=== PATIENT | male | born 1950 | race Caucasian/White ===

== ENCOUNTER 2019-04-06 10:26 | Outpatient (CLI) | payer MEDICARE, OTHER, BC, SELFPAY ==
[2019-04-06 11:12] LABS: Alanine Aminotransferase 23 U/L (4-50); Alkaline Phosphatase 87 U/L (38-126); Aspartate Amino Transferase 28 U/L (17-59); Bilirubin,Total 0.6 mg/dL (0.2-1.3); Blood Urea Nitrogen 14 mg/dL (9-20); Calcium 8.9 mg/dL (8.4-10.2); Carbon Dioxide 28 mmol/L (22-30); Chloride 103 mmol/L (98-107); Cholesterol 117 mg/dL (0-200); Estimated Glomerular Filt Rate 60; Glucose 101 mg/dL (75-110); HDL Direct 42 mg/dL; Potassium 4.2 mmol/L (3.4-5.0); Sodium 139 mmol/L (137-145); Triglycerides 92 mg/dL (<150)
[2019-04-06 11:13] LABS: Hemoglobin A1C 5.7 % (<5.7)
[2019-04-06 11:23] LABS: LDL Cholesterol Direct 66 mg/dL
== END 2019-04-06 10:27 | disposition home or self-care (01) ==
PROVIDERS: PCP Internal Medicine; Visit Provider Nurse Practitioner
DX: E78.2 Mixed hyperlipidemia (principal); R73.03 Prediabetes
CPT/HCPCS: 36415; 80048; 80061; 80076; 83036

== ENCOUNTER 2019-04-08 15:48 | Outpatient (CLI) | payer MEDICARE, OTHER, SELFPAY ==
[2019-04-08 16:35] LABS: Alanine Aminotransferase 21 U/L (4-50); Albumin Level 3.9 g/dL (3.5-5.1); Alkaline Phosphatase 88 U/L (38-126); Aspartate Amino Transferase 24 U/L (17-59); Bilirubin,Total 0.5 mg/dL (0.2-1.3); Blood Urea Nitrogen 11 mg/dL (9-20); Calcium 8.8 mg/dL (8.4-10.2); Carbon Dioxide 23 mmol/L (22-30); Chloride 106 mmol/L (98-107); Estimated Glomerular Filt Rate > 60; Glucose 95 mg/dL (75-110); Potassium 3.9 mmol/L (3.4-5.0); Sodium 138 mmol/L (137-145)
== END 2019-04-08 15:49 | disposition home or self-care (01) ==
PROVIDERS: PCP Internal Medicine; Visit Provider Internal Medicine
DX: I10 Essential (primary) hypertension (principal); Z79.899 Other long term (current) drug therapy
CPT/HCPCS: 36415; 80053

== ENCOUNTER 2019-05-13 13:21 | Inpatient (IN) | payer MEDICARE, OTHER, SELFPAY ==
[2019-05-13] VITALS (11 sets, daily range): BP systolic 121–177; BP diastolic 72–81; PULSE 79–104; RESP 16–24; TEMP 37.2–37.3; O2SAT 95–99; BMI 50.5
--- NOTE | ~2019-05-13 | US_ITS ---
EXAMINATION: US right upper quadrant EXAM DATE: 05/13/2019 15:12 INDICATION: Epigastric pain. TECHNIQUE: Multiple grayscale and Doppler images of the abdomen right upper quadrant were obtained (b y a technologist who performed the scan) and subsequently reviewed. There is no prior study for gail morales. FINDINGS: Pancreas poorly visualized from overlying bowel gas. Liver also suboptimally visualized. The liver h as normal echogenicity and contour. There are no focal liver lesions identified. There is no evide nce of intrahepatic biliary duct dilation. Portal venous flow was seen in the hepatopedal, normal di rection and has normal Doppler waveform. There are 2 anechoic lesions consistent with cysts in the r ight kidney, larger measuring 4.4 cm. No right-sided hydronephrosis. Common bile duct measures 4 mm, which is normal. The gallbladder wall is normal in thickness, with ex pected amount of distention. No sonographic evidence of pericholecystic fluid. There is no cholelit hiases. Technologist performing exam reports patient did not demonstrate sonographic Rodriguez's sign. Please note that this sign is less reliable in patients who have received pain medication. IMPRESSION: 1. Some limitations, but sonographically normal gallbladder. Reviewed, dictated and finalized at location A. TED CIRCUIT BOARD PCB DESIGNER
--- NOTE | ~2019-05-13 | XR_ITS ---
EXAMINATION: XR chest 2V DATE: 05/13/2019 14:26 INDICATION: Midsternal chest pain. TECHNIQUE: PA and lateral views of the chest were obtained. COMPARISON: Chest radiograph dated 05/24/2017 FINDINGS: Eventration along the anterior right hemidiaphragm. No focal airspace opacities, pulmonary edema, ple ural effusion or pneumothorax. The cardiomediastinal silhouette is normal. Median sternotomy wires an d mediastinal surgical clips are seen, likely from prior coronary artery bypass grafting. There are b ridging osteophytes at multiple levels in the spine, consistent with diffuse idiopathic skeletal hype rostosis (DISH). IMPRESSION: 1. No acute cardiopulmonary disease. Reviewed, dictated and finalized at location A. ICIAN ASSISTANT
--- NOTE | 2019-05-13 13:32 | ECG_ITS ---
Measurements Intervals [place] Rate: 98 P: 63 OK: 173 QRS: -27 QRSD: 105 T: 66 QT: 338 QTc: 433 Interpretive Statements SINUS RHYTHM DELAYED PRECORDIAL R/S TRANSITION BORDERLINE ECG Electronically Signed On 05-13-2019 13:39:10 POULTRY FARM MANAGER by Clemente Cortes D.O.
--- NOTE | 2019-05-13 13:57 | ED.CHESTPAIN ---
HPI - Chest Pain General Chief Complaint: Chest Pain Stated Complaint: Chest pain Time Seen by Provider: 05/13/19 13:44 Source: patient Mode of arrival: ambulatory Limitations: no limitations History of Present Illness HPI narrative: A 69 y/o male presents to the ED with c/o diffuse CP. Pt states that today he started to have CP while he was sitting at a restaurant. He notes that the CP gradually came on and felt similar to previous episodes. Pt took nitroglycerine x2 with some relief and describes the CP as a tightness. He adds that he recently started a new medication yesterday and had a HERRING this morning. He called his PCP and they told him the HERRING is expected with the new medication but the CP is not, and the PCP advised him to be evaluated. Pt denies sweats, chills, fever, N/V/D, SOB, and ABD pain. MD complaint: chest pain (Diffuse) Timing of current episode: constant Prior episodes: Yes Onset: during rest Pain location: other (Diffuse) Severity: similar to previous episodes Quality: tightness Relieving factors: nitroglycerin Context: new medications Associated symptoms: other (HERRING) Treatment prior to arrival: nitroglycerin Related Data Home Medications Medication Instructions Recorded Confirmed alprazolam 0.25 mg tablet 0.25 mg PO DAILY 01/31/19 aspirin 81 mg tablet,delayed 81 mg PO DAILY 03/04/19 release calcium carbonate 600 mg calcium 600 mg PO DAILY 03/04/19 (1,500 mg) tablet cyclobenzaprine 10 mg tablet 10 mg PO TID 03/04/19 furosemide 20 mg tablet 20 mg PO QAM 03/04/19 hydrocodone 10 mg-acetaminophen 1 tablet PO Q8H PRN 03/04/19 325 mg tablet ipratropium 0.5 mg-albuterol 3 mg 3 ml INHALATION Q6H PRN 03/04/19 (2.5 mg base)/3 mL nebulization soln multivitamin 1 tablet PO DAILY 03/04/19 omega-3 fatty acids 1,000 mg 1,000 mg PO DAILY 03/04/19 capsule potassium chloride 10 mEq 10 meq PO DAILY 03/04/19 tablet,extended release pseudoephedrine HCl 30 mg tablet 30 mg PO Q4-6H PRN 03/04/19 Allergies Allergy/AdvReac Type Severity Reaction Status Date / Time chloramphenicol Allergy Severe EYE Verified 05/12/19 09:20 irritation nickel Allergy Unknown Unknown Verified 05/12/19 09:20 Review of Systems Review of Systems: All systems reviewed & are unremarkable except as noted in HPI and below Constitutional: Constitutional: Denies chills, Denies fever(s) and Denies other (Sweats) Cardiovascular: Cardiovascular: Reports chest pain (Diffuse) Respiratory: Respiratory: Denies dyspnea Gastrointestinal: Gastrointestinal: Denies abdominal pain, Denies diarrhea, Denies nausea and Denies vomiting Neurologic: Reports headache(s) [facility] Past Medical History Medical History (Updated 05/13/19 @ 18:57 by Hao Lawson MD) Acute recurrent maxillary sinusitis Allergic rhinitis Anxiety and depression Arthritis Chronic low back pain Coronary artery disease involving coronary bypass graft of [place] heart DDD (degenerative disc disease) Dependence on other enabling machines and devices Essential (primary) hypertension Former smoker Gastroesophageal reflux disease Grade II internal hemorrhoids Hearing loss Heart attack Hemorrhoid Hiatal hernia Hypersomnia Hypoxia Insomnia Left knee DJD Mixed hyperlipidemia Morbid obesity On keno terminal operator drug therapy PAULINO (obstructive sleep apnea) Painful total knee replacement, right Pre-diabetes Primary osteoarthritis of left knee ST elevation myocardial infarction (STEMI) Surgical History Surgical History (Updated 05/13/19 @ 14:01 by Elizabeth Mejia) History of bladder surgery History of cardiac catheterization History of spinal surgery History of total right knee replacement Family History Family History Father Family history of diabetes mellitus in first degree relative Family history of heart disease in male family member before age 55 Diabetes mellitus Family history of cardiovascular disease
[2019-05-13 14:06] LABS: Basophils Percent Auto 0.1 % (0.2-1.2); Hematocrit 40.3 % (42.0-52.0); Hemoglobin 13.3 g/dL (14.0-18.0); Immature Granulocyte Percent A 0.6 % (0-0.5); Lymphocytes Absolute Auto 1.06 K/mm3 (0.9-3.2); Mean Corpuscular Hemoglobin 30.6 pg (26-34); Mean Corpuscular Volume 92.9 fl (80-100); Mean Platelet Volume 10.8 fl (7.4-10.4); Monocytes Absolute Auto 0.7 K/mm3 (0.1-0.6); Monocytes Percent Auto 4.2 % (2.6-8.5); Neutrophils Absolute Auto 15.7 K/mm3 (1.3-6.7); Neutrophils Percent Auto 89.1 % (45.5-73.1); Platelet Count Result 261 k/mm3 (150-375); Red Blood Count 4.34 M/mm3 (4.6-6.20); Red Cell Distribution Width 13.5 % (11.5-14.5); White Blood Count 17.6 K/mm3 (4.5-10.0)
[2019-05-13] MEDS: ASPIRIN 81 MG CHEWABLE TABLET 324 MG PO (14:13)
[2019-05-13] MEDS: NITROGLYCERIN OINTMENT 1 INCH DOSE (14:13)
[2019-05-13] MEDS: NITROGLYCERIN SL 0.4 MG TABLET (14:13)
[2019-05-13 14:17] LABS: Blood Urea Nitrogen 14 mg/dL (9-20); Calcium 9.5 mg/dL (8.4-10.2); Carbon Dioxide 23 mmol/L (22-30); Chloride 104 mmol/L (98-107); Estimated CRCL calculation 80 ml/min; Estimated Glomerular Filt Rate > 60; Glucose 232 mg/dL (75-110); Potassium 3.6 mmol/L (3.4-5.0); Sodium 136 mmol/L (137-145)
[2019-05-13 14:20] LABS: Partial Thromboplastin Time 27.8 SECONDS (22.3-36.8); Prothrombin Time 13.2 Seconds (11.1-14.7)
[2019-05-13 14:29] LABS: Troponin I < 0.012 ng/mL (0.000-0.034)
--- NOTE | 2019-05-13 14:53 | PC.NURSE ---
Called lab to add on Hepatic panel to existing blood tubes.
[2019-05-13 15:05] LABS: Alanine Aminotransferase 25 U/L (4-50); Albumin Level 4.3 g/dL (3.5-5.1); Alkaline Phosphatase 103 U/L (38-126); Aspartate Amino Transferase 31 U/L (17-59); Bilirubin,Total 0.6 mg/dL (0.2-1.3)
[2019-05-13 17:20] LABS: Troponin I 0.018 ng/mL (0.000-0.034)
--- NOTE | 2019-05-13 20:19 | PC.NURSE ---
PT DISCHARGED FROM ER TO IMU AT 2014.
[2019-05-13 20:41] LABS: Troponin I 0.031 ng/mL (0.000-0.034)
--- NOTE | 2019-05-13 23:29 | PM.IMHP ---
H&P: HPI History of Present Illness Chief complaint: Chest pain Narrative: Date and time of patient contact: 05/13/2019 at 10:55 p.m. Steffen Martinez is a 69 year old male with a past medical history of coronary artery disease, CHF, and GERD who presented to the ER via private vehicle with chest pain. The patient reports that he was out with his going to add doctor's appointment. He started having some substernal chest pain that radiated up into his neck. The pain also extended up under his left ribs. Pain was similar to when he had had a prior [place] May of 2017. Shortly after the onset of the pain he and his but stopped that a restaurant to eat lunch. The pain became so persistent that the patient broke down and took 1 of his nitroglycerin tablets. After about 15 minutes the pain had improved. The pain was tightness and heaviness in the center of his chest and was moderate in intensity. He had a 2nd episode of chest pain that occurred shortly thereafter that was also relieved with the nitro. The patient had recently started on Cymbalta on at which time he had a frontal headache. The patient thought that maybe the onset of chest pain today was also associated with the Cymbalta since he had a developed a headache for 2 days in a row. He contacted his psychiatrist who informed and that the headache would not be unexpected with Cymbalta but chest pain certainly is not an expected side effect. He was directed to come to the ER for evaluation. He had his drive him to the ER from the restaurant. The patient just had a follow-up appointment with [facility] last week. He denies any recent changes in his cardiac medications. He denies any diaphoresis, sweats, fever or chills. He had not noticed any shortness of breath. He does have increased lower extremity swelling for which he has been taking his p.r.n. Lasix and potassium. Patient had nitropaste placed while in the ER and has not had a recurrence of his chest pain since admission. He had had recent upper respiratory tract infection about 3 weeks ago. He has been using Mucinex on occasion. He reports that his cough from has improved since onset of symptoms. He denies any symptoms of heartburn, reflux, belching, or dyspepsia. He has noticed a gradual decrease in the strength of his urinary stream. He does occasionally have a sensation of incomplete bladder emptying but is usually relieved if he stays in the bathroom and attempts to urinate a 2nd time. He usually wakes up twice a night to urinate. He does have obstructive sleep apnea and is compliant with his auto titrating CPAP. Just a few days ago he had a steroid injection in his left knee. He has gained approximately 10 lb since he retired in December of 2018. Review of Systems Review of Systems: Narrative: Except as documented in the HPI, all other systems were reviewed and are negative. [facility] Past Medical History Medical History (Updated 05/14/19 @ 03:42 by Malika Jade, ) Acute recurrent maxillary sinusitis Allergic rhinitis Anxiety and depression Arthritis Bilateral cataracts Maturing Chronic low back pain With history of L4-L5-L5-S1 surgery Coronary artery disease involving coronary bypass graft of [place] heart DDD (degenerative disc disease) Essential (primary) hypertension Former smoker Gastroesophageal reflux disease Grade II internal hemorrhoids Hearing loss Hemorrhoid Hiatal hernia Hypersomnia Hypoxia Insomnia Left knee DJD Medullary sponge kidney With history of kidney stones in 198906/25/1994 Mixed hyperlipidemia Morbid obesity Obstructive sleep apnea on CPAP Auto titrating CPAP Painful total knee replacement, right Pre-diabetes Primary osteoarthritis of left knee ST elevation myocardial infarction (STEMI) Systolic dysfunction With ejection fraction of 45-50% on cardiac catheterization May 2017 Surgical History Surgical History (Updated 05/14/19 @ 03:31 by Sh
[2019-05-14] VITALS (16 sets, daily range): BP systolic 113–155; BP diastolic 70–84; PULSE 60–100; RESP 16–20; TEMP 36.3–36.9; O2SAT 97–99
[2019-05-14] MEDS: NITROGLYCERIN OINTMENT 1 INCH DOSE TRANSDERM ×5 (00:17→23:37)
[2019-05-14] MEDS: ATORVASTATIN 40 MG TABLET PO ×2 (00:18→21:45)
[2019-05-14] MEDS: METOPROLOL SUCCINATE EXT REL 50 MG TABCR PO ×2 (00:19→11:19)
--- NOTE | 2019-05-14 01:45 | PC.NURSE ---
This patient, Steffen Martinez, was admitted to IMU Room 202-01. Patient/family oriented to hospital policies and general routines including ID bracelet, bed and alarms, visiting hours, pain management, procedures, bathroom and other care routines, personal items, smoking policy, room service/diet, and visiting hours. Valuables list has been completed. Patient/Family are encouraged to report perceived risks to care and to ask questions if they do not understand what they are told or what they should do.
[2019-05-14 04:48] LABS: Basophils Percent Auto 0.1 % (0.2-1.2); Hemoglobin 12.6 g/dL (14.0-18.0); Immature Granulocyte Absolute 0.09 K/mm3 (0.00-0.031); Immature Granulocyte Percent A 0.6 % (0-0.5); Lymphocytes Absolute Auto 1.24 K/mm3 (0.9-3.2); Lymphocytes Percent Auto 7.8 % (18.3-44.2); Mean Corpuscular HGB Conc 32.3 g/dl (32-36); Mean Corpuscular Hemoglobin 30.6 pg (26-34); Mean Corpuscular Volume 94.7 fl (80-100); Mean Platelet Volume 11.5 fl (7.4-10.4); Monocytes Absolute Auto 0.9 K/mm3 (0.1-0.6); Monocytes Percent Auto 5.8 % (2.6-8.5); Neutrophils Absolute Auto 13.6 K/mm3 (1.3-6.7); Neutrophils Percent Auto 85.7 % (45.5-73.1); Platelet Count Result 247 k/mm3 (150-375); Red Blood Count 4.12 M/mm3 (4.6-6.20); Red Cell Distribution Width 14.1 % (11.5-14.5); White Blood Count 15.9 K/mm3 (4.5-10.0)
[2019-05-14 05:10] LABS: Troponin I 0.071 ng/mL (0.000-0.034)
--- NOTE | 2019-05-14 10:08 | PM.CNCAR ---
Assessment and Plan Assessment and plan (1) NSTEMI (non-ST elevated myocardial infarction): Code(s): I21.4 - Non-ST elevation (NSTEMI) myocardial infarction Status: Acute Assessment and Plan: Currently asymptomatic. Elevated troponin with extensive cardiac history with [place] occlusion of the LAD, circumflex with previous stenting to RCA and vein graft to RCA. Aggressive medical therapy and telemetry observation for now. Aspirin, statin, beta-shahnaz, systemic anticoagulation with enoxaparin 150 mg subcutaneous q.12 hours times 48 hours. Discussed invasive versus noninvasive management strategy. Plan for coronary angiography Thursday with Dr. Bloom per patient preference sooner if symptoms refractory and/or patient clinical in stable. Discussed risks, benefits, and alternatives to coronary angiography and plan of care. Patient verbalized understanding and agreed. Further recommendation to follow based on patient's clinical status. Repeat troponin in a.m. with EKG. 2D echocardiogram to assess LV function, regional wall motion and valve pathology with contrast. (2) Coronary artery disease involving coronary bypass graft of [place] heart: Code(s): I25.810 - Atherosclerosis of coronary artery bypass graft(s) without angina pectoris Status: Acute Assessment and Plan: As above. (3) Mixed hyperlipidemia: Code(s): E78.2 - Mixed hyperlipidemia Status: Acute Assessment and Plan: Continue statin therapy, LDL at goal 04/06/2019 at 66. (4) Essential (primary) hypertension: Code(s): I10 - Essential (primary) hypertension Status: Acute Assessment and Plan: Marginal control. Continue current medical therapy. Further adjustment as warranted. (5) PAULINO (obstructive sleep apnea): Code(s): G47.33 - Obstructive sleep apnea (adult) (pediatric) Status: Acute Assessment and Plan: Compliance with CPAP. (6) Morbid obesity: Code(s): E66.01 - Morbid (severe) obesity due to excess calories Status: Acute Assessment and Plan: Left thumb modification, weight loss counseling. History of Present Illness History of Present Illness Consult date/time: Date of consult: 05/14/19 10:08 Requesting physician: Malika Jade, DO Consult reason: chest pain Reason For Visit: Chest pain Narrative: Pleasant 69-year-old male with a complex past medical history including CABG 1998 VALENZUELA to LAD, SVG to OM to 2nd diagonal and 1st diagonal, SVG to right PDA, stent implantation 2000 to RCA, known occlusion of the [place] LAD, circumflex and RCA as well as occlusion of the SVG to RCA graft, occluded graft to circumflex, patent VALENZUELA to LAD, status post 3.5 x 28 mm drug-eluting stent mid RCA 05/2017, June 2017 5.0 x 18 mm drug-eluting stent to the sequential vein graft to the 1st diagonal, 2nd diagonal and left posterolateral branch who states he was in his usual state of health when he developed chest pain radiating to his neck with associated shortness of breath causing him to present to the ER for further evaluation. Patient has a history of hypertension, morbid obesity, obstructive sleep apnea on CPAP, dyslipidemia, chronic pain, and is followed by Dr. Steffen Bloom as an outpatient. Patient reports stable presentation he was with his at her appointment when he noted substernal chest tightness and heaviness radiating to bilateral neck at rest in the waiting room. He has started Cymbalta is a new medication 1 day previously and was not noting an associated headache. Due to the headache and then developed the chest pain he called his psychiatrist office to inform him the headache was expected but chest pain was not and if persistent he should present to the ER for evaluation. Chest pain gradually worsened and while at lunch for which he decided to take a sublingual nitroglycerin. States his symptoms improved and nearly completely resolve for
--- NOTE | 2019-05-14 10:28 | ECHO_ITS ---
Patient Info Name: Steffen Martinez Age: 69 years : 1950 Gender: Male Ht: 67 in Wt: 331 lbs BSA: 2.75 m2 HR: 75 bpm BP: 133 / 84 mmHg Heart Rhythm: Sinus Rhythm Technical Quality: Poor Exam Date: 05/14/2019 10:47 AM Exam Location: [facility] Patient Status: Inpatient Admit Date: 05/13/2019 Staff Ordering Physician: Desmond Arora MD Long Goods Drier: Amparo Winkler RDCS Attending Provider: Harshal Babin MD Referring Physician: Maite TRACEY; Exam Type: CA echo doppler color flow Study Info Complete two-dimensional, color flow and Doppler transthoracic echocardiogram is performed with contrast to opacify the left ventricle and to improve the delineation of the left ventricular endomyocardial boarders. Contrast/Agitated Saline Amount: 2.00 ml Reason for Poor Study: patient body habitus Summary 1. Technically difficult study with limited views. 2. Left ventricular systolic function is normal, estimated at 65-70%. 3. There is mildly increased left ventricular wall thickness. 4. The left ventricular diastolic function is grade II diastolic dysfunction. 5. Left atrial chamber dimension is mildly enlarged. 6. Right atrial chamber dimension is mildly enlarged. 7. The aortic valve is not well visualized. 8. There is no aortic valve stenosis. 9. There is mild aortic valve calcification. 10. There is trace mitral valve regurgitation. 11. The mitral valve annulus is mildly calcified. 12. There is trace tricuspid valve regurgitation. 13. No pulmonary hypertension, estimated pulmonary arterial systolic pressure is 32 mmHg. Left Ventricle Left ventricular chamber dimension is normal. Left ventricular systolic function is normal, estimated at 65-70%. There is mildly increased left ventricular wall thickness. The left ventricular diastolic function is grade II diastolic dysfunction. Technically difficult study with limited views. Right Ventricle Right ventricular chamber dimension is normal. Right ventricular systolic function is normal. Left Atria Left atrial chamber dimension is mildly enlarged. Right Atria Right atrial chamber dimension is mildly enlarged. Aortic Valve The aortic valve is not well visualized. There is no aortic valve stenosis. There is no aortic valve regurgitation. There is mild aortic valve calcification. Pulmonic Valve The pulmonic valve is not well visualized. Mitral Valve The mitral valve has not well visualized. There is trace mitral valve regurgitation. The mitral valve annulus is mildly calcified. Tricuspid Valve The tricuspid valve leaflets are not well visualized. There is trace tricuspid valve regurgitation. No pulmonary hypertension, estimated pulmonary arterial systolic pressure is 32 mmHg. Pericardium/Pleural The pericardium appears not well visualized. There is no pericardial effusion. Inferior Vena Cava Normal inferior vena cava with >50% collapse upon inspiration consistent with normal right atrial pressure, 5 mmHg. Aorta The aortic root size at the sinus of Valsalva is normal. There is mild aortic atherosclerosis. Left Ventricular Outflow Tract Name Value Normal LVOT 2D LVOT D
[2019-05-14] MEDS: ENOXAPARIN 30 MG/0.3 ML SYRINGE SUB-Q ×2 (11:14→21:45)
[2019-05-14] MEDS: FUROSEMIDE 40 MG TABLET PO (11:16)
[2019-05-14] MEDS: lisinopriL 20 MG TABLET 40 MG PO (11:16)
[2019-05-14] MEDS: ASPIRIN 81 MG CHEWABLE TABLET PO (11:17)
[2019-05-14] MEDS: hydrALAZINE HCL 50 MG TABLET PO ×2 (11:17→18:10)
[2019-05-14] MEDS: MULTIVITAMINS THERAPEUTIC TAB (*BKC) 1 TABLET PO (11:17)
[2019-05-14] MEDS: ASPIRIN 81 MG ENTERIC TABLET PO (11:17)
[2019-05-14] MEDS: POTASSIUM CHLORIDE 10 MEQ TABLET.ER 20 MEQ PO (11:18)
[2019-05-14] MEDS: FLUTICASONE PROPIONATE 0.05% NA SPR 16 GM BTL (*BKC) 2 SPRAY NASAL (11:18)
[2019-05-14] MEDS: ENOXAPARIN 120 MG/0.8 ML SYRINGE SUB-Q ×2 (14:31→21:45)
[2019-05-14] MEDS: PANTOPRAZOLE 40 MG TABLET PO (14:32)
--- NOTE | 2019-05-14 16:54 | PM.IMPN ---
Progress Note: A&P Assessment and Plan (1) Chest pain: Qualifiers: Chest pain type: unspecified Qualified Code(s): R07.9 - Chest pain, unspecified Code(s): R07.9 - Chest pain, unspecified Status: Acute Assessment and Plan: Seems somewhat anginal in nature. Pain was relieved with nitroglycerin. The patient's troponins are negative but have slowly climbs while within the normal range. Will repeat troponin level 6 hours from the last level. Will consult Cardiology given the patient's symptoms and cardiac history. [facility]. 05/14/19 16:54 Patient is 69-year-old male morbidly obese with BMI of 51.9 history of coronary artery disease a stent hypertension patient of the chest pain which was waxing and waning patient took 2 nitroglycerin which did help with his pain however it was still persisting patient presented emergency department is found to have non STEMI patient is seen by marketing community liaison recommended the patient will benefit from cardiac catheterization to further evaluate his coronary artery disease. Patient has agreed with plan and is scheduled for cardiac catheterization on Thursday, the patient denies any chest pain shortness of breath palpitation fever or chills, patient is anticoagulated with Lovenox (2) Leukocytosis: Qualifiers: Leukocytosis type: unspecified Qualified Code(s): D72.829 - Elevated white blood cell count, unspecified Code(s): D72.829 - Elevated white blood cell count, unspecified Status: Acute Assessment and Plan: I suspect this is likely secondary to his recent steroid injection in the left knee. Will repeat CBC in a.m.. (3) Essential (primary) hypertension: Code(s): I10 - Essential (primary) hypertension Status: Acute Assessment and Plan: Will continue home regimen and monitor (4) NSTEMI (non-ST elevated myocardial infarction): Code(s): I21.4 - Non-ST elevation (NSTEMI) myocardial infarction Status: Acute Assessment and Plan: Plan is above (5) Morbid obesity: Code(s): E66.01 - Morbid (severe) obesity due to excess calories Status: Acute Assessment and Plan: Patient will benefit from dietary consult Subjective Date/time seen: 05/14/19 16:54 Patient is 69-year-old male morbidly obese with BMI of 51.9 history of coronary artery disease a stent hypertension patient of the chest pain which was waxing and waning patient took 2 nitroglycerin which did help with his pain however it was still persisting patient presented emergency department is found to have non STEMI patient is seen by marketing community liaison recommended the patient will benefit from cardiac catheterization to further evaluate his coronary artery disease. Patient has agreed with plan and is scheduled for cardiac catheterization on Thursday, the patient denies any chest pain shortness of breath palpitation fever or chills, Review of Systems Review of Systems: All systems reviewed & are unremarkable except as noted in HPI and below Exam Narrative: Exam Narrative: Morbidly obese with BMI 51.9 Const: General: comfortable and no acute distress HENMT: General nose exam: Normal nares present Mouth: Yes moist mucous membranes Eyes: General: appearance normal, both eyes and all related structures Sclera: sclerae normal Neck: Neck: supple Resp: Effort & Inspection: normal respiratory effort Auscultation: clear to auscultation bilaterally Cardio: Rate: regular rate Rhythm: regular rhythm GI: Auscultation: normal bowel sounds Other: Morbidly obese Skin: General skin exam: normal color and no rashes or lesions noted Neuro: Speech: normal speech Sensory Exam: normal sensation Extrem: General: normal to inspection Psych: Affect: Anxious affect present Objective Data Vital Signs Vital Signs: Vital Signs - 24 hr 05/13/19 18:13 05/13/19 19:16 05/13/19 19:59 Temperature Pulse
[2019-05-14] MEDS: PERFLUTREN LIPID MICROSPHERES 1.5 ML VIAL DILUTED TO 10 ML TOTAL VOLUME (18:11)
[2019-05-14] MEDS: CYCLOBENZAPRINE HCL 10 MG TABLET PO (21:45)
[2019-05-15] VITALS (17 sets, daily range): BP systolic 101–159; BP diastolic 62–88; PULSE 62–99; RESP 16–22; TEMP 36.3–37.1; O2SAT 94–100
[2019-05-15] MEDS: ALPRAZOLAM 0.25 MG TABLET PO (01:55)
[2019-05-15] MEDS: CYCLOBENZAPRINE HCL 10 MG TABLET PO (01:55)
--- NOTE | 2019-05-15 03:10 | PC.NURSE ---
Daylight Savings Time For Daylight Savings Time Ending in the Fall - Clocks are moved back. For Daylight Savings Time Beginning in the Spring - Clocks are moved ahead. For [facility], the time of change occurs at 0200 hrs. Time is taken from the regulator operator. This entry on the patient's chart recognizes the change in time reflected during documentation. Example: 2 entries for vital signs may be charted for 0200 hrs.
[2019-05-15 05:03] LABS: Hemoglobin 13.3 g/dL (14.0-18.0); Mean Corpuscular HGB Conc 32.4 g/dl (32-36); Mean Corpuscular Hemoglobin 30.7 pg (26-34); Mean Corpuscular Volume 94.7 fl (80-100); Mean Platelet Volume 11.8 fl (7.4-10.4); Platelet Count Result 259 k/mm3 (150-375); Red Blood Count 4.33 M/mm3 (4.6-6.20); Red Cell Distribution Width 14.2 % (11.5-14.5); White Blood Count 12.7 K/mm3 (4.5-10.0)
[2019-05-15 05:20] LABS: Blood Urea Nitrogen 22 mg/dL (9-20); Calcium 9.2 mg/dL (8.4-10.2); Carbon Dioxide 26 mmol/L (22-30); Chloride 102 mmol/L (98-107); Estimated CRCL calculation 75 ml/min; Estimated Glomerular Filt Rate 60; Glucose 164 mg/dL (75-110); Potassium 3.6 mmol/L (3.4-5.0); Sodium 135 mmol/L (137-145)
[2019-05-15 05:37] LABS: Troponin I 0.042 ng/mL (0.000-0.034)
[2019-05-15] MEDS: NITROGLYCERIN OINTMENT 1 INCH DOSE TRANSDERM ×4 (06:21→23:27)
--- NOTE | 2019-05-15 07:00 | ECG_ITS ---
Measurements Intervals [place] Rate: 60 P: 64 [place]: 148 QRS: -24 QRSD: 105 T: 20 QT: 428 QTc: 429 Interpretive Statements SINUS RHYTHM ATRIAL PREMATURE COMPLEX INFERIOR INFARCT, AGE INDETERMINATE ABNORMAL ECG Electronically Signed On 05-15-2019 15:34:54 CDT by Clemente Cortes D.O.
[2019-05-15] MEDS: FLUTICASONE PROPIONATE 0.05% NA SPR 16 GM BTL (*BKC) 2 SPRAY NASAL (10:31)
[2019-05-15] MEDS: ENOXAPARIN 30 MG/0.3 ML SYRINGE SUB-Q (10:32)
[2019-05-15] MEDS: FUROSEMIDE 40 MG TABLET PO (10:32)
[2019-05-15] MEDS: ENOXAPARIN 120 MG/0.8 ML SYRINGE SUB-Q (10:32)
[2019-05-15] MEDS: PANTOPRAZOLE 40 MG TABLET PO (10:32)
[2019-05-15] MEDS: METOPROLOL SUCCINATE EXT REL 50 MG TABCR PO (10:33)
[2019-05-15] MEDS: lisinopriL 20 MG TABLET 40 MG PO (10:33)
[2019-05-15] MEDS: POTASSIUM CHLORIDE 10 MEQ TABLET.ER 20 MEQ PO (10:34)
[2019-05-15] MEDS: MULTIVITAMINS THERAPEUTIC TAB (*BKC) 1 TABLET PO (10:34)
[2019-05-15] MEDS: ASPIRIN 81 MG ENTERIC TABLET PO (10:34)
[2019-05-15] MEDS: hydrALAZINE HCL 50 MG TABLET PO ×2 (10:34→18:16)
--- NOTE | 2019-05-15 12:32 | PM.PNCARD ---
Progress Note: A&P Assessment and Plan (1) NSTEMI (non-ST elevated myocardial infarction): Code(s): I21.4 - Non-ST elevation (NSTEMI) myocardial infarction Status: Acute Assessment and Plan: No recurrent angina. Elevated troponin with downward trend this morning. Extensive cardiac history with [place] occlusion of the LAD, circumflex with previous stenting to RCA and vein graft to RCA. Patient in favor of invasive angiography for clarification of his coronary anatomy. Risks, benefits, and alternatives to coronary angiography discussed in detail. Will plan for coronary angiography in a.m. with Dr. Bloom. Keep NPO after midnight. Patient verbalized understanding and agreed with plan of care. Aspirin, statin, beta-shahnaz, systemic anticoagulation with enoxaparin 150 mg subcutaneous q.12 hours times 48 hours. 2D echo personally reviewed EF 65-70% no clear wall motion abnormality although technically difficult study with limited views. Mild aortic valve calcification without stenosis no other significant valvular pathology (2) Coronary artery disease involving coronary bypass graft of [place] heart: Code(s): I25.810 - Atherosclerosis of coronary artery bypass graft(s) without angina pectoris Status: Acute Assessment and Plan: As above. (3) Mixed hyperlipidemia: Code(s): E78.2 - Mixed hyperlipidemia Status: Acute Assessment and Plan: Continue statin therapy, LDL at goal 04/06/2019 at 66. (4) Essential (primary) hypertension: Code(s): I10 - Essential (primary) hypertension Status: Acute Assessment and Plan: Marginal control. Continue current medical therapy. Further adjustment as warranted. (5) PAULINO (obstructive sleep apnea): Code(s): G47.33 - Obstructive sleep apnea (adult) (pediatric) Status: Acute Assessment and Plan: Compliance with CPAP. Respiratory therapy to assess CPAP function and humidification. (6) Morbid obesity: Code(s): E66.01 - Morbid (severe) obesity due to excess calories Status: Acute Assessment and Plan: Lifestyle modification, weight loss counseling. Subjective Date/time seen: Date of service: 05/15/19 12:32 Follow-up for chest pain, CAD, elevated Trop I Interval history: Complains of sore throat this morning as his CPAP ran out of water and as such was not humidified. Denies recurrent chest pain or significant shortness of breath. Did not sleep well last night due to knee pain. No bleeding. No palpitations. No new issues overnight. Review of Systems Review of Systems: All systems reviewed & are unremarkable except as noted in HPI and below Constitutional: Constitutional: Reports as per HPI, Reports no additional constitutional complaints, Denies excessive sweating, Reports headache(s) and Denies weakness Eyes: Eyes: Reports as per HPI and Reports no additional eye complaints ENT: Reports system reviewed and no additional complaints, except as documented, Reports as per HPI, Reports headache(s) and Reports neck pain Cardiovascular: Cardiovascular: Reports as per HPI, Reports no additional cardiovascular complaints, Denies chest pain, Denies leg edema, Denies lightheadedness, Denies palpitations and Reports dyspnea Respiratory: Respiratory: Reports as per HPI, Reports no additional respiratory complaints, Denies hemoptysis, Denies dyspnea and Denies wheezing Gastrointestinal: Gastrointestinal: Reports as per HPI, Reports no additional gastrointestinal complaints, Denies abdominal pain, Denies melena, Denies hematochezia, Denies diarrhea, Reports nausea, Denies vomiting and Denies hematemesis Genitourinary: Genitourinary: Reports no additional male genitourinary complaints, Reports as per HPI and Denies hematuria Musculoskeletal: Musculoskeletal: Reports no additional musculoskeletal complaints, Reports as per HPI, Denies back pain, Denies arthralgias, Reports joint swelling and Denies n
--- NOTE | 2019-05-15 15:00 | PM.IMPN ---
Progress Note: A&P Assessment and Plan (1) Chest pain: Qualifiers: Chest pain type: unspecified Qualified Code(s): R07.9 - Chest pain, unspecified Code(s): R07.9 - Chest pain, unspecified Status: Acute Assessment and Plan: Seems somewhat anginal in nature. Pain was relieved with nitroglycerin. The patient's troponins are negative but have slowly climbs while within the normal range. Will repeat troponin level 6 hours from the last level. Will consult Cardiology given the patient's symptoms and cardiac history. [facility]. 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 Patient has agreed with plan and is scheduled for cardiac catheterization on Thursday, today again the patient denies any chest pain shortness of breath palpitation fever or chills, he does have a chronic knee pain he is not a candidate for surgical repair will continue pain management, patient is anticoagulated with Lovenox (2) Leukocytosis: Qualifiers: Leukocytosis type: unspecified Qualified Code(s): D72.829 - Elevated white blood cell count, unspecified Code(s): D72.829 - Elevated white blood cell count, unspecified Status: Acute Assessment and Plan: I suspect this is likely secondary to his recent steroid injection in the left knee. Trending down will repeat CBC in a.m.. (3) Essential (primary) hypertension: Code(s): I10 - Essential (primary) hypertension Status: Acute Assessment and Plan: Will continue home regimen and monitor (4) NSTEMI (non-ST elevated myocardial infarction): Code(s): I21.4 - Non-ST elevation (NSTEMI) myocardial infarction Status: Acute Assessment and Plan: Plan is above (5) Morbid obesity: Code(s): E66.01 - Morbid (severe) obesity due to excess calories Status: Acute Assessment and Plan: Patient will benefit from dietary consult Subjective Date/time seen: 05/15/19 15:00 Patient is 69-year-old male morbidly obese with BMI of 51.9 history of coronary artery disease a stent hypertension patient of the chest pain which was waxing and waning patient took 2 nitroglycerin which did help with his pain however it was still persisting patient presented emergency department is found to have non STEMI 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 Patient has agreed with plan and is scheduled for cardiac catheterization on Thursday, today again the patient denies any chest pain shortness of breath palpitation fever or chills, he does have a chronic knee pain he is not a candidate for surgical repair will continue pain management, patient is anticoagulated with Lovenox Review of Systems Review of Systems: All systems reviewed & are unremarkable except as noted in HPI and below Exam Narrative: Exam Narrative: Morbidly obese with BMI 51.9 Const: General: comfortable and no acute distress HENMT: General nose exam: Normal nares present Mouth: Yes moist mucous membranes Eyes: General: appearance normal, both eyes and all related structures Sclera: sclerae normal Neck: Neck: supple Resp: Effort & Inspection: normal respiratory effort Auscultation: clear to auscultation bilaterally Cardio: Rate: regular rate Rhythm: regular rhythm GI: Auscultation: normal bowel sounds Other: Morbidly obese Skin: General skin exam: normal color and no rashes or lesio
[2019-05-15] MEDS: ATORVASTATIN 40 MG TABLET PO (21:31)
[2019-05-16] VITALS (17 sets, daily range): BP systolic 108–130; BP diastolic 61–81; PULSE 68–86; RESP 15–23; TEMP 36.3–36.7; O2SAT 94–100
[2019-05-16 05:06] LABS: Hematocrit 39.1 % (42.0-52.0); Hemoglobin 12.9 g/dL (14.0-18.0); Mean Corpuscular Hemoglobin 30.8 pg (26-34); Mean Corpuscular Volume 93.3 fl (80-100); Mean Platelet Volume 11.6 fl (7.4-10.4); Platelet Count Result 233 k/mm3 (150-375); Red Blood Count 4.19 M/mm3 (4.6-6.20); White Blood Count 9.6 K/mm3 (4.5-10.0)
[2019-05-16 05:17] LABS: Blood Urea Nitrogen 21 mg/dL (9-20); Calcium 9.1 mg/dL (8.4-10.2); Carbon Dioxide 25 mmol/L (22-30); Chloride 102 mmol/L (98-107); Estimated CRCL calculation 74 ml/min; Estimated Glomerular Filt Rate 60; Glucose 111 mg/dL (75-110); Potassium 3.8 mmol/L (3.4-5.0); Sodium 134 mmol/L (137-145)
[2019-05-16] MEDS: NITROGLYCERIN OINTMENT 1 INCH DOSE TRANSDERM (05:37)
--- NOTE | 2019-05-16 09:08 | WPDMODSED ---
Moderate Sedation Note-Pt Data Patient Data Diagnosis: Coronary artery disease with previous CABG and PCI. Chest pain, modest troponin rise Present Complaint: No complaints this morning Procedure to be performed/Plan: Follow-up coronary angiography, vein graft angiography and attempt at CASSIDY angiography Allergies Allergy/AdvReac Type Severity Reaction Status Date / Time chloramphenicol Allergy Severe EYE Verified 05/12/19 09:20 irritation nickel Allergy Unknown Unknown Verified 05/12/19 09:20 Home Medications Medication Instructions Recorded Confirmed Type omeprazole 40 mg capsule,delayed 40 mg PO DAILY #90 cap 01/20/19 05/13/19 Rx release alprazolam 0.25 mg tablet 0.25 mg PO HS PRN 01/31/19 05/13/19 History aspirin 81 mg tablet,delayed 81 mg PO DAILY 03/04/19 05/13/19 History release cyclobenzaprine 10 mg tablet 10 mg PO TID PRN 03/04/19 05/13/19 History furosemide 20 mg tablet 40 mg PO QAM PRN 03/04/19 05/13/19 History ipratropium 0.5 mg-albuterol 3 mg 3 ml INHALATION Q6H PRN 03/04/19 05/13/19 History (2.5 mg base)/3 mL nebulization soln multivitamin 1 tablet PO DAILY 03/04/19 05/13/19 History potassium chloride 10 mEq 20 meq PO DAILY 03/04/19 05/13/19 History tablet,extended release fluticasone propionate 50 2 spray NASAL DAILY #54.6 ml 04/08/19 05/13/19 Rx mcg/actuation nasal spray,suspension hydralazine 50 mg tablet 50 mg PO BID #180 tablet 04/08/19 05/13/19 Rx benazepril 40 mg tablet 40 mg PO DAILY #90 tablet 05/06/19 05/13/19 Rx atorvastatin [Lipitor] 40 mg PO HS 05/13/19 05/13/19 History azelastine 137 mcg NASAL Q12H PRN 05/13/19 05/13/19 History hydrocodone-acetaminophen [Lorcet 1 tablet PO TID PRN 05/13/19 05/13/19 History HD] metoprolol succinate [Toprol XL] 50 mg PO DAILY 05/13/19 05/13/19 History nitroglycerin [Nitrostat] 0.4 mg SUBLINGUAL DIRECTED PRN 05/13/19 05/13/19 History Current Medications: Active Medications Acetaminophen (Tylenol Tablet) 650 mg PO Q4H PRN PRN Reason: Mild Pain (1-3) or Fever Hydrocodone Bitart/Acetaminophen ([place] 10-325 Mg) 1 tab PO TID PRN PRN Reason: Pain (Scale Score 7-10) Last Admin: 05/15/19 23:29 Dose: 1 tab Documented by: Albuterol (Albuterol Sulf Neb 2.5mg/0.5ml) 2.5 mg INHALATION Q6HRT PRN PRN Reason: Shortness Of Breath Alprazolam (Xanax) 0.25 mg PO HS PRN PRN Reason: Anxiety Last Admin: 05/15/19 01:55 Dose: 0.25 mg Documented by: Aspirin (Aspirin Ec) 81 mg PO DAILY [facility] Last Admin: 05/15/19 10:34 Dose: 81 mg Documented by: Atorvastatin Calcium (Lipitor) 40 mg PO HS [facility] Last Admin: 05/15/19 21:31 Dose: 40 mg Documented by: Azelastine HCl (Astelin) 1 spray NASAL Q12H PRN PRN Reason: Congestion Cyclobenzaprine HCl (Flexeril) 10 mg PO TID PRN PRN Reason: Muscle Spasm Last Admin: 05/15/19 01:55 Dose: 10 mg Documented by: Enoxaparin Sodium (Lovenox) 40 mg SUB-Q DAILY [facility] Fluticasone Propionate (Flonase 0.05% Nasal [place]) 2 spray NASAL DAILY [facility] Last Admin: 05/15/19 10:31 Dose: 2 spray Documented by: Furosemide (Lasix Tablet) 40 mg PO DAILY [facility] Last Admin: 05/15/19 10:32 Dose: 40 mg Documented by: Hydralazine HCl (Apresoline Tablet) 50 mg PO BIDWM [facility] Last Admin: 05/15/19 18:16 Dose: 50 mg Documented by: Ipratropium [place] (Atrovent Neb) 0.5 mg INHALATION Q6HRT PRN PRN Reason: Shortness Of Breath Lisinopril (Prinivil) 40 mg PO DAILY [facility] Stop: 06/13/19 09:01 Last Admin: 05/15/19 10:33 Dose: 40 mg Documented by: Metoprolol Succinate (Toprol Xl) 50 mg PO DAILY [facility] Last Admin: 05/15/19 10:33 Dose: 50 mg Documented by: Multivitamins Therapeutic (Multivitamins Therapeutic(*Bkc) 1 tablet PO DAILY [facility] Last Admin: 05/15/19 10:34 Dose: 1 tablet Documented by: Nitroglycerin (Nitrostat Subl 0.4 Mg (1/150)) 0.4 mg SUBLINGUAL Q5MIN PRN PRN Reason: Chest Pain Nitroglycerin (Nitroglycerin Oint 1 Inch) 1 inch TRANSDERM Q6HR [facility] Last Admin: 05/16/19 05:37 Dose: 1 inch Documented by:
[2019-05-16] MEDS: lisinopriL 20 MG TABLET 40 MG PO (09:19)
[2019-05-16] MEDS: METOPROLOL SUCCINATE EXT REL 50 MG TABCR PO (09:20)
[2019-05-16] MEDS: PANTOPRAZOLE 40 MG TABLET PO (09:20)
[2019-05-16] MEDS: MULTIVITAMINS THERAPEUTIC TAB (*BKC) 1 TABLET PO (09:20)
[2019-05-16] MEDS: hydrALAZINE HCL 50 MG TABLET PO (09:20)
[2019-05-16] MEDS: ASPIRIN 81 MG ENTERIC TABLET PO (09:20)
[2019-05-16] MEDS: FLUTICASONE PROPIONATE 0.05% NA SPR 16 GM BTL (*BKC) 2 SPRAY NASAL (09:21)
--- NOTE | 2019-05-16 09:40 | PM.PNCARD ---
Progress Note: A&P Additional Plan 69-year-old white male with: Extensive three-vessel coronary disease CABG in 1997 and emergent PCI of the right coronary artery in 2018 followed by staged PCI of a low very large caliber vein graft to the circumflex vessels about 1 month after that. Known occlusion of the RCA vein graft Presumed patency of the VALENZUELA graft to the LAD although extreme tortuosity of his subclavian vessel resulted in inability to inject to this artery for angiography during the Emergency in 2018. Long discussion with the patient and his family about the decision to bring him back to the medical laboratory technicians today. There is nothing wrong with that decision of course but this gentleman clearly has extensive three-vessel coronary disease along with the interventions described above his distal right coronary is small, diffusely diseased as are the OM branches that are subtended by the large remaining vein graft. In this setting it needs to be understood that he could always have anginal-type chest pain and episodes like this to not always have to trigger a follow-up angiogram. Since there has been a modest troponin rise however I will bring him back to the medical laboratory technicians today to re-evaluate his CAD and graft disease. Time Spent With Patient Time with patient: 15 - 25 minutes Subjective Date/time seen: Date of service: 05/16/19 09:40 Interval history: Follow-up visit for 69-year-old man with coronary disease, chest pain and modest troponin rise Patient asymptomatic this morning Dr. Arora's note from the weekend was reviewed in its entirety Exam Const: General: comfortable and no acute distress Other: Morbidly obese gentleman in no distress HENMT: Mouth: Yes moist mucous membranes Eyes: Sclera: sclerae normal Pupils: Equal, round and reactive pupils present Neck: Neck: supple and no JVD Other: Normal carotid upstrokes no bruits Resp: Effort & Inspection: normal respiratory effort Auscultation: clear to auscultation bilaterally Other: Breath sounds are clear but distant Cardio: Rate: regular rate Rhythm: regular rhythm Other: PMI not palpable because of obesity GI: Auscultation: normal bowel sounds Neuro: Cognition (Neuro): normal cognition Extrem: Other: Morbidly obese otherwise negative Objective Data Vital Signs Vital Signs: Vital Signs - 24 hr 05/15/19 10:00 05/15/19 12:00 05/15/19 14:00 Temperature 36.5 C Pulse Rate 68 68 83 Respiratory Rate 16 Blood Pressure 123/65 Pulse Oximetry 98 05/15/19 16:00 05/15/19 18:00 05/15/19 20:00 Temperature 36.4 C Pulse Rate 68 76 83 Respiratory Rate 20 Blood Pressure 117/71 Pulse Oximetry 100 05/15/19 20:35 05/15/19 20:58 05/15/19 21:55 Temperature 37.1 C Pulse Rate 90 74 99 Respiratory Rate 20 Blood Pressure 118/71 Pulse Oximetry 98 95 05/15/19 23:40 05/16/19 00:00 05/16/19 01:35 Temperature 36.9 C Pulse Rate 75 86 82 Respiratory Rate 22 H Blood Pressure 159/88 H Pulse Oximetry 99 98 05/16/19 01:47 05/16/19 03:58 05/16/19 04:06 Temperature 36.7 C Pulse Rate 80 77 72 Respiratory Rate 20 Blood Pressure 116/65 Pulse Oximetry 98 05/16/19 06:00 05/16/19 07:49 05/16/19 09:20 Temperature 36.6 C Pulse Rate 70 70 75 Respiratory Rate 23 H Blood Pressure 110/61 Pulse Oximetry 96 Intake/Output Intake/Output: Intake & Output 05/13/19 05/14/19 05/15/19 05/16/19 22:59 22:59 23:59 23:59 Intake Total Output Total 250 Balance -250 Meds/Results Medications: Active Medications Generic Name Dose Route Start Last Admin Trade Name Freq PRN Reason Stop Dose Admin Acetaminophen 650 mg 05/13/19 18:58 Tylenol Tablet PO Q4H PRN Mild Pain (1-3) or Fever Hydrocodone Bitart/Acetaminophen 1 tab 05/13/19 22:50 05/15/19 23:29 [place] 10-325 Mg PO 1 tab TID PRN Administration Pain (Scale Score 7-10) Albuterol 2.5 mg 05/13/19 23:03 Albuterol Sulf Ne
--- NOTE | 2019-05-16 11:33 | WPDCARDPROC ---
Cardiac Cath Procedure Note Date of procedure:: 05/16/19 Performing physician:: Steffen Bloom MD Indication:: Chest pain, modest troponin elevation /ACS Brief clinical history:: this is a 69-year-old man with a longstanding history of coronary disease. He underwent surgical revascularization in 1997. He is known to have a [place] graft to an occluded LAD, a sequential saphenous vein graft to 2 marginal branches of circumflex as well as an occluded vein graft to the RCA. In 2018 he underwent emergent PCI of a total occlusion of the RCA in the setting of [place]elevation [place]. In a staged fashion he underwent PCI of the 0 very large caliber vein graft to the circumflex following he now enters the hospital with an episode of chest pain yesterday and of very modest rise in troponin. ECG shows no changes of acute ischemia / injury. Procedure Procedure performed:: Coronary angiography, vein graft angiography, CASSIDY angiography. Angio-Seal to right femoral artery Sedation/Medication given:: Fentanyl 50 mg, Versed 2 mg. Case start time 11:00 a.m. case in time 1125 a.m. sedation provided by Didi Ochoa RN, trained observer Access site:: right femoral artery Estimated blood loss:: 20-30 cc Procedure note:: patient brought to the cardiac catheterization lab in the postabsorptive state the right femoral triangle was prepped and draped in the usual fashion. Due to the patient's morbid obesity puncture femoral artery was a bit challenging. Following puncturing the vessel a 6 [place] vascular sheath was placed. Left heart catheterization was then carried out I utilized a 5 [place] FL4 catheter to engage inject the left coronary artery. Following this a 5 [place] JR4 catheter was used to engage and inject the right coronary artery as well as the vein graft to the circumflex. After this I used the JR4 catheter to engage the left subclavian artery and then a long [place] wire was used to traverse the very tortuous subclavian artery and advanced the wire into the left arm. I then exchanged over this wire for a 6 [place] CASSIDY catheter and used this to inject the [place]EN[place]UELA graft to the LAD. After this the case was terminated . Angio-Seal device was deployed at the arterial puncture site after a femoral angiogram was done through the sheath. Patient left the cath lab tech in stable condition there were no signs of any complications and there was no evidence of a groin hematoma. Findings:: Central aortic pressure was 128/78. The left ventricle was not entered during this case the left main coronary is widely patent the LAD is a medium caliber vessel which gives rise to a small proximal septal perforating complex as well as a small proximal diagonal branch. After this the LAD is chronically occluded and unchanged in appearance compared to 2018. The circumflex is a medium caliber vessel which is occluded proximally prior to the origin of any marginal branches. Angiographically this is unchanged compared to 2018 right coronary is medium in caliber dominant to the posterior circulation. The stent material in the proximal and midportion of the RCA is visualize in this area the vessel remains widely patent. the RPL branches are patent and relatively small in caliber. The are PDA appears to be occluded angiographically this is unchanged in comparison to go 18. Saphenous vein graft to the RCA is known to be totally closed and was not injected during this case saphenous vein graft to the circumflex was engaged and injected using the JR4 catheter. It is a large patulous segment of vein graft to proximal and distal OM branches. A high-grade proximal lesion which was seen in 2018 is now obliterated with visible stent material in this segment of the graft from to move 18. There was no loss of lumen in this segment. There is modest stenosis of the proximal anastomosis but no more than 20-30% angiographically. Again this is unchanged compared to 2018. [place]
--- NOTE | 2019-05-16 17:36 | PM.DS ---
DS: Diagnosis Admitting Diagnosis Admitting Diagnosis: Chest pain, unspecified Discharge Diagnosis (1) Chest pain: Qualifiers: Chest pain type: unspecified Qualified Code(s): R07.9 - Chest pain, unspecified Code(s): R07.9 - Chest pain, unspecified Status: Acute Assessment and Plan: Seems somewhat anginal in nature. Pain was relieved with nitroglycerin. The patient's troponins are negative but have slowly climbs while within the normal range. Will repeat troponin level 6 hours from the last level. Will consult Cardiology given the patient's symptoms and cardiac history. [facility]. 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 Patient has agreed with plan and is scheduled for cardiac catheterization on Thursday, today again the patient denies any chest pain shortness of breath palpitation fever or chills, he does have a chronic knee pain he is not a candidate for surgical repair will continue pain management, patient is anticoagulated with Lovenox (2) Leukocytosis: Qualifiers: Leukocytosis type: unspecified Qualified Code(s): D72.829 - Elevated white blood cell count, unspecified Code(s): D72.829 - Elevated white blood cell count, unspecified Status: Acute Assessment and Plan: I suspect this is likely secondary to his recent steroid injection in the left knee. Trending down will repeat CBC in a.m.. (3) Essential (primary) hypertension: Code(s): I10 - Essential (primary) hypertension Status: Acute Assessment and Plan: Will continue home regimen and monitor (4) NSTEMI (non-ST elevated myocardial infarction): Code(s): I21.4 - Non-ST elevation (NSTEMI) myocardial infarction Status: Acute Assessment and Plan: Plan is above (5) Morbid obesity: Code(s): E66.01 - Morbid (severe) obesity due to excess calories Status: Acute Assessment and Plan: Patient will benefit from dietary consult DS: Summary Hospital Course Reason for hospitalization: Steffen Martinez is a 69 year old male with a past medical history of coronary artery disease, CHF, and GERD who presented to the ER via private vehicle with chest pain. The patient reports that he was out with his going to add doctor's appointment. He started having some substernal chest pain that radiated up into his neck. The pain also extended up under his left ribs. Pain was similar to when he had had a prior CO May of 2017. Shortly after the onset of the pain he and his but stopped that a restaurant to eat lunch. The pain became so persistent that the patient broke down and took 1 of his nitroglycerin tablets. After about 15 minutes the pain had improved. The pain was tightness and heaviness in the center of his chest and was moderate in intensity. He had a 2nd episode of chest pain that occurred shortly thereafter that was also relieved with the nitro. The patient had recently started on Cymbalta on at which time he had a frontal headache. The patient thought that maybe the onset of chest pain today was also associated with the Cymbalta since he had a developed a headache for 2 days in a row. He contacted his psychiatrist who informed and that the headache would not be unexpected with Cymbalta but chest pain certainly is not an expected side effect. He was directed to come to the ER for evaluation. He had his drive him to the ER from the restaurant. The patient just had a fol
== END 2019-05-16 17:00 | disposition home or self-care (01) | DRG 281 ==
LOC: ANHED 19:03 → ANHIMU 19:50
PROVIDERS: Emergency Medicine; Internal Medicine; Specialist; Admitting Provider Family Medicine; Emergency Provider Emergency Medicine; PCP Internal Medicine; Visit Provider Family Medicine
PROC: 4A023N7 Measurement of Cardiac Sampling and Pressure, Left Heart, Percutaneous Approach (ICD-10-PCS; principal; 2019-05-16 11:00)
PROC: 4A023N7 Measurement of Cardiac Sampling and Pressure, Left Heart, Percutaneous Approach (ICD-10-PCS; 2019-05-16 11:00)
DX: I21.4 Non-ST elevation (NSTEMI) myocardial infarction (principal); I25.810 Atherosclerosis of coronary artery bypass graft(s) without angina pectoris; Z68.43 Body mass index [BMI] 50.0-59.9, adult; I25.82 Chronic total occlusion of coronary artery; D72.829 Elevated white blood cell count, unspecified; Z96.651 Presence of right artificial knee joint; G47.33 Obstructive sleep apnea (adult) (pediatric); M17.12 Unilateral primary osteoarthritis, left knee; E66.01 Morbid (severe) obesity due to excess calories; K21.9 Gastro-esophageal reflux disease without esophagitis; F41.8 Other specified anxiety disorders; K46.9 Unspecified abdominal hernia without obstruction or gangrene; E78.2 Mixed hyperlipidemia; I25.2 Old myocardial infarction; Z87.891 Personal history of nicotine dependence; Z95.5 Presence of coronary angioplasty implant and graft
CPT/HCPCS: 36415; 71046; 76705; 80048; 80076; 83735; 84484; 85025; 85027; 85610; 85730; 93005; 93306; 93455; 96372; 99285; A9270; C1760; C1769; C1887; C1894; G0269; G0378; J1644; J1650; J2250; J3010; J7040; Q9957

== ENCOUNTER 2019-06-27 20:22 | Emergency (ER) | payer MEDICARE, OTHER, SELFPAY ==
--- NOTE | ~2019-06-27 | XR_ITS ---
EXAMINATION: XR abdomen/kub 1V INDICATION: Left ureteral stone TECHNIQUE: Supine views of the abdomen were obtained on 2 radiographs. COMPARISON: CT from today FINDINGS: There is a 6 mm stone in the left proximal ureter projecting at the level of the L4 vertebr al body. A 1.3 cm stone is present in the left kidney lower pole. The bowel gas pattern is normal. Th ere are changes of anterior and posterior fusion procedure from L4 through S1. IMPRESSION: 1. 6 mm stone in the left proximal ureter. 2. Left nephrolithiasis. Reviewed, dictated and finalized at location A.
--- NOTE | ~2019-06-27 | CT_ITS ---
EXAMINATION: CT abdomen pelvis wo con DATE: 06/27/2019 20:52 INDICATION: Left flank pain TECHNIQUE: Computed tomography (CT) of the abdomen and pelvis was performed without intravenous contr ast. The dose-length product (DLP) was 1326.74 mGy-cm. Automated exposure control and iterative recon struction technique were employed. COMPARISON: None FINDINGS: The lung bases are clear. The heart size is normal. There is a small sliding hiatal hernia. The liver, spleen, pancreas, gallbladder, and adrenal glands are normal. There is severe atrophy of the right kidney which contains multiple cysts. There is an 8 mm stone of the left proximal ureter wh ich causes moderate left hydronephrosis. Nonobstructing stones of the left kidney measure up to 12 mm . There is mild retroperitoneal and left perinephric lymphadenopathy. There is no free intraperitonea l gas or evidence of bowel obstruction. There are changes of anterior and posterior fusion from L4 th rough S1. IMPRESSION: 1. 8 mm stone of the left proximal ureter causing moderate left hydronephrosis. 2. Nonobstructing left nephrolithiasis. 3. Mild retroperitoneal and left perinephric lymphadenopathy, likely reactive. Reviewed, dictated and finalized at location A.
[2019-06-27 20:24] VITALS: BP 218/98; PULSE 79; RESP 18; TEMP 36.6; O2SAT 99
--- NOTE | 2019-06-27 20:31 | ED.MALEGU ---
HPI - Male Genitourinary General Chief complaint: Urogenital-Male Stated complaint: flank pain Time Seen by Provider: 06/27/19 20:23 History of Present Illness HPI Narrative: Left flank pain Since earlier today. Radiates to LLQ. Associated with nausea. No exacerbating or alleviating factors. No Fever. Tried Galt, which he is on for chronic pain without relief. Feels the same as previous kidney stones. Related Data Home Medications Medication Instructions Recorded Confirmed alprazolam 0.25 mg tablet 0.25 mg PO HS PRN 01/31/19 05/13/19 aspirin 81 mg tablet,delayed 81 mg PO DAILY 03/04/19 05/13/19 release cyclobenzaprine 10 mg tablet 10 mg PO TID PRN 03/04/19 05/13/19 furosemide 20 mg tablet 40 mg PO QAM PRN 03/04/19 05/13/19 ipratropium 0.5 mg-albuterol 3 mg 3 ml INHALATION Q6H PRN 03/04/19 05/13/19 (2.5 mg base)/3 mL nebulization soln multivitamin 1 tablet PO DAILY 03/04/19 05/13/19 potassium chloride 10 mEq 20 meq PO DAILY 03/04/19 05/13/19 tablet,extended release atorvastatin [Lipitor] 40 mg PO HS 05/13/19 05/13/19 azelastine 137 mcg NASAL Q12H PRN 05/13/19 05/13/19 hydrocodone-acetaminophen [Lorcet 1 tablet PO TID PRN 05/13/19 05/13/19 HD] metoprolol succinate [Toprol XL] 50 mg PO DAILY 05/13/19 05/13/19 nitroglycerin [Nitrostat] 0.4 mg SUBLINGUAL DIRECTED PRN 05/13/19 05/13/19 Allergies Allergy/AdvReac Type Severity Reaction Status Date / Time chloramphenicol Allergy Severe EYE Verified 05/12/19 09:20 irritation nickel Allergy Unknown Unknown Verified 05/12/19 09:20 Review of Systems Review of Systems: All systems reviewed & are unremarkable except as noted in HPI and below Constitutional: Constitutional: Denies fever(s) ENT: Denies dizziness Cardiovascular: Cardiovascular: Denies chest pain Respiratory: Respiratory: Denies dyspnea Gastrointestinal: Gastrointestinal: Reports abdominal pain, Denies constipation, Denies diarrhea, Reports nausea and Denies vomiting Genitourinary: Genitourinary: Denies hematuria and Denies dysuria Musculoskeletal: Musculoskeletal: Reports back pain Neurologic: Denies dizziness and Denies weakness Endocrine: Endocrine: Denies polyuria [facility] Past Medical History Medical History Acute recurrent maxillary sinusitis Allergic rhinitis Anxiety and depression Arthritis Bilateral cataracts Maturing Chronic low back pain With history of L4-L5-L5-S1 surgery Coronary artery disease involving coronary bypass graft of [place] heart DDD (degenerative disc disease) Essential (primary) hypertension Former smoker Gastroesophageal reflux disease Grade II internal hemorrhoids Hearing loss Hemorrhoid Hiatal hernia Hypersomnia Hypoxia Insomnia Left knee DJD Medullary sponge kidney With history of kidney stones in 198906/25/1994 Mixed hyperlipidemia Morbid obesity Obstructive sleep apnea on CPAP Auto titrating CPAP Painful total knee replacement, right Pre-diabetes Primary osteoarthritis of left knee ST elevation myocardial infarction (STEMI) Systolic dysfunction With ejection fraction of 45-50% on cardiac catheterization May 2017 Surgical History Surgical History History of cardiac catheterization Cardiac catheterization with stent placement 2000, may 2017 with stent to the RCA due to complete occlusion stented at [facility], high-grade stenosis 80% occlusion to saphenous vein graft to the circ that was stented June 2017 at [facility] History of cystoscopy With stone retrieval in 1994 History of spinal surgery L4-L5 and L5-S1 PLIF 2013 History of total right knee replacement 2010 Hx of CABG History of 5 vessel CABG in 1997 Family History Family History Father Diabetes mellitus Multiple myeloma Hypertension Heart valve replaced Heart disease Mother
[2019-06-27 20:44] LABS: Basophils Percent Auto 0.3 % (0.2-1.2); Eosinophils Percent Auto 0.3 % (0-4.4); Hematocrit 37.1 % (42.0-52.0); Hemoglobin 12.2 g/dL (14.0-18.0); Immature Granulocyte Absolute 0.04 K/mm3 (0.00-0.031); Immature Granulocyte Percent A 0.4 % (0-0.5); Lymphocytes Absolute Auto 0.81 K/mm3 (0.9-3.2); Lymphocytes Percent Auto 7.6 % (18.3-44.2); Mean Corpuscular HGB Conc 32.9 g/dl (32-36); Mean Corpuscular Hemoglobin 31.1 pg (26-34); Mean Corpuscular Volume 94.6 fl (80-100); Mean Platelet Volume 10.8 fl (7.4-10.4); Monocytes Absolute Auto 0.7 K/mm3 (0.1-0.6); Monocytes Percent Auto 6.9 % (2.6-8.5); Neutrophils Percent Auto 84.5 % (45.5-73.1); Platelet Count Result 237 k/mm3 (150-375); Red Blood Count 3.92 M/mm3 (4.6-6.20); Red Cell Distribution Width 13.3 % (11.5-14.5); White Blood Count 10.6 K/mm3 (4.5-10.0)
[2019-06-27 20:56] LABS: Alanine Aminotransferase 20 U/L (4-50); Albumin Level 4.1 g/dL (3.5-5.1); Alkaline Phosphatase 98 U/L (38-126); Aspartate Amino Transferase 32 U/L (17-59); Bilirubin,Total 0.8 mg/dL (0.2-1.3); Blood Urea Nitrogen 12 mg/dL (9-20); Calcium 8.9 mg/dL (8.4-10.2); Carbon Dioxide 25 mmol/L (22-30); Chloride 102 mmol/L (98-107); Estimated CRCL calculation 46 ml/min; Estimated Glomerular Filt Rate 33; Glucose 124 mg/dL (75-110); Lipase 58 U/L (23-300); Potassium 3.7 mmol/L (3.4-5.0); Sodium 136 mmol/L (137-145)
[2019-06-27] MEDS: ONDANSETRON INJ 4 MG/2 ML VIAL IV PUSH (20:59)
[2019-06-27] MEDS: SODIUM CHLORIDE 0.9% IV 1,000 ML 999 ML IV CONT (20:59)
[2019-06-27 21:02] VITALS: BP 178/95; PULSE 78; RESP 20
[2019-06-27 22:10] LABS: Add Urine Microscopic? YES; Appearance Urine Clear (Clear); Bilirubin Urine Negative (Negative); Blood Urine 2+ (Negative); Color Urine Yellow (Yellow); Glucose Urine UA Negative (Negative); Ketones Urine Negative (Negative); Leukocyte Esterase Ur Negative LEU/UL (Negative); Mucus Urine Rare /lpf; Nitrate Urine Negative (Negative); Protein Urine 1+ mg/dL (Negative); RBC Urine 21-50 /hpf (0-2); Specific Grav Ur 1.012 (1.001-1.035); Urobilinogen Urine Negative mg/dL (<2.0); WBC Urine 0-3 /hpf
[2019-06-27] MEDS: MORPHINE SULFATE 4 MG/ML INJ (22:15)
--- NOTE | 2019-06-27 23:27 | PC.NURSE ---
report taken from brianne salinas at this time.
[2019-06-27 23:32] VITALS: BP 125/61; PULSE 74; RESP 18; O2SAT 98
[2019-06-28 00:27] VITALS: BP 138/87; PULSE 76; RESP 18; TEMP 36.8; O2SAT 100
== END 2019-06-28 00:28 | disposition home or self-care (01) ==
PROVIDERS: Emergency Provider Emergency Medicine; PCP Internal Medicine
DX: N13.2 Hydronephrosis with renal and ureteral calculous obstruction (principal); F41.9 Anxiety disorder, unspecified; F32.9 Major depressive disorder, single episode, unspecified; M19.90 Unspecified osteoarthritis, unspecified site; I25.10 Atherosclerotic heart disease of native coronary artery without angina pectoris; Z95.1 Presence of aortocoronary bypass graft; I10 Essential (primary) hypertension; Z87.891 Personal history of nicotine dependence; K21.9 Gastro-esophageal reflux disease without esophagitis; Q61.5 Medullary cystic kidney; E78.2 Mixed hyperlipidemia; Z87.442 Personal history of urinary calculi; G47.33 Obstructive sleep apnea (adult) (pediatric); Z96.651 Presence of right artificial knee joint; R73.03 Prediabetes; I25.2 Old myocardial infarction; Z95.5 Presence of coronary angioplasty implant and graft
CPT/HCPCS: 36415; 74018; 74176; 80053; 81001; 83690; 85025; 96361; 96374; 96375; 99284; J2270; J2405; J3010; J7030

== ENCOUNTER 2019-07-01 00:59 | Day surgery (SDC) | payer MEDICARE, OTHER, SELFPAY ==
[2019-06-29 17:42] VITALS: BMI 50.2
[2019-07-01] VITALS (7 sets, daily range): BP systolic 131–155; BP diastolic 57–91; PULSE 68–89; RESP 13–20; TEMP 36.8–37; O2SAT 96–100
--- NOTE | ~2019-07-01 | XR_ITS ---
EXAMINATION: XR abdomen/kub 1V DATE: 07/01/2019 07:05 INDICATION: Left-sided lithotripsy TECHNIQUE: A supine view of the abdomen on 2 radiographs was obtained. COMPARISON: KUB and CT dated 06/27/2019 FINDINGS: No interval change in the 8 mm stone in the proximal left ureter. Also unchanged are 3 additional sto collin in the lower pole of the left kidney, the largest measuring 12 mm and the 2 smaller measuring iain roximately 2-3 mm. No right-sided urolithiasis. Normal bowel gas pattern. L4-S1 combined instrumented anterior and posterior spinal fusion. IMPRESSION: 1. Unchanged left urolithiasis including 8 mm stone in the proximal left ureter. Reviewed, dictated and finalized at location A. IMPRESSION: 1. Unchanged left urolithiasis including 8 mm stone in the proximal left ureter .
--- NOTE | 2019-07-01 07:20 | WPDANESEPPF ---
Anes - Initial Pre Proc Eval Procedure: Operation Date: 07/01/19 08:15 Proposed Procedures p Left Ureteral Extracorporeal Shock Wave Lithotripsy, Possible Left Ureteroscopy, Possible Left Retrograde Pyelogram, Possible Left Stent Placement - Elliot Ybarra MD s Possible Holmium Laser Procedure - Elliot Ybarra MD Date/Time: 07/01/19 07:20 Surgeon: Elliot Ybarra MD Pre Op Diagnosis: Left Ureteral Stone Patient Data Age: 69 Gender: M Height: 5 ft 7 in Weight: 149 kg Last Vital Signs Temp 98.6 F 07/01/19 07:07 Pulse 70 07/01/19 07:07 Resp 20 07/01/19 07:07 BP 136/57 L 07/01/19 07:07 Pulse Ox 100 07/01/19 07:07 Allergies Allergy/AdvReac Type Severity Reaction Status Date / Time chloramphenicol Allergy Severe EYE Verified 06/29/19 17:14 irritation nickel Allergy Unknown Unknown Verified 06/29/19 17:14 Home Medications Medication Instructions Recorded Confirmed Type alprazolam 0.25 mg tablet 0.25 mg PO HS PRN 01/31/19 06/29/19 History aspirin 81 mg tablet,delayed 81 mg PO DAILY 03/04/19 06/29/19 History release cyclobenzaprine 10 mg tablet 10 mg PO PRN PRN 03/04/19 06/29/19 History furosemide 20 mg tablet 40 mg PO QAM PRN 03/04/19 06/29/19 History ipratropium 0.5 mg-albuterol 3 mg 3 ml INHALATION Q6H PRN 03/04/19 06/29/19 History (2.5 mg base)/3 mL nebulization soln multivitamin 1 tablet PO DAILY 03/04/19 06/29/19 History potassium chloride 10 mEq 20 meq PO DAILY 03/04/19 06/29/19 History tablet,extended release fluticasone propionate 50 2 spray NASAL DAILY #54.6 ml 04/08/19 06/29/19 Rx mcg/actuation nasal spray,suspension benazepril 40 mg tablet 40 mg PO DAILY #90 tablet 05/06/19 06/29/19 Rx atorvastatin [Lipitor] 40 mg PO HS 05/13/19 06/29/19 History azelastine 137 mcg NASAL Q12H PRN 05/13/19 06/29/19 History hydrocodone-acetaminophen [Lorcet 1 tablet PO TID PRN 05/13/19 06/29/19 History HD] metoprolol succinate [Toprol XL] 50 mg PO DAILY 05/13/19 06/29/19 History nitroglycerin [Nitrostat] 0.4 mg SUBLINGUAL DIRECTED PRN 05/13/19 06/29/19 History hydralazine 50 mg PO DAILY 06/29/19 06/29/19 History omeprazole 40 mg PO DAILY 06/29/19 06/29/19 History Patient hx anesthesia problems: none Family hx anesthesia problems: none PMFSH Social History Social History Social History: Patient is a former smoker. He smoke trans time his 21 until he was 47. He smoked between 1-2 packs cigarettes per day prior to quitting. He has at least a 26 pack per year smoking history. Primary care physician: Dr. Rikki Garibay Code status: Full code Smoking packs per day: 1.5 Smoking cigarettes per day: 30.0 Years smoked: 10 Smoking pack-years: 15.00 Smoking status: Former smoker Tobacco type: cigarettes Second hand tobacco smoke exposure: No Smoking end date: 08/26/97 Additional smoking assessment comments: He quit smoking when he had his CABG. Alcohol intake: current Drinks per week: 0 Substance use: never Additional living arrangements comments: He lives at home with his of 37 years. 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 Gender identity (if verbalized by the patient): Male Spiritual care concerns: No Anes - Eval Final PreProcedure Day of Procedure 07/01/19 07:20 Patient weight: super morbidly obese Heart: regular rate and rhythm and murmur Lungs: clear to auscultation Airway: Mallampati scale class III Neurological: alert and oriented Last oral intake: >/= 8 hours ASA classification: IV Emergent: no Anesthetic plan: proceed Anesthesia type and monitoring: general LMA and standard monitoring Informed Consent: The patient's anesthetic plan and its attendant risks and benefits were discussed with the patient/family/POA. Questions were solicited and answers pr
--- NOTE | 2019-07-01 07:20 | WPDHPUPDATE1 ---
History and Physical Update Update Date/Time: 07/01/19 07:20 History and Physical has been reviewed, including an updated exam of the patient. There are NO changes in the patient's condition. Risks, benefits, and alternatives have been discussed and questions answered. Patient agrees to proceed with procedure.
[2019-07-01] MEDS: LACTATED RINGERS 1,000 ML 30 ML IV CONT (07:45)
[2019-07-01 07:55] LABS: INR 0.8; Prothrombin Time 11.2 Seconds (11.1-14.7)
[2019-07-01 07:56] LABS: Partial Thromboplastin Time 28.1 SECONDS (22.3-36.8)
[2019-07-01] MEDS: ceFAZolin 2 GM/D5W 50 ML 2 GM/50 ML BAG IVPB (08:23)
--- NOTE | 2019-07-01 09:13 | PM.PROC ---
Procedure Note - Detailed Date of procedure: 07/01/19 Pre-op diagnosis: Left Ureteral Stone Post-op diagnosis: same Procedure performed: ESWL of left ureteral calculus 8 mm Description of procedure: Patient is taken the operative suite and correctly identified. Stone was localized in both planes. Three thousand shocks were given to the stone. Patient tolerated procedure well without any complications. He is taken recovery room stable condition. This given the standard post lithotripsy instruction. Develops any problems he will call so we can deal with appropriately. He will follow up in the office in about 7-10 days with a KUB. Anesthesia: GLMA Surgeon: Elliot Ybarra MD Drains: No Packing: No Pathology: none sent Complications: No immediate complications Condition: stable Disposition: PACU
== END 2019-07-01 10:58 | disposition home or self-care (01) ==
PROVIDERS: PCP Internal Medicine; Visit Provider Urology
PROC: (CPT 50590; principal; 2019-07-01 08:15)
DX: N20.1 Calculus of ureter (principal); Z87.891 Personal history of nicotine dependence; Z79.82 Long term (current) use of aspirin; E66.01 Morbid (severe) obesity due to excess calories; Z68.43 Body mass index [BMI] 50.0-59.9, adult
CPT/HCPCS: 50590; 36415; 74018; 85610; 85730; A9270; J0690; J2704; J3010; J7030; J7120

== ENCOUNTER 2019-09-03 15:23 | Emergency (ER) | payer MEDICARE, OTHER, SELFPAY ==
--- NOTE | ~2019-09-03 | XR_ITS ---
EXAMINATION: XR wrist RT min 3V INDICATION: Right wrist pain TECHNIQUE: Four views of the right wrist are obtained. COMPARISON: None available FINDINGS: There is no fracture, dislocation, or subluxation. Moderate osteoarthritis is present at th e triscaphe and first carpometacarpal joints. Bone alignment is normal. There is mild wrist soft tiss ue swelling. IMPRESSION: 1. No acute osseous abnormality. Reviewed, dictated and finalized at location A.
--- NOTE | ~2019-09-03 | XR_ITS ---
EXAMINATION: XR ribs RT 2V INDICATION: Right-sided rib pain TECHNIQUE: 3 views of the right ribs were obtained. COMPARISON: 05/13/2019 FINDINGS: There is mild irregularity at the anterior aspect of the right 10th rib which could reflect nondisplaced fracture. The visualized portions of the right hemithorax are unremarkable. There is no pleural effusion or pneumothorax. Median sternotomy wires and mediastinal surgical clips are seen, l ikely from prior coronary artery bypass grafting. Partially imaged fusion hardware is noted in the tanya mbar spine. IMPRESSION: 1. Possible nondisplaced fracture at the anterior aspect of the right 10th rib. Reviewed, dictated and finalized at location A.
--- NOTE | 2019-09-03 15:37 | ED.GENADULT ---
HPI - General Adult General Chief complaint: Extremity Injury, Upper Stated complaint: fracture right rib,wrist pain Time Seen by Provider: 09/03/19 16:06 Source: patient and RN notes reviewed Mode of arrival: ambulatory Limitations: no limitations History of Present Illness HPI narrative: 69-year-old male presents with concern for right rib pain, shoulder pain, wrist pain after fall several days ago. Reports his grandson fell on him causing him to fall. He reports he has been using ibuprofen with some relief. Denies any difficulty breathing. Denies any decreased strength in the shoulder or wrist. MD complaint: Rib pain, wrist pain, shoulder pain Related Data Home Medications Medication Instructions Recorded Confirmed alprazolam 0.25 mg tablet 0.25 mg PO HS PRN 01/31/19 09/03/19 aspirin 81 mg tablet,delayed 81 mg PO DAILY 03/04/19 09/03/19 release cyclobenzaprine 10 mg tablet 10 mg PO PRN PRN 03/04/19 06/29/19 furosemide 20 mg tablet 40 mg PO QAM PRN 03/04/19 09/03/19 ipratropium 0.5 mg-albuterol 3 mg 3 ml INHALATION Q6H PRN 03/04/19 06/29/19 (2.5 mg base)/3 mL nebulization soln multivitamin 1 tablet PO DAILY 03/04/19 06/29/19 potassium chloride 10 mEq 20 meq PO DAILY 03/04/19 06/29/19 tablet,extended release azelastine 137 mcg NASAL Q12H PRN 05/13/19 06/29/19 hydrocodone-acetaminophen [Lorcet 1 tablet PO TID PRN 05/13/19 06/29/19 HD] nitroglycerin [Nitrostat] 0.4 mg SUBLINGUAL DIRECTED PRN 05/13/19 06/29/19 hydralazine 50 mg PO DAILY 06/29/19 06/29/19 Allergies Allergy/AdvReac Type Severity Reaction Status Date / Time chloramphenicol Allergy Severe EYE Verified 09/03/19 15:29 irritation nickel Allergy Unknown Unknown Verified 09/03/19 15:29 Review of Systems Review of Systems: Narrative: CONSTITUTIONAL: Denies malaise, chills, sweats, or fever. CARDIOVASCULAR: Denies chest pain, palpitations, or edema. RESPIRATORY: Denies cough or dyspnea. GASTROINTESTINAL: Denies abdominal pain SKIN: Denies bruising MUSCULOSKELETAL: Reports right rib pain, wrist pain, shoulder pain NEUROLOGIC: Denies numbness, weakness. All systems reviewed & are unremarkable except as noted in HPI and below PMFSH Social History Social History Social History: Patient is a former smoker. He smoke trans time his 21 until he was 47. He smoked between 1-2 packs cigarettes per day prior to quitting. He has at least a 26 pack per year smoking history. Primary care physician: Dr. Rikki Garibay Code status: Full code Smoking packs per day: 1.5 Smoking cigarettes per day: 30.0 Years smoked: 10 Smoking pack-years: 15.00 Smoking status: Former smoker Tobacco type: cigarettes Second hand tobacco smoke exposure: No Smoking end date: 08/26/97 Additional smoking assessment comments: He quit smoking when he had his CABG. Alcohol intake: current Drinks per week: 0 Substance use: never Additional living arrangements comments: He lives at home with his of 37 years. 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 Gender identity (if verbalized by the patient): Male Spiritual care concerns: No Comments At time of signature, agree with nursing past medical, surgical, social and family history. There is no relevant family history pertinent to the presenting complaint Exam Narrative: Exam Narrative: GENERAL: Well-appearing, well-nourished, and in no acute distress. HEAD: Normocephalic, atraumatic. EYES: PERRLA, conjunctivae clear NECK: Supple. CHEST: Lung sounds equal, clear to auscultation, no bony deformities. Speaks in full sentences. No respiratory distress. HEART: Regular rate and rhythm. Normal and equal peripheral pulses. EXTREMITIES: Right wrist, digits have normal strength and sensation, normal range of motion. Mild edema to the palmar aspect of the
[2019-09-03 15:38] VITALS: BP 131/76; PULSE 75; RESP 20; O2SAT 99
== END 2019-09-03 16:48 | disposition home or self-care (01) ==
PROVIDERS: Emergency Provider Nurse Practitioner; PCP Internal Medicine
DX: S22.31XA Fracture of one rib, right side, initial encounter for closed fracture (principal); S69.91XA Unspecified injury of right wrist, hand and finger(s), initial encounter; S49.91XA Unspecified injury of right shoulder and upper arm, initial encounter; Z87.891 Personal history of nicotine dependence; I25.10 Atherosclerotic heart disease of native coronary artery without angina pectoris; Z95.1 Presence of aortocoronary bypass graft; Z79.82 Long term (current) use of aspirin; Z95.5 Presence of coronary angioplasty implant and graft; E78.00 Pure hypercholesterolemia, unspecified; I10 Essential (primary) hypertension; I25.2 Old myocardial infarction; G47.30 Sleep apnea, unspecified; K21.9 Gastro-esophageal reflux disease without esophagitis; Z87.442 Personal history of urinary calculi; M19.90 Unspecified osteoarthritis, unspecified site; Z96.651 Presence of right artificial knee joint; F32.9 Major depressive disorder, single episode, unspecified; W03.XXXA Other fall on same level due to collision with another person, initial encounter
CPT/HCPCS: 71100; 73110; 99214; G0463

== ENCOUNTER 2020-04-07 10:11 | Outpatient (CLI) | payer MEDICARE, OTHER, SELFPAY ==
[2020-04-07 10:54] LABS: Alanine Aminotransferase 21 U/L (4-50); Albumin Level 3.9 g/dL (3.5-5.1); Alkaline Phosphatase 97 U/L (38-126); Anion Gap 4 mmol/L (8-16); Aspartate Amino Transferase 29 U/L (17-59); Bilirubin,Total 0.7 mg/dL (0.2-1.3); Blood Urea Nitrogen 11 mg/dL (9-20); Calcium 9.1 mg/dL (8.4-10.2); Carbon Dioxide 27 mmol/L (22-30); Chloride 106 mmol/L (98-107); Cholesterol 134 mg/dL (0-200); Estimated Glomerular Filt Rate 55; Glucose 97 mg/dL (75-110); HDL Direct 43 mg/dL; Hemoglobin A1C 5.6 % (<5.7); Potassium 3.4 mmol/L (3.4-5.0); Sodium 137 mmol/L (137-145); Triglycerides 87 mg/dL (<150)
[2020-04-07 11:05] LABS: LDL Cholesterol Direct 71 mg/dL
[2020-04-07 11:24] LABS: Thyroid Stimulating Hormone 0.813 uIU/mL (0.465-4.680)
== END 2020-04-07 10:12 | disposition home or self-care (01) ==
PROVIDERS: PCP Internal Medicine; Visit Provider Nurse Practitioner
DX: R73.03 Prediabetes (principal); E78.2 Mixed hyperlipidemia; F41.8 Other specified anxiety disorders
CPT/HCPCS: 36415; 80053; 80061; 83036; 84443

== ENCOUNTER 2020-11-03 11:23 | Outpatient (CLI) | payer MEDICARE, OTHER, SELFPAY ==
[2020-11-03 13:12] LABS: LDL Cholesterol Direct 63 mg/dL
[2020-11-03 13:42] LABS: Alanine Aminotransferase 21 U/L (4-50); Alkaline Phosphatase 102 U/L (38-126); Anion Gap 6 mmol/L (8-16); Aspartate Amino Transferase 30 U/L (17-59); Bilirubin,Total 0.6 mg/dL (0.2-1.3); Blood Urea Nitrogen 10 mg/dL (9-20); Calcium 9.2 mg/dL (8.4-10.2); Carbon Dioxide 23 mmol/L (22-30); Chloride 109 mmol/L (98-107); Cholesterol 132 mg/dL (0-200); Estimated Glomerular Filt Rate 60; Glucose 90 mg/dL (65-110); HDL Direct 36 mg/dL; Potassium 3.8 mmol/L (3.4-5.0); Prostate Specific Antigen 0.5 ng/mL (< OR = 4.0); Sodium 138 mmol/L (137-145); Triglycerides 93 mg/dL (<150)
[2020-11-03 14:10] LABS: Hemoglobin A1C 5.8 % (<5.7)
== END 2020-11-03 11:24 | disposition home or self-care (01) ==
PROVIDERS: PCP Internal Medicine; Visit Provider Internal Medicine
DX: Z79.899 Other long term (current) drug therapy (principal); I10 Essential (primary) hypertension; E78.5 Hyperlipidemia, unspecified; R73.03 Prediabetes; Z12.5 Encounter for screening for malignant neoplasm of prostate
CPT/HCPCS: 36415; 80053; 80061; 83036; 84153; G0103

== ENCOUNTER → 2020-11-17 02:48 | Outpatient (CLI) | payer MEDICARE, OTHER, SELFPAY ==
[2020-11-17 19:28] LABS: SARS-CoV-2 RNA PCR Negative
== END ==
PROVIDERS: PCP Internal Medicine; Visit Provider Nurse Practitioner
DX: R68.89 Other general symptoms and signs (principal); Z20.822 Contact with and (suspected) exposure to COVID-19
CPT/HCPCS: C9803; U0003; U0005

== ENCOUNTER 2021-02-26 07:14 | Outpatient (CLI) | payer MEDICARE, OTHER, SELFPAY ==
--- NOTE | ~2021-02-26 | CT_ITS ---
EXAMINATION: CT lumbar spine wo con DATE: 02/26/2021 07:57 INDICATION: Low back pain. TECHNIQUE: Computed tomography (CT) of the lumbar spine was performed without intravenous contrast. A utomated exposure control and iterative reconstruction technique were employed. The dose-length produ ct was 1168.90 mGy-cm. COMPARISON: CT lumbar spine 11/01/2016 FINDINGS: There is 5 degrees levocurvature of lumbar spine. Vertebral body heights are normal. There are changes of anterior and posterior fusion procedures from L4 to S1 with interbody devices and pedi olaf screws. Intervertebral disc heights are normal. The following disc levels are specifically discus sed: L1-L2: The disc does not extend beyond the endplate margin. There is mild right and moderate left fac et joint osteoarthritis. There is no neural foraminal stenosis. There is no central canal stenosis. L2-L3: The disc is bulging. There is mild right and severe left facet joint osteoarthritis. There is mild left neural foraminal stenosis. There is no central canal stenosis. L3-L4: The disc is bulging. There is severe bilateral facet joint osteoarthritis. There is mild right and moderate left neural foraminal stenosis. There is mild central canal stenosis. L4-L5: There is moderate bilateral facet joint hypertrophy. There is moderate bilateral neural forami nal stenosis. There is no central canal stenosis. L5-S1: There is severe left facet joint hypertrophy. There is moderate right and severe left neural f oraminal stenosis. There is no central canal stenosis. IMPRESSION: 1. Moderate lumbar spondylosis, stable from 11/01/2016. 2. Anterior and posterior fusion procedures from L4 to S1. Reviewed, dictated and finalized at location A. [employer]
--- NOTE | ~2021-02-26 | XR_ITS ---
EXAMINATION: XR UGIAC w barium swallow DATE: 02/26/2021 08:23 INDICATION: Chest pain, unspecified. Dysphagia. TECHNIQUE: The patient drank thick barium, gas-producing crystals, and thin barium. Fluoroscopy of th e esophagus, stomach, and proximal small bowel was performed. Fluoroscopy exposure time was 0.9 minut es. The total number of images was 480. Total dose-area product was 3.732 Gy-cm^2. COMPARISON: CT abdomen and pelvis 06/27/2019 FINDINGS: The patient's morbid obesity limited his mobility for the exam. There is no mass or strictu re of the esophagus. Esophageal motility is normal. There is no hiatal hernia. The stomach and proxim al small bowel show normal folding patterns. IMPRESSION: 1. Normal upper gastrointestinal series. Reviewed, dictated and finalized at location A. [employer]PARTMENT
--- NOTE | ~2021-02-26 | XR_ITS ---
XR lumbar spine 2-3V DATE: 02/26/2021 07:48 INDICATION: Low back pain. No known injury. TECHNIQUE: AP, lateral and coned lateral lumbosacral views COMPARISON: None FINDINGS: Status post posterior and interbody spinal fusion at L4-S1. The hardware appears intact wit hout fracture or displacement. Normal alignment of the lumbar spine. No fracture or bone destruction is evident. Included lower thor acic and lumbar pedicles are intact. There is degenerative spurring at the lower thoracic spine and to a lesser extent lumbar spine. L1-2 through L3-4 interspaces appear well preserved. The sacroiliac joints are intact. IMPRESSION: Status post posterior and interbody spinal fusion at L4-S1 Prominent degenerative spurring of the lower thoracic and to a lesser extent lumbar spine Reviewed, dictated and finalized at location B. [employer]ESS[employer]KER IMPRESSION: Status post posterior and interbody spinal fusion at L4-S1 Prominent degenerative spurring of the lower thoracic and to a lesser extent tanya mbar spine
== END 2021-02-26 07:15 | disposition home or self-care (01) ==
PROVIDERS: PCP Internal Medicine
DX: R07.89 Other chest pain (principal); M47.817 Spondylosis without myelopathy or radiculopathy, lumbosacral region; M48.07 Spinal stenosis, lumbosacral region; Z98.1 Arthrodesis status
CPT/HCPCS: 72100; 72131; 74246

== ENCOUNTER → 2021-03-29 03:57 | Outpatient (CLI) | payer MEDICARE, OTHER, SELFPAY ==
[2021-03-29 21:56] LABS: SARS-CoV-2 RNA PCR Positive
== END ==
PROVIDERS: PCP Internal Medicine; Visit Provider Internal Medicine
DX: U07.1 COVID-19 (principal)
CPT/HCPCS: C9803; U0003; U0005

== ENCOUNTER 2021-05-03 13:20 | Observation (INO) | payer MEDICARE, OTHER, SELFPAY ==
[2021-05-03] VITALS (9 sets, daily range): BP systolic 156–187; BP diastolic 85–94; PULSE 64–81; RESP 14–24; TEMP 36.4–36.8; O2SAT 93–100; BMI 53.6
--- NOTE | ~2021-05-03 | XR_ITS ---
EXAMINATION: XR chest 2V DATE: 05/03/2021 14:04 INDICATION: Shortness of breath. TECHNIQUE: Frontal and lateral views of the chest were obtained. COMPARISON: Chest 2 views 05/13/2019, CT abdomen and pelvis 06/27/2019 FINDINGS: The chest demonstrates clear lungs without pneumonia, pleural effusion, or pneumothorax. Th e heart size is normal. Median sternotomy wires are noted. IMPRESSION: 1. No acute cardiopulmonary disease. Reviewed, dictated and finalized at location A. CAL ANTHROPOLOGY DIRECTOR
--- NOTE | 2021-05-03 13:27 | ECG_ITS ---
Measurements Intervals Elizabeth Rate: 78 P: 53 WI: 154 QRS: -23 QRSD: 105 T: 50 QT: 381 QTc: 437 Interpretive Statements SINUS RHYTHM DELAYED PRECORDIAL R/S TRANSITION INFERIOR INFARCT, AGE INDETERMINATE BASELINE ARTIFACT- II, AVR, AVF, V2-V6 ABNORMAL ECG Electronically Signed On 05-03-2021 14:52:34 [employer]MENTARY [employer] TE[employer] by Clemente Cortes D.O.
--- NOTE | 2021-05-03 13:39 | ED.CHESTPAIN ---
HPI - Chest Pain General Chief Complaint: Chest Pain Stated Complaint: chest pain, sob Time Seen by Provider: 05/03/21 13:25 Source: patient, family and RN notes reviewed History of Present Illness HPI narrative: 71-year-old male with significant history of coronary artery disease presents to the emergency department for evaluation of worsening exertional shortness of breath and chest pain. Patient reports he did have a CABG back in and has had multiple stents since, most recent stents were approximately [address] Bloom. Patient states over the last few weeks he has had worsening exertional shortness of breath and chest pain. Patient states walking and exertion he would normally be able to tolerate he has been unable to tolerate for the last few weeks. Patient reports he was walking in his home today when he did have onset of chest pain. Patient has been taking nitro for the pain and this helps. Patient also states that the pain resolves with rest. At rest in the emergency department patient denies any current chest pain. Patient denies any associated shortness of breath. Related Data Home Medications Medication Instructions Recorded Confirmed aspirin 81 mg tablet,delayed 81 mg PO DAILY 03/04/19 05/03/21 release multivitamin 1 tablet PO DAILY 03/04/19 05/03/21 furosemide 20 mg tablet 20 mg PO .prn PRN tablet 01/11/21 05/03/21 hydrocodone 10 mg-acetaminophen 1 tablet PO Q8H PRN 01/11/21 05/03/21 300 mg tablet potassium chloride 10 mEq 10 meq PO .PRN PRN cap 01/11/21 05/03/21 capsule,extended release omeprazole 40 mg PO Q12H 05/03/21 05/03/21 trazodone See Rx Instructions .ROUTE 05/03/21 05/03/21 .COMPLEX PRN Allergies Allergy/AdvReac Type Severity Reaction Status Date / Time chloramphenicol Allergy Severe EYE Verified 05/03/21 17:20 irritation nickel Allergy Mild Rash Verified 05/03/21 17:20 Review of Systems Review of Systems: CONSTITUTIONAL: Denies fever, chills, or sweats. EYES: Denies visual changes, redness, or discharge. ENT: Denies rhinorrhea, congestion, sore throat, or otalgia. CARDIOVASCULAR: Intermittent chest pain with exertion RESPIRATORY: Denies cough or dyspnea. GASTROINTESTINAL: Denies abdominal pain, nausea, vomiting, or diarrhea. GENITOURINARY: Denies dysuria or hematuria. SKIN: Denies rash or itching. MUSCULOSKELETAL: Denies back pain, joint pain, or myalgia. NEUROLOGIC: Denies headache, numbness, or weakness. [facility] Past Medical History Medical History Acute recurrent maxillary sinusitis Allergic rhinitis Anxiety and depression Arthritis Bilateral cataracts Maturing Chronic low back pain With history of L4-L5-L5-S1 surgery Coronary artery disease involving coronary bypass graft of [place] heart COVID-19 DDD (degenerative disc disease) Essential (primary) hypertension Former smoker Gastroesophageal reflux disease Grade II internal hemorrhoids Hearing loss Hemorrhoid Hiatal hernia Hypersomnia Hypoxia Insomnia Left knee DJD Medullary sponge kidney With history of kidney stones in 198906/25/1994 Mixed hyperlipidemia Morbid obesity Obstructive sleep apnea on CPAP Auto titrating CPAP Painful total knee replacement, right Pre-diabetes Primary osteoarthritis of left knee Restless leg ST elevation myocardial infarction (STEMI) Systolic dysfunction With ejection fraction of 45-50% on cardiac catheterization May 2017 Surgical History Surgical History History of cardiac catheterization Cardiac catheterization with stent placement may 2017 with stent to the RCA due to complete occlusion stented at [facility], high-grade stenosis 80% occlusion to saphenous vein graft to the circ that was stented June 2017 at [facility] History of cystoscopy With stone retrieval in 1994 History of spinal surgery L4-L5 and L5-S1 PLIF 20
[2021-05-03 13:57] LABS: Basophils Absolute Auto 0.1 K/mm3 (0.0-0.1); Eosinophils Absolute Auto 0.2 K/mm3 (0-0.3); Eosinophils Percent Auto 3.5 % (0-4.4); Hematocrit 35.6 % (42.0-52.0); Hemoglobin 11.1 g/dL (14.0-18.0); Immature Granulocyte Absolute 0.01 K/mm3 (0.00-0.031); Immature Granulocyte Percent A 0.1 % (0-0.5); Lymphocytes Absolute Auto 1.67 K/mm3 (0.9-3.2); Lymphocytes Percent Auto 24.4 % (18.3-44.2); Mean Corpuscular HGB Conc 31.2 g/dl (32-36); Mean Corpuscular Hemoglobin 28.8 pg (26-34); Mean Corpuscular Volume 92.2 fl (80-100); Mean Platelet Volume 11.4 fl (7.4-10.4); Monocytes Absolute Auto 0.8 K/mm3 (0.1-0.6); Platelet Count Result 211 k/mm3 (150-375); Red Blood Count 3.86 M/mm3 (4.6-6.20); Red Cell Distribution Width 14.9 % (11.5-14.5); White Blood Count 6.8 K/mm3 (4.5-10.0)
[2021-05-03] MEDS: ASPIRIN 81 MG CHEWABLE TABLET 324 MG PO (14:06)
[2021-05-03 14:10] LABS: Alanine Aminotransferase 25 U/L (4-50); Alkaline Phosphatase 86 U/L (38-126); Anion Gap 7 mmol/L (8-16); Aspartate Amino Transferase 35 U/L (17-59); Bilirubin,Total 0.4 mg/dL (0.2-1.3); Blood Urea Nitrogen 12 mg/dL (9-20); Carbon Dioxide 24 mmol/L (22-30); Chloride 109 mmol/L (98-107); Estimated CRCL calculation 76 ml/min; Estimated Glomerular Filt Rate 60; Glucose 122 mg/dL (65-110); INR 0.9; Lipase 107 U/L (23-300); Potassium 3.9 mmol/L (3.4-5.0); Prothrombin Time 12.2 Seconds (11.1-14.7); Sodium 140 mmol/L (137-145)
[2021-05-03 14:11] LABS: Partial Thromboplastin Time 31.1 SECONDS (22.3-36.8)
[2021-05-03 14:18] LABS: NT Pro B Type Natriuretic Pept 303 pg/mL (5-100)
[2021-05-03 14:30] LABS: Troponin I 0.046 ng/mL (0.000-0.034)
--- NOTE | 2021-05-03 15:40 | PM.IMHP ---
H&P: HPI History of Present Illness Date/Time: 05/03/21 15:40 This pt. was examined at the ER bedside for admission assessment. He is a pleasant, 71Y/O male with significant PMH of CAD status post CABG (5 vessel) in 1997, and multiple more recent stents with the most recent being by Dr. Bloom three years ago. In addition he has history of being morbidly obese, HTN, HLD, COVID-19 (03/2021), Former Smoker, PAULINO, pre-diabetes, RLS, and Systolic HFrEF of 45-50% from May 2017. He endorses that he has had increased dyspnea over the past few weeks with even minimal exertion walking from one room in his house to another and a continued heaviness in his chest when doing so. It acutely worsened today. He has continued edema of the BLE, but he states it is not worse than it usually is. He has no N/V/Diaphoresis. He has had some diarrhea however that has been present for the past two days. Pt. was asked if he takes all of his medications as ordered and he stated for the most part. When asked to elaborate, the pt. states he occasionally misses a day here and there because when he runs out of what is in his pill box, it is a hassle to go in and get them from the bottles. In the ER, workup was performed and labs were significant for a troponin of 0.046, and BNP of 303. EKG showed NSR 78 bpm, and no STEMI. CXR shows no acute cardiopulmonary disease. ER physician, Dr. Cage states he spoke with Julia Sanderson, the Cardiology SPECIAL EVENT ASSISTANT and they are fine with admission at this time and not starting the Heparin drip. Pt. is being admitted for Cardiac rule out at this time and will add on a C-diff as pt. has endorsed two days of diarrhea. Currently lying in the bed pt is not dyspneic and appears comfortable. He does endorse a mild mid-sternal pressure in his chest though, this time at rest. He is not nauseated and he is not diaphoretic. Chief Complaint: Chest pain and Dyspnea Review of Systems Review of Systems: All pertinent complaints, symptoms and concerns are noted in HPI. All systems reviewed & are unremarkable except as noted in HPI and below PMFSH Past Medical History Medical History Acute recurrent maxillary sinusitis Allergic rhinitis Anxiety and depression Arthritis Bilateral cataracts Maturing Chronic low back pain With history of L4-L5-L5-S1 surgery Coronary artery disease involving coronary bypass graft of [place] heart COVID-19 DDD (degenerative disc disease) Essential (primary) hypertension Former smoker Gastroesophageal reflux disease Grade II internal hemorrhoids Hearing loss Hemorrhoid Hiatal hernia Hypersomnia Hypoxia Insomnia Left knee DJD Medullary sponge kidney With history of kidney stones in 198906/25/1994 Mixed hyperlipidemia Morbid obesity Obstructive sleep apnea on CPAP Auto titrating CPAP Painful total knee replacement, right Pre-diabetes Primary osteoarthritis of left knee Restless leg ST elevation myocardial infarction (STEMI) Systolic dysfunction With ejection fraction of 45-50% on cardiac catheterization May 2017 Surgical History Surgical History History of cardiac catheterization Cardiac catheterization with stent placement 2000, may 2017 with stent to the RCA due to complete occlusion stented at [facility], high-grade stenosis 80% occlusion to saphenous vein graft to the circ that was stented June 2017 at [facility] History of cystoscopy With stone retrieval in 1994 History of spinal surgery L4-L5 and L5-S1 PLIF 2013 History of total right knee replacement 2010 Hx of CABG History of 5 vessel CABG in 1997 Family History Family History Father Diabetes mellitus Multiple myeloma Hypertension Heart valve replaced Heart disease Mother Hypertension Heart disease Social History Social History (Reviewed 05/03
[2021-05-03 16:35] LABS: Troponin I 0.064 ng/mL (0.000-0.034)
--- NOTE | 2021-05-03 17:05 | PC.NURSE ---
This patient, Steffen Martinez, was admitted to [facility] Patient/family oriented to hospital policies and general routines including ID bracelet, bed and alarms, visiting hours, pain management, procedures, bathroom and other care routines, personal items, smoking policy, room service/diet, and visiting hours. Information on how to activate the Rapid Response Team has been discussed. Patient/Family are encouraged to report perceived risks to care and to ask questions if they do not understand what they are told or what they should do.
[2021-05-03] MEDS: NITROGLYCERIN OINTMENT 1 INCH DOSE TRANSDERM ×2 (17:25→23:28)
[2021-05-03] MEDS: ENOXAPARIN 40 MG/0.4 ML SYRINGE SUB-Q (17:25)
[2021-05-03 17:41] LABS: Glucose Point of Care 93 mg/dl (65-105)
[2021-05-03 20:36] LABS: Hemoglobin A1C 5.7 % (<5.7)
[2021-05-03 20:47] LABS: Troponin I 0.052 ng/mL (0.000-0.034)
[2021-05-03] MEDS: HYDROcodone/acetaminophen (*CRX) 10-325 MG TABLET 1 TAB PO (20:52)
[2021-05-03] MEDS: ATORVASTATIN 40 MG TABLET PO (21:12)
[2021-05-03] MEDS: hydrALAZINE HCL 50 MG TABLET PO (21:12)
[2021-05-03] MEDS: PANTOPRAZOLE 40 MG TABLET PO (21:12)
[2021-05-03] MEDS: DICLOFENAC SOD 75 MG TABLET.EC PO (21:12)
[2021-05-03 21:18] LABS: Glucose Point of Care 99 mg/dl (65-105)
[2021-05-03 22:05] LABS: Toxigenic C. Diff NEGATIVE (NEGATIVE)
[2021-05-04] VITALS (15 sets, daily range): BP systolic 107–177; BP diastolic 69–89; PULSE 66–88; RESP 15–22; TEMP 36.3–36.7; O2SAT 93–99
[2021-05-04] MEDS: NITROGLYCERIN OINTMENT 1 INCH DOSE TRANSDERM (05:43)
--- NOTE | 2021-05-04 07:21 | ECG_ITS ---
Measurements Intervals [place] Rate: 74 P: 71 [place]: 167 QRS: -15 QRSD: 106 T: 36 QT: 391 QTc: 435 Interpretive Statements SINUS RHYTHM DELAYED PRECORDIAL R/S TRANSITION BASELINE ARTIFACT- II, III, V3 BORDERLINE ECG Electronically Signed On 05-04-2021 14:07:07 EXCHANGE OPERATOR by Clemente Cortes D.O.
[2021-05-04] MEDS: diphenhydrAMINE HCl INJ 50 MG/ML VIAL IV PUSH ×3 (07:29→20:17)
[2021-05-04 08:07] LABS: Glucose Point of Care 98 mg/dl (65-105)
[2021-05-04] MEDS: METOPROLOL SUCCINATE EXT REL 50 MG TABCR PO (08:29)
[2021-05-04] MEDS: MULTIVITAMINS THERAPEUTIC TAB (*BKC) 1 TABLET PO (08:29)
[2021-05-04] MEDS: hydrALAZINE HCL 50 MG TABLET PO ×2 (08:29→20:18)
[2021-05-04] MEDS: ASPIRIN 81 MG CHEWABLE TABLET PO (08:29)
[2021-05-04] MEDS: PANTOPRAZOLE 40 MG TABLET PO ×2 (08:30→20:20)
[2021-05-04] MEDS: DICLOFENAC SOD 75 MG TABLET.EC PO ×2 (08:30→20:19)
[2021-05-04] MEDS: lisinopriL 20 MG TABLET 40 MG PO (08:30)
[2021-05-04 08:42] LABS: Hematocrit 36.3 % (42.0-52.0); Hemoglobin 11.4 g/dL (14.0-18.0); Mean Corpuscular HGB Conc 31.4 g/dl (32-36); Mean Corpuscular Hemoglobin 29.1 pg (26-34); Mean Corpuscular Volume 92.6 fl (80-100); Mean Platelet Volume 11.2 fl (7.4-10.4); Platelet Count Result 200 k/mm3 (150-375); Red Blood Count 3.92 M/mm3 (4.6-6.20); Red Cell Distribution Width 14.9 % (11.5-14.5); White Blood Count 7.3 K/mm3 (4.5-10.0)
[2021-05-04 08:52] LABS: Alanine Aminotransferase 25 U/L (4-50); Albumin Level 3.9 g/dL (3.5-5.1); Alkaline Phosphatase 92 U/L (38-126); Anion Gap 6 mmol/L (8-16); Aspartate Amino Transferase 29 U/L (17-59); Bilirubin,Total 0.9 mg/dL (0.2-1.3); Blood Urea Nitrogen 13 mg/dL (9-20); Calcium 8.7 mg/dL (8.4-10.2); Carbon Dioxide 24 mmol/L (22-30); Chloride 109 mmol/L (98-107); Estimated CRCL calculation 69 ml/min; Estimated Glomerular Filt Rate 55; Glucose 92 mg/dL (65-110); Potassium 3.8 mmol/L (3.4-5.0); Sodium 139 mmol/L (137-145)
--- NOTE | 2021-05-04 08:57 | PM.CNCAR ---
Assessment and Plan Additional Plan This is a massively obese 71-year-old man who also has multivessel coronary disease with remote history of bypass grafting as well as stenting of his [place] right coronary artery due to occlusion of the RCA graft. He did have a inferior wall infarction at that time. He now enters the hospital last evening with a chest pain syndrome for the last 2 or 3 weeks that sounds very concerning for exertional angina. Ideally I would recommend pursuing a follow-up angiogram at this time. Mr. Candelario went into a long explanation about how the last couple of times when he had angiography performed he found it extremely unpleasant with severe pain at the femoral artery puncture site. Sounds like 1 of these episodes was severe pain with an Angio-Seal device was being deployed. Whatever the reason he would like to avoid another angiogram if possible and so the plan for the moment is going to be to advance his medical therapy. He is already taking aspirin, metoprolol and atorvastatin. I am going to add clopidogrel and isosorbide to the regimen and see how he does. We will keep him in the hospital at least overnight to see how he is doing clinically and if he is asymptomatic consider discharge tomorrow with short interval follow-up. Steffen Bloom MD [facility] History of Present Illness History of Present Illness Consult date/time: 05/04/21 08:57 Consult reason: chest pain Reason For Visit: Chest pain, elevated trop Narrative: This is a 71-year-old man who is well known to me with multivessel coronary artery disease who came into the hospital to the emergency room yesterday evening because of symptoms of chest pain that had been going on for about 2 or 3 weeks. He states that he does have some mild chronic exertional shortness of breath with chest discomfort on occasion but several weeks ago he noticed this better to become more problematic. With mod moderate walking distances he is noticing some pain in the center of the chest that does not radiate to any other location is not associated with any nausea vomiting or diaphoresis it is noticed be associated with shortness of breath. The patient states the symptoms generally resolve within less than 2 minutes of rest. There have been a couple of episodes that occurred at rest but most of this has occurred with physical activity. On a couple of occasions he is also taken some nitroglycerin sublingually which has also provided relief. In this setting he finally decided to come in the emergency room yesterday on Thursday evening and he was admitted to the hospital. His ECG does not show any acute ischemic or injury pattern. Her troponin levels are slightly elevated out of normal range but are flat not rising and falling. He was placed in the chest pain center and being seen in this setting in consultation. Patient is known to have coronary disease with a bypass operation of performed way back in the . I believe he has a VALENZUELA graft to his LAD he had a saphenous vein graft placed to the right coronary artery and he has a sequential vein graft to 2 marginal branches of the circumflex. The vein graft to his right coronary artery is known to be closed. He had a most recent angiogram in May of 2019 just about 2 years ago now to investigate some chest pain and he was found to be optimally revascularized. His left coronary artery is closed. He has a patent stent in the large dominant RCA. His VALENZUELA graft to the LAD was intact and his large vein graft to the marginal branches was also patent nicely. He did see his PCP and reported some of the symptoms recently in the office. And up an upper GI was requested as this was thought to be possibly due to esophageal reflux. The symptoms also got a lot worse recently after a ibuprofen tablet was lodged in his esophagus for a while. He is not experiencing any orthopnea PND or edema no palpitations or syncope. His principal other comorbidities morbid obe
[2021-05-04] MEDS: CLOPIDOGREL BISULFATE 75 MG TABLET PO (09:37)
[2021-05-04] MEDS: ISOSORBIDE MONONITRATE 60 MG TAB.ER.24H PO (09:37)
[2021-05-04] MEDS: TRIAMCINOLONE ACET 0.5% OINT 15 GM TUBE 1 APPLIC TOPICAL (10:51)
--- NOTE | 2021-05-04 13:27 | PM.IMPN ---
Progress Note: A&P Additional Plan Assessment and plan (1) Chest pain: Onset Date: Unknown Qualifiers: Chest pain type: unspecified Qualified Code(s): R07.9 - Chest pain, unspecified Code(s): R07.9 - Chest pain, unspecified Status: Acute Assessment and Plan: - Pt. endorses for past couple of weeks. - Midsternal pressure - Significant history of CAD with CABG and stenting. - Trend troponins - Consult cardiology, done by ED physician (OK to not start Heparin drip) - Telemetry - Cardiac diet - Cardiology has evaluated and recommendations of starting Plavix and Isosorbide were made and started. (2) Elevated troponin: Onset Date: ~05/03/21 Code(s): R77.8 - Other specified abnormalities of plasma proteins Status: Acute Assessment and Plan: - Trend troponins - Consult cardiology, done by ED physician (OK to not start Heparin drip) - Telemetry (3) CAD (coronary artery disease): Onset Date: 1997 Qualifiers: Coronary Disease-Associated Artery/Lesion type: bypass graft, autologous vein Associated angina: with unspecified form of angina Qualified Code(s): I25.719 - Atherosclerosis of autologous vein coronary artery bypass graft(s) with unspecified angina pectoris Code(s): I25.10 - Atherosclerotic heart disease of [place] coronary artery without angina pectoris Status: Chronic Assessment and Plan: - 5 vessel CABG in 1997 and multiple stents since then. - Suspicion that pt is not compliant with therapies. - Most recent ECHO May 2017 = Systolic HFrEF of 45-50%. - Pt. forgoes the option for further angiography when discussed with Dr. Bloom due to the amount of pain he had last time. (4) Morbid obesity: Onset Date: Unknown Code(s): E66.01 - Morbid (severe) obesity due to excess calories Status: Chronic Assessment and Plan: - BMI of 55. - Encourage lifestyle changes. (5) Pre-diabetes: Onset Date: Unknown Code(s): R73.03 - Prediabetes Status: Chronic Assessment and Plan: - A1C is 5.7 - Glucose checks AC and HS. (6) Diarrhea: Onset Date: ~05/01/21 Qualifiers: Diarrhea type: unspecified type Qualified Code(s): R19.7 - Diarrhea, unspecified Code(s): R19.7 - Diarrhea, unspecified Status: Acute Assessment and Plan: - Stool for C-diff negative. - Monitor labs and vitals. K+ Stable. (7) Dyspnea on exertion: Onset Date: Unknown Code(s): R06.00 - Dyspnea, unspecified Status: Chronic Assessment and Plan: - Likely secondary to his Systolic HFrEF. - Contributing factors include Morbid obesity, non-compliance with cardiac therapies, and lifestyle. Time Spent With Patient Time with patient: 15 - 25 minutes Subjective Date/time seen: 05/04/21 0820 This pt. was examined at the bedside in interval assessment today and has continued complaints of CP without dyspnea. He has no N/V/D/diaphoresis either. He has been seen by Cardiology as he has a significant cardiac risk and the pt. has chosen not to have any further angiography because it was uncomfortable for his previously. Instead, he chooses to maximize his current therapy. Per Dr. Bloom, Plavix 75 mg and Isosorbide 60 mg is started. There are no new complaints beyond what the pt. has already complained of. Review of Systems Review of Systems: All systems reviewed & are unremarkable except as noted in HPI and below Exam Narrative: Exam Const: General: no acute distress; No in distress Other: Morbidly obese male patient lying supine on stretcher at this time in no acute distress. HENMT: Mouth: Yes moist mucous membranes Eyes: Sclera: sclerae normal Pupils: Equal, round and reactive pupils present EOM: EOMs intact bilaterally Neck: Neck: supple and no JVD Lymphatic: lymphadenopathy not noted Other: Pt. has large neck girth with hanging skin making it difficu
--- NOTE | 2021-05-04 14:20 | PCRCNOTE ---
PT has home unit, maintenance checked, and paper signed. Pt is cleared to use their home unit.
[2021-05-04] MEDS: ENOXAPARIN 40 MG/0.4 ML SYRINGE SUB-Q (16:34)
--- NOTE | 2021-05-04 16:45 | PC.NURSE ---
This patient, Steffen Martinez, was transferred to [facility] on 05/04/21 at 1645. Personal belongings sent with patient. Report given to BALDEMAR Bobby. Appropriate documentation sent with patient.
[2021-05-04] MEDS: HYDROcodone/acetaminophen (*CRX) 10-325 MG TABLET 1 TAB PO (20:18)
[2021-05-04] MEDS: ATORVASTATIN 40 MG TABLET PO (20:19)
[2021-05-05] VITALS (8 sets, daily range): BP systolic 132–157; BP diastolic 42–83; PULSE 61–82; RESP 18–20; TEMP 36.6–37.4; O2SAT 93–99
[2021-05-05 06:39] LABS: Hematocrit 33.9 % (42.0-52.0); Hemoglobin 10.4 g/dL (14.0-18.0); Mean Corpuscular HGB Conc 30.7 g/dl (32-36); Mean Corpuscular Hemoglobin 29.1 pg (26-34); Mean Corpuscular Volume 94.7 fl (80-100); Mean Platelet Volume 11.3 fl (7.4-10.4); Platelet Count Result 186 k/mm3 (150-375); Red Blood Count 3.58 M/mm3 (4.6-6.20); Red Cell Distribution Width 14.8 % (11.5-14.5); White Blood Count 5.9 K/mm3 (4.5-10.0)
[2021-05-05 06:49] LABS: Alanine Aminotransferase 20 U/L (4-50); Albumin Level 3.4 g/dL (3.5-5.1); Alkaline Phosphatase 72 U/L (38-126); Anion Gap 6 mmol/L (8-16); Aspartate Amino Transferase 25 U/L (17-59); Bilirubin,Total 0.7 mg/dL (0.2-1.3); Blood Urea Nitrogen 14 mg/dL (9-20); Calcium 8.3 mg/dL (8.4-10.2); Carbon Dioxide 24 mmol/L (22-30); Chloride 108 mmol/L (98-107); Estimated CRCL calculation 64 ml/min; Estimated Glomerular Filt Rate 50; Glucose 89 mg/dL (65-110); Potassium 3.6 mmol/L (3.4-5.0); Sodium 138 mmol/L (137-145)
[2021-05-05] MEDS: PANTOPRAZOLE 40 MG TABLET PO (09:22)
[2021-05-05] MEDS: DICLOFENAC SOD 75 MG TABLET.EC PO (09:22)
[2021-05-05] MEDS: MULTIVITAMINS THERAPEUTIC TAB (*BKC) 1 TABLET PO (09:22)
[2021-05-05] MEDS: hydrALAZINE HCL 50 MG TABLET PO (09:22)
[2021-05-05] MEDS: CLOPIDOGREL BISULFATE 75 MG TABLET PO (09:22)
[2021-05-05] MEDS: lisinopriL 20 MG TABLET 40 MG PO (09:22)
[2021-05-05] MEDS: ISOSORBIDE MONONITRATE 60 MG TAB.ER.24H PO (09:22)
[2021-05-05] MEDS: METOPROLOL SUCCINATE EXT REL 50 MG TABCR PO (09:22)
[2021-05-05] MEDS: ASPIRIN 81 MG CHEWABLE TABLET PO (09:24)
--- NOTE | 2021-05-05 10:21 | PM.PNCARD ---
Progress Note: A&P Additional Plan 71-year-old man with: Above detailed history of coronary artery disease with previous surgical and percutaneous revascularization. The patient's anginal syndrome is being treated medically because of his desire to avoid in follow-up angiogram at this time. I am going to recommend increasing his metoprolol dosage today since his a is not bradycardic or hypotensive. He is otherwise stable for discharge at this time for my opinion. I will arrange for short interval follow-up in the office to keep track of him symptomaticaly and determine if he wishes to reconsider his decision to pursue an angiogram. Steffen Bloom MD [facility] Subjective Date/time seen: Date of service: 05/05/21 10:21 Interval history: Follow-up visit in this 71-year-old man with: Multivessel coronary artery disease with previous surgical and percutaneous revascularization as detailed in my note. He entered the hospital with increase in exertional chest discomfort typical of angina. As I mentioned in my consult note yesterday he does not wish to pursue follow-up angiogram because he finds them very unpleasant. As such we are advancing his medical therapy. Clopidogrel and isosorbide were added to his regimen yesterday. Vital signs indicate ability to advance beta-shahnaz I am going to recommend advancing his metoprolol from 50-100 mg today. Patient has been feeling well since being in the hospital and would like to go home today if possible. Exam Const: General: comfortable and no acute distress Other: Pleasant massively obese gentleman sitting in site bedside chair no distress HENMT: Mouth: Yes moist mucous membranes Eyes: Sclera: sclerae normal Pupils: Equal, round and reactive pupils present Neck: Neck: supple and no JVD Resp: Effort & Inspection: normal respiratory effort Auscultation: clear to auscultation bilaterally Other: Breath sounds are distant but clear Cardio: Rate: regular rate Rhythm: regular rhythm Other: PMI is not palpable. Some very soft systolic murmur that does not radiate from the left sternal border no diastolic murmur no gallop GI: Auscultation: normal bowel sounds Skin: General skin exam: normal color Neuro: Cranial nerves: Yes Equal, round and reactive pupils present Cognition (Neuro): normal cognition Extrem: Other: Obese but no pitting edema adequate distal perfusion Objective Data Vital Signs Vital Signs: Vital Signs - 24 hr 05/04/21 12:00 05/04/21 14:00 05/04/21 14:19 Temperature 36.4 C L Pulse Rate 84 66 Respiratory Rate 15 Blood Pressure 128/74 Pulse Oximetry 96 95 05/04/21 16:00 05/04/21 17:43 05/04/21 19:48 Temperature 36.3 C L 36.6 C Pulse Rate 71 67 67 Respiratory Rate 22 H 22 H 20 Blood Pressure 114/69 127/75 Pulse Oximetry 95 95 99 05/04/21 20:00 05/04/21 22:25 05/05/21 00:00 Temperature 36.6 C Pulse Rate 67 72 67 Respiratory Rate 20 20 Blood Pressure 132/69 Pulse Oximetry 99 95 99 05/05/21 02:05 05/05/21 04:00 05/05/21 07:57 Temperature 37.1 C Pulse Rate 77 67 Respiratory Rate 20 Blood Pressure 157/42 H Pulse Oximetry 93 99 96 05/05/21 08:00 05/05/21 09:22 05/05/21 10:00 Temperature 37.4 C Pulse Rate 72 75 82 Respiratory Rate 18 Blood Pressure 148/83 H Pulse Oximetry 97 Intake/Output Intake/Output: Intake & Output 05/02/21 05/03/21 05/04/21 05/05/21 23:59 23:59 23:59 23:59 Intake Total 2160 400 Output Total 2000 900 Balance 160 -500 Meds/Results Medications: Active Medications Generic Name Dose Route Start Last Admin Trade Name Freq PRN Reason Stop Dose Admin Hydrocodone Bitart/Acetaminophen 1 tab 05/03/21 20:13 05/04/21 20:18 Hydrocodone/Acetaminophen (*Crx) 10-325 Mg Tablet PO 1 tab Q8H PRN Administration Pain Aspirin 81 mg 05/04/21 08:00 05/05/21 09:24 Aspirin 81 Mg Chewable Tablet PO 81 mg DAILY@0800 SHIRAZ Administration Atorvastatin Calcium
--- NOTE | 2021-05-05 12:31 | PM.DS ---
DS: Admitting Diagnosis Discharge Date 05/05/21 Admitting Diagnosis Chest pain, Elevated troponin, CAD, Morbid obesity, Pre-diabetes, Diarrhea, dyspnea DS: Discharge Diagnosis Discharge Diagnosis (1) Chest pain: Onset Date: Unknown Qualifiers: Chest pain type: unspecified Qualified Code(s): R07.9 - Chest pain, unspecified Code(s): R07.9 - Chest pain, unspecified Status: Acute Assessment and Plan: - Pt. endorses for past couple of weeks. - Midsternal pressure - Significant history of CAD with CABG and stenting. - Troponins remained flat and not up-trending. - Cardiology consulted and recommendations were made for possible Angiography that pt. did not want performed due to discomfort last time, so optimizing pharmacological treatment as much as possible was chosen. He was started on Isosorbide, Plavix, and his dose of Metoprolol was increased from 50 mg po daily to 100 mg po daily. These medications will be started at home. (2) Elevated troponin: Onset Date: ~05/03/21 Code(s): R77.8 - Other specified abnormalities of plasma proteins Status: Acute Assessment and Plan: - Trend troponins - Consult cardiology, done by ED physician (OK to not start Heparin drip) - Telemetry - Troponins remained flat and not up-trending. - Cardiology consulted and recommendations were made for possible Angiography that pt. did not want performed due to discomfort last time, so optimizing pharmacological treatment as much as possible was chosen. He was started on Isosorbide, Plavix, and his dose of Metoprolol was increased from 50 mg po daily to 100 mg po daily. These medications will be started at home. (3) CAD (coronary artery disease): Onset Date: 1997 Qualifiers: Associated angina: with unspecified form of angina Coronary Disease-Associated Artery/Lesion type: bypass graft, autologous vein Qualified Code(s): I25.719 - Atherosclerosis of autologous vein coronary artery bypass graft(s) with unspecified angina pectoris Code(s): I25.10 - Atherosclerotic heart disease of [place] coronary artery without angina pectoris Status: Chronic Assessment and Plan: - 5 vessel CABG in 1997 and multiple stents since then. - Suspicion that pt is not compliant with therapies. - Most recent ECHO May 2017 = Systolic HFrEF of 45-50%. - Troponins remained flat and not up-trending. - Cardiology consulted and recommendations were made for possible Angiography that pt. did not want performed due to discomfort last time, so optimizing pharmacological treatment as much as possible was chosen. He was started on Isosorbide, Plavix, and his dose of Metoprolol was increased from 50 mg po daily to 100 mg po daily. These medications will be started at home. (4) Morbid obesity: Onset Date: Unknown Code(s): E66.01 - Morbid (severe) obesity due to excess calories Status: Chronic Assessment and Plan: - BMI of 55. - Encourage lifestyle changes. (5) Pre-diabetes: Onset Date: Unknown Code(s): R73.03 - Prediabetes Status: Chronic Assessment and Plan: - Hgb A1C = 5.7 - Glucose checks AC and HS. (6) Diarrhea: Onset Date: ~05/01/21 Qualifiers: Diarrhea type: unspecified type Qualified Code(s): R19.7 - Diarrhea, unspecified Code(s): R19.7 - Diarrhea, unspecified Status: Acute Assessment and Plan: - Check stool for C-diff - Monitor labs and vitals. (7) Dyspnea on exertion: Onset Date: Unknown Code(s): R06.00 - Dyspnea, unspecified Status: Chronic Assessment and Plan: - Likely secondary to his Systolic HFrEF. - Contributing factors include Morbid obesity, non-compliance with cardiac therapies, and lifestyle. DS: Summary Hospital Course Hospital Course: This 71 year old morbidly obese male patient with significant PMH of CAD status post CABG (5 vessel) in 1997, and m
[2021-05-05] MEDS: HYDROcodone/acetaminophen (*CRX) 10-325 MG TABLET 1 TAB PO (13:07)
--- NOTE | 2021-05-05 13:36 | PC.NURSE ---
Patient alert/oriented, GONZALEZ, walks w/cane, no pain, no distress noted of any kind. Left arm 20g IV removed, no bleeding/no hematoma, gauze dressing applied for site protection; discharge instructions explained. Prescriptions transmittd to perferred pharmacy. Patient wheelchaired down to front door lobby to private waiting vehicle.
== END 2021-05-05 14:26 | disposition home or self-care (01) ==
LOC: ANHED 15:52 → ANHCPC 16:10 → ANHIMU 05-04 17:00
PROVIDERS: General Practice; Internal Medicine; Admitting Provider Internal Medicine; Emergency Provider Emergency Medicine; PCP Internal Medicine; Visit Provider Nurse Practitioner Adult Health
DX: R07.9 Chest pain, unspecified (principal); R77.8 Other specified abnormalities of plasma proteins; I25.10 Atherosclerotic heart disease of native coronary artery without angina pectoris; I50.20 Unspecified systolic (congestive) heart failure; R06.02 Shortness of breath; E66.01 Morbid (severe) obesity due to excess calories; R73.03 Prediabetes; R19.7 Diarrhea, unspecified; F41.9 Anxiety disorder, unspecified; F32.A Depression, unspecified; G89.29 Other chronic pain; M54.9 Dorsalgia, unspecified; G47.33 Obstructive sleep apnea (adult) (pediatric); I25.2 Old myocardial infarction; E78.5 Hyperlipidemia, unspecified; G25.81 Restless legs syndrome; Z86.16 Personal history of COVID-19; Z95.1 Presence of aortocoronary bypass graft; Z95.5 Presence of coronary angioplasty implant and graft; Z96.651 Presence of right artificial knee joint; Z98.41 Cataract extraction status, right eye; Z98.42 Cataract extraction status, left eye; Z87.891 Personal history of nicotine dependence; Z68.43 Body mass index [BMI] 50.0-59.9, adult; Z79.82 Long term (current) use of aspirin
CPT/HCPCS: 36415; 71046; 80053; 82948; 83036; 83690; 83880; 84484; 85025; 85027; 85610; 85730; 87045; 87427; 87493; 89055; 93005; 96372; 96374; 96376; 99285; A9270; G0378; J1200; J1650

== ENCOUNTER 2021-05-07 08:02 | Outpatient (CLI) | payer MEDICARE, OTHER, SELFPAY ==
--- NOTE | 2021-05-07 14:02 | WPDPFTINT ---
PFT Procedure Performed PFT Procedure Performed Spirometry with Pre/Post Bronchodilator Plethysmography (Lung Vol) Diffusing Cap (DLCO) Flow Vol Loop PFT Interpretation Lung volumes were measured with the body plethysmography method. The diminished expiratory reserve volume is due to obesity. The remaining lung volumes are unremarkable. Spirometry showed diminished expiratory flow rates and a normal FEV1 to FVC ratio 76%. This restrictive pattern on spirometry in the face of normal total lung capacity is indicative of nonspecific pattern. Following administration of a bronchodilator, there was no significant increase in expiratory flow rates. Lung diffusion capacity is mildly reduced at 69% predicted. Flow volume loop is unremarkable. In comparison to a previous study in 2017, the post-bronchodilator FVC, FEV1 and TLC are lower by approximately one liter each. DLCO is essentially unchanged. Impression: Nonspecific pattern. Mild reduction in lung diffusion capacity.
== END 2021-05-07 08:03 | disposition home or self-care (01) ==
PROVIDERS: PCP Internal Medicine; Visit Provider Internal Medicine
DX: R06.02 Shortness of breath (principal); R94.2 Abnormal results of pulmonary function studies
CPT/HCPCS: 94060; 94726; 94729

== ENCOUNTER 2021-05-23 07:52 | Outpatient (CLI) | payer MEDICARE, OTHER, SELFPAY ==
[2021-05-23 08:30] LABS: Basophils Absolute Auto 0.1 K/mm3 (0.0-0.1); Basophils Percent Auto 0.9 % (0.2-1.2); Eosinophils Absolute Auto 0.3 K/mm3 (0-0.3); Hematocrit 33.7 % (42.0-52.0); Hemoglobin 10.6 g/dL (14.0-18.0); Immature Granulocyte Absolute 0.02 K/mm3 (0.00-0.031); Immature Granulocyte Percent A 0.3 % (0-0.5); Lymphocytes Absolute Auto 2.24 K/mm3 (0.9-3.2); Lymphocytes Percent Auto 28.2 % (18.3-44.2); Mean Corpuscular HGB Conc 31.5 g/dl (32-36); Mean Corpuscular Hemoglobin 28.5 pg (26-34); Mean Corpuscular Volume 90.6 fl (80-100); Mean Platelet Volume 11.7 fl (7.4-10.4); Monocytes Absolute Auto 0.9 K/mm3 (0.1-0.6); Monocytes Percent Auto 10.7 % (2.6-8.5); Neutrophils Absolute Auto 4.4 K/mm3 (1.3-6.7); Neutrophils Percent Auto 55.9 % (45.5-73.1); Platelet Count Result 211 k/mm3 (150-375); Red Blood Count 3.72 M/mm3 (4.6-6.20); Red Cell Distribution Width 14.6 % (11.5-14.5); White Blood Count 7.9 K/mm3 (4.5-10.0)
[2021-05-23 08:31] LABS: Anion Gap 8 mmol/L (8-16); Blood Urea Nitrogen 12 mg/dL (9-20); Calcium 8.6 mg/dL (8.4-10.2); Carbon Dioxide 27 mmol/L (22-30); Chloride 106 mmol/L (98-107); Estimated Glomerular Filt Rate 46; Glucose 96 mg/dL (65-110); Potassium 3.7 mmol/L (3.4-5.0); Sodium 141 mmol/L (137-145)
[2021-05-23 08:41] LABS: Hemoglobin A1C 5.5 % (<5.7)
--- NOTE | 2021-05-23 08:56 | ECHO_ITS ---
Patient Info Name: Steffen Martinez Age: 71 years : 1950 Gender: Male Ht: 67 in Wt: 345 lbs BSA: 2.82 m2 HR: 78 bpm BP: 129 / 79 mmHg Technical Quality: Poor Exam Date: 05/23/2021 8:26 AM Exam Location: [facility] Patient Status: Outpatient Admit Date: 05/23/2021 Staff Ordering Physician: Rikki Garibay DO Emergency Department Physician: Lilliana Robles RDCS Attending Provider: Rikki Garibay DO Referring Physician: Lani HERRERA; Exam Type: CA echo dop color flow w con Study Info Indications - cad cabg dyspnea Complete two-dimensional, color flow and Doppler transthoracic echocardiogram is performed with contrast to opacify the left ventricle and to improve the deliniation of the left ventricle endocardial borders. Contrast/Agitated Saline Contrast/Ag. Saline: Definity Amount: 2.00 ml Administered By: Lilliana Robles [facility] Existing IV Access: No New IV Access: Right Site Condition: IV removed Reason for Poor Study: patient body habitus Summary 1. Technically suboptimal study due to poor sonographic images. 2. Definity contrast administered improved wall motion interpretation. 3. Left ventricular chamber dimension is normal. 4. Left ventricular systolic function is normal, estimated at 60-65%. 5. There is mildly increased left ventricular wall thickness. 6. The left ventricular diastolic function is normal. 7. Left atrial chamber dimension is moderately enlarged. 8. Mild pulmonary hypertension, estimated pulmonary arterial systolic pressure is 41 mmHg. Left Ventricle Technically suboptimal study due to poor sonographic images. Definity contrast administered improved wall motion interpretation. Left ventricular chamber dimension is normal. Left ventricular systolic function is normal, estimated at 60-65%. There is mildly increased left ventricular wall thickness. The left ventricular diastolic function is normal. Right Ventricle Right ventricular chamber dimension is not well visualized. Left Atria Left atrial chamber dimension is moderately enlarged. Right Atria Right atrial chamber dimension is normal. Aortic Valve The aortic valve is not well visualized. Cannot determine number of aortic valve leaflets as parasternal short axis through aortiv valve is not acquired. There is no aortic valve stenosis based on valve area and gradients. There is no aortic valve regurgitation. Pulmonic Valve There is no pulmonic regurgitation. Mitral Valve There is no mitral valve stenosis. There is no mitral valve regurgitation. Tricuspid Valve There is no tricuspid valve regurgitation. Mild pulmonary hypertension, estimated pulmonary arterial systolic pressure is 41 mmHg. Pericardium/Pleural There is no pericardial effusion. Inferior Vena Cava Normal inferior vena cava with >50% collapse upon inspiration consistent with normal right atrial pressure, 5 mmHg. Aorta The aortic root size at the sinus of Valsalva is not well visualized. Left Ventricular Outflow Tract Name Value Normal LVOT 2D LVOT Diameter 1.96 cm LVOT Doppler LVOT Pe
[2021-05-23] MEDS: PERFLUTREN LIPID MICROSPHERES 1.5 ML VIAL DILUTED TO 10 ML TOTAL VOLUME IV PUSH (10:00)
--- NOTE | 2021-05-24 11:24 | WPDSIXMINUTE ---
Six Minute Walk Procedure Procedure Performed Pulmonary Stress Test (6 min walk) Six Minute Walk This 6 minute walk test was carried out with the patient breathing ambient air. The pre walk oxyhemoglobin saturation was 96%. The patient walked 137 m with one stop lasting 15 seconds due to shortness of breath. During the walk, the oxyhemoglobin saturation remained over 92%. The perceived dyspnea at baseline was 2 on the Camila scale and increased to 6 at the end of the walk. Impression: No evidence of oxyhemoglobin desaturation on this testing.
== END 2021-05-23 07:53 | disposition home or self-care (01) ==
PROVIDERS: PCP Internal Medicine; Visit Provider Internal Medicine
DX: R06.00 Dyspnea, unspecified (principal); D64.9 Anemia, unspecified; R73.03 Prediabetes; I10 Essential (primary) hypertension
CPT/HCPCS: 36415; 80048; 83036; 85025; 94618; C8929

== ENCOUNTER 2021-08-12 01:18 | Day surgery (SDC) | payer MEDICARE, OTHER, SELFPAY ==
[2021-08-01 17:03] VITALS: BMI 53.8
--- NOTE | 2021-08-12 08:54 | WPDANESEPPF ---
Anes - Initial Pre Proc Eval Procedure: Operation Date: 08/12/21 10:00 Proposed Procedures p Esophagogastroduodenoscopy - Jin Paiz MD Date/Time: 08/12/21 08:54 Surgeon: Jin Paiz MD Pre Op Diagnosis: GERD Patient Data Age: 71 Gender: M Height: 1.7 m Weight: 156 kg Allergies Allergy/AdvReac Type Severity Reaction Status Date / Time chloramphenicol Allergy Severe EYE Verified 08/12/21 09:05 irritation nickel Allergy Mild Rash Verified 08/12/21 09:05 Home Medications Medication Instructions Recorded Confirmed Type aspirin 81 mg tablet,delayed 81 mg PO DAILY 03/04/19 08/01/21 History release multivitamin (Multiple Vitamins 1 tablet PO DAILY 03/04/19 08/01/21 History tablet) furosemide 20 mg tablet 20 mg PO .prn PRN Edema 01/11/21 08/01/21 History hydrocodone 10 mg-acetaminophen 1 tablet PO Q8H 01/11/21 08/01/21 History 300 mg tablet potassium chloride 10 mEq 10 meq PO .PRN PRN swelling 01/11/21 08/01/21 History capsule,extended release benazepril 40 mg tablet See Rx Instructions .Route 04/25/21 08/01/21 Rx .COMPLEX #90 tabs trazodone 50 mg tablet See Rx Instructions .Route 05/03/21 08/01/21 History .COMPLEX PRN Sleep nitroglycerin 0.4 mg sublingual 0.4 mg sublingual DIRECTED PRN 05/10/21 08/01/21 Rx tablet (Nitrostat) Chest Pain #30 tabs benzonatate 200 mg capsule 200 mg PO BID PRN Cough 06/10/21 08/01/21 History clopidogrel 75 mg tablet 75 mg PO QAM #90 tabs 06/10/21 08/01/21 Rx cyclobenzaprine 10 mg tablet 10 mg PO TID PRN muscle spasm #30 06/10/21 08/01/21 Rx tabs hydralazine 50 mg tablet See Rx Instructions .Route 06/10/21 08/01/21 Rx .COMPLEX #180 tabs atorvastatin 40 mg tablet (Lipitor) 40 mg PO HS #90 tabs 07/03/21 08/01/21 Rx isosorbide mononitrate 60 mg 90 mg PO QAM #90 tabs 08/08/21 08/12/21 Rx tablet,extended release 24 hr metoprolol succinate 100 mg 100 mg PO QAM #90 tabs 08/08/21 08/12/21 Rx tablet,extended release 24 hr (Toprol XL) pantoprazole 40 mg tablet,delayed 40 mg PO BID #180 tabs 08/08/21 08/12/21 Rx release Patient hx anesthesia problems: none Family hx anesthesia problems: none Results Review: All pre-operative results and documents have been reviewed as part of the pre-operative evaluation. [facility] Past Medical History Medical History Acute recurrent maxillary sinusitis Allergic rhinitis Anxiety and depression Arthritis Bilateral cataracts Maturing Chronic low back pain With history of L4-L5-L5-S1 surgery Coronary artery disease involving coronary bypass graft of [place] heart COVID-19 DDD (degenerative disc disease) Essential (primary) hypertension Former smoker Gastroesophageal reflux disease Grade II internal hemorrhoids Hearing loss Hemorrhoid Hiatal hernia Hypersomnia Hypoxia Insomnia Left knee DJD Medullary sponge kidney With history of kidney stones in 198906/25/1994 Mixed hyperlipidemia Morbid obesity Obstructive sleep apnea on CPAP Auto titrating CPAP Painful total knee replacement, right Pre-diabetes (Unknown) Primary osteoarthritis of left knee Restless leg ST elevation myocardial infarction (STEMI) Systolic dysfunction With ejection fraction of 45-50% on cardiac catheterization May 2017 Surgical History Surgical History History of cardiac catheterization Cardiac catheterization with stent placement may 2017 with stent to the RCA due to complete occlusion stented at [facility], high-grade stenosis 80% occlusion to saphenous vein graft to the circ that was stented June 2017 at [facility] History of cystoscopy With stone retrieval in 1994 History of spinal surgery L4-L5 and L5-S1 PLIF 2013 History of total right knee replacement 2010 Hx of CABG History of 5 vessel CABG in 1997 Family History Family History (Reviewed 07/19/21 @ 13:2
[2021-08-12 09:07] VITALS: BP 143/69; PULSE 89; RESP 20; TEMP 36.6; O2SAT 97; BMI 53.7
[2021-08-12] MEDS: LACTATED RINGERS 1,000 ML 150 ML IV CONT (09:22)
--- NOTE | 2021-08-12 09:28 | PM.HPGS ---
History of Present Illness History of Present Illness Consent: Risks, benefits, and alternatives have been discussed and questions answered. Patient agrees to proceed with procedure. Chief complaint: GERD Narrative: Steffen Martinez is a 71 year old male Who has suffered from acid reflux for several years. Recently he began having more difficulty. He was having pains in his chest. Because he has a history of heart disease he was concerned it might be cardiac. There is no particular pattern to this. He has taken Tums, quite a few and at times they will give some relief. He also was told to double up on his PPI. Lately also he is having some difficulty swallowing. At times it feels like food does not make it down and he will need to cough to bring it back up. This recently happened with the pill as well. He denies abdominal pain. He has had no significant weight loss but he has been trying to lose weight and has managed to get about 10 lb off with diet. Review of Systems Review of Systems: All systems reviewed & are unremarkable except as noted in HPI and below Constitutional: Comments: Obese [facility] Past Medical History Medical History Acute recurrent maxillary sinusitis Allergic rhinitis Anxiety and depression Arthritis Bilateral cataracts Maturing Chronic low back pain With history of L4-L5-L5-S1 surgery Coronary artery disease involving coronary bypass graft of [place] heart COVID-19 DDD (degenerative disc disease) Essential (primary) hypertension Former smoker Gastroesophageal reflux disease Grade II internal hemorrhoids Hearing loss Hemorrhoid Hiatal hernia Hypersomnia Hypoxia Insomnia Left knee DJD Medullary sponge kidney With history of kidney stones in 198906/25/1994 Mixed hyperlipidemia Morbid obesity Obstructive sleep apnea on CPAP Auto titrating CPAP Painful total knee replacement, right Pre-diabetes (Unknown) Primary osteoarthritis of left knee Restless leg ST elevation myocardial infarction (STEMI) Systolic dysfunction With ejection fraction of 45-50% on cardiac catheterization May 2017 Surgical History Surgical History History of cardiac catheterization Cardiac catheterization with stent placement 2000, may 2017 with stent to the RCA due to complete occlusion stented at [facility], high-grade stenosis 80% occlusion to saphenous vein graft to the circ that was stented June 2017 at [facility] History of cystoscopy With stone retrieval in 1994 History of spinal surgery L4-L5 and L5-S1 PLIF 2013 History of total right knee replacement 2010 Hx of CABG History of 5 vessel CABG in 1997 Family History Family History Father Diabetes mellitus Multiple myeloma Hypertension Heart valve replaced Heart disease Mother Hypertension Heart disease Social History Social History Social History: Patient is a former smoker. He smoke trans time his 21 until he was 47. He smoked between 1-2 packs cigarettes per day prior to quitting. He has at least a 26 pack per year smoking history. Primary care physician: Dr. Rikki Garibay Code status: Full code Smoking packs per day: 1 Smoking cigarettes per day: 20.0 Years smoked: 10 Smoking pack-years: 10.00 Smoking status: Former smoker Tobacco type: cigarettes Second hand tobacco smoke exposure: No Smoking end date: 08/26/97 Additional smoking assessment comments: He quit smoking when he had his CABG. Alcohol intake: current Drinks per week: 0 Alcohol use details: The patient drinks couple of alcoholic beverages a year. Substance use: never Substance use type: does not use Living arrangements: with family Additional living arrangements comments: He lives at home with his
[2021-08-12 09:52] VITALS: BP 114/68; PULSE 67; RESP 20; O2SAT 100
[2021-08-12 10:02] VITALS: BP 109/61; PULSE 70; RESP 20; O2SAT 100
[2021-08-12 10:12] VITALS: BP 126/72; PULSE 69; RESP 15; O2SAT 100
== END 2021-08-12 10:25 | disposition home or self-care (01) ==
PROVIDERS: PCP Internal Medicine; Visit Provider Internal Medicine Gastroenterology
PROC: 0DJ08ZZ Inspection of Upper Intestinal Tract, Via Natural or Artificial Opening Endoscopic (ICD-10-PCS; CPT 43235; principal; 2021-08-12 10:00)
DX: K22.70 Barrett's esophagus without dysplasia (principal); R13.10 Dysphagia, unspecified; F41.8 Other specified anxiety disorders; Z95.1 Presence of aortocoronary bypass graft; I25.810 Atherosclerosis of coronary artery bypass graft(s) without angina pectoris; Q61.5 Medullary cystic kidney; E78.2 Mixed hyperlipidemia; G47.33 Obstructive sleep apnea (adult) (pediatric); G25.81 Restless legs syndrome; I25.2 Old myocardial infarction; I11.9 Hypertensive heart disease without heart failure; E66.01 Morbid (severe) obesity due to excess calories; Z68.43 Body mass index [BMI] 50.0-59.9, adult; Z87.891 Personal history of nicotine dependence; Z79.82 Long term (current) use of aspirin
CPT/HCPCS: 43239; 43450; 88305; J2704; J7120

== ENCOUNTER 2021-10-07 01:18 | Day surgery (SDC) | payer MEDICARE, OTHER, SELFPAY ==
[2021-10-04 13:02] VITALS: BMI 54.2
[2021-10-07] VITALS (10 sets, daily range): BP systolic 121–152; BP diastolic 63–79; PULSE 63–71; RESP 13–22; TEMP 36.4; O2SAT 95–99; BMI 53.5
[2021-10-07 08:11] LABS: Hematocrit 31.6 % (42.0-52.0); Hemoglobin 9.7 g/dL (14.0-18.0); Mean Corpuscular HGB Conc 30.7 g/dl (32-36); Mean Corpuscular Hemoglobin 25.5 pg (26-34); Mean Corpuscular Volume 82.9 fl (80-100); Mean Platelet Volume 10.9 fl (7.4-10.4); Platelet Count Result 224 k/mm3 (150-375); Red Blood Count 3.81 M/mm3 (4.6-6.20); White Blood Count 6.2 K/mm3 (4.5-10.0)
[2021-10-07 08:21] LABS: Anion Gap 9 mmol/L (8-16); Blood Urea Nitrogen 13 mg/dL (9-20); Calcium 8.6 mg/dL (8.4-10.2); Carbon Dioxide 25 mmol/L (22-30); Chloride 105 mmol/L (98-107); Estimated CRCL calculation 61 ml/min; Estimated Glomerular Filt Rate 46; Glucose 105 mg/dL (65-110); Potassium 3.8 mmol/L (3.4-5.0); Sodium 139 mmol/L (137-145)
--- NOTE | 2021-10-07 09:02 | WPDMODSED ---
Moderate Sedation Note-Pt Data Patient Data Diagnosis: coronary artery disease with previous surgical and percutaneous revascularization Present Complaint: exertional chest pain Procedure to be performed/Plan: left heart catheterization possible PCI Allergies Allergy/AdvReac Type Severity Reaction Status Date / Time chloramphenicol Allergy Severe EYE Verified 10/07/21 08:12 irritation nickel Allergy Mild Rash Verified 10/07/21 08:12 detergents Allergy Hives Uncoded 10/07/21 08:12 Home Medications Medication Instructions Recorded Confirmed Type aspirin 81 mg tablet,delayed 81 mg PO DAILY 03/04/19 10/04/21 History release multivitamin (Multiple Vitamins 1 tablet PO DAILY 03/04/19 10/04/21 History tablet) furosemide 20 mg tablet 20 mg PO .prn PRN Edema 01/11/21 10/04/21 History hydrocodone 10 mg-acetaminophen 1 tablet PO Q8H 01/11/21 10/04/21 History 300 mg tablet potassium chloride 10 mEq 10 meq PO .PRN PRN swelling 01/11/21 10/04/21 History capsule,extended release trazodone 50 mg tablet 50 mg PO HS PRN Sleep 05/03/21 10/04/21 History nitroglycerin 0.4 mg sublingual 0.4 mg sublingual DIRECTED PRN 05/10/21 10/04/21 Rx tablet (Nitrostat) Chest Pain #30 tabs benzonatate 200 mg capsule 200 mg PO BID PRN Cough 06/10/21 10/04/21 History clopidogrel 75 mg tablet 75 mg PO QAM #90 tabs 06/10/21 10/04/21 Rx cyclobenzaprine 10 mg tablet 10 mg PO TID PRN muscle spasm #30 06/10/21 10/04/21 Rx tabs atorvastatin 40 mg tablet (Lipitor) 40 mg PO HS #90 tabs 07/03/21 10/04/21 Rx metoprolol succinate 100 mg 100 mg PO QAM #90 tabs 08/08/21 10/04/21 Rx tablet,extended release 24 hr (Toprol XL) pantoprazole 40 mg tablet,delayed 40 mg PO BID #180 tabs 08/08/21 10/04/21 Rx release benazepril 40 mg tablet 40 mg PO DAILY 10/04/21 10/04/21 History hydralazine 50 mg tablet 50 mg PO BID 10/04/21 10/04/21 History isosorbide mononitrate 60 mg 120 mg PO QAM 10/04/21 10/04/21 History tablet,extended release 24 hr ranolazine 500 mg tablet,extended 500 mg PO BID 10/04/21 10/04/21 History release,12 hr (Ranexa) Sedation/Anesthesia: No previous sedation/anesthesia problems (including family history). [facility] Past Medical History Medical History Acute recurrent maxillary sinusitis Allergic rhinitis Anxiety and depression Arthritis Bilateral cataracts Maturing Chronic low back pain With history of L4-L5-L5-S1 surgery Coronary artery disease involving coronary bypass graft of [place] heart COVID-19 DDD (degenerative disc disease) Essential (primary) hypertension Former smoker Gastroesophageal reflux disease Grade II internal hemorrhoids Hearing loss Hemorrhoid Hiatal hernia Hypersomnia Hypoxia Insomnia Left knee DJD Medullary sponge kidney With history of kidney stones in 198906/25/1994 Mixed hyperlipidemia Morbid obesity Obstructive sleep apnea on CPAP Auto titrating CPAP Painful total knee replacement, right Pre-diabetes (Unknown) Primary osteoarthritis of left knee Restless leg ST elevation myocardial infarction (STEMI) Systolic dysfunction With ejection fraction of 45-50% on cardiac catheterization May 2017 Surgical History Surgical History History of cardiac catheterization Cardiac catheterization with stent placement may 2017 with stent to the RCA due to complete occlusion stented at [facility], high-grade stenosis 80% occlusion to saphenous vein graft to the circ that was stented June 2017 at [facility] History of cystoscopy With stone retrieval in 1994 History of spinal surgery L4-L5 and L5-S1 PLIF 2013 History of total right knee replacement 2010 Hx of CABG History of 5 vessel CABG in 1997 Family History Family History Father Diabetes mellitus Multiple myeloma Hypertension Hear
--- NOTE | 2021-10-07 10:08 | WPDCARDPROC ---
Cardiac Cath Procedure Note Date of procedure:: 10/07/21 Performing physician:: Steffen Bloom MD Indication:: exertional angina Brief clinical history:: this is a 71-year-old man with coronary disease with previous surgical as well as previous percutaneous revascularization. Despite medical therapy he continued to be symptomatic with exertional angina and in this setting follow-up angiography has been recommended. Patient's principal comorbidity is morbid obesity with a BMI of 53 Procedure Procedure performed:: coronary angiography vein graft angiography internal mammary graft angiography Sedation/Medication given:: no sedation given case start time 9:09 a.m. case end time 10:01 a.m. Access site:: right femoral artery Estimated blood loss:: 25 cc Procedure note:: patient was brought to the cardiac catheterization lab and the right femoral triangle were prepped and draped in the usual fashion. He had pannus retention straps placed. 1% lidocaine was infiltrated in the inguinal crease and using the modified technique the right common femoral artery was punctured and a long 5 Palestinian sheath was placed. A long needle was needed to puncture the vessel because of obesity for this reason a long sheath was selected to ensure that vascular access was not lost during catheter exchanges. I advanced a 5 Palestinian FL4 catheter to the aortic root injected the left coronary artery using this catheter. I then advanced a 5 [place] JR4 catheter injecting the [place] right coronary artery as well as the circumflex vein graft. Patient has an old right coronary vein graft known to be previously occluded in prior exams and was not injected again today. Lastly I engaged the left subclavian artery with the IM catheter and used a long [place] wire to advance the access out into the left arm. The IM catheter was then advanced over the wire and withdrawn to the location of the internal mammary artery. The catheter was then used to perform angiography of the internal mammary. Following this the angiograms were reviewed and the case was terminated. I performed an angiogram of the femoral artery through the sheath and then used a 6 [place] Angio-Seal device to secure hemostasis. Procedure was well tolerated and uncomplicated. Findings:: Hemodynamics : Central aortic pressure was 138/84. The left ventricle was not entered during this procedure left main coronary artery is nicely patent the left anterior descending is a medium caliber artery giving rise to a septal perforating branch after the 1st septal and a very small diagonal the LAD is 100% occluded. This is a chronic total occlusion unchanged from previous exam circumflex is a small vessel which is occluded proximally. This is a chronic total occlusion unchanged from previous exam the right coronary artery is a large caliber vessel dominant to the posterior circulation. There is visible stent material in the proximal to mid RCA. This is nicely patent with no significant loss of lumen. There is about a 50% stenosis in the posterolateral branch of the RCA. Angiographically this is unchanged from previous exam. Saphenous vein graft to the circumflex is a large caliber segment of saphenous vein it as a proximal stent previously deployed. The vein graft is mildly diseased with about 20-30% loss of lumen in this proximal stented segment. Distally there is approximately 50-60% stenosis in this vein graft at the anastomosis of the 1st OM. The graft sequentially feels 2 marginal branches. These lesions were angiographically unchanged from the previous exam in 2019. Angiographically the flow in this graft appears to be more sluggish than it did in the past however there are no new stenotic lesions noted. The left internal mammary is a medium caliber CASSIDY it is anastomosed to the mid LAD it fills the LAD nicely down to the apex and back to the point of total occlusion. Angiographicall
--- NOTE | 2021-10-07 10:26 | SUR.PHASEII ---
patient returned to pre/post area. [facility] w/o difficulty. patient placed on monitor, vss, r. groin soft, nontender. no hematoma noted over angioseal site. patient educated on bedrest time. he requested to be placed on his home cpap machine while laying flat. family at bedside. waiting to hear results from dr mendoza
--- NOTE | 2021-10-07 10:30 | SUR.PHASEII ---
dr mendoza at bedside discussing results with patient and family
[2021-10-07] MEDS: HYDROcodone/acetaminophen (*CRX) 10-325 MG TABLET 1 TAB PO (14:03)
--- NOTE | 2021-10-07 14:13 | SUR.PHASEII ---
Home dose of Pain med given for lower back pain.
--- NOTE | 2021-10-07 15:41 | SUR.PHASEII ---
1400-discharge instruction reviewed with pt and family. Verbalized understanding. Pt escorted off floor via w/c.
== END 2021-10-07 15:42 | disposition home or self-care (01) ==
PROVIDERS: PCP Internal Medicine; Visit Provider Specialist
DX: I25.118 Atherosclerotic heart disease of native coronary artery with other forms of angina pectoris (principal); R07.89 Other chest pain; Z79.82 Long term (current) use of aspirin; F41.9 Anxiety disorder, unspecified; F32.A Depression, unspecified; I11.9 Hypertensive heart disease without heart failure; I25.9 Chronic ischemic heart disease, unspecified; I25.2 Old myocardial infarction; M19.90 Unspecified osteoarthritis, unspecified site; Z95.1 Presence of aortocoronary bypass graft; Z86.16 Personal history of COVID-19; K44.9 Diaphragmatic hernia without obstruction or gangrene; K21.9 Gastro-esophageal reflux disease without esophagitis; H91.90 Unspecified hearing loss, unspecified ear; G47.10 Hypersomnia, unspecified; R09.02 Hypoxemia; E78.2 Mixed hyperlipidemia; G47.33 Obstructive sleep apnea (adult) (pediatric); Z87.891 Personal history of nicotine dependence
CPT/HCPCS: 36415; 80048; 85027; 93455; A9270; C1760; C1769; C1887; C1894; G0269; J1644; J2250; J3010; J7040

== ENCOUNTER 2021-11-13 11:04 | Outpatient (CLI) | payer MEDICARE, OTHER, SELFPAY ==
--- NOTE | ~2021-11-13 | XR_ITS ---
EXAMINATION: XR chest 2V DATE: 11/13/2021 11:29 INDICATION: Cough. Lower left chest pain. TECHNIQUE: PA and lateral views of the chest were obtained. COMPARISON: Chest radiograph dated 05/03/2021 FINDINGS: The lungs remain clear with no focal airspace opacities, pulmonary edema, pleural effusion or pneumot horax. The cardiomediastinal silhouette is normal. Median sternotomy wires and mediastinal surgical c lips are seen, likely from prior coronary artery bypass grafting. There are bridging osteophytes at m ultiple levels in the spine, consistent with diffuse idiopathic skeletal hyperostosis (DISH). IMPRESSION: 1. No acute cardiopulmonary disease. Reviewed, dictated and finalized at location A.
== END 2021-11-13 11:05 | disposition home or self-care (01) ==
LOC: ANHIMG 11:08
PROVIDERS: PCP Internal Medicine; Visit Provider Internal Medicine
DX: R05.9 Cough, unspecified (principal)
CPT/HCPCS: 71046

== ENCOUNTER 2021-11-20 13:58 | Outpatient (CLI) | payer MEDICARE, OTHER, SELFPAY ==
[2021-11-20 14:28] LABS: Basophils Percent Auto 0.7 % (0.2-1.2); Eosinophils Absolute Auto 0.2 K/mm3 (0-0.3); Eosinophils Percent Auto 4.5 % (0-4.4); Hematocrit 34.3 % (42.0-52.0); Hemoglobin 9.9 g/dL (14.0-18.0); Immature Granulocyte Absolute 0.01 K/mm3 (0.00-0.031); Immature Granulocyte Percent A 0.2 % (0-0.5); Lymphocytes Absolute Auto 1.38 K/mm3 (0.9-3.2); Lymphocytes Percent Auto 25.6 % (18.3-44.2); Mean Corpuscular HGB Conc 28.9 g/dl (32-36); Mean Corpuscular Hemoglobin 25.4 pg (26-34); Mean Corpuscular Volume 87.9 fl (80-100); Monocytes Absolute Auto 0.5 K/mm3 (0.1-0.6); Monocytes Percent Auto 9.8 % (2.6-8.5); Neutrophils Absolute Auto 3.2 K/mm3 (1.3-6.7); Neutrophils Percent Auto 59.2 % (45.5-73.1); Platelet Count Result 243 k/mm3 (150-375); Red Cell Distribution Width 18.4 % (11.5-14.5); White Blood Count 5.4 K/mm3 (4.5-10.0)
[2021-11-20 14:31] LABS: Hemoglobin A1C 5.6 % (<5.7)
[2021-11-20 14:38] LABS: Alanine Aminotransferase 20 U/L (6-50); Albumin Level 3.8 g/dL (3.5-5.1); Alkaline Phosphatase 74 U/L (38-126); Anion Gap 10 mmol/L (8-16); Aspartate Amino Transferase 27 U/L (17-59); Bilirubin,Total 0.7 mg/dL (0.2-1.3); Blood Urea Nitrogen 12 mg/dL (9-20); Calcium 9.1 mg/dL (8.4-10.2); Carbon Dioxide 22 mmol/L (22-30); Chloride 107 mmol/L (98-107); Cholesterol 112 mg/dL (0-200); Estimated Glomerular Filt Rate 55; Glucose 100 mg/dL (65-110); HDL Direct 33 mg/dL; Potassium 3.6 mmol/L (3.4-5.0); Sodium 139 mmol/L (137-145); Triglycerides 107 mg/dL (<150)
[2021-11-20 14:48] LABS: LDL Cholesterol Direct 58 mg/dL
[2021-11-20 15:35] LABS: Hypochromasia 1+ (NORMAL); Platelet Estimate Adequate (Adequate)
[2021-11-20 15:36] LABS: Anisocytosis 3+ (NORMAL)
== END 2021-11-20 13:59 | disposition home or self-care (01) ==
LOC: ANHLAB 13:59
PROVIDERS: PCP Internal Medicine; Visit Provider Internal Medicine
DX: E78.5 Hyperlipidemia, unspecified (principal); R73.03 Prediabetes; I10 Essential (primary) hypertension; Z79.899 Other long term (current) drug therapy
CPT/HCPCS: 36415; 80053; 80061; 83036; 85025

== ENCOUNTER 2021-11-29 16:54 | Outpatient (CLI) | payer MEDICARE, OTHER, SELFPAY ==
[2021-11-29 18:52] LABS: Iron 22 ug/dL (49-181)
[2021-11-29 19:07] LABS: Percent Iron Saturation 5 % (20-50)
[2021-11-29 19:28] LABS: Ferritin 7.47 ng/mL (11.1-264)
[2021-12-02 14:39] LABS: Red Blood Cell Folate 855 ng/mL RBC (>280)
== END 2021-11-29 16:55 | disposition home or self-care (01) ==
PROVIDERS: PCP Internal Medicine; Visit Provider Internal Medicine
DX: D64.9 Anemia, unspecified (principal)
CPT/HCPCS: 36415; 82607; 82728; 82747; 83540; 83550

== ENCOUNTER 2022-04-15 16:57 | Outpatient (CLI) | payer MEDICARE, OTHER, SELFPAY ==
[2022-04-15 17:54] LABS: Basophils Absolute Auto 0.1 K/mm3 (0.0-0.1); Basophils Percent Auto 0.8 % (0.2-1.2); Eosinophils Absolute Auto 0.3 K/mm3 (0-0.3); Eosinophils Percent Auto 3.8 % (0-4.4); Hematocrit 33.5 % (42.0-52.0); Hemoglobin 10.3 g/dL (14.0-18.0); Immature Granulocyte Absolute 0.02 K/mm3 (0.00-0.031); Immature Granulocyte Percent A 0.3 % (0-0.5); Lymphocytes Absolute Auto 1.48 K/mm3 (0.9-3.2); Lymphocytes Percent Auto 18.6 % (18.3-44.2); Mean Corpuscular HGB Conc 30.7 g/dl (32-36); Mean Corpuscular Hemoglobin 26.9 pg (26-34); Mean Corpuscular Volume 87.5 fl (80-100); Monocytes Percent Auto 12.9 % (2.6-8.5); Neutrophils Absolute Auto 5.1 K/mm3 (1.3-6.7); Neutrophils Percent Auto 63.6 % (45.5-73.1); Platelet Count Result 248 k/mm3 (150-375); Red Blood Count 3.83 M/mm3 (4.6-6.20); Red Cell Distribution Width 16.4 % (11.5-14.5)
[2022-04-15 18:16] LABS: Alanine Aminotransferase 19 U/L (6-50); Albumin Level 3.8 g/dL (3.5-5.1); Alkaline Phosphatase 82 U/L (38-126); Anion Gap 8 mmol/L (8-16); Aspartate Amino Transferase 24 U/L (17-59); Bilirubin,Total 0.5 mg/dL (0.2-1.3); Blood Urea Nitrogen 12 mg/dL (9-20); Calcium 9.1 mg/dL (8.4-10.2); Carbon Dioxide 23 mmol/L (22-30); Chloride 106 mmol/L (98-107); Estimated Glomerular Filt Rate 43; Glucose 119 mg/dL (65-110); Potassium 3.7 mmol/L (3.4-5.0); Sodium 137 mmol/L (137-145)
[2022-04-15 18:31] LABS: Iron 35 ug/dL (49-181)
[2022-04-15 18:45] LABS: Percent Iron Saturation 7 % (20-50)
[2022-04-15 19:08] LABS: Ferritin 6.62 ng/mL (11.1-264)
[2022-04-15 19:22] LABS: Folic Acid 14.2 ng/mL (2.76->20)
== END 2022-04-15 16:58 | disposition home or self-care (01) ==
LOC: ANHLAB 17:00
PROVIDERS: PCP Internal Medicine; Visit Provider Internal Medicine Hematology & Oncology
DX: D64.9 Anemia, unspecified (principal)
CPT/HCPCS: 36415; 80053; 82607; 82728; 82746; 83540; 83550; 85025

== ENCOUNTER 2022-04-25 14:47 | Outpatient (CLI) | payer MEDICARE, OTHER, SELFPAY ==
[2022-04-25 15:31] LABS: Basophils Absolute Auto 0.1 K/mm3 (0.0-0.1); Basophils Percent Auto 0.8 % (0.2-1.2); Eosinophils Absolute Auto 0.3 K/mm3 (0-0.3); Eosinophils Percent Auto 4.8 % (0-4.4); Hemoglobin 9.6 g/dL (14.0-18.0); Mean Corpuscular Hemoglobin 25.9 pg (26-34); Mean Corpuscular Volume 83.8 fl (80-100); Mean Platelet Volume 11.2 fl (7.4-10.4); Monocytes Absolute Auto 0.7 K/mm3 (0.1-0.6); Monocytes Percent Auto 9.5 % (2.6-8.5); Neutrophils Absolute Auto 4.6 K/mm3 (1.3-6.7); Neutrophils Percent Auto 63.9 % (45.5-73.1); Platelet Count Result 219 k/mm3 (150-375); Red Cell Distribution Width 16.3 % (11.5-14.5); White Blood Count 7.1 K/mm3 (4.5-10.0)
[2022-04-25 15:54] LABS: Alanine Aminotransferase 17 U/L (6-50); Alkaline Phosphatase 77 U/L (38-126); Anion Gap 8 mmol/L (8-16); Aspartate Amino Transferase 25 U/L (17-59); Bilirubin,Total 0.6 mg/dL (0.2-1.3); Blood Urea Nitrogen 9 mg/dL (9-20); Calcium 8.6 mg/dL (8.4-10.2); Carbon Dioxide 24 mmol/L (22-30); Chloride 108 mmol/L (98-107); Estimated Glomerular Filt Rate 50; Glucose 115 mg/dL (65-110); Potassium 3.3 mmol/L (3.4-5.0); Sodium 140 mmol/L (137-145)
== END 2022-04-25 14:48 | disposition home or self-care (01) ==
LOC: ANHLAB 14:53
PROVIDERS: PCP Internal Medicine; Visit Provider Internal Medicine Hematology & Oncology
DX: D64.9 Anemia, unspecified (principal)
CPT/HCPCS: 36415; 80053; 85025

== ENCOUNTER 2022-12-03 10:47 | Outpatient (CLI) | payer MEDICARE, OTHER, SELFPAY ==
[2022-12-03 11:55] LABS: Hemoglobin A1C 5.3 % (<5.7)
[2022-12-03 12:03] LABS: LDL Cholesterol Direct 80 mg/dL
[2022-12-03 12:10] LABS: Alanine Aminotransferase 20 U/L (6-50); Albumin Level 4.4 g/dL (3.5-5.1); Alkaline Phosphatase 101 U/L (38-126); Anion Gap 12 mmol/L (8-16); Aspartate Amino Transferase 46 U/L (17-59); Bilirubin,Total 0.9 mg/dL (0.2-1.3); Blood Urea Nitrogen 25 mg/dL (9-20); Carbon Dioxide 27 mmol/L (22-30); Chloride 98 mmol/L (98-107); Cholesterol 143 mg/dL (0-200); Estimated Glomerular Filt Rate 23; Glucose 106 mg/dL (65-110); HDL Direct 30 mg/dL; Potassium 3.6 mmol/L (3.4-5.0); Sodium 137 mmol/L (137-145); Triglycerides 127 mg/dL (<150)
[2022-12-03 12:38] LABS: Calcium 14.4 mg/dL (8.4-10.2)
== END 2022-12-03 10:48 | disposition home or self-care (01) ==
LOC: ANHLAB 10:49
PROVIDERS: PCP Nurse Practitioner; Visit Provider Nurse Practitioner
DX: E78.5 Hyperlipidemia, unspecified (principal); R73.03 Prediabetes
CPT/HCPCS: 36415; 80053; 80061; 83036

== ENCOUNTER 2022-12-06 15:53 | Inpatient (IN) | payer MEDICARE, OTHER, SELFPAY ==
[2022-12-06] VITALS (23 sets, daily range): BP systolic 114–188; BP diastolic 75–141; PULSE 91–122; RESP 12–23; TEMP 36.2–36.9; O2SAT 88–100; BMI 59.2
--- NOTE | ~2022-12-06 | XR_ITS ---
EXAM: XR pelvis 1-2V DATE: 12/06/2022 16:50 HISTORY: fall . COMPARISON: X-ray right hip 11/25/2018. FINDINGS: Decreased mineralization. No fracture or dislocation. No lytic or blastic lesion. Posterio r lumbar fusion hardware. Mild degenerative change in the bilateral hips. No erosion or periosteal ch dea. Soft tissues within normal limits. IMPRESSION: No acute osseous finding in the pelvis. Reviewed, dictated and finalized at location K.
--- NOTE | ~2022-12-06 | US_ITS ---
EXAMINATION: US biopsy lymph node DATE: 12/10/2022 11:16 INDICATION: Abdominal, pelvic and inguinal lymphadenopathy TECHNIQUE: The procedure including the risks and benefits was discussed with the patient. Risks discu ssed included bleeding and infection. The patient understood the risks and agreed to proceed. The sk in overlying the right groin was prepped and draped in usual sterile fashion. Anesthetic was adminis tered with 1% lidocaine subcutaneously. An 14 gauge core biopsy needle was advanced under continuous ultrasound observation to the lesion of interest. 6 core biopsy specimens were obtained, 4 placed i n RPMI media and 2 in formalin. The needle was removed and the entry site was cleaned and dressed. Post procedure ultrasound demonstrated no hemorrhage. FINDINGS: Ultrasound images demonstrate a 2.1 x 1.6 x 1.4 cm right inguinal lymph node. Subsequent im ages demonstrate biopsy needle advanced through the lymph node.. IMPRESSION: 1. Successful Ultrasound-guided biopsy of a 2.1 x 1.6 x 1.4 cm right inguinal lymph node. Reviewed, dictated and finalized at location A. IMPRESSION: 1. Successful Ultrasound-guided biopsy of a 2.1 x 1.6 x 1.4 cm right inguinal l ymph node.
--- NOTE | ~2022-12-06 | MR_ITS ---
EXAMINATION: MR brain/brain stem wo/w con DATE: 12/13/2022 14:04 INDICATION: ams TECHNIQUE: Magnetic resonance imaging (MRI) of the brain and brainstem was performed with and without 20 mL MultiHance intravenous contrast. Sequences included sagittal and axial T1-weighted SE, axial d iffusion-weighted FS EPI ASSET, axial T2*-weighted GRE, axial T2-weighted FLAIR Propeller, and axial T2-weighted Propeller. Postcontrast axial and coronal T1-weighted SE was obtained. Apparent diffusion coefficient (ADC) maps were created. COMPARISON: 07/03/2010; CT brain 12/11/2022. FINDINGS: No abnormal restricted diffusion to suggest acute ischemic infarct. No MRI evidence of hemorrhage or extra-axial collection. No suspicious foci of susceptibility to suggest prior intraparenchymal hemorr alfreda. Scattered foci of white matter hyperintensity, likely representing mild small vessel ischemic d isease. No evidence of advanced or lobar predominant parenchymal volume loss. The basilar cisterns ar e patent. Flow voids are preserved. Paranasal sinuses are within normal limits. Globes and orbital co ntents are within normal limits. No abnormal enhancement. IMPRESSION: No acute intracranial process detected. Reviewed, dictated and finalized at location K.
--- NOTE | ~2022-12-06 | XR_ITS ---
EXAMINATION: XR chest 1V portable Exam Date/Time: 12/06/2022 16:20 CDT HISTORY: cp Comparison: 11/13/2021. RESULT: Lines, tubes, and devices: Intact sternotomy wires. Mediastinal surgical clips. Lungs and pleura: Low volumes with crowding. Cardiomediastinal silhouette: Stable. Right hemidiaphragm eventration. Other: No acute osseous or upper abdominal finding. IMPRESSION: No acute cardiopulmonary process. Reviewed, dictated and finalized at location K.
--- NOTE | ~2022-12-06 | XR_ITS ---
EXAMINATION: XR abdomen/kub 1V INDICATION: Abdominal pain TECHNIQUE: Supine views of the abdomen were obtained on three radiographs. COMPARISON: 07/01/2019 FINDINGS: There is a 1.3 cm stone of the left kidney lower pole. Smaller left kidney lower pole stone s measure 4 mm and 2 mm. No definite stones are identified along the expected courses of ureters or i n the urinary bladder. A moderate volume of colonic stool is present. The bowel gas pattern is normal . There are surgical changes of the lumbosacral spine. IMPRESSION: 1. Left nephrolithiasis. Reviewed, dictated and finalized at location F. IMPRESSION: 1. Left nephrolithiasis.
--- NOTE | ~2022-12-06 | XR_ITS ---
EXAMINATION: XR chest 1V INDICATION: Shortness of breath TECHNIQUE: AP view of the chest is obtained. COMPARISON: 12/06/2022 FINDINGS: The lungs are free of acute opacities. No pleural effusion or pneumothorax. The heart size is normal. Median sternotomy wires and mediastinal surgical clips are seen, likely from prior coronar y artery bypass grafting. The visualized bones and soft tissues are unremarkable. IMPRESSION: 1. No acute cardiopulmonary abnormality. Reviewed, dictated and finalized at location A.
--- NOTE | ~2022-12-06 | CT_ITS ---
EXAMINATION: CT brain wo con DATE: 12/11/2022 18:45 INDICATION: Altered mental status. TECHNIQUE: Computed tomography (CT) of the head was performed without intravenous contrast. The mA wa s adjusted according to patient size. Iterative reconstruction technique was employed. The dose-lengt h product was 681.00 mGy-cm. COMPARISON: Head CT 12/06/2022 FINDINGS: There are scattered areas of low attenuation in the cerebral white matter. There is no intr acranial hemorrhage, acute infarction, or abnormal intracranial mass lesion. The ventricles are sarwat l in size. There is mild mucosal thickening in the paranasal sinuses. The orbits are normal. The mast oid air cells are normal. IMPRESSION: 1. Stable mild nonspecific cerebral white matter disease, which likely represents chronic small vesse l ischemic disease. Reviewed, dictated and finalized at location E. IMPRESSION: 1. Stable mild nonspecific cerebral white matter disease, which likely represen ts chronic small vessel ischemic disease.
--- NOTE | ~2022-12-06 | XR_ITS ---
EXAM: XR knee RT 3V, XR knee LT 3V DATE: 12/06/2022 16:50 HISTORY: fall . COMPARISON: None available. FINDINGS: Decreased mineralization. No fracture or dislocation. No lytic or blastic lesion. Right to patrice knee arthroplasty, no hardware fracture or pericardial hardware lucency. Moderate left knee osteo arthritis. No erosion or periosteal change. Scattered vascular calcifications. Surgical clips in the medial left leg. IMPRESSION: No acute osseous finding in the right or left knees. No radiographic evidence of hardware related complication in the right knee arthroplasty. Reviewed, dictated and finalized at location K. IMPRESSION: No acute osseous finding in the right or left knees. No radiographi c evidence of hardware related complication in the right knee arthroplasty.
--- NOTE | ~2022-12-06 | US_ITS ---
EXAMINATION: US scrotum doppler DATE: 12/10/2022 20:28 INDICATION: edema/errythema, NO NEED FOR ASPIRIATION . TECHNIQUE: Grayscale and Doppler ultrasound images of the testes were obtained. COMPARISON: 11/29/2015 CT CAP 12/08/2022. FINDINGS: The right testis measures 3.2 x 2.2 x 2.8 cm. The left testis measures 3.6 x 2.5 x 2.4 cm. No testicular mass. Slightly heterogeneous left testicular parenchyma no discrete mass or hypervascul arity. 7 mm right scrotal calcification. There is normal vascular flow to both testes. The right epid idymis is normal with normal vascular flow. The left epididymis is slightly enlarged and contains a 1 .5 cm cyst. Small bilateral hydroceles. No varicocele. IMPRESSION: 1.5 cm left epididymal cyst. Small bilateral hydroceles. Reviewed, dictated and finalized at location K.
--- NOTE | ~2022-12-06 | CT_ITS ---
EXAMINATION: CT chest abdomen pelvis wo con DATE: 12/08/2022 09:49 INDICATION: Hypercalcemia. TECHNIQUE: Computed tomography (CT) of the chest, abdomen, and pelvis was performed without intraveno us contrast. Automated exposure control and iterative reconstruction technique were employed. The dos e-length product was 1778.35 mGy-cm. COMPARISON: CT abdomen and pelvis 06/27/2019 FINDINGS: CHEST CT: The lungs demonstrate mild atelectasis. Motion artifact is noted. There is mild scarring in paraspina l right lower lobe. No pleural effusion. The heart size is normal. There are coronary artery calcific ations. There are changes of coronary artery bypass grafting. No pericardial effusion. There is a sma ll sliding hiatal hernia. There are bridging endplate osteophytes at multiple levels in the spine, co nsistent with diffuse idiopathic skeletal hyperostosis (DISH). There is mild chronic anterior wedging of multiple vertebral bodies. ABDOMEN/PELVIS CT: The liver, gallbladder, spleen, pancreas, and adrenal glands are normal. There are cysts in the kidne ys measuring up to 3.5 cm on the right. There is cortical thinning of right kidney. There are 4 stone s in left kidney measuring up to 14 mm. The prostate is mildly enlarged. There are no dilated loops o f bowel. The appendix is not visualized. There is bulky aortocaval and left paracolic lymphadenopathy . For example, a left para-aortic jaime mass measures 7.0 x 5.9 cm. There is calcified atherosclerosi s of the aorta and many of the other arteries. There is left bilateral common iliac and external jose guadalupe c lymphadenopathy. A right inguinal node measures 2.0 x 1.6 cm. There is no free intraperitoneal flui d. There are changes of anterior and posterior fusion procedures in lumbar spine. IMPRESSION: 1. Abdominal and pelvic lymphadenopathy, consistent with lymphoma. Ultrasound-guided core needle biop sy of a right inguinal lymph node is recommended. Reviewed, dictated and finalized at location E. IMPRESSION: 1. Abdominal and pelvic lymphadenopathy, consistent with lymphoma. Ultrasound-g uided core needle biopsy of a right inguinal lymph node is recommended.
--- NOTE | ~2022-12-06 | US_ITS ---
EXAMINATION: US renal BI DATE: 12/07/2022 15:24 INDICATION: BLAS TECHNIQUE: Multiple grayscale and Doppler ultrasound images of the kidneys were obtained. COMPARISON: X-ray abdomen 12/07/2022; CT abdomen pelvis 06/27/2019. FINDINGS: Exam limited by body habitus and restraints. The right kidney is very poorly visualized. Multiple rig ht renal cysts, incompletely visualized. The left kidney measures 13.7 x 4.6 x 5.4 cm. The left kidne y demonstrates normal parenchymal echogenicity. Left inferior pole calcifications. There is no hydron ephrosis. The bladder is decompressed by [place] catheter. IMPRESSION: Right kidney very poorly visualized. Multiple incompletely evaluated cystic right renal lesions. Left nephrolithiasis. Reviewed, dictated and finalized at location K. IMPRESSION: Right kidney very poorly visualized. Multiple incompletely evaluated cystic rig ht renal lesions. Left nephrolithiasis.
--- NOTE | ~2022-12-06 | CT_ITS ---
EXAMINATION: CT brain wo con INDICATION: Headache COMPARISON: 06/29/2010 TECHNIQUE: Standard unenhanced head CT. The dose-length product (DLP) was 1362.00 mGy-cm. The mA was adjusted according to patient size. Iterative reconstruction technique was employed. FINDINGS: No acute intraparenchymal hemorrhage. No evidence of mass lesion. No evidence of acute infa rction. There is mild periventricular and subcortical hypodensity probably related to small vessel is chemic disease. There is mild prominence of the sulci and ventricles related to cerebral atrophy. Int racranial calcified cerebral atherosclerosis is noted. No extra-axial collections. No mass effect or midline shift. The orbits and soft tissues are unremarkable. The visualized sinuses and mastoid air c ells are well aerated. IMPRESSION: 1. No acute intracranial abnormality. 2. Age related findings. Reviewed, dictated and finalized at location F.
--- NOTE | 2022-12-06 16:20 | ECG_ITS ---
Measurements Intervals [place] Rate: 115 P: 73 CO: 154 QRS: -47 QRSD: 113 T: 53 QT: 333 QTc: 461 Interpretive Statements SINUS OR ECTOPIC ATRIAL TACHYCARDIA INTRAVENTRICULAR CONDUCTION DELAY CONSIDER ANTERIOR INFARCT, AGE INDETERMINATE INFERIOR INFARCT, AGE INDETERMINATE BORDERLINE ST-T WAVE ABNORMALITY- HIGH LATERAL LEADS BASELINE WANDER- V1 ABNORMAL ECG COMPARED TO ECG 05/04/2021 07:28:57 SINUS TACHYCARDIA NOW PRESENT MYOCARDIAL INFARCT FINDING NOW PRESENT Electronically Signed On 12-06-2022 20:42:51 CDT by Clemente Cortes D.O.
--- NOTE | 2022-12-06 16:36 | ED.FALL ---
HPI - Fall General Chief Complaint: Fall Stated Complaint: fall with weakness Time Seen by Provider: 12/06/22 16:11 Source: patient and EMS Mode of arrival: EMS Limitations: no limitations History of Present Illness HPI Narrative: 72 years old white male came to the emergency room by ambulance because of a fall. Patient was taking a shower, try to move from one side to another site lost his balance and fell landed on both knees, denies other injuries. Patient reports that he is knees gave out. He denies any head injury. The is telling me that patient been having intermittent chest pain for at least 2 weeks, been taking nitroglycerin sublingual like candies. Last chest pain was this morning. Currently patient denying any chest pain. Related Data Home Medications Medication Instructions Recorded Confirmed aspirin 81 mg tablet,delayed 81 mg PO DAILY 03/04/19 08/14/22 release multivitamin (Multiple Vitamins 1 tablet PO DAILY 03/04/19 08/14/22 tablet) furosemide 20 mg tablet 20 mg PO DAILY 01/11/21 08/14/22 hydrocodone 10 mg-acetaminophen 1 tablet PO Q8H 01/11/21 08/14/22 300 mg tablet isosorbide mononitrate 60 mg 120 mg PO QAM 10/04/21 08/14/22 tablet,extended release 24 hr ranolazine 500 mg tablet,extended 500 mg PO BID 10/04/21 08/14/22 release,12 hr (Ranexa) metoprolol succinate 100 mg 200 mg PO QAM 06/10/22 08/14/22 tablet,extended release 24 hr (Toprol XL) Allergies Allergy/AdvReac Type Severity Reaction Status Date / Time chloramphenicol Allergy Severe EYE Verified 12/04/22 13:39 irritation nickel Allergy Mild Rash Verified 12/04/22 13:39 detergents Allergy Hives Uncoded 12/04/22 13:39 Review of Systems Review of Systems: All systems reviewed & are unremarkable except as noted in HPI and below PMFSH Past Medical History Medical History Acute recurrent maxillary sinusitis Allergic rhinitis Anxiety and depression Arthritis Bilateral cataracts Maturing Chronic low back pain With history of L4-L5-L5-S1 surgery Coronary artery disease involving coronary bypass graft of [place] heart COVID-19 DDD (degenerative disc disease) Essential (primary) hypertension Former smoker Gastroesophageal reflux disease Grade II internal hemorrhoids Hearing loss Hemorrhoid Hiatal hernia Hypersomnia Hypoxia Insomnia Left knee DJD Medullary sponge kidney With history of kidney stones in 198906/25/1994 Mixed hyperlipidemia Morbid obesity Obstructive sleep apnea on CPAP Auto titrating CPAP Painful total knee replacement, right Pre-diabetes (Unknown) Primary osteoarthritis of left knee Restless leg ST elevation myocardial infarction (STEMI) Systolic dysfunction With ejection fraction of 45-50% on cardiac catheterization May 2017 Surgical History Surgical History History of cardiac catheterization Cardiac catheterization with stent placement 2000, may 2017 with stent to the RCA due to complete occlusion stented at [facility], high-grade stenosis 80% occlusion to saphenous vein graft to the circ that was stented June 2017 at [facility] History of cystoscopy With stone retrieval in 1994 History of spinal surgery L4-L5 and L5-S1 PLIF 2012 History of total right knee replacement 2010 Hx of CABG History of 5 vessel CABG in 1997 Family History Family History Father Diabetes mellitus Multiple myeloma Hypertension Heart valve replaced Heart disease Mother Hypertension Heart disease Social History Social History Social History: Patient is a former smoker. He smoke trans time his 21 until he was 47. He smoked between 1-2 packs cigarettes per day prior to quitting. He has at least a 26 pack per year smoking history. Primary care physician: Dr. Arroyo
--- NOTE | 2022-12-06 16:43 | PCRCNOTE ---
ARRIVED TO DRAW ABG; PT. WAS NOT AVAILABLE.
[2022-12-06 17:05] LABS: Alveolar/Arterial O2 Gradient 42.5 mmHg; Fractional Inspired Oxygen 21 %; HCO3 ABG 27.5 mEq/l (22.0-26.0); Modified Allen's Test Pass; Oxygen Content ABG 18.2 %vol (16.0-22.0); Oxygen Saturation ABG 93.4 % (95.0-100.0); PCO2 ABG 37.6 mmHg (35.0-45.0); PO2 ABG 62.2 mmHg (80.0-100.0); PO2 FiO2 Ratio Arterial Blood 2.96 %; Site Drawn LEFT RADIAL; Total Hemoglobin 14.1 g/dL (12.0-18.0); pH ABG 7.482 (7.350-7.450)
[2022-12-06 17:06] LABS: Device ROOM AIR
[2022-12-06 17:25] LABS: Basophils Absolute Auto 0.1 K/mm3 (0.0-0.1); Basophils Percent Auto 0.5 % (0.2-1.2); Eosinophils Absolute Auto 0.2 K/mm3 (0-0.3); Eosinophils Percent Auto 1.6 % (0-4.4); Hematocrit 40.8 % (42.0-52.0); Hemoglobin 13.5 g/dL (14.0-18.0); Immature Granulocyte Absolute 0.04 K/mm3 (0.00-0.031); Immature Granulocyte Percent A 0.4 % (0-0.5); Lymphocytes Absolute Auto 0.82 K/mm3 (0.9-3.2); Lymphocytes Percent Auto 7.2 % (18.3-44.2); Mean Corpuscular HGB Conc 33.1 g/dl (32-36); Mean Corpuscular Hemoglobin 30.8 pg (26-34); Mean Corpuscular Volume 92.9 fl (80-100); Monocytes Absolute Auto 1.3 K/mm3 (0.1-0.6); Monocytes Percent Auto 11.8 % (2.6-8.5); Neutrophils Absolute Auto 8.9 K/mm3 (1.3-6.7); Neutrophils Percent Auto 78.5 % (45.5-73.1); Platelet Count Result 227 k/mm3 (150-375); Red Blood Count 4.39 M/mm3 (4.6-6.20); Red Cell Distribution Width 14.4 % (11.5-14.5); White Blood Count 11.4 K/mm3 (4.5-10.0)
[2022-12-06 17:37] LABS: Prothrombin Time 13.5 Seconds (11.1-14.7)
[2022-12-06 17:38] LABS: Partial Thromboplastin Time 20.9 SECONDS (22.3-36.8)
[2022-12-06 17:53] LABS: NT Pro B Type Natriuretic Pept 13200 pg/mL (19.9-100)
[2022-12-06 17:54] LABS: Alanine Aminotransferase 24 U/L (6-50); Albumin Level 3.9 g/dL (3.5-5.1); Alkaline Phosphatase 91 U/L (38-126); Anion Gap 6 mmol/L (8-16); Aspartate Amino Transferase 60 U/L (17-59); Blood Urea Nitrogen 30 mg/dL (9-20); Carbon Dioxide 30 mmol/L (22-30); Chloride 100 mmol/L (98-107); Estimated CRCL calculation 25 ml/min; Estimated Glomerular Filt Rate 18; Glucose 105 mg/dL (65-110); Lipase 148 U/L (23-300); Potassium 3.3 mmol/L (3.4-5.0); Sodium 136 mmol/L (137-145)
[2022-12-06] MEDS: SODIUM CHLORIDE 0.9% IV 1,000 ML 999 ML IV CONT (18:21)
[2022-12-06 18:24] LABS: Calcium 16.5 mg/dL (8.4-10.2)
[2022-12-06] MEDS: ASPIRIN 325 MG TABLET PO (18:32)
[2022-12-06] MEDS: POTASSIUM CHLORIDE 20 MEQ ER TABLET 40 MEQ PO (18:32)
[2022-12-06] MEDS: SODIUM CHLORIDE 0.9% IV 1,000 ML 125 ML IV CONT (21:11)
--- NOTE | 2022-12-06 21:13 | ECG_ITS ---
Measurements Intervals [place] Rate: 109 P: 68 NV: 158 QRS: -42 QRSD: 117 T: 50 QT: 282 QTc: 381 Interpretive Statements SINUS TACHYCARDIA MARKED LEFT AXIS DEVIATION [QRS AXIS < -30] MODERATE INTRAVENTRICULAR CONDUCTION DELAY [110+ ms QRS DURATION] NONSPECIFIC ST & T-WAVE ABNORMALITY OLD INFERIOR INFARCT COMPARED TO ECG 12/06/2022 20:08:34 SINUS TACHYCARDIA NOW PRESENT Electronically Signed On 12-09-2022 12:05:08 CDT by Radha Belcher M.D.
--- NOTE | 2022-12-06 21:27 | ECG_ITS ---
Measurements Intervals [place] Rate: 114 P: 28 KS: 157 QRS: -50 QRSD: 104 T: 60 QT: 315 QTc: 435 Interpretive Statements SINUS TACHYCARDIA SUSPECT PREVIOUS ANTERIOR AND INFERIOR INFARCTION IVCD ABNORMAL ECG COMPARED TO ECG 05/04/2021 07:28:57 LOSS OF PRECORDIAL R-WAVE, SUGGEST INTERVAL INFARCTION HAS OCCURRED Electronically Signed On 12-07-2022 9:23:40 CDT by Steffen Bloom M.D.
--- NOTE | 2022-12-06 21:41 | PC.NURSE ---
MD at bedside to evaluate patient. Requests that cardiology be called about this patient and updated with troponins, ekg changes, active chest pain, and whether or not a heparin gtt is recommended at this time. Also, MD gave order for nitro paste and morphine.
[2022-12-06] MEDS: MORPHINE SULFATE (*CRX) 2 MG/ML INJ IV PUSH (21:47)
[2022-12-06] MEDS: NITROGLYCERIN OINTMENT 1 INCH DOSE 2 INCH TRANSDERM (21:53)
--- NOTE | 2022-12-06 22:23 | PC.NURSE ---
This patient, Steffen Martinez, was admitted to IMU Room 204-01. Patient/family oriented to hospital policies and general routines including ID bracelet, bed and alarms, visiting hours, pain management, procedures, bathroom and other care routines, personal items, smoking policy, room service/diet, and visiting hours. Information on how to activate the Rapid Response Team has been discussed. Patient/Family are encouraged to report perceived risks to care and to ask questions if they do not understand what they are told or what they should do.
[2022-12-06] MEDS: ATORVASTATIN 40 MG TABLET PO (23:12)
[2022-12-06] MEDS: METOPROLOL TARTRATE 50 MG TAB PO (23:13)
--- NOTE | 2022-12-06 23:36 | PM.IMHP ---
H&P: HPI History of Present Illness Date/Time: 12/06/22 23:36 Chief Complaint: Patient was brought to the ER for evaluation because of persistent chest pain for 2 weeks Narrative: He is a very unfortunate 72 years old super morbidly obese white male with CAD and chronic multiple medical issues and a long history of noncompliance with meds and medical recommendations. He is complaining of chest pain off and on, intermittently for the last 2 weeks and according to the , he has been taking nitroglycerin tablets sublingually like candies. He describes his pain as 4 to 5/10 in intensity, located in the anterior chest without any radiation, no associated sweating or palpitations. Patient was taking a shower this morning and tried to move from 1 side to the other when he lost his balance, fell down and landed on both his knees. No injuries to the head or extremities reported. The patient's got concerned and forced him to come to the ER for evaluation. Workup was done which showed elevated Troponin-I. Patient chest pain had improved a bit. ER physician spoke with the medical billing manager who wanted the patient to be admitted for tele monitoring and further workup. Review of Systems Review of Systems: he denies any fever rigor chills, nausea vomiting, dizziness, loss of consciousness or blurred vision All systems reviewed & are unremarkable except as noted in HPI and below PMFSH Past Medical History Medical History (Updated 12/07/22 @ 00:41 by Primitivo Noe MD) Acute recurrent maxillary sinusitis Allergic rhinitis Anxiety and depression Arthritis Bilateral cataracts Maturing Chronic low back pain With history of L4-L5-L5-S1 surgery Coronary artery disease involving coronary bypass graft of [place] heart COVID-19 DDD (degenerative disc disease) Essential (primary) hypertension Former smoker Gastroesophageal reflux disease Grade II internal hemorrhoids Hearing loss Hemorrhoid Hiatal hernia Hypersomnia Hypoxia Insomnia Left knee DJD Medullary sponge kidney With history of kidney stones in 198906/25/1994 Mixed hyperlipidemia Morbid obesity Obstructive sleep apnea on CPAP Auto titrating CPAP Painful total knee replacement, right Personal history of noncompliance with medical treatment and regimen Pre-diabetes (Unknown) Primary osteoarthritis of left knee Restless leg ST elevation myocardial infarction (STEMI) Systolic dysfunction With ejection fraction of 45-50% on cardiac catheterization May 2017 Surgical History Surgical History History of cardiac catheterization Cardiac catheterization with stent placement 2000, may 2017 with stent to the RCA due to complete occlusion stented at [facility], high-grade stenosis 80% occlusion to saphenous vein graft to the circ that was stented June 2017 at [facility] History of cystoscopy With stone retrieval in 1994 History of spinal surgery L4-L5 and L5-S1 PLIF 2012 History of total right knee replacement 2010 Hx of CABG History of 5 vessel CABG in 1997 Family History Family History Father Diabetes mellitus Multiple myeloma Hypertension Heart valve replaced Heart disease Mother Hypertension Heart disease Social History Social History Social History: Patient is a former smoker. He smoke trans time his 21 until he was 47. He smoked between 1-2 packs cigarettes per day prior to quitting. He has at least a 26 pack per year smoking history. Primary care physician: Dr. Rikki Garibay Code status: Full code Smoking packs per day: 3 Smoking cigarettes per day: 60.0 Years smoked: 15 Smoking pack-years: 45.00 Smoking status: Former smoker Tobacco type: cigarettes Second hand tobacco smoke exposure: No Smoking end date: 08/26/97 Additional smoking assessment comments: quit
[2022-12-06 23:44] LABS: Basophils Absolute Auto 0.1 K/mm3 (0.0-0.1); Basophils Percent Auto 0.7 % (0.2-1.2); Eosinophils Absolute Auto 0.2 K/mm3 (0-0.3); Eosinophils Percent Auto 1.7 % (0-4.4); Hemoglobin 12.8 g/dL (14.0-18.0); Immature Granulocyte Absolute 0.03 K/mm3 (0.00-0.031); Immature Granulocyte Percent A 0.3 % (0-0.5); Lymphocytes Absolute Auto 0.88 K/mm3 (0.9-3.2); Lymphocytes Percent Auto 9.1 % (18.3-44.2); Mean Corpuscular HGB Conc 32.8 g/dl (32-36); Mean Corpuscular Hemoglobin 30.8 pg (26-34); Mean Corpuscular Volume 93.8 fl (80-100); Monocytes Absolute Auto 1.1 K/mm3 (0.1-0.6); Monocytes Percent Auto 11.6 % (2.6-8.5); Neutrophils Absolute Auto 7.4 K/mm3 (1.3-6.7); Neutrophils Percent Auto 76.6 % (45.5-73.1); Platelet Count Result 211 k/mm3 (150-375); Red Blood Count 4.16 M/mm3 (4.6-6.20); Red Cell Distribution Width 14.6 % (11.5-14.5); White Blood Count 9.6 K/mm3 (4.5-10.0)
[2022-12-06 23:55] LABS: Prothrombin Time 13.5 Seconds (11.1-14.7)
[2022-12-06 23:56] LABS: Partial Thromboplastin Time 29.3 SECONDS (22.3-36.8)
[2022-12-07] VITALS (24 sets, daily range): BP systolic 117–160; BP diastolic 82–97; PULSE 62–103; RESP 17–29; TEMP 36.3–36.8; O2SAT 94–100
--- NOTE | 2022-12-07 | PC.NURSE ---
Head CT results received. Dr. Noe notified of results and is ok to start heparin and give plavix dose.
[2022-12-07] MEDS: CLOPIDOGREL BISULFATE 300 MG TABLET 600 MG PO (00:21)
[2022-12-07] MEDS: HEPARIN SOD/D5W 100 UNITS/ML 25,000 UNITS/250 ML BAG 10 UNITS IV CONT (00:22)
[2022-12-07] MEDS: HEPARIN SODIUM 5,000 UNITS/ML VIAL 4000 UNITS IV PUSH ×2 (00:31→07:49)
[2022-12-07] MEDS: WATER FOR IRRIGATION, STERILE 1,000 ML BOTTLE 1000 ML (00:59)
[2022-12-07] MEDS: METOPROLOL SUCCINATE EXT REL 100 MG TABCR PO (01:23)
[2022-12-07] MEDS: FUROSEMIDE INJ 40 MG/4 ML VIAL IV PUSH (01:23)
[2022-12-07] MEDS: RANOLAZINE 500 MG TAB.ER.12H PO (01:23)
[2022-12-07] MEDS: KCL 20 MEQ/SW 100 ML 100 ML 50 MEQ IVPB (01:24)
--- NOTE | 2022-12-07 04:56 | PC.NURSE ---
Full dose of IV K not given related to patient pulling out multiple IV accesses. aware. Order recieved for PO K.
[2022-12-07] MEDS: POTASSIUM CHLORIDE 20 MEQ ER TABLET PO (05:18)
[2022-12-07] MEDS: NITROGLYCERIN OINTMENT 1 INCH DOSE TRANSDERM ×4 (05:19→23:57)
--- NOTE | 2022-12-07 06:00 | ECG_ITS ---
Measurements Intervals [place] Rate: 101 P: 56 AR: 199 QRS: -48 QRSD: 107 T: 64 QT: 362 QTc: 469 Interpretive Statements NO DATA ON LEAD V5 SINUS TACHYCARDIA WITH OCCASIONAL VENTRICULAR PREMATURE COMPLEXES LEFT AXIS DEVIATION INTRAVENTRICULAR CONDUCTION DELAY PREVIOUS INFERIOR INFARCTION COMPARED TO ECG 12/06/2022 20:08:34 NO SIGNIFICANT DIFFERENCE OTHER THAN NO SIGNAL ON LEAD V5 Electronically Signed On 12-07-2022 9:32:19 CDT by Steffen Bloom M.D.
[2022-12-07] MEDS: ALPRAZolam (*CRX) 0.5 MG TABLET PO (06:36)
[2022-12-07 06:56] LABS: Basophils Absolute Auto 0.1 K/mm3 (0.0-0.1); Basophils Percent Auto 0.6 % (0.2-1.2); Eosinophils Absolute Auto 0.4 K/mm3 (0-0.3); Eosinophils Percent Auto 2.9 % (0-4.4); Hematocrit 39.9 % (42.0-52.0); Hemoglobin 13.4 g/dL (14.0-18.0); Immature Granulocyte Absolute 0.04 K/mm3 (0.00-0.031); Immature Granulocyte Percent A 0.3 % (0-0.5); Lymphocytes Absolute Auto 1.49 K/mm3 (0.9-3.2); Lymphocytes Percent Auto 12.5 % (18.3-44.2); Mean Corpuscular HGB Conc 33.6 g/dl (32-36); Mean Corpuscular Hemoglobin 31.2 pg (26-34); Mean Corpuscular Volume 92.8 fl (80-100); Mean Platelet Volume 11.2 fl (7.4-10.4); Monocytes Absolute Auto 1.4 K/mm3 (0.1-0.6); Monocytes Percent Auto 11.6 % (2.6-8.5); Neutrophils Absolute Auto 8.6 K/mm3 (1.3-6.7); Neutrophils Percent Auto 72.1 % (45.5-73.1); Platelet Count Result 241 k/mm3 (150-375); Red Cell Distribution Width 14.6 % (11.5-14.5); White Blood Count 11.9 K/mm3 (4.5-10.0)
--- NOTE | 2022-12-07 07:06 | PC.NURSE ---
Attempted to reach family due to patient increased confusion so that someone could come stay with him overnight if possible. Multiple calls and messages left with patient's contacts. No answer and no call back as of this time.
[2022-12-07 07:10] LABS: Partial Thromboplastin Time 46.7 SECONDS (22.3-36.8)
[2022-12-07 07:53] LABS: Cholesterol 137 mg/dL (0-200); HDL Direct 37 mg/dL; Triglycerides 154 mg/dL (<150)
[2022-12-07] MEDS: MORPHINE SULFATE (*CRX) 2 MG/ML INJ IV PUSH (07:55)
[2022-12-07 08:03] LABS: LDL Cholesterol Direct 72 mg/dL
[2022-12-07] MEDS: OLANZapine 5 MG TABLET PO (08:08)
[2022-12-07 08:17] LABS: Thyroid Stimulating Hormone Reflex 0.735 uIU/mL (0.465-4.68)
--- NOTE | 2022-12-07 08:29 | PM.IMPN ---
Progress Note: A&P Assessment and Plan (1) Elevated troponin: Code(s): R77.8 - Other specified abnormalities of plasma proteins Status: Acute (2) ERAN (acute kidney injury): Code(s): N17.9 - Acute kidney failure, unspecified Status: Acute (3) Chest pain: Code(s): R07.9 - Chest pain, unspecified Status: Acute (4) NSTEMI (non-ST elevated myocardial infarction): Code(s): I21.4 - Non-ST elevation (NSTEMI) myocardial infarction Status: Acute (5) CAD (coronary artery disease): Onset Date: 1997 Qualifiers: Associated angina: with unspecified form of angina Coronary Disease-Associated Artery/Lesion type: bypass graft, autologous vein Qualified Code(s): I25.719 - Atherosclerosis of autologous vein coronary artery bypass graft(s) with unspecified angina pectoris Code(s): I25.10 - Atherosclerotic heart disease of [place] coronary artery without angina pectoris Status: Chronic (6) Hypercalcemia: Code(s): E83.52 - Hypercalcemia Status: Acute Assessment and Plan: Patient with altered mental status with a calcium of 16.5 IV NS at 200 ml/hr continuous. Will plan on giving zoledronic acid (Zometa) once kidney function improves. Plan Admit patient to medical unit under inpatient status Continuous cardiac tele-monitoring Patient given Aspirin in the ER Initial EKG was at baseline with the chronic ischemic nonspecific STT wave change 1st set of cardiac enzymes was positive with troponin I at 1.150 ER physician reach out to the business practices supervisor on-call who wanted to monitor patient closely Monitor cardiac enzymes ?3 2D echo reviewed from 05/23/2021 which showed preserved left ventricular function with EF 60-65% Keep patient NPO after midnight Cardiology consultation in am for evaluation, further treatment recommendations and work up DC planning once chest pain is resolved, patient is clinically stable and cleared by Cardiology CRITICAL CARE MANAGEMENT: I was called for the floor nurse to come and evaluate the patient as he was having active chest pain. I went to evaluate the patient. He was complaining of midsternal chest pain 5-6 in intensity radiating across the chest. I ordered 2 in nitro paste add and 2 mg IV morphine x1 dose. I spoke with the business practices supervisor in detail who he believes patient is not a good candidate for cardiac intervention because of Eran with creatinine of 3.4 and a GFR of 25. Second set of cardiac enzymes was obtained which was elevated at 1.19. Sandwich Counter Attendant recommended maximizing of medical therapy as under: IV heparin drip as per ACS protocol As patient her 5 mg p.o. daily Plavix loading 600 mg x 1 dose followed by 45 mg p.o. daily Lipitor 40 mg p.o. q.h.s. Metoprolol succinate 100 mg p.o. b.i.d. Nitro paste 1in q.6 hours Ranexa 500 mg p.o. b.i.d. Morphine 2 mg IV q.4 hours p.r.n. for chest Patient responded well to the intervention as above and his chest pain improved. 3rd set of cardiac enzyme was followed which which showed downward trending at 1.040. Repeat [place] [address] and potassium level is borderline at 3.2. Patient received Potassium supplementation in the ER. I ordered Lasix 40 mg IV x1 dose and 20 mg IV KCl x1 dose. Strict I's and O's to be monitored. Patient is currently chest pain-free and back to his baseline. He will be monitored very closely on the floor. Further management as per business practices supervisor in am. Personal history of noncompliance with medical treatment and regimen: STRICTLY advised patient to be compliant with meds and medical recommendations. Advised patient to get established with a PCP upon discharge, take care of meds, diet and bring patient's life back on track. ? Patient seen and examined at bedside ? Collaborated with patient's nurse at the bedside in detail and addressed all concerns ? Labs, electrolytes, radiology, investigations and test results revi
--- NOTE | 2022-12-07 08:46 | PM.IMPN ---
Progress Note: A&P Assessment and Plan (1) Hypercalcemia: Code(s): E83.52 - Hypercalcemia Status: Acute Assessment and Plan: Patient with altered mental status and a calcium of 16.5. Patient with normal baseline calcium level until 12/03 when elevated to 14.4 by blood work at PCP office. Weight loss concerning for neoplastic etiology of the hypercalcemia. Although hypercalcemia itself can cause anorexia. Not on VitD or calcium supplements. Explains the agitation, confusion and kidney stones. IV NS at 200 ml/hr continuous. check routine labs including: Vit D, PTH, PTHrp, NAREN, SPEP, etc. Will plan on giving zoledronic acid (Zometa) once kidney function improves. Will need skeletal survey. Check CT without contrast ch/a/p Consider HD given the neurologic changes and CAD Calcitonin ordered x 1 and consider denosumab Discussed with nephrology (2) NSTEMI (non-ST elevated myocardial infarction): Code(s): I21.4 - Non-ST elevation (NSTEMI) myocardial infarction Status: Acute Assessment and Plan: Patient has been having chest pain at rest for 2 weeks. Troponin elevated on admission and continues to rise (2.6 currently). EKG on admission showing sinus tach (115), IVCD and possibly old AIM and IMI. Borderline ST-T wave changed high lateral leads. WOLF spoke with the engineering drafter in detail who believes patient is not a good candidate for cardiac intervention because of BLAS. Repeat EKG showing loss of R wave across the precordium consistent with new infarct. 3rd EKG shows improved but blunted R wave progression. Plan to maximize medical therapy: IV heparin drip as per ACS protocol ASA 325 mg p.o. daily Plavix loading 600 mg x 1 dose followed by 75 mg p.o. daily Lipitor 40 mg p.o. q.h.s. Metoprolol succinate 100 mg p.o. b.i.d. Nitro paste 1in q.6 hours Ranexa 500 mg p.o. b.i.d. Morphine 2 mg IV q.4 hours p.r.n. for chest Patient is currently confused. He will be monitored very closely on tele in IMU. Check Echo. Further management as per engineering drafter in am. (3) Rttxa-zc-gzwjccm kidney injury: Code(s): N17.9 - Acute kidney failure, unspecified; N18.9 - Chronic kidney disease, unspecified Status: Acute Assessment and Plan: Baseline Cr 1.3-1.6 range. Cr 2.7 on 12/03/22 at the PCP office. Cr worse again here at 3.4. Suspect related to hypercalcemia. Renal US ordered. Nephrology consulted. KUB does show left nephrolithiasis so will need to exclude obstructing process. UCx ordered. Add BCx. Check CT abdomen. Check urine studies. [place] secured - monitor UOP (4) Encephalopathy: Code(s): G93.40 - Encephalopathy, unspecified Status: Acute Assessment and Plan: Patient fell in the bathroom. His head CT showing no acute process. [place] mental status changed related to hypercalcemia. Monitor closely to see if this improves with hypercalcemia treatment as expected. (5) Nephrolithiasis: Code(s): N20.0 - Calculus of kidney Status: Acute Assessment and Plan: Noted by KUB. Check CT to exclude obstructive process. (6) CAD (coronary artery disease): Onset Date: 1997 Qualifiers: Associated angina: with unspecified form of angina Coronary Disease-Associated Artery/Lesion type: bypass graft, autologous vein Qualified Code(s): I25.719 - Atherosclerosis of autologous vein coronary artery bypass graft(s) with unspecified angina pectoris Code(s): I25.10 - Atherosclerotic heart disease of [place] coronary artery without angina pectoris Status: Chronic Assessment and Plan: Patient has a hx of CAD with STEMI and CABG x 5v in 1997. VALENZUELA-LAD, sequential VIF-VO3-N3-D1 and SVG-RCA (occluded). Underwent PCI to RCA in 2017 adn PCI to [id number] in June 2017. Also has ischemic cardiomyopathy (45-50%). 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
[2022-12-07 09:01] LABS: Folic Acid 17.4 ng/mL (2.76->20); Vitamin B12 > 1000.0 pg/mL (239-931)
[2022-12-07 09:15] LABS: Ammonia < 9 umol/L (9-30)
[2022-12-07] MEDS: SODIUM CHLORIDE 0.9% IV 1,000 ML 200 ML IV CONT ×3 (09:16→19:16)
[2022-12-07 09:24] LABS: Alanine Aminotransferase 25 U/L (6-50); Albumin Level 3.8 g/dL (3.5-5.1); Alkaline Phosphatase 90 U/L (38-126); Anion Gap 7 mmol/L (8-16); Aspartate Amino Transferase 76 U/L (17-59); Blood Urea Nitrogen 31 mg/dL (9-20); Carbon Dioxide 30 mmol/L (22-30); Chloride 103 mmol/L (98-107); Estimated CRCL calculation 21 ml/min; Estimated Glomerular Filt Rate 16; Glucose 99 mg/dL (65-110); Potassium 4.5 mmol/L (3.4-5.0); Sodium 140 mmol/L (137-145)
[2022-12-07 09:27] LABS: Parathyroid Intact 38.9 pg/mL (7.5-53.5)
[2022-12-07 09:41] LABS: Calcium 15.5 mg/dL (8.4-10.2); Vitamin D 25 Hydroxy 23.1 ng/mL
[2022-12-07] MEDS: CALCITONIN SALMON INJ 400 UNITS/2 ML VIAL 500 UNITS SUB-Q (10:10)
--- NOTE | 2022-12-07 12:15 | P.CONNP_ITS ---
Assessment and Plan Assessment and plan (1) BLAS (acute kidney injury): Code(s): N17.9 - Acute kidney failure, unspecified Status: Acute Assessment and Plan: * progression of renal dysfunction noted: * creatinine of 1.78 on 06/27/22 * creatinine of 2.7mg/dl on 12/03/22 * creatinine up to 3.4mg/dl on admission * 3.7mg/dl now * suspect related to hypercalcemia +/- cardiac event; cannot discount obstruction given finding of nephrolithiasis on KUB * follow-up on urine studies and renal ultrasound * IVF hydration * cultures ordered (blood and urine) * thornton catheter in place * follow trend of repeat labs and urine output (2) Chronic kidney disease, stage 3: Code(s): N18.30 - Chronic kidney disease, stage 3 unspecified Status: Chronic Assessment and Plan: * baseline creatinine runs around 1.3 - 1.6mg/dl in the last year * presumably due to hypertension, PAULINO, and vascular disease * reported history of medullary sponge kidney noted...follow-up on pending imaging (3) Hypercalcemia: Code(s): E83.52 - Hypercalcemia Status: Acute Assessment and Plan: * quite significant on admission at 16.5 * however, noted on outpatient labs on 12/03/22 at 14.4 * now assoicated with BLAS and encephalopathy along with nephrolithiasis * agree with aggressive IVF hydration as tolerated * hypercalcemia work-up/evaluation initiated * bone scan/skeletal survey when more cooperative * agree with calcitonin -- consider repeat dosing depending on trend of calcium * dialysis is a consideration if all conservative therapy fails.... (4) NSTEMI (non-ST elevated myocardial infarction): Code(s): I21.4 - Non-ST elevation (NSTEMI) myocardial infarction Status: Acute Assessment and Plan: * as noted by elevated troponins in the context of chest pain * EKG results noted * maximize medical therapy * Cardiology consultation (but not likely a candidate for intervention give acute medical issues including BLAS) * initiated on IV heparin, ASA, and plavix along with beta shahnaz therapy * known history of CAD + CABG x 5 (1997) with noted ischemic cardiomyopathy (EF 45 - 50%) -- repeat Echo ordered (5) Altered mental status: Code(s): R41.82 - Altered mental status, unspecified Status: Acute Assessment and Plan: * Head CT negative * s/p fall prior to admission * however, maybe more related to hypercalcemia * follow mentation as calcium improves (6) PAULINO (obstructive sleep apnea): Code(s): G47.33 - Obstructive sleep apnea (adult) (pediatric) Status: Acute Assessment and Plan: * BiPAP ordered Discussed case with Dr. Colon earlier today. Long extensive discussion (> 20 minutes )with the patient's regarding the above issues and concerns including his acute kidney injury, hypercalcemia, and encephalopathy, as well as his cardiac event and I voiced my concerns that there is a possibility that he may require renal replacement therapy/dialysis. I did reiterate that my hope that if dialysis is needed, it would be a temporary solution but it is difficult to know for sure if that would be the case. She appeared to voice understanding and appreciated my discussion with her. I will continue follow the patient with you while he remains hospitalized and make further recommendations as needed. Thank you for allowing me to participate in the care of this patient. History of Present Illness Reason for Consult Consult date: 12/07/22 Reason for consult: acute renal failure (on chronic kidney disease) and Oth
--- NOTE | 2022-12-07 12:15 | PM.CNNEP ---
Assessment and Plan Assessment and plan (1) BLAS (acute kidney injury): Code(s): N17.9 - Acute kidney failure, unspecified Status: Acute Assessment and Plan: progression of renal dysfunction noted: creatinine of 1.78 on 06/27/22 creatinine of 2.7mg/dl on 12/03/22 creatinine up to 3.4mg/dl on admission 3.7mg/dl now suspect related to hypercalcemia +/- cardiac event; cannot discount obstruction given finding of nephrolithiasis on KUB follow-up on urine studies and renal ultrasound IVF hydration cultures ordered (blood and urine) thornton catheter in place follow trend of repeat labs and urine output (2) Chronic kidney disease, stage 3: Code(s): N18.30 - Chronic kidney disease, stage 3 unspecified Status: Chronic Assessment and Plan: baseline creatinine runs around 1.3 - 1.6mg/dl in the last year presumably due to hypertension, PAULINO, and vascular disease reported history of medullary sponge kidney noted...follow-up on pending imaging (3) Hypercalcemia: Code(s): E83.52 - Hypercalcemia Status: Acute Assessment and Plan: quite significant on admission at 16.5 however, noted on outpatient labs on 12/03/22 at 14.4 now assoicated with BLAS and encephalopathy along with nephrolithiasis agree with aggressive IVF hydration as tolerated hypercalcemia work-up/evaluation initiated bone scan/skeletal survey when more cooperative agree with calcitonin -- consider repeat dosing depending on trend of calcium dialysis is a consideration if all conservative therapy fails.... (4) NSTEMI (non-ST elevated myocardial infarction): Code(s): I21.4 - Non-ST elevation (NSTEMI) myocardial infarction Status: Acute Assessment and Plan: as noted by elevated troponins in the context of chest pain EKG results noted maximize medical therapy Cardiology consultation (but not likely a candidate for intervention give acute medical issues including BLAS) initiated on IV heparin, ASA, and plavix along with beta shahnaz therapy known history of CAD + CABG x 5 (1997) with noted ischemic cardiomyopathy (EF 45 - 50%) -- repeat Echo ordered (5) Altered mental status: Code(s): R41.82 - Altered mental status, unspecified Status: Acute Assessment and Plan: Head CT negative s/p fall prior to admission however, maybe more related to hypercalcemia follow mentation as calcium improves (6) PAULINO (obstructive sleep apnea): Code(s): G47.33 - Obstructive sleep apnea (adult) (pediatric) Status: Acute Assessment and Plan: BiPAP ordered Discussed case with Dr. Colon earlier today. Long extensive discussion (> 20 minutes )with the patient's regarding the above issues and concerns including his acute kidney injury, hypercalcemia, and encephalopathy, as well as his cardiac event and I voiced my concerns that there is a possibility that he may require renal replacement therapy/dialysis. I did reiterate that my hope that if dialysis is needed, it would be a temporary solution but it is difficult to know for sure if that would be the case. She appeared to voice understanding and appreciated my discussion with her. I will continue follow the patient with you while he remains hospitalized and make further recommendations as needed. Thank you for allowing me to participate in the care of this patient. History of Present Illness Reason for Consult Consult date: 12/07/22 Reason for consult: acute renal failure (on chronic kidney disease) and Other (hypercalcemia) Chief Complaint Chief complaint: BLAS, Elevated Troponin, Weakness, Fall, Hypokalemi History of Present Illness Narrative: Most of the information I have obtained is from review of the electronic medical record as well as discussion with the physician/nurses involved in the patient's care as the patient is acutely confused and unable to provide any meaningful history. The patient i
[2022-12-07 12:48] LABS: Complement C3 123 mg/dL (88-165)
[2022-12-07 13:02] LABS: Magnesium 2.1 mg/dL (1.6-2.3); Phosphorus 3.4 mg/dL (2.5-4.5)
[2022-12-07 13:23] LABS: Creatine Kinase 577 U/L (55-170)
[2022-12-07 14:13] LABS: Partial Thromboplastin Time 92.1 SECONDS (22.3-36.8)
[2022-12-07 18:20] LABS: Albumin Level 3.8 g/dL (3.5-5.1); Anion Gap 8 mmol/L (8-16); Blood Urea Nitrogen 31 mg/dL (9-20); Calcium 13.8 mg/dL (8.4-10.2); Carbon Dioxide 29 mmol/L (22-30); Chloride 104 mmol/L (98-107); Estimated CRCL calculation 23 ml/min; Estimated Glomerular Filt Rate 19; Glucose 103 mg/dL (65-110); Sodium 141 mmol/L (137-145)
[2022-12-07] MEDS: HEPARIN SOD/D5W 100 UNITS/ML 25,000 UNITS/250 ML BAG 13 UNITS IV CONT (20:58)
[2022-12-07 21:25] LABS: Partial Thromboplastin Time 90.5 SECONDS (22.3-36.8)
[2022-12-07] MEDS: PANTOPRAZOLE SODIUM IV 40 MG VIAL IV PUSH (22:12)
[2022-12-07] MEDS: METOPROLOL TARTRATE INJ 5 MG/5 ML VIAL IV PUSH (23:54)
[2022-12-08] VITALS (22 sets, daily range): BP systolic 97–137; BP diastolic 57–92; PULSE 70–104; RESP 20–97; TEMP 36–36.5; O2SAT 22–100
--- NOTE | 2022-12-08 | ECHO_ITS ---
Patient Info Name: Steffen Martinez Age: 72 years : 1950 Gender: Male Ht: 60 in Wt: 303 lbs BSA: 2.51 m2 HR: 82 bpm BP: 132 / 76 mmHg Heart Rhythm: Sinus Rhythm Technical Quality: Fair Exam Date: 12/08/2022 10:59 AM Exam Location: [facility] Pul[facility] Patient Status: Inpatient Admit Date: 12/06/2022 Staff Ordering Physician: Letha Medeiros PA-C Blender / Cook: Brandi Lora RDCS Attending Provider: Fredy Jarrell MD Referring Physician: Waldemar CRISTOBAL; Exam Type: CA echo dop color flow w con Study Info Indications - elevated BNP and trop R07.89 - Other chest pain Complete two-dimensional, color flow and Doppler transthoracic echocardiogram is performed with contrast to opacify the left ventricle and to improve the deliniation of the left ventricle endocardial borders. Contrast/Agitated Saline Contrast/Ag. Saline: Definity Amount: 2.00 ml Administered By: Brandi Lora RDCS Existing IV Access: Yes IV Access Condition: patent with no signs of infiltration Summary 1. Technically challenging echocardiogram because of obesity/definity contrast utilized. 2. Overall vigorous left ventricular systolic function with concentric hypertrophy. 3. Hypokinesis of the anteroseptal segment. 4. Sclerotic but not stenotic aortic valve. 5. Compared with examination May of 2021 no obvious change. Left Ventricle Left ventricular chamber dimension is normal. Left ventricular systolic function is hyperdynamic, estimated at >70%. There is mild concentric increased left ventricular wall thickness. The left ventricular diastolic function is grade I diastolic dysfunction. Right Ventricle Right ventricular chamber dimension is normal. Left Atria Left atrial chamber dimension is mildly enlarged. Right Atria Right atrial chamber dimension is normal. Aortic Valve The aortic valve is trileaflet. There is mild aortic valve sclerosis. There is no aortic valve stenosis. Pulmonic Valve The pulmonic valve is not well visualized. Mitral Valve The mitral valve has normal leaflets. Tricuspid Valve The tricuspid valve leaflets are normal. Pericardium/Pleural The pericardium appears normal. Aorta The aortic root size at the sinus of Valsalva is normal. Left Ventricular Outflow Tract Name Value Normal LVOT 2D LVOT Diameter 1.97 cm Aortic Valve Name Value Normal AV Regurgitation 2D LVOT Area 3.06 cm2 Ventricles Name Value Normal LV Dimensions 2D/MM IVS Diastolic Thickness (2D) 1.11 cm 0.60-1.00 LVID Diastole (2D) 5.31 cm 4.20-5.80 LVIW Diastolic Thickness (2D) 1.09 cm 0.60-1.00 LVID Systole (2D) 2.87 cm 2.50-4.00 LVOT Diameter
[2022-12-08 00:10] LABS: Glucose Point of Care 82 mg/dl (65-105)
[2022-12-08] MEDS: SODIUM CHLORIDE 0.9% IV 1,000 ML 200 ML IV CONT ×4 (01:59→19:09)
[2022-12-08 04:12] LABS: Basophils Absolute Auto 0.1 K/mm3 (0.0-0.1); Basophils Percent Auto 0.5 % (0.2-1.2); Eosinophils Absolute Auto 0.4 K/mm3 (0-0.3); Eosinophils Percent Auto 3.2 % (0-4.4); Hemoglobin 13.1 g/dL (14.0-18.0); Immature Granulocyte Absolute 0.02 K/mm3 (0.00-0.031); Immature Granulocyte Percent A 0.2 % (0-0.5); Lymphocytes Percent Auto 9.4 % (18.3-44.2); Mean Corpuscular HGB Conc 32.8 g/dl (32-36); Mean Corpuscular Hemoglobin 31.6 pg (26-34); Mean Corpuscular Volume 96.6 fl (80-100); Mean Platelet Volume 10.9 fl (7.4-10.4); Monocytes Absolute Auto 1.3 K/mm3 (0.1-0.6); Monocytes Percent Auto 10.6 % (2.6-8.5); Neutrophils Percent Auto 76.1 % (45.5-73.1); Platelet Count Result 201 k/mm3 (150-375); Red Blood Count 4.14 M/mm3 (4.6-6.20); Red Cell Distribution Width 14.3 % (11.5-14.5); White Blood Count 11.8 K/mm3 (4.5-10.0)
[2022-12-08 04:27] LABS: Partial Thromboplastin Time 84.4 SECONDS (22.3-36.8)
[2022-12-08 04:43] LABS: Albumin Level 3.7 g/dL (3.5-5.1); Anion Gap 7 mmol/L (8-16); Blood Urea Nitrogen 32 mg/dL (9-20); Calcium 12.9 mg/dL (8.4-10.2); Carbon Dioxide 27 mmol/L (22-30); Chloride 106 mmol/L (98-107); Estimated CRCL calculation 22 ml/min; Estimated Glomerular Filt Rate 17; Glucose 87 mg/dL (65-110); Magnesium 2.2 mg/dL (1.6-2.3); Phosphorus 2.9 mg/dL (2.5-4.5); Potassium 4.1 mmol/L (3.4-5.0); Sodium 140 mmol/L (137-145)
[2022-12-08 05:08] LABS: Hepatitis B Surface Antigen Negative (Negative)
[2022-12-08 05:15] LABS: Bacteria Urine None Seen /hpf; Non Pathogenic Casts 0-2; RBC Urine >100 /hpf (0-2); Squamous Epithelial Cell Urine None seen /hpf (Few)
[2022-12-08 05:23] LABS: Appearance Urine Cloudy (Clear); Bilirubin Urine Negative (Negative); Blood Urine 3+ (Negative); Color Urine Orange (Yellow); Glucose Urine UA Negative (Negative); Ketones Urine Negative (Negative); Leukocyte Esterase Ur 2+ LEU/UL (NEGATIVE); Nitrate Urine Negative (Negative); Protein Urine Trace mg/dL (Negative); Specific Grav Ur 1.008 (1.001-1.035); Urobilinogen Urine 0.2 mg/dL (<2.0); pH Urine 7.5 (5.0-9.0)
[2022-12-08 05:24] LABS: Add Urine Microscopic? YES
[2022-12-08 05:25] LABS: Hepatitis B Surface Anti Res Negative
[2022-12-08 05:26] LABS: Urea Random Urine 172 MG/DL
[2022-12-08 05:28] LABS: Potassium Urine Random 17.7 meq/L; Sodium Urine Random 122 meq/L
[2022-12-08] MEDS: METOPROLOL TARTRATE INJ 5 MG/5 ML VIAL IV PUSH ×4 (05:40→23:31)
[2022-12-08] MEDS: NITROGLYCERIN OINTMENT 1 INCH DOSE TRANSDERM ×4 (05:40→23:32)
[2022-12-08 05:59] LABS: Eosinophil Urine None Seen % (None Seen); Urine Eos QC Y
[2022-12-08] MEDS: CALCITONIN SALMON INJ 400 UNITS/2 ML VIAL 250 UNITS SUB-Q ×2 (09:10→09:16)
[2022-12-08] MEDS: CYANOCOBALAMIN 1,000 MCG TABLET 1000 MCG PO (09:11)
[2022-12-08] MEDS: ISOSORBIDE MONONITRATE 60 MG TAB.ER.24H 120 MG PO (09:11)
[2022-12-08] MEDS: ASPIRIN 325 MG TABLET PO (09:11)
[2022-12-08] MEDS: RANOLAZINE 500 MG TAB.ER.12H PO ×2 (09:11→21:30)
[2022-12-08] MEDS: PANTOPRAZOLE SODIUM IV 40 MG VIAL IV PUSH ×2 (09:12→21:48)
[2022-12-08] MEDS: CLOPIDOGREL BISULFATE 75 MG TABLET PO (09:12)
[2022-12-08] MEDS: DULoxetine HCL 60 MG CAPSULE.DR PO (09:12)
--- NOTE | 2022-12-08 09:20 | PM.IMPN ---
Progress Note: A&P Assessment and Plan (1) Hypercalcemia: Code(s): E83.52 - Hypercalcemia Status: Acute Assessment and Plan: Patient with altered mental status and a calcium of 16.5. Patient with normal baseline calcium level until 12/03 when elevated to 14.4 by blood work at PCP office. Weight loss concerning for neoplastic etiology of the hypercalcemia. Although hypercalcemia itself can cause anorexia. Not on VitD or calcium supplements. Explains the agitation, psychiatric overtones, diffuse pain, confusion and kidney stones. IV NS at 200 ml/hr continuous. Received Calcitonin yesterday and will again this morning. Calcium better at 12.9. Clinically better HepB Ag and Ab negative. C3/4 normal. UA >100 RBC with 2+ LE and 11-20 WBC. Monalisa 122. FEUrea 45% and FENa 7%. Will plan on giving zoledronic acid (Zometa) once kidney function improves. Will need skeletal survey. CT without contrast ch/a/p pending Consider HD given the neurologic changes and CAD Consider denosumab Nephrology following and appreciate their input (2) NSTEMI (non-ST elevated myocardial infarction): Code(s): I21.4 - Non-ST elevation (NSTEMI) myocardial infarction Status: Acute Assessment and Plan: Patient has been having chest pain at rest for 2 weeks. Troponin elevated on admission and continues to rise (2.6 currently). EKG on admission showing sinus tach (115), IVCD and possibly old AIM and IMI. Borderline ST-T wave changed high lateral leads. Project Analyst felt patient is not a good candidate for cardiac intervention because of BLAS. Repeat EKG showing loss of R wave across the precordium consistent with new infarct. 3rd EKG shows improved but blunted R wave progression. Plan to maximize medical therapy: IV heparin drip as per ACS protocol ASA, Lipitor, metoprolol and NTP. Plavix loading 600 mg x 1 dose followed by 75 mg p.o. daily Patient is currently confused. He will be monitored very closely on tele in IMU. Echo pending. Cardiolgoy following and appreciate their input. (3) Tqysi-cp-ybsugpg kidney injury: Code(s): N17.9 - Acute kidney failure, unspecified; N18.9 - Chronic kidney disease, unspecified Status: Acute Assessment and Plan: Baseline Cr 1.3-1.6 range. Cr 2.7 on 12/03/22 at the PCP office. Cr worse again here at 3.4. Suspect related to hypercalcemia. Renal US multiple incompletely evaluated cystic right renal lesions; left nephrolithiasis. Nephrology consulted. KUB does show left nephrolithiasis so will need to exclude obstructing process. UOP 5200mL yesterday (related to calcium) Cr 3.5 today UA as above. UCx ordered. BCx pending. CT abdomen/pelvis ordered. [place] secured - monitor UOP. (4) Encephalopathy: Code(s): G93.40 - Encephalopathy, unspecified Status: Acute Assessment and Plan: Head CT showing no acute process. [place] mental status changed related to hypercalcemia. Improving with hypercalcemia treatment as expected. Follow for continued improvement. Speech to evaluate Speech felt patient could eat and recommended soft and bite sized, regular liquids (5) Fall: Code(s): W19.XXXA - Unspecified fall, initial encounter Status: Acute Assessment and Plan: Patient fell in the bathroom. CXR clear. Knee xrays showing in acute bony abnormalities. Pelvic xray showing no acute process. His head CT showing no acute process. Will need PT/OT was able. (6) Nephrolithiasis: Code(s): N20.0 - Calculus of kidney Status: Acute Assessment and Plan: Noted by KUB. Check CT to exclude obstructive process. As above (7) CAD (coronary artery disease): Onset Date: 1997 Qualifiers: Associated angina: with unspecified form of angina Coronary Disease-Associated Artery/Lesion type: bypass graft, autologous vein Qualified Code(s): I25.719 - Atherosclerosis of autologous vein coronary artery bypass graft(s) with
--- NOTE | 2022-12-08 10:06 | P.PNNP_ITS ---
Progress Note: A&P Assessment and Plan (1) BALS (acute kidney injury): Code(s): N17.9 - Acute kidney failure, unspecified Status: Acute Assessment and Plan: * progression of renal dysfunction noted: * creatinine of 1.78 on 06/27/22 * creatinine of 2.7mg/dl on 12/03/22 * creatinine up to 3.4mg/dl on admission * 3.7mg/dl now * suspect related to hypercalcemia +/- cardiac event; cannot discount obstruction given finding of nephrolithiasis on KUB * evaluation to date: * urine electrolytes non-prerenal (by FeNA and FeUrea) * urine eosinophils negative * CPK mildly elevated - not really high enough to affect renal function * renal ultrasound with multiple incompletely evaluated cystic right renal lesions and left nephrolithiasis * UA suggestive on infection * on IVF hydration * urine culture pending * thornton catheter in place * follow trend of repeat labs and urine output (2) Chronic kidney disease, stage 3: Code(s): N18.30 - Chronic kidney disease, stage 3 unspecified Status: Chronic Assessment and Plan: * baseline creatinine runs around 1.3 - 1.6mg/dl in the last year * presumably due to hypertension, PAULINO, and vascular disease * reported history of medullary sponge kidney -- not clear on specifics...follow-up on pending imaging (3) Hypercalcemia: Code(s): E83.52 - Hypercalcemia Status: Acute Assessment and Plan: * better at this time * quite significant on admission at 16.5 * however, noted on outpatient labs on 12/03/22 at 14.4 * now assoicated with BLAS and encephalopathy along with nephrolithiasis * agree with aggressive IVF hydration as tolerated * hypercalcemia work-up/evaluation initiated * bone scan/skeletal survey eventually * agree with calcitonin -- repeat dosing today * dialysis is a consideration if all conservative therapy fails.... (4) NSTEMI (non-ST elevated myocardial infarction): Code(s): I21.4 - Non-ST elevation (NSTEMI) myocardial infarction Status: Acute Assessment and Plan: * as noted by elevated troponins in the context of chest pain * EKG results noted * maximize medical therapy * Cardiology consultation (but not likely a candidate for intervention given acute medical issues including BLAS) * initiated on IV heparin, ASA, and plavix along with beta shahnaz therapy * known history of CAD + CABG x 5 (1997) with noted ischemic cardiomyopathy (EF 45 - 50%) -- repeat Echo ordered (5) Altered mental status: Code(s): R41.82 - Altered mental status, unspecified Status: Acute Assessment and Plan: * mild improvement noted * Head CT negative * s/p fall prior to admission * however, maybe more related to hypercalcemia * follow mentation as calcium improves (6) PAULINO (obstructive sleep apnea): Code(s): G47.33 - Obstructive sleep apnea (adult) (pediatric) Status: Acute Assessment and Plan: * BiPAP ordered Will continue to follow. Subjective Date/time seen: 12/08/22 10:06 Interval history: Follow-up for acute kidney injury on chronic kidney disease in association with hypercalcemia. Mentation a bit better as he was able converse with me for a few minutes (he told he feels cold before falling back asleep); calcium level doing better with interventions/therapy to date although renal function remains about the same; no apparent distress noted at the time of my visit. Exam Narrative: General: elderly male in NAD Heart: normal S1 and S
--- NOTE | 2022-12-08 10:06 | PM.PNNEP ---
Progress Note: A&P Assessment and Plan (1) BLAS (acute kidney injury): Code(s): N17.9 - Acute kidney failure, unspecified Status: Acute Assessment and Plan: progression of renal dysfunction noted: creatinine of 1.78 on 06/27/22 creatinine of 2.7mg/dl on 12/03/22 creatinine up to 3.4mg/dl on admission 3.7mg/dl now suspect related to hypercalcemia +/- cardiac event; cannot discount obstruction given finding of nephrolithiasis on KUB evaluation to date: urine electrolytes non-prerenal (by FeNA and FeUrea) urine eosinophils negative CPK mildly elevated - not really high enough to affect renal function renal ultrasound with multiple incompletely evaluated cystic right renal lesions and left nephrolithiasis UA suggestive on infection on IVF hydration urine culture pending thornton catheter in place follow trend of repeat labs and urine output (2) Chronic kidney disease, stage 3: Code(s): N18.30 - Chronic kidney disease, stage 3 unspecified Status: Chronic Assessment and Plan: baseline creatinine runs around 1.3 - 1.6mg/dl in the last year presumably due to hypertension, PAULINO, and vascular disease reported history of medullary sponge kidney -- not clear on specifics...follow-up on pending imaging (3) Hypercalcemia: Code(s): E83.52 - Hypercalcemia Status: Acute Assessment and Plan: better at this time quite significant on admission at 16.5 however, noted on outpatient labs on 12/03/22 at 14.4 now assoicated with BLAS and encephalopathy along with nephrolithiasis agree with aggressive IVF hydration as tolerated hypercalcemia work-up/evaluation initiated bone scan/skeletal survey eventually agree with calcitonin -- repeat dosing today dialysis is a consideration if all conservative therapy fails.... (4) NSTEMI (non-ST elevated myocardial infarction): Code(s): I21.4 - Non-ST elevation (NSTEMI) myocardial infarction Status: Acute Assessment and Plan: as noted by elevated troponins in the context of chest pain EKG results noted maximize medical therapy Cardiology consultation (but not likely a candidate for intervention given acute medical issues including BLAS) initiated on IV heparin, ASA, and plavix along with beta shahnaz therapy known history of CAD + CABG x 5 (1997) with noted ischemic cardiomyopathy (EF 45 - 50%) -- repeat Echo ordered (5) Altered mental status: Code(s): R41.82 - Altered mental status, unspecified Status: Acute Assessment and Plan: mild improvement noted Head CT negative s/p fall prior to admission however, maybe more related to hypercalcemia follow mentation as calcium improves (6) PAULINO (obstructive sleep apnea): Code(s): G47.33 - Obstructive sleep apnea (adult) (pediatric) Status: Acute Assessment and Plan: BiPAP ordered Will continue to follow. Subjective Date/time seen: 12/08/22 10:06 Interval history: Follow-up for acute kidney injury on chronic kidney disease in association with hypercalcemia. Mentation a bit better as he was able converse with me for a few minutes (he told he feels cold before falling back asleep); calcium level doing better with interventions/therapy to date although renal function remains about the same; no apparent distress noted at the time of my visit. Exam Narrative: General: elderly male in NAD Heart: normal S1 and S2; no rub Lungs: clear to auscultation Abdomen: soft, nontender, nondistended, positive bowel sounds Extremities: no cyanosis or clubbing; no edema Skin: warm and dry Objective Data Vital Signs Vital Signs: Vital Signs Temp Pulse Resp BP Pulse Ox O2 Del Method O2 Flow Rate 12/08/22 07:55 97.7 F 80 22 H 137/92 H 100 12/08/22 06:00 82 12/08/22 04:00 99 Nasal Cannula 2 12/08/22 05:40 82 12/08/22 04:00 74 12/08/22 04:05 97.
[2022-12-08] MEDS: PERFLUTREN LIPID MICROSPHERES 1.5 ML VIAL DILUTED TO 10 ML TOTAL VOLUME IV PUSH (11:15)
--- NOTE | 2022-12-08 12:35 | PCSTNOTE ---
Please refer to the Bedside Swallow Evaluation in the EMR. Please note, silent aspiration cannot be ruled out at bedside.
--- NOTE | 2022-12-08 13:28 | IVDEFINITY ---
Prior to administration of IV Definity the patient was educated on the risks and benefits of the imaging enhancing agent including potential adverse side effects. The patient verbalized understanding. Allergies were verified. No exclusion criteria were identified and at least one of the following inclusion criteria were met: 1) physician request, 2) patient technically difficult to image (per the [place] [employer] guidelines of two or more segments not discernable within the apical view), or 3) questionable left ventricular function. ?
[2022-12-08] MEDS: ACETAMINOPHEN 325 MG TABLET 650 MG PO ×2 (15:01→21:29)
[2022-12-08 16:26] LABS: Prostate Specific Antigen 1.3 ng/mL (< OR = 4.0)
[2022-12-08] MEDS: HEPARIN SOD/D5W 100 UNITS/ML 25,000 UNITS/250 ML BAG 13 UNITS IV CONT (17:25)
[2022-12-08] MEDS: ATORVASTATIN 40 MG TABLET PO (21:29)
[2022-12-09] VITALS (21 sets, daily range): BP systolic 114–142; BP diastolic 61–89; PULSE 63–88; RESP 18–26; TEMP 36.1–36.4; O2SAT 95–100
[2022-12-09] MEDS: SODIUM CHLORIDE 0.9% IV 1,000 ML 200 ML IV CONT (00:32)
[2022-12-09 05:02] LABS: Basophils Absolute Auto 0.1 K/mm3 (0.0-0.1); Basophils Percent Auto 0.6 % (0.2-1.2); Eosinophils Absolute Auto 0.4 K/mm3 (0-0.3); Eosinophils Percent Auto 3.9 % (0-4.4); Hematocrit 33.6 % (42.0-52.0); Immature Granulocyte Absolute 0.04 K/mm3 (0.00-0.031); Immature Granulocyte Percent A 0.4 % (0-0.5); Lymphocytes Absolute Auto 0.89 K/mm3 (0.9-3.2); Lymphocytes Percent Auto 8.6 % (18.3-44.2); Mean Corpuscular HGB Conc 32.7 g/dl (32-36); Mean Corpuscular Hemoglobin 31.2 pg (26-34); Mean Corpuscular Volume 95.2 fl (80-100); Mean Platelet Volume 11.2 fl (7.4-10.4); Monocytes Percent Auto 9.4 % (2.6-8.5); Neutrophils Percent Auto 77.1 % (45.5-73.1); Platelet Count Result 185 k/mm3 (150-375); Red Blood Count 3.53 M/mm3 (4.6-6.20); White Blood Count 10.4 K/mm3 (4.5-10.0)
[2022-12-09 05:13] LABS: Albumin Level 3.1 g/dL (3.5-5.1); Anion Gap 8 mmol/L (8-16); Blood Urea Nitrogen 36 mg/dL (9-20); Calcium 11.1 mg/dL (8.4-10.2); Carbon Dioxide 22 mmol/L (22-30); Chloride 107 mmol/L (98-107); Estimated CRCL calculation 20 ml/min; Estimated Glomerular Filt Rate 16; Glucose 74 mg/dL (65-110); Magnesium 1.8 mg/dL (1.6-2.3); Phosphorus 2.7 mg/dL (2.5-4.5); Potassium 3.7 mmol/L (3.4-5.0); Sodium 137 mmol/L (137-145)
[2022-12-09 05:14] LABS: Partial Thromboplastin Time 114.4 SECONDS (22.3-36.8)
[2022-12-09] MEDS: METOPROLOL TARTRATE INJ 5 MG/5 ML VIAL IV PUSH (05:51)
[2022-12-09] MEDS: NITROGLYCERIN OINTMENT 1 INCH DOSE TRANSDERM ×4 (05:51→23:47)
--- NOTE | 2022-12-09 08:54 | PCPTNOTE ---
Attempted to see patient for PT, however per RN asked if PT can wait to see patient due to patient sleeping now and wanted to let patient sleep. Patient not seen for PT this morning.
[2022-12-09 08:57] LABS: Glucose Point of Care 78 mg/dl (65-105)
--- NOTE | 2022-12-09 09:40 | PM.PNNEP ---
Progress Note: A&P Assessment and Plan (1) BLAS (acute kidney injury): Code(s): N17.9 - Acute kidney failure, unspecified Status: Acute Assessment and Plan: progression of renal dysfunction noted: creatinine of 1.78 on 06/27/22 creatinine of 2.7mg/dl on 12/03/22 creatinine up to 3.4mg/dl on admission suspect related to hypercalcemia +/- cardiac event evaluation to date: urine electrolytes non-prerenal (by FeNA and FeUrea) urine eosinophils negative CPK mildly elevated - not really high enough to affect renal function renal ultrasound with multiple incompletely evaluated cystic right renal lesions and left nephrolithiasis UA suggestive on infection on IVF hydration urine culture pending thornton catheter in place follow trend of repeat labs and urine output (2) Chronic kidney disease, stage 3: Code(s): N18.30 - Chronic kidney disease, stage 3 unspecified Status: Chronic Assessment and Plan: baseline creatinine runs around 1.3 - 1.6mg/dl in the last year presumably due to hypertension, PAULINO, and vascular disease reported history of medullary sponge kidney -- not clear on specifics... (3) Hypercalcemia: Code(s): E83.52 - Hypercalcemia Status: Acute Assessment and Plan: slowly improving quite significant on admission at 16.5 however, noted on outpatient labs on 12/03/22 at 14.4 now associated with BLAS and encephalopathy along with nephrolithiasis continue IVF hydration as tolerated -- force diuresis if needed hypercalcemia work-up/evaluation in progress CT scan results noted -- abdominal and pelvic lymphadenopathy, consistent with lymphoma will likely neeed tissue diagnosis to confirm calcitonin x 2 since admission dialysis is still a consideration but less likely since conservative therapy appears to be working (4) NSTEMI (non-ST elevated myocardial infarction): Code(s): I21.4 - Non-ST elevation (NSTEMI) myocardial infarction Status: Acute Assessment and Plan: as noted by elevated troponins in the context of chest pain EKG results noted maximize medical therapy Cardiology consultation (but not likely a candidate for intervention given acute medical issues including BLAS) initiated on IV heparin, ASA, and plavix along with beta shahnaz therapy known history of CAD + CABG x 5 (1997) with noted ischemic cardiomyopathy (EF 45 - 50%) -- follow-up on repeat Echo (5) Altered mental status: Code(s): R41.82 - Altered mental status, unspecified Status: Acute Assessment and Plan: mild improvement noted Head CT negative s/p fall prior to admission however, maybe more related to hypercalcemia follow mentation as calcium improves (6) PAULINO (obstructive sleep apnea): Code(s): G47.33 - Obstructive sleep apnea (adult) (pediatric) Status: Acute Assessment and Plan: BiPAP being used with sleep/rest Will continue to follow. Subjective Date/time seen: 12/09/22 09:40 Interval history: Follow-up for acute kidney injury on chronic kidney disease in association with hypercalcemia. Wearing nasal BiPAP at the time of my visit; seems a bit more responsive to questions than yesterday although seems to fall asleep without stimulation; continues to have good urine output but renal function is essentially unchanged; calcium level has trended down with current interventions/therapy; no apparent distress noted. Exam Narrative: General: elderly male in NAD Heart: normal S1 and S2; no rub Lungs: clear to auscultation Abdomen: soft, nontender, nondistended, positive bowel sounds Extremities: no cyanosis or clubbing; no edema Skin: warm and intact Objective Data Vital Signs Vital Signs: Vital Signs Temp Pulse Resp BP Pulse Ox O2 Del Method FiO2 12/09/22 08:00 97.5 F L 84 18 142/88 H 100 12/09/22 09:03 22 H BiPAP 12/09/22 09:02 96 CPA
--- NOTE | 2022-12-09 09:40 | P.PNNP_ITS ---
Progress Note: A&P Assessment and Plan (1) BLAS (acute kidney injury): Code(s): N17.9 - Acute kidney failure, unspecified Status: Acute Assessment and Plan: * progression of renal dysfunction noted: * creatinine of 1.78 on 06/27/22 * creatinine of 2.7mg/dl on 12/03/22 * creatinine up to 3.4mg/dl on admission * suspect related to hypercalcemia +/- cardiac event * evaluation to date: * urine electrolytes non-prerenal (by FeNA and FeUrea) * urine eosinophils negative * CPK mildly elevated - not really high enough to affect renal function * renal ultrasound with multiple incompletely evaluated cystic right renal lesions and left nephrolithiasis * UA suggestive on infection * on IVF hydration * urine culture pending * thornton catheter in place * follow trend of repeat labs and urine output (2) Chronic kidney disease, stage 3: Code(s): N18.30 - Chronic kidney disease, stage 3 unspecified Status: Chronic Assessment and Plan: * baseline creatinine runs around 1.3 - 1.6mg/dl in the last year * presumably due to hypertension, PAULINO, and vascular disease * reported history of medullary sponge kidney -- not clear on specifics... (3) Hypercalcemia: Code(s): E83.52 - Hypercalcemia Status: Acute Assessment and Plan: * slowly improving * quite significant on admission at 16.5 * however, noted on outpatient labs on 12/03/22 at 14.4 * now associated with BLAS and encephalopathy along with nephrolithiasis * continue IVF hydration as tolerated -- force diuresis if needed * hypercalcemia work-up/evaluation in progress * CT scan results noted -- abdominal and pelvic lymphadenopathy, consistent with lymphoma * will likely neeed tissue diagnosis to confirm * calcitonin x 2 since admission * dialysis is still a consideration but less likely since conservative therapy appears to be working (4) NSTEMI (non-ST elevated myocardial infarction): Code(s): I21.4 - Non-ST elevation (NSTEMI) myocardial infarction Status: Acute Assessment and Plan: * as noted by elevated troponins in the context of chest pain * EKG results noted * maximize medical therapy * Cardiology consultation (but not likely a candidate for intervention given acute medical issues including BLAS) * initiated on IV heparin, ASA, and plavix along with beta shahnaz therapy * known history of CAD + CABG x 5 (1997) with noted ischemic cardiomyopathy (EF 45 - 50%) -- follow-up on repeat Echo (5) Altered mental status: Code(s): R41.82 - Altered mental status, unspecified Status: Acute Assessment and Plan: * mild improvement noted * Head CT negative * s/p fall prior to admission * however, maybe more related to hypercalcemia * follow mentation as calcium improves (6) PAULINO (obstructive sleep apnea): Code(s): G47.33 - Obstructive sleep apnea (adult) (pediatric) Status: Acute Assessment and Plan: * BiPAP being used with sleep/rest Will continue to follow. Subjective Date/time seen: 12/09/22 09:40 Interval history: Follow-up for acute kidney injury on chronic kidney disease in association with hypercalcemia. Wearing nasal BiPAP at the time of my visit; seems a bit more responsive to questions than yesterday although seems to fall asleep without stimulation; continues to have good urine output but renal function is essentially unchanged; calcium level has trended down with current interventions/therapy; no apparent distress noted. Exam
[2022-12-09] MEDS: SODIUM CHLORIDE 0.9% IV 1,000 ML 100 ML IV CONT ×3 (09:59→17:50)
[2022-12-09] MEDS: DULoxetine HCL 60 MG CAPSULE.DR PO (10:15)
[2022-12-09] MEDS: ASPIRIN 325 MG TABLET PO (10:15)
[2022-12-09] MEDS: CYANOCOBALAMIN 1,000 MCG TABLET 1000 MCG PO (10:15)
[2022-12-09] MEDS: ISOSORBIDE MONONITRATE 60 MG TAB.ER.24H 120 MG PO (10:16)
[2022-12-09] MEDS: PANTOPRAZOLE SODIUM IV 40 MG VIAL IV PUSH ×2 (10:20→20:19)
[2022-12-09] MEDS: RANOLAZINE 500 MG TAB.ER.12H PO ×2 (10:22→20:19)
--- NOTE | 2022-12-09 11:41 | PCOTNOTE ---
Attempted to see Patient for A.M. treatment session. Patient unavailable at this time. Patient is having a blood draw and his lunch has arrived. Will check back this afternoon.
--- NOTE | 2022-12-09 11:52 | PM.IMPN ---
Progress Note: A&P Assessment and Plan (1) Hypercalcemia: Code(s): E83.52 - Hypercalcemia Status: Acute Assessment and Plan: Patient with altered mental status and a calcium of 16.5. Patient with normal baseline calcium level until 12/03 when elevated to 14.4 by blood work at PCP office. Weight loss concerning for neoplastic etiology of the hypercalcemia. Although hypercalcemia itself can cause anorexia. Not on VitD or calcium supplements but has been eating Tums 'like candy' for a long time. Hypercalcemia explains the agitation, psychiatric overtones, diffuse pain, confusion and kidney stones. started on IV NS at 200 ml/hr Received Calcitonin x2 HepB Ag and Ab negative. C3/4 normal. UA >100 RBC with 2+ LE and 11-20 WBC. Monalisa 122. FEUrea 45% and FENa 7%. Will plan on giving zoledronic acid (Zometa) once kidney function improves. Will need skeletal survey. 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 H/O consult. Calcium better at 11.9. Clinically better Plan for LN biopsy tomorrow. Nephrology following and appreciate their input. Decrease IV fluid rate Discussed with by phone (2) NSTEMI (non-ST elevated myocardial infarction): Code(s): I21.4 - Non-ST elevation (NSTEMI) myocardial infarction Status: Acute Assessment and Plan: Patient has been having chest pain at rest for 2 weeks. Troponin elevated on admission and continues to rise (2.6 currently). EKG on admission showing sinus tach (115), IVCD and possibly old AIM and IMI. Borderline ST-T wave changed high lateral leads. Senior Commissions Analyst felt patient is not a good candidate for cardiac intervention because of BLAS. Repeat EKG showing loss of R wave across the precordium consistent with new infarct. 3rd EKG shows improved but blunted R wave progression. Plan to maximize medical therapy: IV heparin drip as per ACS protocol ASA, Lipitor, metoprolol and NTP. Plavix loading 600 mg x 1 dose followed by 75 mg p.o. daily Echo showing EF 70% with anteroseptal HK and grade I diastolic dysfunction. Patient is currently confused but better. He will be monitored very closely on tele in IMU. Cardiology following and appreciate their input. (3) Vlcnj-gc-kylrxfd kidney injury: Code(s): N17.9 - Acute kidney failure, unspecified; N18.9 - Chronic kidney disease, unspecified Status: Acute Assessment and Plan: Baseline Cr 1.3-1.6 range. Cr 2.7 on 12/03/22 at the PCP office. Cr worse again here at 3.4. Suspect related to hypercalcemia. Renal US multiple incompletely evaluated cystic right renal lesions; left nephrolithiasis. Nephrology consulted. KUB does show left nephrolithiasis so will need to exclude obstructing process. UOP 3550mL yesterday (related to calcium) but decreased UOP noted now Cr 3.8 today UA as above. UCx negative. BCx NGTD. [place] secured - monitor UOP. Nephrology following. (4) Encephalopathy: Code(s): G93.40 - Encephalopathy, unspecified Status: Acute Assessment and Plan: Head CT showing no acute process. [place] mental status changed related to hypercalcemia. Improving with hypercalcemia treatment as expected. Follow for continued improvement. Speech felt patient could eat and recommended soft and bite sized, regular liquids. Continue PT/OT (5) Fall: Code(s): W19.XXXA - Unspecified fall, initial encounter Status: Acute Assessment and Plan: Patient fell in the bathroom. CXR clear. Knee xrays showing in acute bony abnormalities. Pelvic xray showing no acute process. His head CT showing no acute process. PT/OT (6) Nephrolithiasis: Code(s): N20.0 - Calculus of kidney Status: Acute Assessment and Plan: Left kidney stones noted by KUB. CT showing nonobstructive stones. As above (7) CAD (coronary artery disease): Onset Date: 1997 Qualifiers:
[2022-12-09 12:41] LABS: Partial Thromboplastin Time 83.1 SECONDS (22.3-36.8)
[2022-12-09 13:26] LABS: Glucose Point of Care 85 mg/dl (65-105)
[2022-12-09] MEDS: METOPROLOL TARTRATE 50 MG TAB PO ×2 (14:42→21:32)
[2022-12-09] MEDS: HEPARIN SOD/D5W 100 UNITS/ML 25,000 UNITS/250 ML BAG 11 UNITS IV CONT (14:44)
--- NOTE | 2022-12-09 16:15 | PM.CNCAR ---
Assessment and Plan Assessment and plan (1) Elevated troponin: Code(s): R77.8 - Other specified abnormalities of plasma proteins Status: Acute Assessment and Plan: Peaked at 2.59. EKG shows no significant ST changes. Could be related to UTI and significant renal failure or ACS. However, would not recommend [facility] in setting of chest pain free, stable hemodynamically, and BLAS. 12/08/22 Echo: EF >70%, mild LVH, anterior wall hypokinetic, grade I diastolic dysfunction. On heparin drip for several days and troponin peaked on 12/07/22. Will stop heparin tomorrow morning. (2) Chest pain: Code(s): R07.9 - Chest pain, unspecified Status: Acute Assessment and Plan: On Ranexa and Imdur which suggests he has chronic intermittent chest pains. (3) Coronary artery disease involving coronary bypass graft of [place] heart: Code(s): I25.810 - Atherosclerosis of coronary artery bypass graft(s) without angina pectoris Status: Acute Assessment and Plan: Stable. Last cath was 10/07/[address] Bloom: Patent VALENZUELA to LAD, patent SVG sequential to OM2/D1/D2, patent RCA stent with 50% stenosis of PL; occluded SVG to RCA. On aspirin and Clopidogrel. His regular director of home care hospice is Dr. Murphy with [facility] [place]. (4) Essential (primary) hypertension: Code(s): I10 - Essential (primary) hypertension Status: Acute Assessment and Plan: Stable. (5) Mixed hyperlipidemia: Code(s): E78.2 - Mixed hyperlipidemia Status: Acute Assessment and Plan: On Atorvastatin. (6) BLAS (acute kidney injury): Code(s): N17.9 - Acute kidney failure, unspecified Status: Acute History of Present Illness History of Present Illness Consult date/time: 12/09/22 16:15 Reason For Visit: BLAS, Elevated Troponin, Weakness, Fall, Hypokalemi Narrative: 72 yr old man admitted for a fall. He has a history of CAD, CABG and subsequent PCI, dyslipidemia, hypertension. His regular director of home care hospice is Dr. Murphy with [facility] in [place]. Information and history of obtained from chart and patient's who is at bedside. He was admitted 4 days and reported he had intermittent chest pains. Troponin were elevated up to 2.59 then trended down. He was found to have hypercalcemia and lymphadenopathy. He has been confused here and does not know where he is at. Currently denies chest pain or sob. Normally he can walk 20 feet prior to CORDOBA/fatigue. Review of Systems Review of Systems: All systems reviewed & are unremarkable except as noted in HPI and below Constitutional: Constitutional: Reports as per HPI, Denies chills and Denies fever(s) Cardiovascular: Cardiovascular: Reports as per HPI, Denies chest pain, Denies irregular heart rhythm, Denies leg edema and Denies lightheadedness Respiratory: Respiratory: Reports as per HPI and Denies dyspnea Gastrointestinal: Gastrointestinal: Reports as per HPI and Denies abdominal pain Genitourinary: Genitourinary: Reports as per HPI and Denies dysuria Musculoskeletal: Musculoskeletal: Reports as per HPI Neurologic: Reports as per HPI, Denies dizziness and Denies syncope [facility] Past Medical History Medical History (Updated 12/08/22 @ 09:46 by Yahir Colon MD) Acute recurrent maxillary sinusitis Allergic rhinitis Anxiety and depression Arthritis Bilateral cataracts Maturing Chronic low back pain With history of L4-L5-L5-S1 surgery Coronary artery disease involving coronary bypass graft of [place] heart COVID-19 DDD (degenerative disc disease) Essential (primary) hypertension Former smoker Gastroesophageal reflux disease Grade II internal hemorrhoids Hearing loss Hemorrhoid Hiatal hernia Hypersomnia Hypoxia Insomnia Left knee DJD Medullary sponge kidney With history of kidney stones in 198906/25/1994 Mixed hyperlipidemia Morbid obesity Obstructive sleep apnea on CPAP Auto titrating CPAP Painful total knee replacement,
[2022-12-09 16:33] LABS: Ionized Calcium 7.5 mg/dL (4.7-5.5)
[2022-12-09 16:51] LABS: Glucose Point of Care 83 mg/dl (65-105)
[2022-12-09 18:56] LABS: Partial Thromboplastin Time 83.4 SECONDS (22.3-36.8)
--- NOTE | 2022-12-09 19:19 | PDONCCN ---
HPI - Date of Consult Date/Time: 12/09/22 19:19 Requesting Physician: Fredy Jarrell MD Primary Care Provider: Tez Purvis APRN - Consult Narrative Reason for consult: Lymphadenopathy. Narrative: Steffen Martinez is a 72 year old male morbidly obese male with history of coronary artery disease brought into the hospital due to chest discomfort off and on for last couple of weeks duration. He also recently lost his balance and fell down on his knees. He denies any previous history of malignancy. Patient has lost 62 lb weight due to poor appetite. informed me that he was also trying to lose weight. Denies any new long bones are lymphadenopathy. Denies any hot flashes and night sweats. In the ER troponin was found to be elevated. Other labs showed slightly elevated WBC count and normocytic anemia. Creatinine was 3.4. 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 There was back left periaortic jaime mass measuring 7 x 5[address] showed no intracranial abnormality. Review of Systems - Review of Systems All systems reviewed & are unremarkable except as noted in HPI and bel - Neurologic Denies syncope FOR[facility]LY [facility] Medical History: Medical History (Last Updated 12/07/22 @ 00:41 by Primitivo Noe MD) Acute recurrent maxillary sinusitis Allergic rhinitis Anxiety and depression Arthritis Bilateral cataracts Maturing Chronic low back pain With history of L4-L5-L5-S1 surgery Coronary artery disease involving coronary bypass graft of [place] heart COVID-19 DDD (degenerative disc disease) Essential (primary) hypertension Former smoker Gastroesophageal reflux disease Grade II internal hemorrhoids Hearing loss Hemorrhoid Hiatal hernia Hypersomnia Hypoxia Insomnia Left knee DJD Medullary sponge kidney With history of kidney stones in 198906/25/1994 Mixed hyperlipidemia Morbid obesity Obstructive sleep apnea on CPAP Auto titrating CPAP Painful total knee replacement, right Personal history of noncompliance with medical treatment and regimen Pre-diabetes Onset Date: Unknown Primary osteoarthritis of left knee Restless leg ST elevation myocardial infarction (STEMI) Systolic dysfunction With ejection fraction of 45-50% on cardiac catheterization May 2017 Surgical History: Surgical History (Last Reviewed 12/07/22 @ 00:10 by Primitivo Noe MD) History of cardiac catheterization Cardiac catheterization with stent placement 2000, may 2017 with stent to the RCA due to complete occlusion stented at [facility], high-grade stenosis 80% occlusion to saphenous vein graft to the circ that was stented June 2017 at [facility] History of cystoscopy With stone retrieval in 1994 History of spinal surgery L4-L5 and L5-S1 PLIF 2012 History of total right knee replacement 2010 Hx of CABG History of 5 vessel CABG in 1997 Family History: Family History (Last Reviewed 12/07/22 @ 02:02 by Sylvia Savage RN) Father Diabetes mellitus Multiple myeloma Hypertension Heart valve replaced Heart disease Mother Hypertension Heart disease - Social History Social History: Social History (Last Reviewed 12/07/22 @ 00:10 by Primitivo Noe MD) Gender Identity: Gender identity (if verbalized by the patient): Male Alcohol Use: Alcohol intake: never Drinks per week: 0 Alcohol use details: drinks once every 6 months Substance Use: Substance use: never Substance use type: does not use Others: Spiritual care concerns: No Living Arrangements: Living arrangements: with family Oppucation/Education: Occupation/Education: retired Smoking Status: Smoking status: Former smoker Tobacco type: cigarettes Second hand tobacco smoke exposure: No Smoking end date: 08/26/97 Approximate Smoking End Date: 1983
[2022-12-09] MEDS: ATORVASTATIN 40 MG TABLET PO (20:19)
[2022-12-09 23:54] LABS: Glucose Point of Care 84 mg/dl (65-105)
[2022-12-10] VITALS (23 sets, daily range): BP systolic 133–156; BP diastolic 74–91; PULSE 60–80; RESP 18–24; TEMP 36.1–36.7; O2SAT 94–100
[2022-12-10] MEDS: SODIUM CHLORIDE 0.9% IV 1,000 ML 100 ML IV CONT (04:00)
[2022-12-10 05:12] LABS: Basophils Absolute Auto 0.1 K/mm3 (0.0-0.1); Basophils Percent Auto 0.6 % (0.2-1.2); Eosinophils Absolute Auto 0.4 K/mm3 (0-0.3); Eosinophils Percent Auto 5.6 % (0-4.4); Hematocrit 30.9 % (42.0-52.0); Hemoglobin 10.2 g/dL (14.0-18.0); Immature Granulocyte Absolute 0.02 K/mm3 (0.00-0.031); Immature Granulocyte Percent A 0.3 % (0-0.5); Lymphocytes Absolute Auto 0.87 K/mm3 (0.9-3.2); Lymphocytes Percent Auto 11.1 % (18.3-44.2); Mean Corpuscular Hemoglobin 30.9 pg (26-34); Mean Corpuscular Volume 93.6 fl (80-100); Mean Platelet Volume 11.7 fl (7.4-10.4); Monocytes Absolute Auto 0.8 K/mm3 (0.1-0.6); Monocytes Percent Auto 9.7 % (2.6-8.5); Neutrophils Absolute Auto 5.7 K/mm3 (1.3-6.7); Neutrophils Percent Auto 72.7 % (45.5-73.1); Platelet Count Result 186 k/mm3 (150-375); Red Cell Distribution Width 14.4 % (11.5-14.5); White Blood Count 7.8 K/mm3 (4.5-10.0)
[2022-12-10 05:24] LABS: Albumin Level 2.9 g/dL (3.5-5.1); Anion Gap 8 mmol/L (8-16); Blood Urea Nitrogen 36 mg/dL (9-20); Calcium 10.7 mg/dL (8.4-10.2); Carbon Dioxide 20 mmol/L (22-30); Chloride 108 mmol/L (98-107); Estimated CRCL calculation 19 ml/min; Estimated Glomerular Filt Rate 15; Glucose 79 mg/dL (65-110); Magnesium 1.8 mg/dL (1.6-2.3); Phosphorus 3.4 mg/dL (2.5-4.5); Potassium 3.8 mmol/L (3.4-5.0); Sodium 136 mmol/L (137-145)
[2022-12-10] MEDS: METOPROLOL TARTRATE 50 MG TAB PO ×3 (05:38→21:29)
[2022-12-10] MEDS: NITROGLYCERIN OINTMENT 1 INCH DOSE TRANSDERM (05:38)
--- NOTE | 2022-12-10 07:39 | PM.PNCARD ---
Progress Note: A&P Assessment and Plan (1) Elevated troponin: Code(s): R77.8 - Other specified abnormalities of plasma proteins Status: Acute Assessment and Plan: Peaked at 2.59. EKG shows no significant ST changes. Could be related to UTI and significant renal failure or ACS. However, would not recommend LHC in setting of chest pain free, stable hemodynamically, and BLAS. 12/08/22 Echo: EF >70%, mild LVH, anterior wall hypokinetic, grade I diastolic dysfunction. On heparin drip for several days and troponin peaked on 12/07/22. Stop heparin drip. (2) Chest pain: Code(s): R07.9 - Chest pain, unspecified Status: Acute Assessment and Plan: On Ranexa and Imdur which suggests he has chronic intermittent chest pains. Stop NTP. (3) Coronary artery disease involving coronary bypass graft of [place] heart: Code(s): I25.810 - Atherosclerosis of coronary artery bypass graft(s) without angina pectoris Status: Acute Assessment and Plan: Stable. Last cath was 10/07/[address] Bloom: Patent VALENZUELA to LAD, patent SVG sequential to OM2/D1/D2, patent RCA stent with 50% stenosis of PL; occluded SVG to RCA. On aspirin and Clopidogrel. His regular gravity prospecting observer is Dr. Murphy with [facility] [place]. (4) Essential (primary) hypertension: Code(s): I10 - Essential (primary) hypertension Status: Acute Assessment and Plan: Stable. Change Metoprolol 50 mg BID. (5) Mixed hyperlipidemia: Code(s): E78.2 - Mixed hyperlipidemia Status: Acute Assessment and Plan: On Atorvastatin. (6) BLAS (acute kidney injury): Code(s): N17.9 - Acute kidney failure, unspecified Status: Acute Subjective Date/time seen: 12/10/22 07:39 Interval history: He is confused. Denies chest pain or sob. Exam Const: General: cooperative, alert and other (somnolent) Orientation/consciousness: oriented to person, No oriented to place and No oriented to time Resp: Auscultation: clear to auscultation bilaterally, no crackles, no rales, no rhonchi and no wheezes Cardio: Rate: regular rate Rhythm: regular rhythm Heart sounds: no murmurs Peripheral pulses: dorsalis pedis present Neuro: General: oriented to person, No oriented to place and No oriented to time Extrem: Right lower extremity: no edema Left lower extremity: no edema Objective Data Vital Signs Vital Signs: Vital Signs - 24 hr 12/09/22 09:02 12/09/22 09:03 12/09/22 08:00 Temperature 97.5 F L Pulse Rate 84 Respiratory Rate 22 H 18 Blood Pressure 142/88 H Pulse Oximetry 96 100 Oxygen Delivery CPAP BiPAP Fraction of Inspired Oxygen 21 12/09/22 12:00 12/09/22 14:42 12/09/22 08:00 Temperature 97.4 F L Pulse Rate 83 83 Respiratory Rate 22 H Blood Pressure 141/89 H Pulse Oximetry 98 98 Oxygen Delivery Room Air Fraction of Inspired Oxygen 12/09/22 08:00 12/09/22 10:00 12/09/22 12:00 Temperature Pulse Rate 79 74 80 Respiratory Rate Blood Pressure Pulse Oximetry Oxygen Delivery Fraction of Inspired Oxygen 12/09/22 14:00 12/09/22 12:00 12/09/22 16:00 Temperature Pulse Rate 78 Respiratory Rate Blood Pressure Pulse Oximetry 99 98 Oxygen Delivery Room Air Room Air Fraction of Inspired Oxygen 12/09/22 16:00 12/09/22 16:00 12/09/22 18:00 Temperature 97.3 F L Pulse Rate 80 75 75 Respiratory Rate 18 Blood Pressure 118/80 Pulse Oximetry 99 Oxygen Delivery Fraction of Inspired Oxygen 12/09/22 19:56 12/09/22 20:00 12/09/22 21:32 Temperature 97.2 F L Pulse Rate 71 73 Respiratory Rate 22 H Blood Pressure 134/80 Pulse Oximetry 98 98 Oxygen Delivery Room Air Fraction of Inspired Oxygen 12/09/22 20:00 12/09/22 22:00 12/09/22 23:57 Temperature 96.9 F L Pulse Rate 71 70 63 Respiratory Rate 22 H Blood Pressure 118/61 Pulse Oximetry 98 Oxygen Delivery Fraction of Inspired
[2022-12-10 09:08] LABS: Mean Platelet Volume 11.4 fl (7.4-10.4); Platelet Count Result 186 k/mm3 (150-375)
[2022-12-10 09:18] LABS: Prothrombin Time 13.5 Seconds (11.1-14.7)
--- NOTE | 2022-12-10 10:55 | PCOTNOTE ---
Patient out of the room at this time. Patient is down having a biopsy. Will check back this afternoon.
[2022-12-10] MEDS: ISOSORBIDE MONONITRATE 60 MG TAB.ER.24H 120 MG PO (12:12)
[2022-12-10] MEDS: DULoxetine HCL 60 MG CAPSULE.DR PO (12:13)
[2022-12-10] MEDS: ASPIRIN 325 MG TABLET PO (12:13)
[2022-12-10] MEDS: CYANOCOBALAMIN 1,000 MCG TABLET 1000 MCG PO (12:13)
[2022-12-10] MEDS: RANOLAZINE 500 MG TAB.ER.12H PO ×2 (12:13→21:28)
[2022-12-10] MEDS: PANTOPRAZOLE SODIUM IV 40 MG VIAL IV PUSH ×2 (12:14→21:28)
--- NOTE | 2022-12-10 12:30 | PM.PNNEP ---
Progress Note: A&P Assessment and Plan (1) BLAS (acute kidney injury): Code(s): N17.9 - Acute kidney failure, unspecified Status: Acute Assessment and Plan: worsening since admission progression of renal dysfunction noted: creatinine of 1.78 on 06/27/22 creatinine of 2.7mg/dl on 12/03/22 creatinine up to 3.4mg/dl on admission suspect related to hypercalcemia +/- cardiac event cannot discontinue lymphoma infiltration into kidneys... evaluation to date: urine electrolytes non-prerenal (by FeNA and FeUrea) urine eosinophils negative CPK mildly elevated - not really high enough to affect renal function renal ultrasound with multiple incompletely evaluated cystic right renal lesions and left nephrolithiasis UA suggestive on infection on IVF hydration urine culture pending thornton catheter in place follow trend of repeat labs and urine output (2) Chronic kidney disease, stage 3: Code(s): N18.30 - Chronic kidney disease, stage 3 unspecified Status: Chronic Assessment and Plan: baseline creatinine runs around 1.3 - 1.6mg/dl in the last year presumably due to hypertension, PAULINO, and vascular disease reported history of medullary sponge kidney -- not clear on specifics... (3) Hypercalcemia: Code(s): E83.52 - Hypercalcemia Status: Acute Assessment and Plan: improving quite significant on admission at 16.5 however, noted on outpatient labs on 12/03/22 at 14.4 now associated with BLAS and encephalopathy along with nephrolithiasis continue IVF hydration as tolerated -- force diuresis if needed hypercalcemia work-up/evaluation in progress CT scan results noted -- abdominal and pelvic lymphadenopathy, consistent with lymphoma will likely neeed tissue diagnosis to confirm calcitonin x 2 since admission dialysis is still a consideration but less likely since conservative therapy appears to be working (4) NSTEMI (non-ST elevated myocardial infarction): Code(s): I21.4 - Non-ST elevation (NSTEMI) myocardial infarction Status: Acute Assessment and Plan: as noted by elevated troponins in the context of chest pain EKG results noted maximize medical therapy Cardiology recommendations noted (but not likely a candidate for intervention given acute medical issues including BLAS) on ASA, and plavix along with beta shahnaz therapy known history of CAD + CABG x 5 (1997) with noted ischemic cardiomyopathy (EF 45 - 50%) repeat Echo results noted (5) Altered mental status: Code(s): R41.82 - Altered mental status, unspecified Status: Acute Assessment and Plan: slow improvement noted Head CT negative s/p fall prior to admission however, maybe more related to hypercalcemia follow mentation as calcium improves (6) PAULINO (obstructive sleep apnea): Code(s): G47.33 - Obstructive sleep apnea (adult) (pediatric) Status: Acute Assessment and Plan: BiPAP being used with sleep/rest Will continue to follow. Subjective Date/time seen: 12/10/22 12:30 Interval history: Follow-up for acute kidney injury on chronic kidney disease in association with hypercalcemia. Calcium level continues to downtrend with current therapy/interventions but renal function is worse; however, he is still reasonable urine output; mentation seems to be doing better as well; s/p ultrasound guided lymph node biopsy earlier today (and tolerated this intervention reasonably well). Exam Narrative: General: elderly male in NAD Heart: normal S1 and S2; no rub Lungs: clear to auscultation Abdomen: soft, nontender, nondistended, positive bowel sounds Extremities: no cyanosis or clubbing; no edema Skin: no rash Objective Data Vital Signs Vital Signs: Vital Signs Temp Pulse Resp BP Pulse Ox O2 Del Method FiO2 12/10/22 12:00 Room Air 12/10/22 12:00 98.0 F 74 21 H 156/80 H 100 1
--- NOTE | 2022-12-10 12:30 | P.PNNP_ITS ---
Progress Note: A&P Assessment and Plan (1) BLAS (acute kidney injury): Code(s): N17.9 - Acute kidney failure, unspecified Status: Acute Assessment and Plan: * worsening since admission * progression of renal dysfunction noted: * creatinine of 1.78 on 06/27/22 * creatinine of 2.7mg/dl on 12/03/22 * creatinine up to 3.4mg/dl on admission * suspect related to hypercalcemia +/- cardiac event * cannot discontinue lymphoma infiltration into kidneys... * evaluation to date: * urine electrolytes non-prerenal (by FeNA and FeUrea) * urine eosinophils negative * CPK mildly elevated - not really high enough to affect renal function * renal ultrasound with multiple incompletely evaluated cystic right renal lesions and left nephrolithiasis * UA suggestive on infection * on IVF hydration * urine culture pending * thornton catheter in place * follow trend of repeat labs and urine output (2) Chronic kidney disease, stage 3: Code(s): N18.30 - Chronic kidney disease, stage 3 unspecified Status: Chronic Assessment and Plan: * baseline creatinine runs around 1.3 - 1.6mg/dl in the last year * presumably due to hypertension, PAULINO, and vascular disease * reported history of medullary sponge kidney -- not clear on specifics... (3) Hypercalcemia: Code(s): E83.52 - Hypercalcemia Status: Acute Assessment and Plan: * improving * quite significant on admission at 16.5 * however, noted on outpatient labs on 12/03/22 at 14.4 * now associated with BLAS and encephalopathy along with nephrolithiasis * continue IVF hydration as tolerated -- force diuresis if needed * hypercalcemia work-up/evaluation in progress * CT scan results noted -- abdominal and pelvic lymphadenopathy, consistent with lymphoma * will likely neeed tissue diagnosis to confirm * calcitonin x 2 since admission * dialysis is still a consideration but less likely since conservative therapy appears to be working (4) NSTEMI (non-ST elevated myocardial infarction): Code(s): I21.4 - Non-ST elevation (NSTEMI) myocardial infarction Status: Acute Assessment and Plan: * as noted by elevated troponins in the context of chest pain * EKG results noted * maximize medical therapy * Cardiology recommendations noted (but not likely a candidate for intervention given acute medical issues including BLAS) * on ASA, and plavix along with beta shahnaz therapy * known history of CAD + CABG x 5 (1997) with noted ischemic cardiomyopathy (EF 45 - 50%) * repeat Echo results noted (5) Altered mental status: Code(s): R41.82 - Altered mental status, unspecified Status: Acute Assessment and Plan: * slow improvement noted * Head CT negative * s/p fall prior to admission * however, maybe more related to hypercalcemia * follow mentation as calcium improves (6) PAULINO (obstructive sleep apnea): Code(s): G47.33 - Obstructive sleep apnea (adult) (pediatric) Status: Acute Assessment and Plan: * BiPAP being used with sleep/rest Will continue to follow. Subjective Date/time seen: 12/10/22 12:30 Interval history: Follow-up for acute kidney injury on chronic kidney disease in association with hypercalcemia. Calcium level continues to downtrend with current therapy/interventions but renal function is worse; however, he is still reasonable urine output; mentation seems to be doing better as well; s/p ultrasound guided lymph node biopsy earlier today (and tolerated this intervention
--- NOTE | 2022-12-10 13:53 | PM.IMPN ---
Progress Note: A&P Assessment and Plan (1) Hypercalcemia: Code(s): E83.52 - Hypercalcemia Status: Acute Assessment and Plan: Patient with altered mental status and a calcium of 16.5. Patient with normal baseline calcium level until 12/03 when elevated to 14.4 by blood work at PCP office. Weight loss concerning for neoplastic etiology of the hypercalcemia. Although hypercalcemia itself can cause anorexia. Not on VitD or calcium supplements but has been eating Tums 'like candy' for a long time. Hypercalcemia explains the agitation, psychiatric overtones, diffuse pain, confusion and kidney stones. started on IV NS at 200 ml/hr Received Calcitonin x2 HepB Ag and Ab negative. C3/4 normal. UA >100 RBC with 2+ LE and 11-20 WBC. Monalisa 122. FEUrea 45% and FENa 7%. Will plan on giving zoledronic acid (Zometa) once kidney function improves. Will need skeletal survey. 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 H/O consult. Calcium better at 11.9. Clinically better LN biopsy 12/10. Nephrology following and appreciate their input. (2) NSTEMI (non-ST elevated myocardial infarction): Code(s): I21.4 - Non-ST elevation (NSTEMI) myocardial infarction Status: Acute Assessment and Plan: Patient has been having chest pain at rest for 2 weeks. Troponin elevated on admission and continues to rise (2.6 currently). EKG on admission showing sinus tach (115), IVCD and possibly old AIM and IMI. Borderline ST-T wave changed high lateral leads. Cleat Maker felt patient is not a good candidate for cardiac intervention because of BLAS. Repeat EKG showing loss of R wave across the precordium consistent with new infarct. 3rd EKG shows improved but blunted R wave progression. Plan to maximize medical therapy: IV heparin drip as per ACS protocol ASA, Lipitor, metoprolol and NTP. Plavix loading 600 mg x 1 dose followed by 75 mg p.o. daily Echo showing EF 70% with anteroseptal HK and grade I diastolic dysfunction. Patient is currently confused but better. He will be monitored very closely on tele in IMU. Cardiology following and appreciate their input. (3) Mmdip-mk-nqlybfm kidney injury: Code(s): N17.9 - Acute kidney failure, unspecified; N18.9 - Chronic kidney disease, unspecified Status: Acute Assessment and Plan: Baseline Cr 1.3-1.6 range. Cr 2.7 on 12/03/22 at the PCP office. Cr worse again here at 3.4. Suspect related to hypercalcemia. Renal US multiple incompletely evaluated cystic right renal lesions; left nephrolithiasis. Nephrology consulted. KUB does show left nephrolithiasis so will need to exclude obstructing process. UOP 3550mL yesterday (related to calcium) but decreased UOP noted now Cr 3.8 today UA as above. UCx negative. BCx NGTD. [place] secured - monitor UOP. Nephrology following. (4) Encephalopathy: Code(s): G93.40 - Encephalopathy, unspecified Status: Acute Assessment and Plan: Head CT showing no acute process. [place] mental status changed related to hypercalcemia. Improving with hypercalcemia treatment as expected. Follow for continued improvement. Speech felt patient could eat and recommended soft and bite sized, regular liquids. Continue PT/OT (5) Fall: Code(s): W19.XXXA - Unspecified fall, initial encounter Status: Acute Assessment and Plan: Patient fell in the bathroom. CXR clear. Knee xrays showing in acute bony abnormalities. Pelvic xray showing no acute process. His head CT showing no acute process. PT/OT (6) Nephrolithiasis: Code(s): N20.0 - Calculus of kidney Status: Acute Assessment and Plan: Left kidney stones noted by KUB. CT showing nonobstructive stones. As above (7) CAD (coronary artery disease): Onset Date: 1997 Qualifiers: Associated angina: with unspecified form of angina Coronary D
--- NOTE | 2022-12-10 14:41 | PCOTNOTE ---
Patient having increased confusion this P.M. Patient is agitated due to not being able to complete tasks, he can not follow directions at this time
[2022-12-10 15:38] LABS: Albumin 3.2 g/dL (3.8-4.8); Alpha 1 Globulin 0.4 g/dL (0.2-0.3); Beta 1 Globulin 0.4 g/dL (0.4-0.6); Gamma Globulin 1.1 g/dL (0.8-1.7); Protein, Total 6.4 g/dL (6.1-8.1)
--- NOTE | 2022-12-10 16:23 | WPDURCON ---
Assessment and Plan Assessment and plan (1) Snoei-zf-rxmoimm kidney injury: Code(s): N17.9 - Acute kidney failure, unspecified; N18.9 - Chronic kidney disease, unspecified Status: Acute Assessment and Plan: NO obstruction noted on CT. No surgical intervention needed at this time. Nephrology following. (2) Nephrolithiasis: Code(s): N20.0 - Calculus of kidney Status: Acute Assessment and Plan: Non obstructive, when patient is stable, we could discuss termite exterminator helper stone management of a KUB annually to monitor stones. No intervention needed at this time. (3) Scrotal edema: Code(s): N50.89 - Other specified disorders of the male genital organs Status: Acute Assessment and Plan: Get scrotal US to further evaluate. Exam normal, I suspect this is benign d/t cardiac and circulatory issues as well as anasarca. I suggest using Miconazole cream BID as well to the scrotum and penis, as it appears he has a candidal infection to both areas. (4) Penile edema: Code(s): N48.89 - Other specified disorders of penis Status: Acute Assessment and Plan: Apply miconazole BID. Apply scrotal support, or roll a towel and keep penis pointed upright to encourage decreased edema. Patient will likely continue to have edema as long as anasarca is present. Thornton catheter may be removed for voiding trial when no longer needed for I&O therapy. Urology Consult Note HPI Date Seen: 12/10/22 Time Seen: 16:25 Requesting Physician: Fredy Jarrell MD Primary Care Provider: Tez Purvis APRN Consult Narrative Reason for consult: Scrotal/Penile Edema Narrative: Steffen Martinez is a 72 year old male who presented to the ER initially for a fall on 12/06/22 who was found to have had a NSTEMI. He is confused and a poor historian. His is at the bedside with him and providing most of his medical history. He has thornton placed, but his states that he urinates on his own at home. He has no frequency, nocturia is minimal, he does report incontinence and some urgency, but no UTI's or hematuria. He also declines hesitancy or straining to urinate. It is unclear what his PVR was upon catheter insertion. His urine culture was negative from 12/07/22, urine is clear and draining to gravity. He has an edematous scrotum and penis that is red and colin which is also tender. We were asked to see him regarding this. He also has BLAS with a creatinine of 4 today, at baseline in 05/01 his creatinine was 1.60. His WBC is 7.8 and he is afebrile. CT scan shows Abdominal and pelvic lymphadenopathy, consistent with lymphoma as well as left renal stones, 4 total measuring up to 14mm that are non obstructive and no hydronephrosis is present that would contribute to his BLAS. Review of Systems Review of Systems: ROS unobtainable: Yes unobtainable due to mental status PMFSH Past Medical History Medical History Acute recurrent maxillary sinusitis Allergic rhinitis Anxiety and depression Arthritis Bilateral cataracts Maturing Chronic low back pain With history of L4-L5-L5-S1 surgery Coronary artery disease involving coronary bypass graft of [place] heart COVID-19 DDD (degenerative disc disease) Essential (primary) hypertension Former smoker Gastroesophageal reflux disease Grade II internal hemorrhoids Hearing loss Hemorrhoid Hiatal hernia Hypersomnia Hypoxia Insomnia Left knee DJD Medullary sponge kidney With history of kidney stones in 198906/25/1994 Mixed hyperlipidemia Morbid obesity Obstructive sleep apnea on CPAP Auto titrating CPAP Painful total knee replacement, right Personal history of noncompliance with medical treatment and regimen Pre-diabetes (Unknown) Primary osteoarthritis of left knee Restless leg ST elevation myocardial infarction (STEMI) Systolic dysfunction With ejection fraction of 45-50% on cardiac catheterization May
[2022-12-10] MEDS: ACETAMINOPHEN 325 MG TABLET 650 MG PO (16:34)
[2022-12-10] MEDS: ATORVASTATIN 40 MG TABLET PO (21:28)
[2022-12-11] VITALS (25 sets, daily range): BP systolic 112–165; BP diastolic 59–95; PULSE 66–104; RESP 18–22; TEMP 35.6–36.6; O2SAT 96–99
--- NOTE | 2022-12-11 01:53 | PCRCNOTE ---
Placed Pt on CPAP at 22:30, Pt took off within 15 Mins.
[2022-12-11 05:08] LABS: Basophils Absolute Auto 0.1 K/mm3 (0.0-0.1); Basophils Percent Auto 0.8 % (0.2-1.2); Eosinophils Absolute Auto 0.3 K/mm3 (0-0.3); Eosinophils Percent Auto 4.9 % (0-4.4); Hematocrit 31.5 % (42.0-52.0); Hemoglobin 10.3 g/dL (14.0-18.0); Immature Granulocyte Absolute 0.02 K/mm3 (0.00-0.031); Immature Granulocyte Percent A 0.3 % (0-0.5); Lymphocytes Absolute Auto 0.82 K/mm3 (0.9-3.2); Lymphocytes Percent Auto 12.5 % (18.3-44.2); Mean Corpuscular HGB Conc 32.7 g/dl (32-36); Mean Corpuscular Hemoglobin 30.9 pg (26-34); Mean Corpuscular Volume 94.6 fl (80-100); Mean Platelet Volume 11.2 fl (7.4-10.4); Monocytes Absolute Auto 0.7 K/mm3 (0.1-0.6); Monocytes Percent Auto 10.5 % (2.6-8.5); Neutrophils Absolute Auto 4.7 K/mm3 (1.3-6.7); Platelet Count Result 176 k/mm3 (150-375); Red Blood Count 3.33 M/mm3 (4.6-6.20); Red Cell Distribution Width 14.4 % (11.5-14.5); White Blood Count 6.6 K/mm3 (4.5-10.0)
[2022-12-11 05:16] LABS: Albumin Level 3.1 g/dL (3.5-5.1); Anion Gap 8 mmol/L (8-16); Blood Urea Nitrogen 33 mg/dL (9-20); Calcium 10.4 mg/dL (8.4-10.2); Carbon Dioxide 21 mmol/L (22-30); Chloride 109 mmol/L (98-107); Estimated CRCL calculation 20 ml/min; Estimated Glomerular Filt Rate 15; Glucose 79 mg/dL (65-110); Magnesium 1.5 mg/dL (1.6-2.3); Phosphorus 3.6 mg/dL (2.5-4.5); Potassium 3.9 mmol/L (3.4-5.0); Sodium 138 mmol/L (137-145)
[2022-12-11] MEDS: SODIUM CHLORIDE 0.9% IV 1,000 ML 75 ML IV CONT (06:20)
[2022-12-11] MEDS: METOPROLOL TARTRATE 50 MG TAB PO ×3 (06:21→22:20)
--- NOTE | 2022-12-11 08:02 | PM.PNCARD ---
Progress Note: A&P Assessment and Plan (1) Elevated troponin: Code(s): R77.8 - Other specified abnormalities of plasma proteins Status: Acute Assessment and Plan: Peaked at 2.59. EKG shows no significant ST changes. Could be related to UTI and significant renal failure or ACS. However, would not recommend LHC in setting of chest pain free, stable hemodynamically, and BLAS. 12/08/22 Echo: EF >70%, mild LVH, anterior wall hypokinetic, grade I diastolic dysfunction. (2) Chest pain: Code(s): R07.9 - Chest pain, unspecified Status: Acute Assessment and Plan: On Ranexa and Imdur which suggests he has chronic intermittent chest pains. Has reproducible cp with palpation. Stopped NTP. (3) Coronary artery disease involving coronary bypass graft of [place] heart: Code(s): I25.810 - Atherosclerosis of coronary artery bypass graft(s) without angina pectoris Status: Acute Assessment and Plan: Stable. Last cath was 10/07/[address] Bloom: Patent VALENZUELA to LAD, patent SVG sequential to OM2/D1/D2, patent RCA stent with 50% stenosis of PL; occluded SVG to RCA. On aspirin and Clopidogrel. His regular commercial photographer is Dr. Murphy with [facility] at [place]. (4) Essential (primary) hypertension: Code(s): I10 - Essential (primary) hypertension Status: Acute Assessment and Plan: Stable. On Metoprolol 50 mg Q8HR. (5) Mixed hyperlipidemia: Code(s): E78.2 - Mixed hyperlipidemia Status: Acute Assessment and Plan: On Atorvastatin. (6) BLAS (acute kidney injury): Code(s): N17.9 - Acute kidney failure, unspecified Status: Acute Subjective Date/time seen: 12/11/22 08:02 Interval history: He is confused. Reports reproducible chest pain with palpation. Denies sob. Exam Const: General: cooperative, alert and other (somnolent) Orientation/consciousness: oriented to person, No oriented to place and No oriented to time Resp: Auscultation: clear to auscultation bilaterally, no crackles, no rales, no rhonchi and no wheezes Cardio: Rate: regular rate Rhythm: regular rhythm Heart sounds: no murmurs Peripheral pulses: dorsalis pedis present Neuro: General: oriented to person, No oriented to place and No oriented to time Extrem: Right lower extremity: no edema Left lower extremity: no edema Objective Data Vital Signs Vital Signs: Vital Signs - 24 hr 12/10/22 09:04 12/10/22 09:05 12/10/22 12:00 Temperature 98.0 F Pulse Rate 74 Respiratory Rate 22 H 21 H Blood Pressure 156/80 H Pulse Oximetry 95 95 100 Oxygen Delivery BiPAP CPAP Fraction of Inspired Oxygen 21 12/10/22 14:55 12/10/22 12:00 12/10/22 16:00 Temperature 97.9 F Pulse Rate 76 73 Respiratory Rate 18 Blood Pressure 133/75 Pulse Oximetry 100 Oxygen Delivery Room Air Fraction of Inspired Oxygen 12/10/22 10:00 12/10/22 12:00 12/10/22 14:00 Temperature Pulse Rate 60 70 72 Respiratory Rate Blood Pressure Pulse Oximetry Oxygen Delivery Fraction of Inspired Oxygen 12/10/22 16:00 12/10/22 16:00 12/10/22 18:00 Temperature Pulse Rate 69 69 74 Respiratory Rate 18 Blood Pressure Pulse Oximetry 100 Oxygen Delivery Room Air Fraction of Inspired Oxygen 21 12/10/22 20:08 12/10/22 21:29 12/10/22 23:50 Temperature 97.1 F L 97.6 F Pulse Rate 76 80 74 Respiratory Rate 22 H 20 Blood Pressure 145/91 H 146/74 H Pulse Oximetry 94 97 Oxygen Delivery Fraction of Inspired Oxygen 12/10/22 20:00 12/11/22 00:00 12/10/22 19:58 Temperature Pulse Rate 79 Respiratory Rate Blood Pressure Pulse Oximetry 94 97 Oxygen Delivery Room Air CPAP Fraction of Inspired Oxygen 21 12/11/22 00:00 12/10/22 22:00 12/10/22 23:10 Temperature Pulse Rate 72 76 66 Respiratory Rate 24 H Blood Pressure Pulse Oximetry 97 Oxygen Delivery BiPAP Fraction of Inspired Oxygen 12/11/22
[2022-12-11] MEDS: DULoxetine HCL 60 MG CAPSULE.DR PO (09:31)
[2022-12-11] MEDS: PANTOPRAZOLE SODIUM IV 40 MG VIAL IV PUSH ×2 (09:31→22:40)
[2022-12-11] MEDS: RANOLAZINE 500 MG TAB.ER.12H PO ×2 (09:31→22:20)
[2022-12-11] MEDS: ISOSORBIDE MONONITRATE 60 MG TAB.ER.24H 120 MG PO (09:31)
[2022-12-11] MEDS: ASPIRIN 325 MG TABLET PO (09:31)
[2022-12-11] MEDS: CLOPIDOGREL BISULFATE 75 MG TABLET PO (09:31)
[2022-12-11] MEDS: CYANOCOBALAMIN 1,000 MCG TABLET 1000 MCG PO (09:31)
--- NOTE | 2022-12-11 10:42 | PM.IMPN ---
Progress Note: A&P Assessment and Plan (1) Hypercalcemia: Code(s): E83.52 - Hypercalcemia Status: Acute Assessment and Plan: Patient with altered mental status and a calcium of 16.5. Patient with normal baseline calcium level until 12/03 when elevated to 14.4 by blood work at PCP office. Weight loss concerning for neoplastic etiology of the hypercalcemia. Although hypercalcemia itself can cause anorexia. Not on VitD or calcium supplements but has been eating Tums 'like candy' for a long time. Hypercalcemia explains the agitation, psychiatric overtones, diffuse pain, confusion and kidney stones. started on IV NS at 200 ml/hr Received Calcitonin x2 HepB Ag and Ab negative. C3/4 normal. UA >100 RBC with 2+ LE and 11-20 WBC. Monalisa 122. FEUrea 45% and FENa 7%. Will plan on giving zoledronic acid (Zometa) once kidney function improves. Will need skeletal survey. 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 H/O consult. Calcium continues to improve LN biopsy 12/10. Nephrology following and appreciate their input. 12/11: Suspect underlying psychiatric condition superimposed with hypercalcemia? Will check CT head, consult neuro, initiate risperdal 2 mg QHS ans monitor (2) NSTEMI (non-ST elevated myocardial infarction): Code(s): I21.4 - Non-ST elevation (NSTEMI) myocardial infarction Status: Acute Assessment and Plan: Patient has been having chest pain at rest for 2 weeks. Troponin elevated on admission and continues to rise (2.6 currently). EKG on admission showing sinus tach (115), IVCD and possibly old AIM and IMI. Borderline ST-T wave changed high lateral leads. Md Ophthalmologist felt patient is not a good candidate for cardiac intervention because of BLAS. Repeat EKG showing loss of R wave across the precordium consistent with new infarct. 3rd EKG shows improved but blunted R wave progression. Plan to maximize medical therapy: ASA, Lipitor, metoprolol Plavix loading 600 mg x 1 dose followed by 75 mg p.o. daily Echo showing EF 70% with anteroseptal HK and grade I diastolic dysfunction. Cardiology following and appreciate their input. (3) Hdfnn-[id number] kidney injury: Code(s): N17.9 - Acute kidney failure, unspecified; N18.9 - Chronic kidney disease, unspecified Status: Acute Assessment and Plan: Baseline Cr 1.3-1.6 range. Cr 2.7 on 12/03/22 at the PCP office. Cr worse again here at 3.4. Suspect related to hypercalcemia. Renal US multiple incompletely evaluated cystic right renal lesions; left nephrolithiasis. Nephrology consulted. KUB does show left nephrolithiasis so will need to exclude obstructing process. UOP 3550mL yesterday (related to calcium) but decreased UOP noted now Cr 3.8 today UA as above. UCx negative. BCx NGTD. [place] secured - monitor UOP. Voiding trial when able Nephrology following. (4) Encephalopathy: Code(s): G93.40 - Encephalopathy, unspecified Status: Acute Assessment and Plan: Head CT showing no acute process. Moyers mental status changed related to hypercalcemia. Improving with hypercalcemia treatment as expected. Follow for continued improvement. Speech felt patient could eat and recommended soft and bite sized, regular liquids. (5) Fall: Code(s): W19.XXXA - Unspecified fall, initial encounter Status: Acute Assessment and Plan: Patient fell in the bathroom. CXR clear. Knee xrays showing in acute bony abnormalities. Pelvic xray showing no acute process. His head CT showing no acute process. PT/OT (6) Nephrolithiasis: Code(s): N20.0 - Calculus of kidney Status: Acute Assessment and Plan: Left kidney stones noted by KUB. CT showing nonobstructive stones. Appreciate urological consultation (7) CAD (coronary artery disease): Onset Date: 1997 Qualifiers: Associated angina: with
[2022-12-11 11:42] LABS: Vitamin D 1,25 (OH)2 Total 92 pg/mL (18-72); Vitamin D2 1,25 (OH)2 <8 pg/mL; Vitamin D3 1,25 (OH)2 92 pg/mL
--- NOTE | 2022-12-11 12:07 | PM.PNNEP ---
Progress Note: A&P Assessment and Plan (1) BLAS (acute kidney injury): Code(s): N17.9 - Acute kidney failure, unspecified Status: Acute Assessment and Plan: worsening since admission progression of renal dysfunction noted: creatinine of 1.78 on 06/27/22 creatinine of 2.7mg/dl on 12/03/22 creatinine up to 3.4mg/dl on admission suspect related to hypercalcemia +/- cardiac event cannot discount lymphoma infiltration into kidneys... evaluation to date: urine electrolytes non-prerenal (by FeNA and FeUrea) urine eosinophils negative CPK mildly elevated - not really high enough to affect renal function renal ultrasound with multiple incompletely evaluated cystic right renal lesions and left nephrolithiasis UA suggestive on infection urine culture without growth thornton catheter in place consider diuretic therapy follow trend of repeat labs and urine output (2) Chronic kidney disease, stage 3: Code(s): N18.30 - Chronic kidney disease, stage 3 unspecified Status: Chronic Assessment and Plan: baseline creatinine runs around 1.3 - 1.6mg/dl in the last year presumably due to hypertension, PAULINO, and vascular disease reported history of medullary sponge kidney -- not clear on specifics... (3) Hypercalcemia: Code(s): E83.52 - Hypercalcemia Status: Acute Assessment and Plan: improving quite significant on admission at 16.5 however, noted on outpatient labs on 12/03/22 at 14.4 now associated with BLAS and encephalopathy along with nephrolithiasis continue IVF hydration as tolerated -- force diuresis if needed hypercalcemia work-up/evaluation in progress CT scan results noted -- abdominal and pelvic lymphadenopathy, consistent with lymphoma s/p ultrasound guided lymph node biopsy calcitonin x 2 since admission dialysis was a consideration but less likely since conservative therapy appears to be working (4) NSTEMI (non-ST elevated myocardial infarction): Code(s): I21.4 - Non-ST elevation (NSTEMI) myocardial infarction Status: Acute Assessment and Plan: as noted by elevated troponins in the context of chest pain EKG results noted maximize medical therapy Cardiology recommendations noted (but not likely a candidate for intervention given acute medical issues including BLAS) on ASA, and plavix along with beta shahnaz therapy known history of CAD + CABG x 5 (1997) with noted ischemic cardiomyopathy (EF 45 - 50%) repeat Echo results noted (5) Altered mental status: Code(s): R41.82 - Altered mental status, unspecified Status: Acute Assessment and Plan: improvement noted Head CT negative s/p fall prior to admission suspect related to hypercalcemia follow mentation as calcium improves (6) PAULINO (obstructive sleep apnea): Code(s): G47.33 - Obstructive sleep apnea (adult) (pediatric) Status: Acute Assessment and Plan: BiPAP being used with sleep/rest Will continue to follow. Subjective Date/time seen: 12/11/22 12:07 Interval history: Follow-up for acute kidney injury on chronic kidney disease in association with hypercalcemia. Renal function about the same as yesterday; continues to have good urine output but now with issues related to scrotal/penile swelling/edema; mentation has significantly improved (but still not fully back to baseline per at bedside); no apparent distress noted. Exam Narrative: General: elderly male in NAD Heart: normal S1 and S2; no rub Lungs: clear to auscultation Abdomen: soft, nontender, nondistended, positive bowel sounds Extremities: no cyanosis or clubbing; 1+ edema Skin: warm and dry Objective Data Vital Signs Vital Signs: Vital Signs Temp Pulse Resp BP Pulse Ox O2 Del Method FiO2 12/11/22 11:33 96.7 F L 73 18 139/86 97 12/11/22 10:00 82 12/11/22 08:00 71 12/11/22 10:35 123
--- NOTE | 2022-12-11 12:07 | P.PNNP_ITS ---
Progress Note: A&P Assessment and Plan (1) BLAS (acute kidney injury): Code(s): N17.9 - Acute kidney failure, unspecified Status: Acute Assessment and Plan: * worsening since admission * progression of renal dysfunction noted: * creatinine of 1.78 on 06/27/22 * creatinine of 2.7mg/dl on 12/03/22 * creatinine up to 3.4mg/dl on admission * suspect related to hypercalcemia +/- cardiac event * cannot discount lymphoma infiltration into kidneys... * evaluation to date: * urine electrolytes non-prerenal (by FeNA and FeUrea) * urine eosinophils negative * CPK mildly elevated - not really high enough to affect renal function * renal ultrasound with multiple incompletely evaluated cystic right renal lesions and left nephrolithiasis * UA suggestive on infection * urine culture without growth * thornton catheter in place * consider diuretic therapy * follow trend of repeat labs and urine output (2) Chronic kidney disease, stage 3: Code(s): N18.30 - Chronic kidney disease, stage 3 unspecified Status: Chronic Assessment and Plan: * baseline creatinine runs around 1.3 - 1.6mg/dl in the last year * presumably due to hypertension, PAULINO, and vascular disease * reported history of medullary sponge kidney -- not clear on specifics... (3) Hypercalcemia: Code(s): E83.52 - Hypercalcemia Status: Acute Assessment and Plan: * improving * quite significant on admission at 16.5 * however, noted on outpatient labs on 12/03/22 at 14.4 * now associated with BLAS and encephalopathy along with nephrolithiasis * continue IVF hydration as tolerated -- force diuresis if needed * hypercalcemia work-up/evaluation in progress * CT scan results noted -- abdominal and pelvic lymphadenopathy, consistent with lymphoma * s/p ultrasound guided lymph node biopsy * calcitonin x 2 since admission * dialysis was a consideration but less likely since conservative therapy appears to be working (4) NSTEMI (non-ST elevated myocardial infarction): Code(s): I21.4 - Non-ST elevation (NSTEMI) myocardial infarction Status: Acute Assessment and Plan: * as noted by elevated troponins in the context of chest pain * EKG results noted * maximize medical therapy * Cardiology recommendations noted (but not likely a candidate for intervention given acute medical issues including BLAS) * on ASA, and plavix along with beta shahnaz therapy * known history of CAD + CABG x 5 (1997) with noted ischemic cardiomyopathy (EF 45 - 50%) * repeat Echo results noted (5) Altered mental status: Code(s): R41.82 - Altered mental status, unspecified Status: Acute Assessment and Plan: * improvement noted * Head CT negative * s/p fall prior to admission * suspect related to hypercalcemia * follow mentation as calcium improves (6) PAULINO (obstructive sleep apnea): Code(s): G47.33 - Obstructive sleep apnea (adult) (pediatric) Status: Acute Assessment and Plan: * BiPAP being used with sleep/rest Will continue to follow. Subjective Date/time seen: 12/11/22 12:07 Interval history: Follow-up for acute kidney injury on chronic kidney disease in association with hypercalcemia. Renal function about the same as yesterday; continues to have good urine output but now with issues related to scrotal/penile swelling/edema; mentation has significantly improved (but still not fully back to baseline per at bedside); no apparent distress noted. Exam
[2022-12-11 12:29] LABS: Complement Total CH50 >60 U/mL (31-60)
[2022-12-11] MEDS: risperiDONE 1 MG TABLET 2 MG PO ×2 (15:00→22:20)
--- NOTE | 2022-12-11 15:50 | WPDUROPN2 ---
Progress Note: A&P Assessment and Plan (1) Penile edema: Code(s): N48.89 - Other specified disorders of penis Status: Acute Assessment and Plan: Continue scrotal and penile elevation and application of anti-fungal cream. (2) Scrotal edema: Code(s): N50.89 - Other specified disorders of the male genital organs Status: Acute Assessment and Plan: ok to do voiding trial when done tracking I&O's. will follow patient at a distance (3) Epididymitis: Code(s): N45.1 - Epididymitis Status: Acute Assessment and Plan: Start Augmentin x 10 days BID. Subjective Subjective Date/Time Seen: 12/11/22 15:50 Interval history: The patient continues to have scrotal pain and penile/scrotal edema. His catheter drains to gravity with yellow urine. Scrotal US shows 1.5cm epididymal cyst, small bilateral hydroceles Still remains confused, and creatinine elevated at 4.0. Review of Systems Review of Systems: ROS unobtainable: Yes unobtainable due to mental status Exam Const: General: cooperative, comfortable and confusion Resp: Effort & Inspection: normal respiratory effort Cardio: Rate: regular rate GI: GI Palp: Yes Soft to palpation and No Tenderness to palpation present (GI) : General: Yes no CVA tenderness Penis: Yes uncircumcised, Yes edematous, Yes erythematous and Yes other (tender, unable to see meatus) Scrotum: edematous and erythematous Urinary Catheter: Urinary Catheter: patent and draining and urine clear Extrem: Right lower extremity: edema Left lower extremity: edema Psych: Speech and movement: Clear speech present Affect: normal affect Objective Data Vital Signs Vital Signs: Vital Signs - 24 hr 12/10/22 16:00 12/10/22 16:00 12/10/22 16:00 Temperature 97.9 F Pulse Rate 73 69 69 Respiratory Rate 18 18 Blood Pressure 133/75 Pulse Oximetry 100 100 Oxygen Delivery Room Air Fraction of Inspired Oxygen 21 12/10/22 18:00 12/10/22 20:08 12/10/22 21:29 Temperature 97.1 F L Pulse Rate 74 76 80 Respiratory Rate 22 H Blood Pressure 145/91 H Pulse Oximetry 94 Oxygen Delivery Fraction of Inspired Oxygen 12/10/22 23:50 12/10/22 20:00 12/11/22 00:00 Temperature 97.6 F Pulse Rate 74 Respiratory Rate 20 Blood Pressure 146/74 H Pulse Oximetry 97 94 97 Oxygen Delivery Room Air CPAP Fraction of Inspired Oxygen 21 12/10/22 19:58 12/11/22 00:00 12/10/22 22:00 Temperature Pulse Rate 79 72 76 Respiratory Rate Blood Pressure Pulse Oximetry Oxygen Delivery Fraction of Inspired Oxygen 12/10/22 23:10 12/11/22 02:00 12/11/22 03:46 Temperature 97.1 F L Pulse Rate 66 82 78 Respiratory Rate 24 H 22 H Blood Pressure 119/59 L Pulse Oximetry 97 96 Oxygen Delivery BiPAP Fraction of Inspired Oxygen 12/11/22 04:00 12/11/22 04:00 12/11/22 06:21 Temperature Pulse Rate 80 80 Respiratory Rate Blood Pressure Pulse Oximetry 96 Oxygen Delivery CPAP Fraction of Inspired Oxygen 21 12/11/22 06:00 12/11/22 08:18 12/11/22 09:56 Temperature 97.8 F Pulse Rate 85 74 Respiratory Rate 22 H Blood Pressure 165/83 H Pulse Oximetry 96 96 Oxygen Delivery Room Air Fraction of Inspired Oxygen 12/11/22 10:30 12/11/22 10:35 12/11/22 08:00 Temperature Pulse Rate 71 Respiratory Rate Blood Pressure 148/86 H 123/70 Pulse Oximetry Oxygen Delivery Fraction of Inspired Oxygen 12/11/22 10:00 12/11/22 11:33 12/11/22 14:11 Temperature 96.7 F L Pulse Rate 82 73 74 Respiratory Rate 18 Blood Pressure 139/86 139/89 Pulse Oximetry 97 Oxygen Delivery Fraction of Inspired Oxygen 12/11/22 14:13 Temperature Pulse Rate 79 Respiratory Rate Blood Pressure Pulse Oximetry Oxygen Delivery Fraction of Inspired Oxygen Intake/Output Intake/Output: Intake & Output 12/08/22 12/09/22 12/10/22 12/11/22 23:59 23:59 23
[2022-12-11] MEDS: ATORVASTATIN 40 MG TABLET PO (22:20)
[2022-12-11] MEDS: AMOXICILLIN/CLAVULANATE K 875-125 MG TAB 1 TABLET PO (22:20)
[2022-12-12] VITALS (22 sets, daily range): BP systolic 114–155; BP diastolic 67–89; PULSE 60–79; RESP 18–24; TEMP 35.7–36.6; O2SAT 95–100; BMI 48.5
[2022-12-12 05:03] LABS: Basophils Percent Auto 0.7 % (0.2-1.2); Eosinophils Absolute Auto 0.3 K/mm3 (0-0.3); Eosinophils Percent Auto 5.5 % (0-4.4); Hematocrit 30.5 % (42.0-52.0); Hemoglobin 10.1 g/dL (14.0-18.0); Immature Granulocyte Absolute 0.02 K/mm3 (0.00-0.031); Immature Granulocyte Percent A 0.3 % (0-0.5); Lymphocytes Absolute Auto 0.89 K/mm3 (0.9-3.2); Lymphocytes Percent Auto 14.8 % (18.3-44.2); Mean Corpuscular HGB Conc 33.1 g/dl (32-36); Mean Corpuscular Hemoglobin 31.3 pg (26-34); Mean Corpuscular Volume 94.4 fl (80-100); Mean Platelet Volume 10.8 fl (7.4-10.4); Monocytes Absolute Auto 0.7 K/mm3 (0.1-0.6); Monocytes Percent Auto 11.6 % (2.6-8.5); Neutrophils Percent Auto 67.1 % (45.5-73.1); Platelet Count Result 159 k/mm3 (150-375); Red Blood Count 3.23 M/mm3 (4.6-6.20); Red Cell Distribution Width 14.4 % (11.5-14.5)
[2022-12-12 05:13] LABS: Alanine Aminotransferase 27 U/L (6-50); Albumin Level 2.9 g/dL (3.5-5.1); Alkaline Phosphatase 81 U/L (38-126); Anion Gap 7 mmol/L (8-16); Aspartate Amino Transferase 48 U/L (17-59); Bilirubin,Total 0.7 mg/dL (0.2-1.3); Blood Urea Nitrogen 33 mg/dL (9-20); Calcium 10.4 mg/dL (8.4-10.2); Carbon Dioxide 23 mmol/L (22-30); Chloride 109 mmol/L (98-107); Estimated CRCL calculation 20 ml/min; Estimated Glomerular Filt Rate 15; Glucose 81 mg/dL (65-110); Magnesium 1.5 mg/dL (1.6-2.3); Phosphorus 4.2 mg/dL (2.5-4.5); Sodium 139 mmol/L (137-145)
[2022-12-12] MEDS: METOPROLOL TARTRATE 50 MG TAB PO ×3 (06:22→21:22)
--- NOTE | 2022-12-12 08:10 | PM.PNCARD ---
Progress Note: A&P Assessment and Plan (1) Elevated troponin: Code(s): R77.8 - Other specified abnormalities of plasma proteins Status: Acute Assessment and Plan: Peaked at 2.59. EKG shows no significant ST changes. Could be related to UTI and significant renal failure or ACS. However, would not recommend LHC in setting of chest pain free, stable hemodynamically, and BLAS. 12/08/22 Echo: EF >70%, mild LVH, anterior wall hypokinetic, grade I diastolic dysfunction. (2) Chest pain: Code(s): R07.9 - Chest pain, unspecified Status: Acute Assessment and Plan: On Ranexa and Imdur which suggests he has chronic intermittent chest pains. Has reproducible cp with palpation. Stopped NTP. (3) Coronary artery disease involving coronary bypass graft of [place] heart: Code(s): I25.810 - Atherosclerosis of coronary artery bypass graft(s) without angina pectoris Status: Acute Assessment and Plan: Stable. Last cath was 10/07/[address] Bloom: Patent VALENZUELA to LAD, patent SVG sequential to OM2/D1/D2, patent RCA stent with 50% stenosis of PL; occluded SVG to RCA. On aspirin and Clopidogrel. No further cardiac workup is needed. His regular sound art instructor is Dr. Murphy with [facility] at [place]. (4) Essential (primary) hypertension: Code(s): I10 - Essential (primary) hypertension Status: Acute Assessment and Plan: Stable. On Metoprolol 50 mg Q8HR. (5) Mixed hyperlipidemia: Code(s): E78.2 - Mixed hyperlipidemia Status: Acute Assessment and Plan: On Atorvastatin. (6) BLAS (acute kidney injury): Code(s): N17.9 - Acute kidney failure, unspecified Status: Acute Subjective Date/time seen: 12/12/22 08:10 Interval history: He is confused. Denies chest pain or sob. Exam Const: General: cooperative, alert and other (somnolent) Orientation/consciousness: oriented to person, No oriented to place and No oriented to time Resp: Auscultation: clear to auscultation bilaterally, no crackles, no rales, no rhonchi and no wheezes Cardio: Rate: regular rate Rhythm: regular rhythm Heart sounds: no murmurs Peripheral pulses: dorsalis pedis present Neuro: General: oriented to person, No oriented to place and No oriented to time Extrem: Right lower extremity: no edema Left lower extremity: no edema Objective Data Vital Signs Vital Signs: Vital Signs - 24 hr 12/11/22 08:18 12/11/22 09:56 12/11/22 10:30 Temperature 97.8 F Pulse Rate 74 Respiratory Rate 22 H Blood Pressure 165/83 H 148/86 H Pulse Oximetry 96 96 Oxygen Delivery Room Air Fraction of Inspired Oxygen 12/11/22 10:35 12/11/22 10:00 12/11/22 11:33 Temperature 96.7 F L Pulse Rate 82 73 Respiratory Rate 18 Blood Pressure 123/70 139/86 Pulse Oximetry 97 Oxygen Delivery Fraction of Inspired Oxygen 12/11/22 14:11 12/11/22 14:13 12/11/22 16:15 Temperature 96.1 F L Pulse Rate 74 79 66 Respiratory Rate 22 H Blood Pressure 139/89 155/95 H Pulse Oximetry 99 Oxygen Delivery Fraction of Inspired Oxygen 12/11/22 19:22 12/11/22 12:00 12/11/22 14:00 Temperature 97.6 F Pulse Rate 80 73 71 Respiratory Rate 20 Blood Pressure 142/82 H Pulse Oximetry 97 Oxygen Delivery Fraction of Inspired Oxygen 12/11/22 16:00 12/11/22 18:00 12/11/22 12:00 Temperature Pulse Rate 67 70 Respiratory Rate Blood Pressure Pulse Oximetry Oxygen Delivery Room Air Fraction of Inspired Oxygen 12/11/22 16:00 12/11/22 20:00 12/11/22 23:19 Temperature 97.8 F Pulse Rate 80 104 H Respiratory Rate 20 18 Blood Pressure 112/73 Pulse Oximetry 97 98 Oxygen Delivery Room Air Room Air Fraction of Inspired Oxygen 21 12/11/22 20:00 12/11/22 22:00 12/12/22 00:00 Temperature Pulse Rate 80 77 60 Respiratory Rate Blood Pressure Pulse Oximetry Oxygen Delivery Fraction of Inspired Oxygen
[2022-12-12] MEDS: RANOLAZINE 500 MG TAB.ER.12H PO ×2 (09:45→21:22)
[2022-12-12] MEDS: DULoxetine HCL 60 MG CAPSULE.DR PO (09:45)
[2022-12-12] MEDS: ASPIRIN 325 MG TABLET PO (09:45)
[2022-12-12] MEDS: AMOXICILLIN/CLAVULANATE K 875-125 MG TAB 1 TABLET PO ×2 (09:45→21:22)
[2022-12-12] MEDS: CLOPIDOGREL BISULFATE 75 MG TABLET PO (09:45)
[2022-12-12] MEDS: CYANOCOBALAMIN 1,000 MCG TABLET 1000 MCG PO (09:45)
[2022-12-12] MEDS: PANTOPRAZOLE SODIUM IV 40 MG VIAL IV PUSH ×2 (09:46→21:22)
--- NOTE | 2022-12-12 09:46 | PM.PNNEP ---
Progress Note: A&P Assessment and Plan (1) BLAS (acute kidney injury): Code(s): N17.9 - Acute kidney failure, unspecified Status: Acute Assessment and Plan: worsening since admission -- slightly better today progression of renal dysfunction noted: creatinine of 1.78 on 06/27/22 creatinine of 2.7mg/dl on 12/03/22 creatinine up to 3.4mg/dl on admission suspect related to hypercalcemia +/- cardiac event cannot discount lymphoma infiltration into kidneys... evaluation to date: urine electrolytes non-prerenal (by FeNA and FeUrea) urine eosinophils negative CPK mildly elevated - not really high enough to affect renal function renal ultrasound with multiple incompletely evaluated cystic right renal lesions and left nephrolithiasis UA suggestive on infection urine culture without growth thornton catheter in place consider diuretic therapy if creatinine continues to improve follow trend of repeat labs and urine output (2) Chronic kidney disease, stage 3: Code(s): N18.30 - Chronic kidney disease, stage 3 unspecified Status: Chronic Assessment and Plan: baseline creatinine runs around 1.3 - 1.6mg/dl in the last year presumably due to hypertension, PAULINO, and vascular disease reported history of medullary sponge kidney -- not clear on specifics... (3) Hypercalcemia: Code(s): E83.52 - Hypercalcemia Status: Acute Assessment and Plan: improving quite significant on admission at 16.5 however, noted on outpatient labs on 12/03/22 at 14.4 now associated with BLAS and encephalopathy along with nephrolithiasis hypercalcemia work-up/evaluation in progress CT scan results noted -- abdominal and pelvic lymphadenopathy, consistent with lymphoma s/p ultrasound guided lymph node biopsy - follow-up on pathology calcitonin x 2 since admission dialysis was a consideration but less likely needed since conservative therapy appears to be working (4) Elevated troponin: Code(s): R77.8 - Other specified abnormalities of plasma proteins Status: Acute Assessment and Plan: possible NSTEMI as was having chest pain prior to admission EKG results noted maximize medical therapy Cardiology recommendations noted (but not likely a candidate for intervention given acute medical issues including BLAS) on ASA, and plavix along with beta shahnaz therapy known history of CAD + CABG x 5 (1997) with noted ischemic cardiomyopathy (EF 45 - 50%) repeat Echo results noted (5) Altered mental status: Code(s): R41.82 - Altered mental status, unspecified Status: Acute Assessment and Plan: improvement noted but still not back to [facility] Head CT negative s/p fall prior to admission suspect related to hypercalcemia +/- BLAS/ARF follow mentation as calcium improves (6) PAULINO (obstructive sleep apnea): Code(s): G47.33 - Obstructive sleep apnea (adult) (pediatric) Status: Acute Assessment and Plan: BiPAP being used with sleep/rest Will continue to follow. Subjective Date/time seen: 12/12/22 09:46 Interval history: Follow-up for acute kidney injury on chronic kidney disease in association with hypercalcemia. Still slightly confused but overall, mental status has significantly improved; continues to make good urine output and creatinine relatively stable if not slightly better; no other issues/events overnight or earlier this morning; appetite doing better as well. Exam Narrative: General: elderly male in NAD Heart: normal S1 and S2; no rub Lungs: clear to auscultation Abdomen: soft, nontender, nondistended, positive bowel sounds Extremities: no cyanosis or clubbing; 1+ edema Skin: warm and intact Objective Data Vital Signs Vital Signs: Vital Signs Temp Pulse Resp BP Pulse Ox O2 Del Method FiO2 12/12/22 07:41 96.3 F L 60 22 H 155/89 H 99 12/12/22 06:00 60 12/12/22
--- NOTE | 2022-12-12 09:46 | P.PNNP_ITS ---
Progress Note: A&P Assessment and Plan (1) BLAS (acute kidney injury): Code(s): N17.9 - Acute kidney failure, unspecified Status: Acute Assessment and Plan: * worsening since admission -- slightly better today * progression of renal dysfunction noted: * creatinine of 1.78 on 06/27/22 * creatinine of 2.7mg/dl on 12/03/22 * creatinine up to 3.4mg/dl on admission * suspect related to hypercalcemia +/- cardiac event * cannot discount lymphoma infiltration into kidneys... * evaluation to date: * urine electrolytes non-prerenal (by FeNA and FeUrea) * urine eosinophils negative * CPK mildly elevated - not really high enough to affect renal function * renal ultrasound with multiple incompletely evaluated cystic right renal lesions and left nephrolithiasis * UA suggestive on infection * urine culture without growth * thornton catheter in place * consider diuretic therapy if creatinine continues to improve * follow trend of repeat labs and urine output (2) Chronic kidney disease, stage 3: Code(s): N18.30 - Chronic kidney disease, stage 3 unspecified Status: Chronic Assessment and Plan: * baseline creatinine runs around 1.3 - 1.6mg/dl in the last year * presumably due to hypertension, PAULINO, and vascular disease * reported history of medullary sponge kidney -- not clear on specifics... (3) Hypercalcemia: Code(s): E83.52 - Hypercalcemia Status: Acute Assessment and Plan: * improving * quite significant on admission at 16.5 * however, noted on outpatient labs on 12/03/22 at 14.4 * now associated with BLAS and encephalopathy along with nephrolithiasis * hypercalcemia work-up/evaluation in progress * CT scan results noted -- abdominal and pelvic lymphadenopathy, consistent with lymphoma * s/p ultrasound guided lymph node biopsy - follow-up on pathology * calcitonin x 2 since admission * dialysis was a consideration but less likely needed since conservative therapy appears to be working (4) Elevated troponin: Code(s): R77.8 - Other specified abnormalities of plasma proteins Status: Acute Assessment and Plan: * possible NSTEMI as was having chest pain prior to admission * EKG results noted * maximize medical therapy * Cardiology recommendations noted (but not likely a candidate for intervention given acute medical issues including BLAS) * on ASA, and plavix along with beta shahnaz therapy * known history of CAD + CABG x 5 (1997) with noted ischemic cardiomyopathy (EF 45 - 50%) * repeat Echo results noted (5) Altered mental status: Code(s): R41.82 - Altered mental status, unspecified Status: Acute Assessment and Plan: * improvement noted but still not back to [facility] * Head CT negative * s/p fall prior to admission * suspect related to hypercalcemia +/- BLAS/ARF * follow mentation as calcium improves (6) PAULINO (obstructive sleep apnea): Code(s): G47.33 - Obstructive sleep apnea (adult) (pediatric) Status: Acute Assessment and Plan: * BiPAP being used with sleep/rest Will continue to follow. Subjective Date/time seen: 12/12/22 09:46 Interval history: Follow-up for acute kidney injury on chronic kidney disease in association with hypercalcemia. Still slightly confused but overall, mental status has significantly improved; continues to make good urine output and creatinine relatively stable if not slightly better; no other issues/events overnight or earlier this morning; appetite doing better as well.
[2022-12-12] MEDS: ISOSORBIDE MONONITRATE 60 MG TAB.ER.24H 120 MG PO (09:48)
--- NOTE | 2022-12-12 12:48 | WPDNEURCNPN ---
Assessment and Plan Assessment and plan (1) Altered mental status: Code(s): R41.82 - Altered mental status, unspecified Status: Acute (2) Rjzvi-uq-oorjljz kidney injury: Code(s): N17.9 - Acute kidney failure, unspecified; N18.9 - Chronic kidney disease, unspecified Status: Acute (3) Epididymitis: Code(s): N45.1 - Epididymitis Status: Acute (4) Hypercalcemia: Code(s): E83.52 - Hypercalcemia Status: Acute (5) Elevated troponin: Code(s): R77.8 - Other specified abnormalities of plasma proteins Status: Acute (6) Fall: Code(s): W19.XXXA - Unspecified fall, initial encounter Status: Acute Plan maritza Martinez is a 72 year old male with a history of obesity, coronary artery disease, restless leg syndrome, prediabetes, obstructive sleep apnea, hypertension, hyperlipidemia presenting with chest pain and fall, found to have significant hypercalcium and also elevated troponins. Course complicated by encephalopathy. Likely multifactorial given the hypercalcemia, acute on chronic kidney injury, and underlying infection. Also considering stroke vs encephalitis (infectious vs autoimmune/paraneoplastic). does feel that he has improved somewhat in the past day, but is clearly not at baseline. - Recommend MRI brain with and without contrast if able - Check TSH and folate levels - If work-up is unrevealing and there are persistent concerns, can obtain routine EEG +/- LP for CSF studies evaluating for encephalitis as mentioned above Consult date: 12/12/22 Reason for consult: Altered mental status HPI: Steffen Martinez is a 72 year old male with a history of obesity, coronary artery disease, restless leg syndrome, prediabetes, obstructive sleep apnea, hypertension, hyperlipidemia. Patient initially presented due to intermittent chest pain for the past two weeks, and fall on the day of presentation. Patient fell while he was in the shower but did not seem to lose consciousness or hit his head. When he presented to [place] ED he had a CT head that was unrevealing. Labs were significant for calcium of 16.4 and elevated troponin. He was admitted for close cardiac monitoring. During admission patient noted to be confused. He had a UA on 12/08 that was positive for WBC and LE, but urine culture was negative. He is currently being treated for epididymitis with Augmentin, per Urology recommendations. He also had acute on chronic renal injury, but BUN has not been significantly elevated (mostly in the 30s). His ammonia, B12, levels are within normal range. His most recent calcium level is 10.4. Preliminary blood cultures have showed no growth. CT chest, abdomen, pelvic showed lymphadenopathy. In the setting of hypercalcemia, this was concerning for neoplastic process so Oncology was consulted for biopsy. It seems that prior to the admission, mental status changes were not a concern. He had an appointment with his PCP on December 06 and there is no mention of confusion or changes in his mental status. CT head was repeated yesterday, which is unchanged from prior. There have been reports of patient hallucinating during the admission as well. Review of Systems Review of Systems: ROS unobtainable: Yes unobtainable due to mental status PMFSH Past Medical History Medical History Acute recurrent maxillary sinusitis Allergic rhinitis Anxiety and depression Arthritis Bilateral cataracts Maturing Chronic low back pain With history of L4-L5-L5-S1 surgery Coronary artery disease involving coronary bypass graft of [place] heart COVID-19 DDD (degenerative disc disease) Essential (primary) hypertension Former smoker Gastroesophageal reflux disease Grade II internal hemorrhoids Hearing loss Hemorrhoid Hiatal hernia Hypersomnia Hypoxia Insomnia Left knee DJD Medullary sponge kidney With history of kidney stones in [id number]/25/1994 Mix
--- NOTE | 2022-12-12 13:50 | PM.IMPN ---
Progress Note: A&P Assessment and Plan (1) Hypercalcemia: Code(s): E83.52 - Hypercalcemia Status: Acute Assessment and Plan: Patient with altered mental status and a calcium of 16.5. Patient with normal baseline calcium level until 12/03 when elevated to 14.4 by blood work at PCP office. Weight loss concerning for neoplastic etiology of the hypercalcemia. Although hypercalcemia itself can cause anorexia. Not on VitD or calcium supplements but has been eating Tums 'like candy' for a long time. Hypercalcemia explains the agitation, psychiatric overtones, diffuse pain, confusion and kidney stones. started on IV NS at 200 ml/hr Received Calcitonin x2 HepB Ag and Ab negative. C3/4 normal. UA >100 RBC with 2+ LE and 11-20 WBC. Monalisa 122. FEUrea 45% and FENa 7%. Will plan on giving zoledronic acid (Zometa) once kidney function improves. Will need skeletal survey. 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 H/O consult. Calcium continues to improve LN biopsy 12/10. Nephrology following and appreciate their input. 12/11: Suspect underlying psychiatric condition superimposed with hypercalcemia? Will check CT head, consult neuro, initiate risperdal 2 mg QHS ans monitor 12/12: Much improved on risperdal, CTH nonacute, neuro c/s recommending MRI, TSH, folate all ordered and pending (2) NSTEMI (non-ST elevated myocardial infarction): Code(s): I21.4 - Non-ST elevation (NSTEMI) myocardial infarction Status: Acute Assessment and Plan: Patient has been having chest pain at rest for 2 weeks. Troponin elevated on admission and continues to rise (2.6 currently). EKG on admission showing sinus tach (115), IVCD and possibly old AIM and IMI. Borderline ST-T wave changed high lateral leads. Bartacker felt patient is not a good candidate for cardiac intervention because of BLAS. Repeat EKG showing loss of R wave across the precordium consistent with new infarct. 3rd EKG shows improved but blunted R wave progression. Plan to maximize medical therapy: ASA, Lipitor, metoprolol Plavix loading 600 mg x 1 dose followed by 75 mg p.o. daily Echo showing EF 70% with anteroseptal HK and grade I diastolic dysfunction. Cardiology following and appreciate their input. (3) Uowbw-dg-wwwwsqo kidney injury: Code(s): N17.9 - Acute kidney failure, unspecified; N18.9 - Chronic kidney disease, unspecified Status: Acute Assessment and Plan: Baseline Cr 1.3-1.6 range. Cr 2.7 on 12/03/22 at the PCP office. Cr worse again here at 3.4. Suspect related to hypercalcemia. Renal US multiple incompletely evaluated cystic right renal lesions; left nephrolithiasis. Nephrology consulted. KUB does show left nephrolithiasis so will need to exclude obstructing process. UOP 3550mL yesterday (related to calcium) but decreased UOP noted now Cr 3.8 today UA as above. UCx negative. BCx NGTD. [place] secured - monitor UOP. Voiding trial when able Nephrology following. (4) Encephalopathy: Code(s): G93.40 - Encephalopathy, unspecified Status: Acute Assessment and Plan: Head CT showing no acute process. [place] mental status changed related to hypercalcemia. Improving with hypercalcemia treatment as expected. Follow for continued improvement. Speech felt patient could eat and recommended soft and bite sized, regular liquids. (5) Fall: Code(s): W19.XXXA - Unspecified fall, initial encounter Status: Acute Assessment and Plan: Patient fell in the bathroom. CXR clear. Knee xrays showing in acute bony abnormalities. Pelvic xray showing no acute process. His head CT showing no acute process. PT/OT (6) Nephrolithiasis: Code(s): N20.0 - Calculus of kidney Status: Acute Assessment and Plan: Left kidney stones noted by KUB. CT showing nonobstructive stones. Appreciate urological consultation
[2022-12-12 19:14] LABS: Hepatitis B Core Ab Total Nonreactive (Nonreactive)
[2022-12-12 19:37] LABS: Folic Acid 12.7 ng/mL (2.76->20)
[2022-12-12] MEDS: risperiDONE 1 MG TABLET 2 MG PO (21:22)
[2022-12-12] MEDS: ATORVASTATIN 40 MG TABLET PO (21:22)
[2022-12-13] VITALS (22 sets, daily range): BP systolic 120–134; BP diastolic 65–83; PULSE 60–80; RESP 18–22; TEMP 35.9–36.2; O2SAT 96–99
[2022-12-13 05:21] LABS: Basophils Absolute Auto 0.1 K/mm3 (0.0-0.1); Basophils Percent Auto 0.8 % (0.2-1.2); Eosinophils Absolute Auto 0.3 K/mm3 (0-0.3); Eosinophils Percent Auto 5.1 % (0-4.4); Hematocrit 30.8 % (42.0-52.0); Hemoglobin 10.1 g/dL (14.0-18.0); Immature Granulocyte Absolute 0.04 K/mm3 (0.00-0.031); Immature Granulocyte Percent A 0.6 % (0-0.5); Lymphocytes Absolute Auto 1.03 K/mm3 (0.9-3.2); Lymphocytes Percent Auto 16.3 % (18.3-44.2); Mean Corpuscular HGB Conc 32.8 g/dl (32-36); Mean Corpuscular Hemoglobin 31.4 pg (26-34); Mean Corpuscular Volume 95.7 fl (80-100); Mean Platelet Volume 11.5 fl (7.4-10.4); Monocytes Absolute Auto 0.8 K/mm3 (0.1-0.6); Monocytes Percent Auto 13.2 % (2.6-8.5); Platelet Count Result 162 k/mm3 (150-375); Red Blood Count 3.22 M/mm3 (4.6-6.20); Red Cell Distribution Width 14.4 % (11.5-14.5); White Blood Count 6.3 K/mm3 (4.5-10.0)
[2022-12-13 05:30] LABS: Alanine Aminotransferase 34 U/L (6-50); Albumin Level 3.1 g/dL (3.5-5.1); Alkaline Phosphatase 91 U/L (38-126); Anion Gap 4 mmol/L (8-16); Aspartate Amino Transferase 50 U/L (17-59); Bilirubin,Total 0.7 mg/dL (0.2-1.3); Blood Urea Nitrogen 35 mg/dL (9-20); Calcium 10.8 mg/dL (8.4-10.2); Carbon Dioxide 27 mmol/L (22-30); Chloride 106 mmol/L (98-107); Estimated CRCL calculation 23 ml/min; Estimated Glomerular Filt Rate 16; Glucose 84 mg/dL (65-110); Potassium 4.1 mmol/L (3.4-5.0); Sodium 137 mmol/L (137-145)
[2022-12-13] MEDS: METOPROLOL TARTRATE 50 MG TAB PO ×3 (06:47→21:17)
--- NOTE | 2022-12-13 08:24 | PM.PNCARD ---
Progress Note: A&P Assessment and Plan (1) Elevated troponin: Code(s): R77.8 - Other specified abnormalities of plasma proteins Status: Acute Assessment and Plan: Peaked at 2.59. EKG shows no significant ST changes. Could be related to UTI and significant renal failure or ACS. However, would not recommend LHC in setting of chest pain free, stable hemodynamically, and BLAS. 12/08/22 Echo: EF >70%, mild LVH, anterior wall hypokinetic, grade I diastolic dysfunction. (2) Chest pain: Code(s): R07.9 - Chest pain, unspecified Status: Acute Assessment and Plan: On Ranexa and Imdur which suggests he has chronic intermittent chest pains. Has reproducible cp with palpation. Stopped NTP. (3) Coronary artery disease involving coronary bypass graft of [place] heart: Code(s): I25.810 - Atherosclerosis of coronary artery bypass graft(s) without angina pectoris Status: Acute Assessment and Plan: Stable. Last cath was 10/07/[address] Bloom: Patent VALENZUELA to LAD, patent SVG sequential to OM2/D1/D2, patent RCA stent with 50% stenosis of PL; occluded SVG to RCA. On aspirin and Clopidogrel. No further cardiac workup is needed. Due to confusion, neurology workup is underway. His regular bicycle designer is Dr. Murphy with [facility] who he needs to keep regular f/u with. (4) Essential (primary) hypertension: Code(s): I10 - Essential (primary) hypertension Status: Acute Assessment and Plan: Stable. On Metoprolol 50 mg Q8HR. (5) Mixed hyperlipidemia: Code(s): E78.2 - Mixed hyperlipidemia Status: Acute Assessment and Plan: On Atorvastatin. (6) BLAS (acute kidney injury): Code(s): N17.9 - Acute kidney failure, unspecified Status: Acute Subjective Date/time seen: 12/13/22 08:24 Interval history: He is confused. Denies chest pain or sob. Exam Const: General: cooperative, alert and other (somnolent) Orientation/consciousness: oriented to person, No oriented to place and No oriented to time Resp: Auscultation: clear to auscultation bilaterally, no crackles, no rales, no rhonchi and no wheezes Cardio: Rate: regular rate Rhythm: regular rhythm Heart sounds: no murmurs Peripheral pulses: dorsalis pedis present Neuro: General: oriented to person, No oriented to place and No oriented to time Extrem: Right lower extremity: no edema Left lower extremity: no edema Objective Data Vital Signs Vital Signs: Vital Signs - 24 hr 12/12/22 12:04 12/12/22 13:43 12/12/22 15:58 Temperature 96.7 F L 96.4 F L Pulse Rate 67 70 68 Respiratory Rate 20 20 Blood Pressure 114/79 141/74 H Pulse Oximetry 95 99 Oxygen Delivery 12/12/22 12:00 12/12/22 16:00 12/12/22 10:00 Temperature Pulse Rate 62 Respiratory Rate Blood Pressure Pulse Oximetry 98 99 Oxygen Delivery Room Air Room Air 12/12/22 12:00 12/12/22 14:00 12/12/22 16:00 Temperature Pulse Rate 65 66 66 Respiratory Rate Blood Pressure Pulse Oximetry Oxygen Delivery 12/12/22 18:00 12/12/22 19:54 12/12/22 21:22 Temperature 96.5 F L Pulse Rate 69 66 76 Respiratory Rate 20 Blood Pressure 153/76 H Pulse Oximetry 100 Oxygen Delivery 12/12/22 22:18 12/12/22 23:37 12/13/22 02:09 Temperature 96.6 F L Pulse Rate 67 63 Respiratory Rate 24 H 18 21 H Blood Pressure 130/71 Pulse Oximetry 96 100 96 Oxygen Delivery BiPAP BiPAP 12/12/22 20:00 12/12/22 22:00 12/13/22 00:00 Temperature Pulse Rate 74 72 64 Respiratory Rate Blood Pressure Pulse Oximetry Oxygen Delivery 12/13/22 02:00 12/12/22 20:00 12/13/22 00:00 Temperature Pulse Rate 69 Respiratory Rate Blood Pressure Pulse Oximetry Oxygen Delivery Room Air CPAP 12/13/22 04:01 12/13/22 06:47 12/13/22 04:00 Temperature 96.6 F L Pulse Rate 60 62 64 Respiratory Rate 18 Blood Pressure 126/67 Pulse Oximetry 96
[2022-12-13] MEDS: ASPIRIN 325 MG TABLET PO (09:05)
[2022-12-13] MEDS: ISOSORBIDE MONONITRATE 60 MG TAB.ER.24H 120 MG PO (09:05)
[2022-12-13] MEDS: DULoxetine HCL 60 MG CAPSULE.DR PO (09:06)
[2022-12-13] MEDS: CYANOCOBALAMIN 1,000 MCG TABLET 1000 MCG PO (09:06)
[2022-12-13] MEDS: RANOLAZINE 500 MG TAB.ER.12H PO ×2 (09:06→20:44)
[2022-12-13] MEDS: CLOPIDOGREL BISULFATE 75 MG TABLET PO (09:06)
[2022-12-13] MEDS: PANTOPRAZOLE SODIUM IV 40 MG VIAL IV PUSH ×2 (09:06→20:45)
[2022-12-13] MEDS: AMOXICILLIN/CLAVULANATE K 875-125 MG TAB 1 TABLET PO ×2 (09:06→20:46)
--- NOTE | 2022-12-13 11:38 | PM.IMPN ---
Progress Note: A&P Assessment and Plan (1) Hypercalcemia: Code(s): E83.52 - Hypercalcemia Status: Acute Assessment and Plan: Patient with altered mental status and a calcium of 16.5. Patient with normal baseline calcium level until 12/03 when elevated to 14.4 by blood work at PCP office. Weight loss concerning for neoplastic etiology of the hypercalcemia. Although hypercalcemia itself can cause anorexia. Not on VitD or calcium supplements but has been eating Tums 'like candy' for a long time. Hypercalcemia explains the agitation, psychiatric overtones, diffuse pain, confusion and kidney stones. started on IV NS at 200 ml/hr Received Calcitonin x2 HepB Ag and Ab negative. C3/4 normal. UA >100 RBC with 2+ LE and 11-20 WBC. Monalisa 122. FEUrea 45% and FENa 7%. Will plan on giving zoledronic acid (Zometa) once kidney function improves. Will need skeletal survey. 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 H/O consult. Calcium continues to improve LN biopsy 12/10. Nephrology following and appreciate their input. 12/11: Suspect underlying psychiatric condition superimposed with hypercalcemia? Will check CT head, consult neuro, initiate risperdal 2 mg QHS ans monitor 12/12: Much improved on risperdal, CTH nonacute, neuro c/s recommending MRI, TSH, folate all ordered and pending 12/13: Appears to be back to baseline mentation on Risperdal, MRI still pending, TSH and folate within normal limits (2) NSTEMI (non-ST elevated myocardial infarction): Code(s): I21.4 - Non-ST elevation (NSTEMI) myocardial infarction Status: Acute Assessment and Plan: Patient has been having chest pain at rest for 2 weeks. Troponin elevated on admission and continues to rise (2.6 currently). EKG on admission showing sinus tach (115), IVCD and possibly old AIM and IMI. Borderline ST-T wave changed high lateral leads. Agency Owner felt patient is not a good candidate for cardiac intervention because of BLAS. Repeat EKG showing loss of R wave across the precordium consistent with new infarct. 3rd EKG shows improved but blunted R wave progression. Plan to maximize medical therapy: ASA, Lipitor, metoprolol Plavix loading 600 mg x 1 dose followed by 75 mg p.o. daily Echo showing EF 70% with anteroseptal HK and grade I diastolic dysfunction. Cardiology following and appreciate their input. (3) Wyyeh-wo-wrfquhh kidney injury: Code(s): N17.9 - Acute kidney failure, unspecified; N18.9 - Chronic kidney disease, unspecified Status: Acute Assessment and Plan: Baseline Cr 1.3-1.6 range. Cr 2.7 on 12/03/22 at the PCP office. Cr worse again here at 3.4. Suspect related to hypercalcemia. Renal US multiple incompletely evaluated cystic right renal lesions; left nephrolithiasis. Nephrology consulted. KUB does show left nephrolithiasis so will need to exclude obstructing process. UOP 3550mL yesterday (related to calcium) but decreased UOP noted now Cr 3.8 today UA as above. UCx negative. BCx NGTD. [place] secured - monitor UOP. Voiding trial when able Nephrology following. Improving (4) Encephalopathy: Code(s): G93.40 - Encephalopathy, unspecified Status: Acute Assessment and Plan: Head CT showing no acute process. [place] mental status changed related to hypercalcemia. Improving with hypercalcemia treatment as expected. Follow for continued improvement. Speech felt patient could eat and recommended soft and bite sized, regular liquids. (5) Fall: Code(s): W19.XXXA - Unspecified fall, initial encounter Status: Acute Assessment and Plan: Patient fell in the bathroom. CXR clear. Knee xrays showing in acute bony abnormalities. Pelvic xray showing no acute process. His head CT showing no acute process. PT/OT (6) Nephrolithiasis: Code(s): N20.0 - Calculus of kidney Status: Acute
--- NOTE | 2022-12-13 14:59 | P.PNNP_ITS ---
Progress Note: A&P Assessment and Plan (1) BLAS (acute kidney injury): Code(s): N17.9 - Acute kidney failure, unspecified Status: Acute Assessment and Plan: * acute kidney injury. * progression of renal dysfunction noted: * creatinine of 1.78 on 06/27/22 * creatinine of 2.7mg/dl on 12/03/22 * creatinine up to 3.4mg/dl on admission * suspect related to hypercalcemia +/- cardiac event * cannot discount lymphoma infiltration into kidneys... * evaluation to date: * urine electrolytes non-prerenal (by FeNA and FeUrea) * urine eosinophils negative * CPK mildly elevated - not really high enough to affect renal function * renal ultrasound with multiple incompletely evaluated cystic right renal lesions and left nephrolithiasis * UA suggestive of infection * urine culture without growth * thornton catheter in place * He received Calcitonin. Calcium level has come down. However Calcitonin is temporary so will give around of pamidronate. * follow trend of repeat labs and urine output (2) Chronic kidney disease, stage 3: Code(s): N18.30 - Chronic kidney disease, stage 3 unspecified Status: Chronic Assessment and Plan: * baseline creatinine runs around 1.3 - 1.6mg/dl in the last year * presumably due to hypertension, PAULINO, and vascular disease * reported history of medullary sponge kidney -- not clear on specifics... (3) Hypercalcemia: Code(s): E83.52 - Hypercalcemia Status: Acute Assessment and Plan: * improving * quite significant on admission at 16.5 * however, noted on outpatient labs on 12/03/22 at 14.4 * now associated with BLAS and encephalopathy along with nephrolithiasis * hypercalcemia work-up/evaluation in progress * CT scan results noted -- abdominal and pelvic lymphadenopathy, consistent with lymphoma * s/p ultrasound guided lymph node biopsy - follow-up on pathology * calcitonin x 2 since admission * Will give pamidronate (4) Elevated troponin: Code(s): R77.8 - Other specified abnormalities of plasma proteins Status: Acute Assessment and Plan: * possible NSTEMI as was having chest pain prior to admission * EKG results noted * maximize medical therapy * Cardiology recommendations noted (but not likely a candidate for intervention given acute medical issues including BLAS) * on ASA, and plavix along with beta shahnaz therapy * known history of CAD + CABG x 5 (1997) with noted ischemic cardiomyopathy (EF 45 - 50%) * repeat Echo results noted (5) Altered mental status: Code(s): R41.82 - Altered mental status, unspecified Status: Acute Assessment and Plan: * improvement noted but still not back to baseline * Head CT negative * s/p fall prior to admission * suspect related to hypercalcemia +/- BLAS/ARF * he is still not himself according to him (6) PAULINO (obstructive sleep apnea): Code(s): G47.33 - Obstructive sleep apnea (adult) (pediatric) Status: Acute Assessment and Plan: * BiPAP being used with sleep/rest Subjective Date/time seen: 12/13/22 14:59 Interval history: Steffen is sitting up in a chair. He is about to start lunch. No chest pain or shortness of breath. Exam Narrative: General: elderly male in NAD Heart: normal S1 and S2; no rub or gallop Lungs: clear bilaterally Abdomen: soft, nontender, nondistended, positive bowel sounds Extremities: no cyanosis or clubbing; 1+ edema bilaterally Skin: No rash
--- NOTE | 2022-12-13 14:59 | PM.PNNEP ---
Progress Note: A&P Assessment and Plan (1) BLAS (acute kidney injury): Code(s): N17.9 - Acute kidney failure, unspecified Status: Acute Assessment and Plan: acute kidney injury. progression of renal dysfunction noted: creatinine of 1.78 on 06/27/22 creatinine of 2.7mg/dl on 12/03/22 creatinine up to 3.4mg/dl on admission suspect related to hypercalcemia +/- cardiac event cannot discount lymphoma infiltration into kidneys... evaluation to date: urine electrolytes non-prerenal (by FeNA and FeUrea) urine eosinophils negative CPK mildly elevated - not really high enough to affect renal function renal ultrasound with multiple incompletely evaluated cystic right renal lesions and left nephrolithiasis UA suggestive of infection urine culture without growth thornton catheter in place He received Calcitonin. Calcium level has come down. However Calcitonin is temporary so will give around of pamidronate. follow trend of repeat labs and urine output (2) Chronic kidney disease, stage 3: Code(s): N18.30 - Chronic kidney disease, stage 3 unspecified Status: Chronic Assessment and Plan: baseline creatinine runs around 1.3 - 1.6mg/dl in the last year presumably due to hypertension, PAULINO, and vascular disease reported history of medullary sponge kidney -- not clear on specifics... (3) Hypercalcemia: Code(s): E83.52 - Hypercalcemia Status: Acute Assessment and Plan: improving quite significant on admission at 16.5 however, noted on outpatient labs on 12/03/22 at 14.4 now associated with BLAS and encephalopathy along with nephrolithiasis hypercalcemia work-up/evaluation in progress CT scan results noted -- abdominal and pelvic lymphadenopathy, consistent with lymphoma s/p ultrasound guided lymph node biopsy - follow-up on pathology calcitonin x 2 since admission Will give pamidronate (4) Elevated troponin: Code(s): R77.8 - Other specified abnormalities of plasma proteins Status: Acute Assessment and Plan: possible NSTEMI as was having chest pain prior to admission EKG results noted maximize medical therapy Cardiology recommendations noted (but not likely a candidate for intervention given acute medical issues including BLAS) on ASA, and plavix along with beta shahnaz therapy known history of CAD + CABG x 5 (1997) with noted ischemic cardiomyopathy (EF 45 - 50%) repeat Echo results noted (5) Altered mental status: Code(s): R41.82 - Altered mental status, unspecified Status: Acute Assessment and Plan: improvement noted but still not back to baseline Head CT negative s/p fall prior to admission suspect related to hypercalcemia +/- BLAS/ARF he is still not himself according to him (6) PAULINO (obstructive sleep apnea): Code(s): G47.33 - Obstructive sleep apnea (adult) (pediatric) Status: Acute Assessment and Plan: BiPAP being used with sleep/rest Subjective Date/time seen: 12/13/22 14:59 Interval history: Steffen is sitting up in a chair. He is about to start lunch. No chest pain or shortness of breath. Exam Narrative: General: elderly male in NAD Heart: normal S1 and S2; no rub or gallop Lungs: clear bilaterally Abdomen: soft, nontender, nondistended, positive bowel sounds Extremities: no cyanosis or clubbing; 1+ edema bilaterally Skin: No rash Objective Data Vital Signs Vital Signs: Vital Signs - 24 hr 12/12/22 15:58 12/12/22 16:00 12/12/22 16:00 Temperature 96.4 F L Pulse Rate 68 66 Respiratory Rate 20 Blood Pressure 141/74 H Pulse Oximetry 99 99 Oxygen Delivery Room Air 12/12/22 18:00 12/12/22 19:54 12/12/22 21:22 Temperature 96.5 F L Pulse Rate 69 66 76 Respiratory Rate 20 Blood Pressure 153/76 H Pulse Oximetry 100 Oxygen Delivery 12/12/22 22:18 12/12/22 23:37 12/13/22 02:09 Te
[2022-12-13] MEDS: PAMIDRONATE DISODIUM 30 MG in DEXTROSE 5% IN WATER 500 ML 125 MG IVPB (16:48)
[2022-12-13] MEDS: HYDROcodone/acetaminophen (*CRX) 5-325 MG TABLET 1 TAB PO (20:42)
[2022-12-13] MEDS: ATORVASTATIN 40 MG TABLET PO (20:43)
[2022-12-13] MEDS: risperiDONE 1 MG TABLET 2 MG PO (20:43)
[2022-12-14] VITALS (21 sets, daily range): BP systolic 111–145; BP diastolic 69–77; PULSE 67–81; RESP 16–24; TEMP 36.1–36.6; O2SAT 97–100
[2022-12-14 00:36] LABS: Creatinine, Random Urine 43 mg/dL (20-320); Total Protein/Creatinine Ratio 698 mg/g creat (25-148)
[2022-12-14 05:01] LABS: Basophils Percent Auto 0.5 % (0.2-1.2); Eosinophils Absolute Auto 0.3 K/mm3 (0-0.3); Eosinophils Percent Auto 4.6 % (0-4.4); Hematocrit 31.7 % (42.0-52.0); Hemoglobin 10.1 g/dL (14.0-18.0); Immature Granulocyte Absolute 0.03 K/mm3 (0.00-0.031); Immature Granulocyte Percent A 0.5 % (0-0.5); Lymphocytes Absolute Auto 0.84 K/mm3 (0.9-3.2); Lymphocytes Percent Auto 13.2 % (18.3-44.2); Mean Corpuscular HGB Conc 31.9 g/dl (32-36); Mean Corpuscular Hemoglobin 30.8 pg (26-34); Mean Corpuscular Volume 96.6 fl (80-100); Mean Platelet Volume 11.8 fl (7.4-10.4); Monocytes Absolute Auto 0.7 K/mm3 (0.1-0.6); Monocytes Percent Auto 10.8 % (2.6-8.5); Neutrophils Absolute Auto 4.5 K/mm3 (1.3-6.7); Neutrophils Percent Auto 70.4 % (45.5-73.1); Platelet Count Result 156 k/mm3 (150-375); Red Blood Count 3.28 M/mm3 (4.6-6.20); Red Cell Distribution Width 14.6 % (11.5-14.5); White Blood Count 6.4 K/mm3 (4.5-10.0)
[2022-12-14 05:18] LABS: Alanine Aminotransferase 30 U/L (6-50); Albumin Level 3.1 g/dL (3.5-5.1); Alkaline Phosphatase 86 U/L (38-126); Anion Gap 8 mmol/L (8-16); Aspartate Amino Transferase 39 U/L (17-59); Blood Urea Nitrogen 34 mg/dL (9-20); Calcium 10.9 mg/dL (8.4-10.2); Carbon Dioxide 24 mmol/L (22-30); Chloride 104 mmol/L (98-107); Estimated CRCL calculation 24 ml/min; Estimated Glomerular Filt Rate 17; Glucose 81 mg/dL (65-110); Phosphorus 4.6 mg/dL (2.5-4.5); Potassium 3.9 mmol/L (3.4-5.0); Sodium 136 mmol/L (137-145)
[2022-12-14] MEDS: METOPROLOL TARTRATE 50 MG TAB PO ×3 (06:53→22:54)
--- NOTE | 2022-12-14 08:09 | PM.IMPN ---
Progress Note: A&P Assessment and Plan (1) Hypercalcemia: Code(s): E83.52 - Hypercalcemia Status: Acute Assessment and Plan: Patient with altered mental status and a calcium of 16.5. Patient with normal baseline calcium level until 12/03 when elevated to 14.4 by blood work at PCP office. Weight loss concerning for neoplastic etiology of the hypercalcemia. Although hypercalcemia itself can cause anorexia. Not on VitD or calcium supplements but has been eating Tums 'like candy' for a long time. Hypercalcemia explains the agitation, psychiatric overtones, diffuse pain, confusion and kidney stones. started on IV NS at 200 ml/hr Received Calcitonin x2 HepB Ag and Ab negative. C3/4 normal. UA >100 RBC with 2+ LE and 11-20 WBC. Monalisa 122. FEUrea 45% and FENa 7%. Will plan on giving zoledronic acid (Zometa) once kidney function improves. Will need skeletal survey. 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 H/O consult. Calcium continues to improve LN biopsy 12/10. Nephrology following and appreciate their input. 12/11: Suspect underlying psychiatric condition superimposed with hypercalcemia? Will check CT head, consult neuro, initiate risperdal 2 mg QHS ans monitor 12/12: Much improved on risperdal, CTH nonacute, neuro c/s recommending MRI, TSH, folate all ordered and pending 12/13: Appears to be back to baseline mentation on Risperdal, MRI still pending, TSH and folate within normal limits 12/14: AMS resolved, cont risperdal, MRI and labs negative (2) NSTEMI (non-ST elevated myocardial infarction): Code(s): I21.4 - Non-ST elevation (NSTEMI) myocardial infarction Status: Acute Assessment and Plan: Patient has been having chest pain at rest for 2 weeks. Troponin elevated on admission and continues to rise (2.6 currently). EKG on admission showing sinus tach (115), IVCD and possibly old AIM and IMI. Borderline ST-T wave changed high lateral leads. Technical Services Coordinator felt patient is not a good candidate for cardiac intervention because of BLAS. Repeat EKG showing loss of R wave across the precordium consistent with new infarct. 3rd EKG shows improved but blunted R wave progression. Plan to maximize medical therapy: ASA, Lipitor, metoprolol Plavix loading 600 mg x 1 dose followed by 75 mg p.o. daily Echo showing EF 70% with anteroseptal HK and grade I diastolic dysfunction. Cardiology following and appreciate their input. (3) Nalyc-ce-olwkotz kidney injury: Code(s): N17.9 - Acute kidney failure, unspecified; N18.9 - Chronic kidney disease, unspecified Status: Acute Assessment and Plan: Baseline Cr 1.3-1.6 range. Cr 2.7 on 12/03/22 at the PCP office. Cr worse again here at 3.4. Suspect related to hypercalcemia. Renal US multiple incompletely evaluated cystic right renal lesions; left nephrolithiasis. Nephrology consulted. KUB does show left nephrolithiasis so will need to exclude obstructing process. UOP 3550mL yesterday (related to calcium) but decreased UOP noted now Cr 3.8 today UA as above. UCx negative. BCx NGTD. [place] secured - monitor UOP. Voiding trial when able Nephrology following. Improving (4) Encephalopathy: Code(s): G93.40 - Encephalopathy, unspecified Status: Acute Assessment and Plan: Head CT showing no acute process. [place] mental status changed related to hypercalcemia. Improving with hypercalcemia treatment as expected. Follow for continued improvement. Speech felt patient could eat and recommended soft and bite sized, regular liquids. resolved (5) Fall: Code(s): W19.XXXA - Unspecified fall, initial encounter Status: Acute Assessment and Plan: Patient fell in the bathroom. CXR clear. Knee xrays showing in acute bony abnormalities. Pelvic xray showing no acute process. His head CT showing no acute process. PT/OT (6) Nephrolithiasis:
--- NOTE | 2022-12-14 08:12 | PM.PNCARD ---
Progress Note: A&P Assessment and Plan (1) Elevated troponin: Code(s): R77.8 - Other specified abnormalities of plasma proteins Status: Acute Assessment and Plan: Peaked at 2.59. EKG shows no significant ST changes. Could be related to UTI and significant renal failure or ACS. However, would not recommend LHC in setting of chest pain free, stable hemodynamically, and BLAS. 12/08/22 Echo: EF >70%, mild LVH, anterior wall hypokinetic, grade I diastolic dysfunction. (2) Chest pain: Code(s): R07.9 - Chest pain, unspecified Status: Acute Assessment and Plan: Resolved. On Ranexa and Imdur which suggests he has chronic intermittent chest pains. Has reproducible cp with palpation. Stopped NTP. (3) Coronary artery disease involving coronary bypass graft of robinson heart: Code(s): I25.810 - Atherosclerosis of coronary artery bypass graft(s) without angina pectoris Status: Acute Assessment and Plan: Stable. Last cath was 10/07/[address] Bloom: Patent VALENZUELA to LAD, patent SVG sequential to OM2/D1/D2, patent RCA stent with 50% stenosis of PL; occluded SVG to RCA. On aspirin and Clopidogrel. No further cardiac workup is needed. Will sign off. Please call with any questions. 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 Murphy with [facility] [place] who he needs to keep regular f/u with. (4) Essential (primary) hypertension: Code(s): I10 - Essential (primary) hypertension Status: Acute Assessment and Plan: Stable. On Metoprolol 50 mg Q8HR. (5) Mixed hyperlipidemia: Code(s): E78.2 - Mixed hyperlipidemia Status: Acute Assessment and Plan: On Atorvastatin. (6) BLAS (acute kidney injury): Code(s): N17.9 - Acute kidney failure, unspecified Status: Acute Subjective Date/time seen: 12/14/22 08:12 Interval history: He is confused. Denies chest pain or sob. Exam Const: General: cooperative, alert and other (somnolent) Orientation/consciousness: oriented to person, No oriented to place and No oriented to time Resp: Auscultation: clear to auscultation bilaterally, no crackles, no rales, no rhonchi and no wheezes Cardio: Rate: regular rate Rhythm: regular rhythm Heart sounds: no murmurs Peripheral pulses: dorsalis pedis present Neuro: General: oriented to person, No oriented to place and No oriented to time Extrem: Right lower extremity: no edema Left lower extremity: no edema Objective Data Vital Signs Vital Signs: Vital Signs - 24 hr 12/13/22 16:13 12/13/22 16:18 12/13/22 10:00 Temperature 96.6 F L Pulse Rate 80 74 76 Respiratory Rate 20 Blood Pressure 120/83 Pulse Oximetry 99 Oxygen Delivery 12/13/22 12:00 12/13/22 14:00 12/13/22 16:00 Temperature Pulse Rate 70 71 79 Respiratory Rate Blood Pressure Pulse Oximetry Oxygen Delivery 12/13/22 12:00 12/13/22 16:00 12/13/22 18:00 Temperature Pulse Rate 68 Respiratory Rate Blood Pressure Pulse Oximetry Oxygen Delivery Room Air Room Air 12/13/22 20:37 12/13/22 21:17 12/13/22 23:28 Temperature 97.0 F L 97.2 F L Pulse Rate 77 74 71 Respiratory Rate 18 20 Blood Pressure 121/66 132/68 Pulse Oximetry 97 98 Oxygen Delivery 12/13/22 23:00 12/13/22 20:00 12/14/22 00:00 Temperature Pulse Rate Respiratory Rate 20 Blood Pressure Pulse Oximetry 96 Oxygen Delivery BiPAP Room Air CPAP 12/14/22 03:56 12/13/22 20:00 12/13/22 22:00 Temperature 97.2 F L Pulse Rate 71 80 76 Respiratory Rate 18 Blood Pressure 117/69 Pulse Oximetry 97 Oxygen Delivery 12/14/22 00:00 12/14/22 02:00 12/14/22 04:00 Temperature Pulse Rate 71 70 68 Respiratory Rate Blood Pressure Pulse Oximetry Oxygen Delivery 12/14/22 04:00 12/14/22 06:00 12/14/22 06:53 Temperature Pulse Rate 74 81 Respiratory Rate Blood Pressure Pulse Oximetry Oxygen Delivery CPAP
[2022-12-14] MEDS: AMOXICILLIN/CLAVULANATE K 875-125 MG TAB 1 TABLET PO ×2 (08:28→22:40)
[2022-12-14] MEDS: RANOLAZINE 500 MG TAB.ER.12H PO ×2 (08:29→22:40)
[2022-12-14] MEDS: ASPIRIN 325 MG TABLET PO (08:29)
[2022-12-14] MEDS: CYANOCOBALAMIN 1,000 MCG TABLET 1000 MCG PO (08:29)
[2022-12-14] MEDS: PANTOPRAZOLE SODIUM IV 40 MG VIAL IV PUSH ×2 (08:29→22:39)
[2022-12-14] MEDS: DULoxetine HCL 60 MG CAPSULE.DR PO (08:29)
[2022-12-14] MEDS: CLOPIDOGREL BISULFATE 75 MG TABLET PO (08:29)
[2022-12-14] MEDS: ISOSORBIDE MONONITRATE 60 MG TAB.ER.24H 120 MG PO (08:29)
--- NOTE | 2022-12-14 10:55 | P.PNNP_ITS ---
Progress Note: A&P Assessment and Plan (1) BLAS (acute kidney injury): Code(s): N17.9 - Acute kidney failure, unspecified Status: Acute Assessment and Plan: * acute kidney injury. * progression of renal dysfunction noted: * creatinine of 1.78 on 06/27/22 * creatinine of 2.7mg/dl on 12/03/22 * creatinine up to 3.4mg/dl on admission * suspect related to hypercalcemia +/- cardiac event * cannot discount lymphoma infiltration into kidneys... * evaluation to date: * urine electrolytes non-prerenal (by FeNA and FeUrea) * urine eosinophils negative * CPK mildly elevated - not really high enough to affect renal function * renal ultrasound with multiple incompletely evaluated cystic right renal lesions and left nephrolithiasis * UA suggestive of infection * urine culture without growth * thornton catheter in place * creatinine has come down just a little bit. * He does have persistent hypercalcemia and so could have a loop diuretic affect because of the inhibition of rum K. his intake/output is negative. Will start normal saline. * Eating and drinking well. (2) Chronic kidney disease, stage 3: Code(s): N18.30 - Chronic kidney disease, stage 3 unspecified Status: Chronic Assessment and Plan: * baseline creatinine runs around 1.3 - 1.6mg/dl in the last year * presumably due to hypertension, PAULINO, and vascular disease * reported history of medullary sponge kidney -- not clear on specifics... (3) Hypercalcemia: Code(s): E83.52 - Hypercalcemia Status: Acute Assessment and Plan: * improving * quite significant on admission at 16.5 * however, noted on outpatient labs on 12/03/22 at 14.4 * now associated with BLAS and encephalopathy along with nephrolithiasis * hypercalcemia work-up/evaluation in progress * CT scan results noted -- abdominal and pelvic lymphadenopathy, consistent with lymphoma * s/p ultrasound guided lymph node biopsy - follow-up on pathology * calcitonin x 2 since admission * He received pamidronate yesterday. (4) Elevated troponin: Code(s): R77.8 - Other specified abnormalities of plasma proteins Status: Acute Assessment and Plan: * possible NSTEMI as was having chest pain prior to admission * EKG results noted * maximize medical therapy * Cardiology recommendations noted (but not likely a candidate for intervention given acute medical issues including BLAS) * on ASA, and plavix along with beta shahnaz therapy * known history of CAD + CABG x 5 (1997) with noted ischemic cardiomyopathy (EF 45 - 50%) * repeat Echo results noted (5) Altered mental status: Code(s): R41.82 - Altered mental status, unspecified Status: Acute Assessment and Plan: * improvement noted but still not back to baseline * Head CT negative * s/p fall prior to admission * suspect related to hypercalcemia +/- LBAS/ARF (6) PAULINO (obstructive sleep apnea): Code(s): G47.33 - Obstructive sleep apnea (adult) (pediatric) Status: Acute Assessment and Plan: * BiPAP being used with sleep/rest Subjective Date/time seen: 12/14/22 10:55 Interval history: Patient is finishing his slumber with the CPAP mask still on. He denies any chest pain or shortness of breath. He is hungry for breakfast Exam Narrative: General: elderly male in NAD Heart: normal S1 and S2; no rub or gallop Lungs: clear bilaterally Abdomen: soft, nontender, nondistended, positive
--- NOTE | 2022-12-14 10:55 | PM.PNNEP ---
Progress Note: A&P Assessment and Plan (1) BLAS (acute kidney injury): Code(s): N17.9 - Acute kidney failure, unspecified Status: Acute Assessment and Plan: acute kidney injury. progression of renal dysfunction noted: creatinine of 1.78 on 06/27/22 creatinine of 2.7mg/dl on 12/03/22 creatinine up to 3.4mg/dl on admission suspect related to hypercalcemia +/- cardiac event cannot discount lymphoma infiltration into kidneys... evaluation to date: urine electrolytes non-prerenal (by FeNA and FeUrea) urine eosinophils negative CPK mildly elevated - not really high enough to affect renal function renal ultrasound with multiple incompletely evaluated cystic right renal lesions and left nephrolithiasis UA suggestive of infection urine culture without growth thornton catheter in place creatinine has come down just a little bit. He does have persistent hypercalcemia and so could have a loop diuretic affect because of the inhibition of rum K. his intake/output is negative. Will start normal saline. Eating and drinking well. (2) Chronic kidney disease, stage 3: Code(s): N18.30 - Chronic kidney disease, stage 3 unspecified Status: Chronic Assessment and Plan: baseline creatinine runs around 1.3 - 1.6mg/dl in the last year presumably due to hypertension, PAULINO, and vascular disease reported history of medullary sponge kidney -- not clear on specifics... (3) Hypercalcemia: Code(s): E83.52 - Hypercalcemia Status: Acute Assessment and Plan: improving quite significant on admission at 16.5 however, noted on outpatient labs on 12/03/22 at 14.4 now associated with BLAS and encephalopathy along with nephrolithiasis hypercalcemia work-up/evaluation in progress CT scan results noted -- abdominal and pelvic lymphadenopathy, consistent with lymphoma s/p ultrasound guided lymph node biopsy - follow-up on pathology calcitonin x 2 since admission He received pamidronate yesterday. (4) Elevated troponin: Code(s): R77.8 - Other specified abnormalities of plasma proteins Status: Acute Assessment and Plan: possible NSTEMI as was having chest pain prior to admission EKG results noted maximize medical therapy Cardiology recommendations noted (but not likely a candidate for intervention given acute medical issues including BLAS) on ASA, and plavix along with beta shahnaz therapy known history of CAD + CABG x 5 (1997) with noted ischemic cardiomyopathy (EF 45 - 50%) repeat Echo results noted (5) Altered mental status: Code(s): R41.82 - Altered mental status, unspecified Status: Acute Assessment and Plan: improvement noted but still not back to baseline Head CT negative s/p fall prior to admission suspect related to hypercalcemia +/- BLAS/ARF (6) PAULINO (obstructive sleep apnea): Code(s): G47.33 - Obstructive sleep apnea (adult) (pediatric) Status: Acute Assessment and Plan: BiPAP being used with sleep/rest Subjective Date/time seen: 12/14/22 10:55 Interval history: Patient is finishing his slumber with the CPAP mask still on. He denies any chest pain or shortness of breath. He is hungry for breakfast Exam Narrative: General: elderly male in NAD Heart: normal S1 and S2; no rub or gallop Lungs: clear bilaterally Abdomen: soft, nontender, nondistended, positive bowel sounds Extremities: no cyanosis or clubbing; 1+ edema bilaterally Skin: No rash or subcu nodules Objective Data Vital Signs Vital Signs: Vital Signs - 24 hr 12/13/22 16:13 12/13/22 16:18 12/13/22 12:00 Temperature 96.6 F L Pulse Rate 80 74 70 Respiratory Rate 20 Blood Pressure 120/83 Pulse Oximetry 99 Oxygen Delivery 12/13/22 14:00 12/13/22 16:00 12/13/22 12:00 Temperature Pulse Rate 71 79 Respiratory Rate Blood Pressure Pulse Oximetry
[2022-12-14] MEDS: SODIUM CHLORIDE 0.9% IV 1,000 ML 75 ML IV CONT (11:21)
[2022-12-14] MEDS: ATORVASTATIN 40 MG TABLET PO (22:40)
[2022-12-14] MEDS: risperiDONE 1 MG TABLET 2 MG PO (22:40)
[2022-12-14] MEDS: HYDROcodone/acetaminophen (*CRX) 5-325 MG TABLET 1 TAB PO (22:54)
[2022-12-14] MEDS: WATER FOR IRRIGATION, STERILE 1,000 ML BOTTLE 1000 ML (23:22)
[2022-12-15] VITALS (13 sets, daily range): BP systolic 99–144; BP diastolic 59–80; PULSE 64–138; RESP 18–24; TEMP 35.8–36.3; O2SAT 96–100
[2022-12-15] MEDS: SODIUM CHLORIDE 0.9% IV 1,000 ML 75 ML IV CONT ×2 (00:39→14:10)
[2022-12-15 05:14] LABS: Basophils Percent Auto 0.6 % (0.2-1.2); Eosinophils Absolute Auto 0.3 K/mm3 (0-0.3); Eosinophils Percent Auto 4.2 % (0-4.4); Hematocrit 32.6 % (42.0-52.0); Hemoglobin 10.4 g/dL (14.0-18.0); Immature Granulocyte Absolute 0.02 K/mm3 (0.00-0.031); Immature Granulocyte Percent A 0.3 % (0-0.5); Lymphocytes Absolute Auto 0.97 K/mm3 (0.9-3.2); Lymphocytes Percent Auto 15.6 % (18.3-44.2); Mean Corpuscular HGB Conc 31.9 g/dl (32-36); Mean Corpuscular Hemoglobin 31.1 pg (26-34); Mean Corpuscular Volume 97.6 fl (80-100); Mean Platelet Volume 11.8 fl (7.4-10.4); Monocytes Absolute Auto 0.9 K/mm3 (0.1-0.6); Monocytes Percent Auto 14.3 % (2.6-8.5); Neutrophils Absolute Auto 4.1 K/mm3 (1.3-6.7); Platelet Count Result 153 k/mm3 (150-375); Red Blood Count 3.34 M/mm3 (4.6-6.20); Red Cell Distribution Width 14.6 % (11.5-14.5); White Blood Count 6.2 K/mm3 (4.5-10.0)
[2022-12-15 05:30] LABS: Alanine Aminotransferase 33 U/L (6-50); Albumin Level 3.1 g/dL (3.5-5.1); Alkaline Phosphatase 89 U/L (38-126); Anion Gap 6 mmol/L (8-16); Aspartate Amino Transferase 44 U/L (17-59); Bilirubin,Total 0.9 mg/dL (0.2-1.3); Blood Urea Nitrogen 31 mg/dL (9-20); Calcium 10.8 mg/dL (8.4-10.2); Carbon Dioxide 24 mmol/L (22-30); Chloride 106 mmol/L (98-107); Estimated CRCL calculation 29 ml/min; Estimated Glomerular Filt Rate 22; Glucose 85 mg/dL (65-110); Phosphorus 4.6 mg/dL (2.5-4.5); Potassium 4.3 mmol/L (3.4-5.0); Sodium 136 mmol/L (137-145)
[2022-12-15] MEDS: AMOXICILLIN/CLAVULANATE K 875-125 MG TAB 1 TABLET PO (09:43)
[2022-12-15] MEDS: DULoxetine HCL 60 MG CAPSULE.DR PO (09:43)
[2022-12-15] MEDS: CLOPIDOGREL BISULFATE 75 MG TABLET PO (09:43)
[2022-12-15] MEDS: ISOSORBIDE MONONITRATE 60 MG TAB.ER.24H 120 MG PO (09:43)
[2022-12-15] MEDS: ASPIRIN 325 MG TABLET PO (09:43)
[2022-12-15] MEDS: RANOLAZINE 500 MG TAB.ER.12H PO (09:43)
[2022-12-15] MEDS: CYANOCOBALAMIN 1,000 MCG TABLET 1000 MCG PO (09:44)
[2022-12-15] MEDS: PANTOPRAZOLE SODIUM IV 40 MG VIAL IV PUSH (09:44)
--- NOTE | 2022-12-15 09:48 | P.PNNP_ITS ---
Progress Note: A&P Assessment and Plan (1) BLAS (acute kidney injury): Code(s): N17.9 - Acute kidney failure, unspecified Status: Acute Assessment and Plan: * improvement noted * progression of renal dysfunction noted: * creatinine of 1.78 on 06/27/22 * creatinine of 2.7mg/dl on 12/03/22 * creatinine up to 3.4mg/dl on admission * suspect related to hypercalcemia +/- cardiac event * cannot discount lymphoma infiltration into kidneys... * evaluation to date: * urine electrolytes non-prerenal (by FeNA and FeUrea) * urine eosinophils negative * CPK mildly elevated - not really high enough to affect renal function * renal ultrasound with multiple incompletely evaluated cystic right renal lesions and left nephrolithiasis * UA suggestive of infection * urine culture without growth * thornton catheter in place * on normal saline IVFs * follow repeat labs and UOP (2) Chronic kidney disease, stage 3: Code(s): N18.30 - Chronic kidney disease, stage 3 unspecified Status: Chronic Assessment and Plan: * baseline creatinine runs around 1.3 - 1.6mg/dl in the last year * presumably due to hypertension, PAULINO, and vascular disease * reported history of medullary sponge kidney -- not clear on specifics... (3) Hypercalcemia: Code(s): E83.52 - Hypercalcemia Status: Acute Assessment and Plan: * improving * quite significant on admission at 16.5 * however, noted on outpatient labs on 12/03/22 at 14.4 * now associated with BLAS and encephalopathy along with nephrolithiasis * hypercalcemia work-up/evaluation in progress * CT scan results noted -- abdominal and pelvic lymphadenopathy, consistent with lymphoma * s/p ultrasound guided lymph node biopsy - pathology with sclerotic reactive lymph node with no evidence of malignancy * calcitonin x 2 since admission * s/p pamidronate on 12/13/22 (4) Elevated troponin: Code(s): R77.8 - Other specified abnormalities of plasma proteins Status: Acute Assessment and Plan: * possible NSTEMI as was having chest pain prior to admission * EKG results noted * maximize medical therapy * Cardiology recommendations noted (but not likely a candidate for intervention given acute medical issues including BLAS) * on ASA, and plavix along with beta shahnaz therapy * known history of CAD + CABG x 5 (1997) with noted ischemic cardiomyopathy (EF 45 - 50%) * repeat Echo results noted (5) Altered mental status: Code(s): R41.82 - Altered mental status, unspecified Status: Acute Assessment and Plan: * improvement noted but still not back to baseline * Head CT negative * s/p fall prior to admission * suspect related to hypercalcemia +/- BLAS/ARF * Neurology recommendations noted (6) PAULINO (obstructive sleep apnea): Code(s): G47.33 - Obstructive sleep apnea (adult) (pediatric) Status: Acute Assessment and Plan: * BiPAP being used with sleep/rest Will continue to follow. Subjective Date/time seen: 12/15/22 09:48 Interval history: Follow-up for acute kidney injury on chronic kidney disease in association with hypercalcemia. Seems to be doing reasonably well since I last saw him; mentation seems stable if not better; making good urine output at this time with improvement in renal function; no other issues/events overnight or earlier this morning. Exam Narrative: General: elderly male in NAD Heart: normal S1 and S2; no rub Frederic
--- NOTE | 2022-12-15 09:48 | PM.PNNEP ---
Progress Note: A&P Assessment and Plan (1) BLAS (acute kidney injury): Code(s): N17.9 - Acute kidney failure, unspecified Status: Acute Assessment and Plan: improvement noted progression of renal dysfunction noted: creatinine of 1.78 on 06/27/22 creatinine of 2.7mg/dl on 12/03/22 creatinine up to 3.4mg/dl on admission suspect related to hypercalcemia +/- cardiac event cannot discount lymphoma infiltration into kidneys... evaluation to date: urine electrolytes non-prerenal (by FeNA and FeUrea) urine eosinophils negative CPK mildly elevated - not really high enough to affect renal function renal ultrasound with multiple incompletely evaluated cystic right renal lesions and left nephrolithiasis UA suggestive of infection urine culture without growth thornton catheter in place on normal saline IVFs follow repeat labs and UOP (2) Chronic kidney disease, stage 3: Code(s): N18.30 - Chronic kidney disease, stage 3 unspecified Status: Chronic Assessment and Plan: baseline creatinine runs around 1.3 - 1.6mg/dl in the last year presumably due to hypertension, PAULINO, and vascular disease reported history of medullary sponge kidney -- not clear on specifics... (3) Hypercalcemia: Code(s): E83.52 - Hypercalcemia Status: Acute Assessment and Plan: improving quite significant on admission at 16.5 however, noted on outpatient labs on 12/03/22 at 14.4 now associated with BLAS and encephalopathy along with nephrolithiasis hypercalcemia work-up/evaluation in progress CT scan results noted -- abdominal and pelvic lymphadenopathy, consistent with lymphoma s/p ultrasound guided lymph node biopsy - pathology with sclerotic reactive lymph node with no evidence of malignancy calcitonin x 2 since admission s/p pamidronate on 12/13/22 (4) Elevated troponin: Code(s): R77.8 - Other specified abnormalities of plasma proteins Status: Acute Assessment and Plan: possible NSTEMI as was having chest pain prior to admission EKG results noted maximize medical therapy Cardiology recommendations noted (but not likely a candidate for intervention given acute medical issues including BLAS) on ASA, and plavix along with beta shahnaz therapy known history of CAD + CABG x 5 (1997) with noted ischemic cardiomyopathy (EF 45 - 50%) repeat Echo results noted (5) Altered mental status: Code(s): R41.82 - Altered mental status, unspecified Status: Acute Assessment and Plan: improvement noted but still not back to baseline Head CT negative s/p fall prior to admission suspect related to hypercalcemia +/- BLAS/ARF Neurology recommendations noted (6) PAULINO (obstructive sleep apnea): Code(s): G47.33 - Obstructive sleep apnea (adult) (pediatric) Status: Acute Assessment and Plan: BiPAP being used with sleep/rest Will continue to follow. Subjective Date/time seen: 12/15/22 09:48 Interval history: Follow-up for acute kidney injury on chronic kidney disease in association with hypercalcemia. Seems to be doing reasonably well since I last saw him; mentation seems stable if not better; making good urine output at this time with improvement in renal function; no other issues/events overnight or earlier this morning. Exam Narrative: General: elderly male in NAD Heart: normal S1 and S2; no rub Lungs: clear bilaterally Abdomen: soft, nontender, nondistended, positive bowel sounds Extremities: no cyanosis or clubbing; 1+ edema Skin: warm and dry Objective Data Vital Signs Vital Signs: Vital Signs Temp Pulse Resp BP Pulse Ox O2 Del Method 12/15/22 07:45 96.8 F L 68 24 H 133/71 99 12/15/22 06:00 66 12/15/22 03:30 98 BiPAP 12/15/22 04:00 CPAP 12/15/22 04:00 70 12/15/22 04:00 97.3 F L 73 22 H 99/59 L 96 12/15/22 02:00 76 12/15/22
--- NOTE | 2022-12-15 10:17 | PCNFU ---
Nutrition Follow-Up Complete: Inadequate Oral Intake as related to AMS as evidenced by poor po intake reported. Goal: Adequate Intake of at least 75% of meals/supplements - Progressing. Continue with current goal Pt current nutrition is Heart healthy diet, soft&bite sized level 6. Intakes 0-90% . Ensure compact BID for additional 220 kcal and 9 g protein each Nutrition recommendation: Continue with current nutrition care plan. Agree with orders Last recorded weight is 137.7 kg. Down from 140.6 kg at admission. Bowel Motility: +1 BM today 12/15/22 Labs Reviewed: Hgb 10.4, Hct 32.6, Alb 3.1, Na 136, GFR 22, BUN 31, Cre 2.9, Calcium 10.8 Meds Noted: Plavix, Vit B12, Protonix Skin: No pressure injuries Additional Notes: Pt was eating breakfast when seen. Says appetite is fair and improving. Wants to lose weight. Previously lost 50 lbs intentionally. Would like to lose more when he leaves hospital. Continue with same nutrition care plan. RD will monitor, weight, labs, skin, oral intake every 3 days.
--- NOTE | 2022-12-15 13:41 | P.DS_ITS ---
DS: Admitting Diagnosis Discharge Date 12/15/22 Admitting Diagnosis chest pain, ams DS: Discharge Diagnosis Discharge Diagnosis (1) Hypercalcemia: Code(s): E83.52 - Hypercalcemia Status: Acute Assessment and Plan: Patient with altered mental status and a calcium of 16.5. Patient with normal baseline calcium level until 12/03 when elevated to 14.4 by blood work at PCP office. Weight loss concerning for neoplastic etiology of the hypercalcemia. Although hypercalcemia itself can cause anorexia. Not on VitD or calcium supplements but has been eating Tums 'like candy' for a long time. Hypercalcemia explains the agitation, psychiatric overtones, diffuse pain, confusion and kidney stones. * started on IV NS at 200 ml/hr * Received Calcitonin x2 * HepB Ag and Ab negative. C3/4 normal. * UA >100 RBC with 2+ LE and 11-20 WBC. Monalisa 122. FEUrea 45% and FENa 7%. * Will plan on giving zoledronic acid (Zometa) once kidney function improves. * Will need skeletal survey. CT without contrast ch/a/p showing abdominal and pelvic LNE c/w lymphoma * Lymphoma felt to be the etiology of the hypercalcemia. H/O consult. * Calcium continues to improve LN biopsy 12/10. Nephrology following and appreciate their input. 12/11: Suspect underlying psychiatric condition superimposed with hypercalcemia? Will check CT head, consult neuro, initiate risperdal 2 mg QHS ans monitor 12/12: Much improved on risperdal, CTH nonacute, neuro c/s recommending MRI, TSH, folate all ordered and pending 12/13: Appears to be back to baseline mentation on Risperdal, MRI still pending, TSH and folate within normal limits 12/14: AMS resolved, cont risperdal, MRI and labs negative (2) NSTEMI (non-ST elevated myocardial infarction): Code(s): I21.4 - Non-ST elevation (NSTEMI) myocardial infarction Status: Acute Assessment and Plan: Patient has been having chest pain at rest for 2 weeks. Troponin elevated on admission and continues to rise (2.6 currently). EKG on admission showing sinus tach (115), IVCD and possibly old AIM and IMI. Borderline ST-T wave changed high lateral leads. Wine Steward/Stewardess felt patient is not a good candidate for cardiac intervention because of BLAS. Repeat EKG showing loss of R wave across the precordium consistent with new infarct. 3rd EKG shows improved but blunted R wave progression. Plan to maximize medical therapy: * ASA, Lipitor, metoprolol * Plavix loading 600 mg x 1 dose followed by 75 mg p.o. daily Echo showing EF 70% with anteroseptal HK and grade I diastolic dysfunction. Cardiology following and appreciate their input. (3) Ucbch-tw-cnenafj kidney injury: Code(s): N17.9 - Acute kidney failure, unspecified; N18.9 - Chronic kidney disease, unspecified Status: Acute Assessment and Plan: Baseline Cr 1.3-1.6 range. Cr 2.7 on 12/03/22 at the PCP office. Cr worse again here at 3.4. Suspect related to hypercalcemia. Renal US multiple incompletely evaluated cystic right renal lesions; left nephrolithiasis. Nephrology consulted. KUB does show left nephrolithiasis so will need to exclude obstructing process. UOP 3550mL yesterday (related to calcium) but decreased UOP noted now Cr 3.8 today UA as above. UCx negative. BCx NGTD. [place] secured - monitor UOP. Voiding trial when able Nephrology following. Improving (4) Encephalopathy: Code(s): G93.40 - Encephalopathy, unspecified Status: Acute Assessment and Plan: Head CT showing no acute process. [place] mental status changed related to hypercalcemia. Improving with hypercalcemia treatment as expected. Follow for cont
[2022-12-15] MEDS: METOPROLOL TARTRATE 50 MG TAB PO (14:10)
[2022-12-18 16:26] LABS: Parathyroid Hormone Related Pr 10 pg/mL (11-20)
[2022-12-19 07:49] LABS: Angiotensin Converting Enzyme <5 U/L (9-67)
[2022-12-24 07:11] LABS: Calcium/Creatinine Ratio, Ur 437 mg/g creat (10-240); Urine Calcium, Random 7.3 mg/dL (***)
== END 2022-12-15 19:00 | DRG 628 ==
LOC: ANHED 18:23 → ANHIMU 20:34
PROVIDERS: Family Medicine; Internal Medicine; Internal Medicine Critical Care Medicine; Internal Medicine Nephrology; Radiology Diagnostic Radiology; Admitting Provider Hospitalist; Emergency Provider Emergency Medicine; PCP Nurse Practitioner; Visit Provider Student in an Organized Health Care Education/Training Program
DX: E83.52 Hypercalcemia (principal); I21.4 Non-ST elevation (NSTEMI) myocardial infarction; N17.9 Acute kidney failure, unspecified; G93.40 Encephalopathy, unspecified; I25.719 Atherosclerosis of autologous vein coronary artery bypass graft(s) with unspecified angina pectoris; Z68.42 Body mass index [BMI] 45.0-49.9, adult; R59.1 Generalized enlarged lymph nodes; I12.9 Hypertensive chronic kidney disease with stage 1 through stage 4 chronic kidney disease, or unspecified chronic kidney disease; N18.30 Chronic kidney disease, stage 3 unspecified; N20.0 Calculus of kidney; I25.5 Ischemic cardiomyopathy; G47.33 Obstructive sleep apnea (adult) (pediatric); W18.2XXA Fall in (into) shower or empty bathtub, initial encounter; M19.90 Unspecified osteoarthritis, unspecified site; F41.8 Other specified anxiety disorders; K21.9 Gastro-esophageal reflux disease without esophagitis; M17.12 Unilateral primary osteoarthritis, left knee; E78.2 Mixed hyperlipidemia; K46.9 Unspecified abdominal hernia without obstruction or gangrene; G25.81 Restless legs syndrome; G47.10 Hypersomnia, unspecified; D50.9 Iron deficiency anemia, unspecified; R13.10 Dysphagia, unspecified; J30.9 Allergic rhinitis, unspecified; K64.1 Second degree hemorrhoids; M54.50 Low back pain, unspecified; G89.29 Other chronic pain; R73.03 Prediabetes; G47.00 Insomnia, unspecified; E66.01 Morbid (severe) obesity due to excess calories; N45.1 Epididymitis; N48.89 Other specified disorders of penis; B37.2 Candidiasis of skin and nail; N39.41 Urge incontinence; Z96.651 Presence of right artificial knee joint; Z95.1 Presence of aortocoronary bypass graft; Z86.16 Personal history of COVID-19; Z79.82 Long term (current) use of aspirin; Z87.891 Personal history of nicotine dependence; I25.2 Old myocardial infarction; Z91.148 Patient's other noncompliance with medication regimen for other reason
CPT/HCPCS: 36415; 36600; 38505; 70450; 70553; 71045; 71250; 72170; 73562; 74018; 74176; 76775; 76870; 76942; 80053; 80061; 80069; 81001; 82140; 82164; 82306; 82310; 82330; 82550; 82570; 82607; 82652; 82746; 82805; 82948; 83036; 83519; 83690; 83735; 83880; 83970; 84100; 84133; 84153; 84155; 84156; 84165; 84166; 84300; 84443; 84484; 84540; 85025; 85049; 85610; 85730; 85999; 86160; 86162; 86334; 86335; 86704; 86706; 87040; 87086; 87340; 88184; 88185; 88305; 92610; 93005; 93306; 93976; 97110; 97116; 97162; 97166; 97530; 97535; 99285; A9270; A9577; C8929; C9113; J0630; J1644; J1940; J2270; J2430; J3480; J7030; J7060; Q9957

== ENCOUNTER 2022-12-15 20:55 | Inpatient (IN) | payer MEDICARE, OTHER, SELFPAY ==
--- NOTE | ~2022-12-15 | CT_ITS ---
EXAMINATION: CT abdomen pelvis wo con DATE: 12/16/2022 02:39 INDICATION: Epigastric abdominal pain. TECHNIQUE: Computed tomography (CT) of the abdomen and pelvis was performed without intravenous contr ast. Automated exposure control and iterative reconstruction technique were employed. The dose-length product was 1701.33 mGy-cm. COMPARISON: CT abdomen and pelvis 12/08/22 FINDINGS: The visualized portions of the lung bases demonstrate mild atelectasis. No pleural effusion . The heart size is normal. There are coronary artery calcifications. No pericardial effusion. The li ulysses, gallbladder, spleen, and pancreas are normal. There is moderate atrophy of right kidney. There a re cysts in the kidneys measuring up to 4.1 cm on the right. There is a 2 mm stone in right kidney. T here are 4 stones in left kidney measuring up to 13 mm. There is calcified atherosclerosis of the aor ta and many of the other arteries. The prostate is mildly enlarged. There is diverticulosis of the co yunier without evidence of diverticulitis. The appendix is normal. There is paraesophageal, periportal, periceliac, left para-aortic, aortocaval, bilateral common iliac, bilateral external iliac, and right inguinal lymphadenopathy. For example, a left para-aortic node measures 7.2 x 5.9 cm, stable from . There is no free intraperitoneal fluid. There are bridging endplate osteophytes at multiple levels in the spine, consistent with diffuse idiopathic skeletal hyperostosis (DISH). There are morelos es of anterior and posterior fusion procedures from L4 to S1. IMPRESSION: 1. Lymphadenopathy in the chest, abdomen, and pelvis, consistent with lymphoma. CT-guided biopsy of a left para-aortic lymph node is recommended. Reviewed, dictated and finalized at location A.
--- NOTE | ~2022-12-15 | XR_ITS ---
EXAMINATION: XR chest 1V portable Exam Date/Time: 12/15/2022 21:15 CDT HISTORY: cp, sob, dizziness, nausea Comparison: 12/10/2022. RESULT: Lines, tubes, and devices: Mediastinal surgical clips. Multiple sternotomy wires one of which is fra ctured. Lungs and pleura: Clear. Cardiomediastinal silhouette: Stable. Calcified hilar nodes. Other: No acute osseous or upper abdominal finding. IMPRESSION: No acute cardiopulmonary process. Reviewed, dictated and finalized at location K.
[2022-12-15 20:54] VITALS: BP 177/112; PULSE 97; RESP 20; TEMP 37.1; O2SAT 98
--- NOTE | 2022-12-15 21:03 | ECG_ITS ---
Measurements Intervals [place] Rate: 94 P: 62 [place]: 183 QRS: -27 QRSD: 114 T: 85 QT: 326 QTc: 409 Interpretive Statements SINUS RHYTHM WITH SINUS ARRHYTHMIA BORDERLINE LEFT AXIS DEVIATION [QRS AXIS < -20] MODERATE INTRAVENTRICULAR CONDUCTION DELAY [110+ ms QRS DURATION] NONSPECIFIC ST & T-WAVE ABNORMALITY COMPARED TO ECG 12/07/2022 09:06:38 SINUS RHYTHM NOW PRESENT SINUS ARRHYTHMIA NOW PRESENT Electronically Signed On 12-16-2022 15:58:49 CDT by Radha Belcher M.D.
--- NOTE | 2022-12-15 21:09 | ED.CHESTPAIN ---
HPI - Chest Pain General Chief Complaint: Chest Pain Stated Complaint: cp Time Seen by Provider: 12/15/22 21:02 History of Present Illness HPI narrative: EMS brought patient to the emergency department from rehab. He had only been there an hour. Patient was admitted to [facility] 2 weeks ago for acute renal insufficiency and an NSTEMI. He has been having chest pain intermittently for the couple weeks prior to his fall. He was admitted to the hospital and has been inpatient until today. Patient started having chest pain shortly after he arrived at rehab. Patient is somewhat confused but states he is still having chest discomfort. Denies other review of systems. EKG negative for acute ischemia Related Data Home Medications Medication Instructions Recorded Confirmed aspirin 81 mg tablet,delayed 81 mg PO DAILY 03/04/19 12/15/22 release multivitamin (Multiple Vitamins 1 tablet PO DAILY 03/04/19 12/15/22 tablet) hydrocodone 10 mg-acetaminophen 1 tablet PO Q8H 01/11/21 12/15/22 300 mg tablet isosorbide mononitrate 60 mg 120 mg PO QAM 10/04/21 12/15/22 tablet,extended release 24 hr ranolazine 500 mg tablet,extended 500 mg PO BID 10/04/21 12/15/22 release,12 hr (Ranexa) benzonatate 200 mg capsule 200 mg PO BID PRN Cough 12/06/22 12/15/22 Allergies Allergy/AdvReac Type Severity Reaction Status Date / Time chloramphenicol Allergy Severe EYE Verified 12/04/22 13:39 irritation nickel Allergy Mild Rash Verified 12/04/22 13:39 detergents Allergy Hives Uncoded 12/04/22 13:39 Review of Systems Review of Systems: Review of systems limited by patient's confusion however he does not comment in anything other than what is documented in the HPI [facility] Past Medical History Medical History Acute recurrent maxillary sinusitis Allergic rhinitis Anxiety and depression Arthritis Bilateral cataracts Maturing Chronic low back pain With history of L4-L5-L5-S1 surgery Coronary artery disease involving coronary bypass graft of [place] heart COVID-19 DDD (degenerative disc disease) Essential (primary) hypertension Former smoker Gastroesophageal reflux disease Grade II internal hemorrhoids Hearing loss Hemorrhoid Hiatal hernia Hypersomnia Hypoxia Insomnia Left knee DJD Medullary sponge kidney With history of kidney stones in 198906/25/1994 Mixed hyperlipidemia Morbid obesity Obstructive sleep apnea on CPAP Auto titrating CPAP Painful total knee replacement, right Personal history of noncompliance with medical treatment and regimen Pre-diabetes (Unknown) Primary osteoarthritis of left knee Restless leg ST elevation myocardial infarction (STEMI) Systolic dysfunction With ejection fraction of 45-50% on cardiac catheterization May 2017 Surgical History Surgical History History of cardiac catheterization Cardiac catheterization with stent placement 2000, may 2017 with stent to the RCA due to complete occlusion stented at [facility], high-grade stenosis 80% occlusion to saphenous vein graft to the circ that was stented June 2017 at [facility] History of cystoscopy With stone retrieval in 1994 History of spinal surgery L4-L5 and L5-S1 PLIF 2012 History of total right knee replacement 2010 Hx of CABG History of 5 vessel CABG in 1997 Family History Family History Father Diabetes mellitus Multiple myeloma Hypertension Heart valve replaced Heart disease Mother Hypertension Heart disease Social History Social History Social History: Patient is a former smoker. He smoke trans time his 21 until he was 47. He smoked between 1-2 packs cigarettes per day prior to quitting. He has at least a 26 pack per year smoking history. Primary care phys
[2022-12-15 21:43] LABS: Basophils Absolute Auto 0.1 K/mm3 (0.0-0.1); Basophils Percent Auto 0.7 % (0.2-1.2); Eosinophils Absolute Auto 0.3 K/mm3 (0-0.3); Eosinophils Percent Auto 3.8 % (0-4.4); Hematocrit 38.4 % (42.0-52.0); Hemoglobin 12.5 g/dL (14.0-18.0); Immature Granulocyte Absolute 0.04 K/mm3 (0.00-0.031); Immature Granulocyte Percent A 0.6 % (0-0.5); Lymphocytes Absolute Auto 0.86 K/mm3 (0.9-3.2); Lymphocytes Percent Auto 12.1 % (18.3-44.2); Mean Corpuscular HGB Conc 32.6 g/dl (32-36); Mean Corpuscular Hemoglobin 31.3 pg (26-34); Mean Platelet Volume 11.2 fl (7.4-10.4); Monocytes Absolute Auto 0.9 K/mm3 (0.1-0.6); Monocytes Percent Auto 12.4 % (2.6-8.5); Neutrophils Percent Auto 70.4 % (45.5-73.1); Platelet Count Result 169 k/mm3 (150-375); Red Cell Distribution Width 14.8 % (11.5-14.5); White Blood Count 7.1 K/mm3 (4.5-10.0)
[2022-12-15 21:53] LABS: Alanine Aminotransferase 39 U/L (6-50); Albumin Level 3.8 g/dL (3.5-5.1); Alkaline Phosphatase 114 U/L (38-126); Anion Gap 7 mmol/L (8-16); Aspartate Amino Transferase 49 U/L (17-59); Bilirubin,Total 0.9 mg/dL (0.2-1.3); Blood Urea Nitrogen 29 mg/dL (9-20); Calcium 11.9 mg/dL (8.4-10.2); Carbon Dioxide 26 mmol/L (22-30); Chloride 105 mmol/L (98-107); Estimated CRCL calculation 30 ml/min; Estimated Glomerular Filt Rate 22; Glucose 95 mg/dL (65-110); Lipase 1133 U/L (23-300); Potassium 4.1 mmol/L (3.4-5.0); Sodium 138 mmol/L (137-145)
[2022-12-15 21:54] LABS: Prothrombin Time 13.6 Seconds (11.1-14.7)
[2022-12-15 21:55] LABS: Partial Thromboplastin Time 32.1 SECONDS (22.3-36.8)
[2022-12-15 22:04] LABS: Troponin I 0.032 ng/mL (0.000-0.034)
[2022-12-16] VITALS (16 sets, daily range): BP systolic 128–170; BP diastolic 74–100; PULSE 75–94; RESP 16–28; TEMP 36.2–36.9; O2SAT 96–100; BMI 46.5
[2022-12-16 01:37] LABS: Troponin I 0.306 ng/mL (0.000-0.034)
[2022-12-16] MEDS: HEPARIN SODIUM 5,000 UNITS/ML VIAL 4000 UNITS IV PUSH ×2 (02:44→13:11)
[2022-12-16] MEDS: HEPARIN SOD/D5W 100 UNITS/ML 25,000 UNITS/250 ML BAG 10 UNITS IV CONT (02:45)
--- NOTE | 2022-12-16 04:33 | ADMGEN ---
This patient, Steffen Martinez, was admitted to IMU Room 201-01. Patient/family oriented to hospital policies and general routines including ID bracelet, bed and alarms, visiting hours, pain management, procedures, bathroom and other care routines, personal items, smoking policy, room service/diet, and visiting hours. Information on how to activate the Rapid Response Team has been discussed. Patient/Family are encouraged to report perceived risks to care and to ask questions if they do not understand what they are told or what they should do.
--- NOTE | 2022-12-16 04:37 | PM.IMHP ---
H&P: HPI History of Present Illness Date/Time: 12/16/22 04:37 Chief Complaint: Patient transferred back to our hospital from rehab after being discharged today with complaints of recurring chest pain Narrative: He is a very unfortunate 72 years old white male with a significant coronary artery disease, multiple chronic medicall issues, morbid obesity and medical noncompliance, who was discharged to rehab yesterday. Please see the discharge summary from yesterday as below: DS: Summary Hospital Course Hospital Course: 72yo male with CAD, HTN and pre-DM here for chest pain and found to have elevated calcium. Patient with altered mental status and a calcium of 16.5. Patient with normal baseline calcium level until 12/03 when elevated to 14.4 by blood work at PCP office. Weight loss concerning for neoplastic etiology of the hypercalcemia. Although hypercalcemia itself can cause anorexia. Not on VitD or calcium supplements but has been eating Tums 'like candy' for a long time. Hypercalcemia explains the agitation, psychiatric overtones, diffuse pain, confusion and kidney stones. started on IV NS at 200 ml/hr Received Calcitonin x2 HepB Ag and Ab negative. C3/4 normal. UA >100 RBC with 2+ LE and 11-20 WBC. Monalisa 122. FEUrea 45% and FENa 7%. Will plan on giving zoledronic acid (Zometa) once kidney function improves. Will need skeletal survey. 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 H/O consult. Calcium continues to improveLN biopsy 12/10. Nephrology following and appreciate their input. 12/11: Suspect underlying psychiatric condition superimposed with hypercalcemia?? Will check CT head, consult neuro, initiate risperdal 2 mg QHS ans monitor 12/12: Much improved on risperdal, CTH nonacute, neuro c/s recommending MRI, TSH, folate all ordered and pending 12/13: Appears to be back to baseline mentation on Risperdal, MRI still pending, TSH and folate within normal limits 12/14: AMS resolved, cont risperdal, MRI and labs negative Please see above and med rec for details.? Patient was discharged inpatient rehab with close outpatient follow-up. He was barely there for an hour when he started having chest pain, intensity 5 to 6/10 located in anterior chest without any radiation, palpitations or sweating. Brought back to the ER for evaluation. Workup was done which showed elevated cardiac enzymes. He has been diagnosed with an NSTEMI, started on IV heparin drip and placed in IMU for cardiac follow-up and close monitoring. Review of Systems Review of Systems: he denies any sweating, palpitations, abdominal pain, falls, or blurred vision All systems reviewed & are unremarkable except as noted in HPI and below PMFSH Past Medical History Medical History Acute recurrent maxillary sinusitis Allergic rhinitis Anxiety and depression Arthritis Bilateral cataracts Maturing Chronic low back pain With history of L4-L5-L5-S1 surgery Coronary artery disease involving coronary bypass graft of [place] heart COVID-19 DDD (degenerative disc disease) Essential (primary) hypertension Former smoker Gastroesophageal reflux disease Grade II internal hemorrhoids Hearing loss Hemorrhoid Hiatal hernia Hypersomnia Hypoxia Insomnia Left knee DJD Medullary sponge kidney With history of kidney stones in 198906/25/1994 Mixed hyperlipidemia Morbid obesity Obstructive sleep apnea on CPAP Auto titrating CPAP Painful total knee replacement, right Personal history of noncompliance with medical treatment and regimen Pre-diabetes (Unknown) Primary osteoarthritis of left knee Restless leg ST elevation myocardial infarction (STEMI) Systolic dysfunction With ejection fraction of 45-50% on cardiac catheterization May 2017 Surgical History Surgical History History of cardiac c
[2022-12-16 06:15] LABS: Partial Thromboplastin Time 87.1 SECONDS (22.3-36.8)
[2022-12-16] MEDS: HYDROcodone/acetaminophen (*CRX) 10-325 MG TABLET 1 TAB PO (06:40)
[2022-12-16] MEDS: SODIUM CHLORIDE 0.9% IV 1,000 ML 75 ML IV CONT ×2 (06:41→21:01)
[2022-12-16] MEDS: ISOSORBIDE MONONITRATE 60 MG TAB.ER.24H 120 MG PO (08:48)
[2022-12-16] MEDS: CYANOCOBALAMIN 1,000 MCG TABLET 1000 MCG PO (08:48)
[2022-12-16] MEDS: METOPROLOL SUCCINATE EXT REL 50 MG TABCR PO (08:48)
[2022-12-16] MEDS: PANTOPRAZOLE 40 MG TABLET PO ×2 (08:48→21:02)
[2022-12-16] MEDS: METOPROLOL SUCCINATE EXT REL 100 MG TABCR PO (08:48)
[2022-12-16] MEDS: ASPIRIN 81 MG ENTERIC TABLET PO (08:48)
[2022-12-16] MEDS: FERROUS SULFATE 325 MG TABLET DR PO (08:48)
[2022-12-16] MEDS: RANOLAZINE 500 MG TAB.ER.12H PO ×2 (08:48→21:01)
[2022-12-16] MEDS: MULTIVITAMINS THERAPEUTIC TAB (*BKC) 1 TABLET PO (08:48)
[2022-12-16] MEDS: DULoxetine HCL 60 MG CAPSULE.DR PO (08:48)
[2022-12-16] MEDS: CLOPIDOGREL BISULFATE 75 MG TABLET PO (08:48)
[2022-12-16] MEDS: AMOXICILLIN/CLAVULANATE K 875-125 MG TAB 1 TABLET PO ×2 (08:48→21:01)
--- NOTE | 2022-12-16 09:00 | ECG_ITS ---
Measurements Intervals [place] Rate: 87 P: 46 [place]: 167 QRS: -36 QRSD: 110 T: 31 QT: 348 QTc: 420 Interpretive Statements SINUS RHYTHM WITH MARKED SINUS ARRHYTHMIA MARKED LEFT AXIS DEVIATION [QRS AXIS < -30] NONSPECIFIC ST & T-WAVE ABNORMALITY COMPARED TO ECG 12/15/2022 20:59:47 NO SIGNIFICANT CHANGES Electronically Signed On 12-16-2022 16:22:56 CDT by Radha Belcher M.D.
--- NOTE | 2022-12-16 09:02 | PM.CNCAR ---
Assessment and Plan Assessment and plan (1) Chest pain: Qualifiers: Chest pain type: unspecified Qualified Code(s): R07.9 - Chest pain, unspecified Code(s): R07.9 - Chest pain, unspecified Status: Acute Assessment and Plan: Risks especially worsening renal function/benefits/alternative to LHC discuss with patient and he wants to think about it and discuss with his . EKG shows new ST depression in anterolat/high lat leads. 12/08/22 Echo: EF >70%, mild LVH, anterior wall hypokinetic, grade I diastolic dysfunction. On heparin drip, aspirin, plavix, atorvastatin, Metoprolol, Ranexa, Imdur. They will let me know if he chooses to have LHC. (2) Elevated troponin: Code(s): R77.8 - Other specified abnormalities of plasma proteins Status: Acute Assessment and Plan: Trend troponin to peak. (3) Coronary artery disease involving coronary bypass graft of [place] heart: Code(s): I25.810 - Atherosclerosis of coronary artery bypass graft(s) without angina pectoris Status: Acute (4) Mixed hyperlipidemia: Code(s): E78.2 - Mixed hyperlipidemia Status: Acute Assessment and Plan: On Atorvastatin. (5) Essential (primary) hypertension: Code(s): I10 - Essential (primary) hypertension Status: Acute Assessment and Plan: Stable. History of Present Illness History of Present Illness Consult date/time: 12/16/22 09:02 Reason For Visit: nstemi Narrative: 72 yr old man admitted 2 weeks ago after a fall, got discharged to acute rehab, then transferred back to ER for recurrent chest pain. He has a history of CAD, CABG and subsequent PCI, dyslipidemia, hypertension. 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 Murphy with [facility] in [place]. States that as soon as he got to rehab yesterday he had similar chest pressure as before. It is intermittent and not there now. On last admission with UTI/hypercalcemia/ARF troponin peaked at 2.59 then trended down, and now trending back up. He has been confused off and on. Currently denies chest pain or sob. Normally he can walk 20 feet prior to CORDOBA/fatigue. Review of Systems Review of Systems: All systems reviewed & are unremarkable except as noted in HPI and below Constitutional: Constitutional: Reports as per HPI, Denies chills and Denies fever(s) Cardiovascular: Cardiovascular: Reports as per HPI, Reports chest pain, Denies irregular heart rhythm, Denies leg edema and Denies lightheadedness Respiratory: Respiratory: Reports as per HPI and Denies dyspnea Gastrointestinal: Gastrointestinal: Reports as per HPI and Denies abdominal pain Genitourinary: Genitourinary: Reports as per HPI and Denies dysuria Musculoskeletal: Musculoskeletal: Reports as per HPI Neurologic: Reports as per HPI, Denies dizziness and Denies syncope [facility] Past Medical History Medical History Acute recurrent maxillary sinusitis Allergic rhinitis Anxiety and depression Arthritis Bilateral cataracts Maturing Chronic low back pain With history of L4-L5-L5-S1 surgery Coronary artery disease involving coronary bypass graft of [place] heart COVID-19 DDD (degenerative disc disease) Essential (primary) hypertension Former smoker Gastroesophageal reflux disease Grade II internal hemorrhoids Hearing loss Hemorrhoid Hiatal hernia Hypersomnia Hypoxia Insomnia Left knee DJD Medullary sponge kidney With history of kidney stones in 198906/25/1994 Mixed hyperlipidemia Morbid obesity Obstructive sleep apnea on CPAP Auto titrating CPAP Painful total knee replacement, right Personal history of noncompliance with medical treatment and regimen Pre-diabetes (Unknown) Primary osteoarthritis of left knee Restless leg ST elevation myocardial infarction (STEMI) Systolic dysfunction With ejection fraction of 45-50% on cardiac catheterization May 2017 Surgical History Surgical Histor
[2022-12-16 09:44] LABS: Lipase 773 U/L (23-300); Magnesium 1.3 mg/dL (1.6-2.3)
--- NOTE | 2022-12-16 11:33 | PM.IMPN ---
Progress Note: A&P Assessment and Plan (1) NSTEMI (non-ST elevated myocardial infarction): Code(s): I21.4 - Non-ST elevation (NSTEMI) myocardial infarction Status: Acute Assessment and Plan: Continue heparin drip, aspirin, Plavix, Lipitor, metoprolol, Ranexa, Imdur 12/08/22 Echo: EF >70%, mild LVH, anterior wall hypokinetic, grade I diastolic dysfunction Monitor telemetry, trend troponin Appreciate cardiology consult (2) Acute pancreatitis: Qualifiers: Acute pancreatitis complication: unspecified Pancreatitis type: unspecified pancreatitis type Qualified Code(s): K85.90 - Acute pancreatitis without necrosis or infection, unspecified Code(s): K85.90 - Acute pancreatitis without necrosis or infection, unspecified Status: Acute Assessment and Plan: NPO, gentle IV fluid hydration, monitor (3) Chronic kidney disease, stage 3: Code(s): N18.30 - Chronic kidney disease, stage 3 unspecified Status: Chronic (4) Essential (primary) hypertension: Code(s): I10 - Essential (primary) hypertension Status: Acute Assessment and Plan: Blood pressures reviewed 12/16 (5) Coronary artery disease involving coronary bypass graft of [place] heart: Code(s): I25.810 - Atherosclerosis of coronary artery bypass graft(s) without angina pectoris Status: Acute Assessment and Plan: See above Plan DVT prophylaxis with heparin GI prophylaxis with PPI Code status full code Subjective Date/time seen: 12/16/22 11:33 Interval history: 72yo male with CAD, HTN and pre-DM here for chest pain after being discharged to rehab and is presenting with NSTEMI. No overnight events noted. No chest pain or shortness of breath. No nausea, vomiting or diarrhea. No fevers or chills. Review of Systems Review of Systems: 12 point review of systems was assessed and was negative except as noted in the HPI Exam Narrative: General: No acute distress, alert and oriented per baseline HEENT: Atraumatic, normocephalic, mucous membranes moist CV: Regular rate and rhythm, S1, S2 Lungs: Clear to auscultation bilaterally, no rales or crackles noted, no wheezes, good air entry Abdomen: Soft, nontender, nondistended Extremities: Normal to inspection Skin: No rashes noted, no lesions or wounds seen Psych: Euthymic, normal affect Objective Data Vital Signs Vital Signs: Vital Signs - 24 hr 12/15/22 20:54 12/16/22 02:09 12/16/22 03:41 Temperature 98.8 F Pulse Rate 97 88 78 Respiratory Rate 20 17 19 Blood Pressure 177/112 H 145/100 H 170/77 H Pulse Oximetry 98 100 97 Oxygen Delivery Room Air 12/16/22 03:59 12/16/22 04:35 12/16/22 04:47 Temperature 98.4 F Pulse Rate 82 80 Respiratory Rate 19 20 Blood Pressure 168/76 H 153/78 H Pulse Oximetry 96 99 Oxygen Delivery Room Air 12/16/22 05:54 12/16/22 08:00 12/16/22 08:00 Temperature 98 F Pulse Rate 94 94 Respiratory Rate 16 Blood Pressure 139/78 Pulse Oximetry 98 Oxygen Delivery Room Air 12/16/22 08:00 12/16/22 10:00 12/16/22 11:23 Temperature 98 F Pulse Rate 91 75 80 Respiratory Rate 24 H Blood Pressure 128/79 Pulse Oximetry 100 Oxygen Delivery Intake/Output Intake/Output: Intake & Output 12/13/22 12/14/22 12/15/22 12/16/22 23:59 23:59 23:59 23:59 Output Total 1050 Balance -1050 Meds/Results Medications: Active Medications Generic Name Dose Route Start Last Admin Trade Name Freq PRN Reason Stop Dose Admin Acetaminophen 650 mg 12/16/22 05:08 Acetaminophen 325 Mg Tablet PO Q4H PRN Mild Pain (1-3) or Fever Hydrocodone Bitart/Acetaminophen 1 tab 12/16/22 04:59 12/16/22 06:40 Hydrocodone/Acetaminophen (*Crx) 10-325 Mg Tablet PO 1 tab Q8H PRN Administration Pain (Scale Score 7-10) Al Hydrox/Mg Hydrox/Simethicone 30 ml 12/16/22 05:08 Mag Hydrox/Al Hydrox/Simeth 30
[2022-12-16 12:51] LABS: Partial Thromboplastin Time 58.3 SECONDS (22.3-36.8)
--- NOTE | 2022-12-16 15:37 | PM.CNCAR ---
Assessment and Plan Assessment and plan (1) NSTEMI (non-ST elevated myocardial infarction): Code(s): I21.4 - Non-ST elevation (NSTEMI) myocardial infarction Status: Acute Plan Cardiac catheterization discussed with the patient, including indication for the procedure, procedure details, risks vs benefits, alternative management options. Patient is higher risk for contrast induced nephropathy given his baseline renal function. Patient agreeable to proceed. Will plan for cardiac cath 12/17. Patient to be NPO at midnight. History of Present Illness History of Present Illness Consult date/time: 12/16/22 15:37 Requesting physician: Clemente Cortes, DO Consult reason: Other (LHC) Reason For Visit: nstemi Narrative: Interventional Cardiology is consulted for LHC on this patient by Dr. Cortes. Patient has known CAD s/p CABG and subsequent PCI, hypertension, hyperlipidemia, morbid obesity with BMI of 46. Patient was recently discharged on 12/15 after being admitted with altered mental status and hypercalcemia, with CT imaging showing findings consistent with lymphoma. Also had BLAS on CKD at that time. Dr. Cortes saw patient at that hospitalization for elevated troponin, which peaked at 2.59, did not recommend LHC at that time as patient was chest pain free, hemodynamically stable, and his BLAS. Patient was discharged home to rehab, transferred back to the ER for chest pain. His troponin is up to 4.680. His Cr is at 2.9. Patient is currently chest pain free at the time of my evaluation. His last cardiac catheterization was in 10/2021 which showed: 1. ? Three-vessel coronary artery disease with total occlusion of the left coronary system after the proximal portion of the LAD described above.? This is angiographically unchanged from 2020. 2. ? Patent large dominant right coronary artery which was stented previously approximately 50% stenosis in the RPL which angiographically is no different than 2020 3. ? Patent CASSIDY to the LAD 4. ? Known occlusion of the saphenous vein graft to the right not injected during this exam 5. ? Patent saphenous vein graft to 2 small obtuse marginal branches.? Mild lesions in this graft were seen previously.? Angiographically flow in this graft is not as brisk as it was on the previous exam but there are no high-grade lesions that are opportunities for revascularization. Review of Systems Review of Systems: All systems reviewed & are unremarkable except as noted in HPI and below (HPI) PMFSH Past Medical History Medical History Acute recurrent maxillary sinusitis Allergic rhinitis Anxiety and depression Arthritis Bilateral cataracts Maturing Chronic low back pain With history of L4-L5-L5-S1 surgery Coronary artery disease involving coronary bypass graft of [place] heart COVID-19 DDD (degenerative disc disease) Essential (primary) hypertension Former smoker Gastroesophageal reflux disease Grade II internal hemorrhoids Hearing loss Hemorrhoid Hiatal hernia Hypersomnia Hypoxia Insomnia Left knee DJD Medullary sponge kidney With history of kidney stones in 198906/25/1994 Mixed hyperlipidemia Morbid obesity Obstructive sleep apnea on CPAP Auto titrating CPAP Painful total knee replacement, right Personal history of noncompliance with medical treatment and regimen Pre-diabetes (Unknown) Primary osteoarthritis of left knee Restless leg ST elevation myocardial infarction (STEMI) Systolic dysfunction With ejection fraction of 45-50% on cardiac catheterization May 2017 Surgical History Surgical History History of cardiac catheterization Cardiac catheterization with stent placement 2000, may 2017 with stent to the RCA due to complete occlusion stented at [facility], high-grade stenosis 80% occlusion to saphenous vein graft to the circ that was stented June 2017 at [facility] History of cy
[2022-12-16] MEDS: ACETAMINOPHEN 325 MG TABLET 650 MG PO (17:10)
[2022-12-16 19:27] LABS: Partial Thromboplastin Time 96.7 SECONDS (22.3-36.8)
[2022-12-16] MEDS: ATORVASTATIN 40 MG TABLET PO (21:02)
[2022-12-16] MEDS: risperiDONE 1 MG TABLET 2 MG PO (21:02)
[2022-12-17] VITALS (26 sets, daily range): BP systolic 135–174; BP diastolic 77–112; PULSE 82–92; RESP 19–30; TEMP 36.4–36.6; O2SAT 93–98
[2022-12-17 02:26] LABS: Alanine Aminotransferase 37 U/L (6-50); Albumin Level 3.2 g/dL (3.5-5.1); Alkaline Phosphatase 98 U/L (38-126); Anion Gap 4 mmol/L (8-16); Aspartate Amino Transferase 60 U/L (17-59); Bilirubin,Total 0.7 mg/dL (0.2-1.3); Blood Urea Nitrogen 23 mg/dL (9-20); Calcium 10.2 mg/dL (8.4-10.2); Carbon Dioxide 24 mmol/L (22-30); Chloride 107 mmol/L (98-107); Estimated CRCL calculation 37 ml/min; Estimated Glomerular Filt Rate 28; Glucose 96 mg/dL (65-110); Lipase 767 U/L (23-300); Sodium 135 mmol/L (137-145)
[2022-12-17 02:27] LABS: INR 1.1; Prothrombin Time 14.8 Seconds (11.1-14.7)
[2022-12-17] MEDS: HEPARIN SOD/D5W 100 UNITS/ML 25,000 UNITS/250 ML BAG 10 UNITS IV CONT (03:08)
--- NOTE | 2022-12-17 03:10 | PC.NURSE ---
0045: -RN contacted MD Mirza to inform her that the patient's heparin order was completed and asked if she was okay with renewing it. -MD Mirza stated that she wants the patient to get a STAT ptt prior to continuing the drip. -RN stated that based on protocol the patient's next ptt was due at 0300. RN confirmed the provider wanted the ptt early. -RN placed said order for ptt and a new order for a heparin gtt. -PharmacistZoë, called RN asking for clarification about the order, stating it was out of the norm. -RN confirmed the order placed was the one requested by the provider. -Pharmacist stated that she was going to call MD Mirza to discuss. -RN called slab depiler operator, Sergio, to inform her we were seeking order clarification and to wait to draw the ptt. -Pharmacist called RN stating she was unable to get in contact with the provider via [employer] as the provider was not logged in. Pharmacist went on to explain that she also attempted to contact the provider via her listed cell phone number with no success and was unable to leave a voicemail because it was not set up. -RN attempted to contact the provider with the same results. -Pharmacist later informed RN that she had talked with the provider and confirmed she wanted the drip to remain on hold until a new ptt was drawn and resulted. -RN called to have the ptt drawn. Heparin remained on hold. 0308: -RN called pharmacist to discuss the results of ptt. RN was wondering if she should start the drip as if it were a new drip or titrate it based on the previous rate. Pharmacist asked RN to clarify with the provider. -RN called provider whom stated she wanted it started as if it were a new gtt and not to administer a bolus. -RN did as provider requested.
[2022-12-17 03:19] LABS: Basophils Percent Auto 0.5 % (0.2-1.2); Eosinophils Absolute Auto 0.3 K/mm3 (0-0.3); Eosinophils Percent Auto 4.7 % (0-4.4); Hematocrit 31.3 % (42.0-52.0); Hemoglobin 10.3 g/dL (14.0-18.0); Immature Granulocyte Absolute 0.02 K/mm3 (0.00-0.031); Immature Granulocyte Percent A 0.3 % (0-0.5); Lymphocytes Absolute Auto 0.87 K/mm3 (0.9-3.2); Lymphocytes Percent Auto 14.1 % (18.3-44.2); Mean Corpuscular HGB Conc 32.9 g/dl (32-36); Mean Corpuscular Hemoglobin 31.5 pg (26-34); Mean Corpuscular Volume 95.7 fl (80-100); Mean Platelet Volume 12.4 fl (7.4-10.4); Monocytes Absolute Auto 0.8 K/mm3 (0.1-0.6); Monocytes Percent Auto 13.3 % (2.6-8.5); Neutrophils Absolute Auto 4.2 K/mm3 (1.3-6.7); Neutrophils Percent Auto 67.1 % (45.5-73.1); Platelet Count Result 158 k/mm3 (150-375); Red Blood Count 3.27 M/mm3 (4.6-6.20); White Blood Count 6.2 K/mm3 (4.5-10.0)
--- NOTE | 2022-12-17 07:17 | WPDGICN ---
Assessment and Plan Assessment and plan (1) Acute pancreatitis: Qualifiers: Acute pancreatitis complication: unspecified Pancreatitis type: unspecified pancreatitis type Qualified Code(s): K85.90 - Acute pancreatitis without necrosis or infection, unspecified Code(s): K85.90 - Acute pancreatitis without necrosis or infection, unspecified Status: Acute Assessment and Plan: he has no abdominal pain. His lipase was elevated. This could be due to his hypercalcemia and or temporary hypotension. No endoscopic intervention is necessary at this time. Will follow lipase. (2) Hypercalcemia: Code(s): E83.52 - Hypercalcemia Status: Acute Assessment and Plan: His calcium was as high as 16.5 on December 06. Was 11.9 yesterday and today for the 1st time it is in the normal range at 10.2. This may have been a factor in his pancreatitis. (3) NSTEMI (non-ST elevated myocardial infarction): Code(s): I21.4 - Non-ST elevation (NSTEMI) myocardial infarction Status: Acute Assessment and Plan: He has had chest pain for the last few weeks and shortly after being transferred to a rehabilitation center he was back here with chest pain. (4) Elevated troponin: Code(s): R77.8 - Other specified abnormalities of plasma proteins Status: Acute Assessment and Plan: Cardiac catheterization is scheduled for today. 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 He will be due for repeat examination in about 18 months. He should maintain pantoprazole 40 mg a day. GI Consult Note Consult date/time: 12/17/22 07:17 HPI: Steffen Martinez is a 72 year old male Who is readmitted within 1 day after leaving due to having chest pain. His troponins are elevated he is scheduled for cardiac catheterization Today. He has long history of coronary artery disease and is status post bypass. Of [place] him by Dr. Joshua who was on-call, because apparently I did an EGD on him while back and found some Barretts esophagus. The patient states that he is having no gastrointestinal symptoms at this time. He denies any significant heartburn dysphagia. He denies abdominal pain. His lipase was found to be elevated which is where we come in. He does not believe that he has ever had pancreatitis. Review of Systems Review of Systems: All systems reviewed & are unremarkable except as noted in HPI and below PMFSH Past Medical History Medical History Acute recurrent maxillary sinusitis Allergic rhinitis Anxiety and depression Arthritis Bilateral cataracts Maturing Chronic low back pain With history of L4-L5-L5-S1 surgery Coronary artery disease involving coronary bypass graft of [place] heart COVID-19 DDD (degenerative disc disease) Essential (primary) hypertension Former smoker Gastroesophageal reflux disease Grade II internal hemorrhoids Hearing loss Hemorrhoid Hiatal hernia Hypersomnia Hypoxia Insomnia Left knee DJD Medullary sponge kidney With history of kidney stones in 198906/25/1994 Mixed hyperlipidemia Morbid obesity Obstructive sleep apnea on CPAP Auto titrating CPAP Painful total knee replacement, right Personal history of noncompliance with medical treatment and regimen Pre-diabetes (Unknown) Primary osteoarthritis of left knee Restless leg ST elevation myocardial infarction (STEMI) Systolic dysfunction With ejection fraction of 45-50% on cardiac catheterization May 2017 Surgical History Surgical History History of cardiac catheterization Cardiac catheterization with stent placement 2000, may 2017 with stent to the RCA due to complete occlusion stented at
--- NOTE | 2022-12-17 07:33 | ECG_ITS ---
Measurements Intervals [place] Rate: 91 P: 57 HI: 170 QRS: -36 QRSD: 101 T: 33 QT: 378 QTc: 466 Interpretive Statements SINUS RHYTHM WITH FREQUENT SUPRAVENTRICULAR PREMATURE COMPLEXES PATTERN CONSISTENT WITH PULMONARY DISEASE INFERIOR MYOCARDIAL INFARCTION [40+ ms Q WAVE AND/OR ST/T ABNORMALITY IN II/aVF], PROBABLY OLD ABNORMAL ECG INTERPRETATION BASED ON A DEFAULT AGE OF 40 YEARS COMPARED TO ECG 12/16/2022 09:14:23 MYOCARDIAL INFARCT FINDING NOW PRESENT Electronically Signed On 12-17-2022 10:33:05 CDT by Duong Mejia M.D.
--- NOTE | 2022-12-17 07:50 | PM.PNCARD ---
Progress Note: A&P Assessment and Plan (1) Chest pain: Qualifiers: Chest pain type: unspecified Qualified Code(s): R07.9 - Chest pain, unspecified Code(s): R07.9 - Chest pain, unspecified Status: Acute Assessment and Plan: Risks especially worsening renal function/benefits/alternative to LHC discussed with patient and patient's and they are agreeable to it. EKG shows new ST depression in anterolat/high lat leads. 12/08/22 Echo: EF >70%, mild LVH, anterior wall hypokinetic, grade I diastolic dysfunction. On heparin drip, aspirin, plavix, atorvastatin, Metoprolol, Ranexa, Imdur. Patient decided he wanted LHC. [place] [facility] [place] going for LHC today. Stat EKG due to abrupt onset severe CP. (2) Elevated troponin: Code(s): R77.8 - Other specified abnormalities of plasma proteins Status: Acute Assessment and Plan: Trend troponin to peak, it got to 4.6 yesterday. Troponin pending this AM. (3) Coronary artery disease involving coronary bypass graft of [place] heart: Code(s): I25.810 - Atherosclerosis of coronary artery bypass graft(s) without angina pectoris Status: Acute (4) Mixed hyperlipidemia: Code(s): E78.2 - Mixed hyperlipidemia Status: Acute Assessment and Plan: On Atorvastatin. (5) Essential (primary) hypertension: Code(s): I10 - Essential (primary) hypertension Status: Acute Assessment and Plan: Stable. Subjective Date/time seen: 12/17/22 07:50 Interval history: Reports woke up this morning with severe chest pain, but palpation does double the pain . No sob. Exam Const: General: cooperative, healthy appearing and comfortable Orientation/consciousness: oriented to person, oriented to place and oriented to time Resp: Auscultation: clear to auscultation bilaterally, no crackles, no rales, no rhonchi and no wheezes Cardio: Rate: regular rate Rhythm: regular rhythm Heart sounds: no murmurs Peripheral pulses: dorsalis pedis present Neuro: General: oriented to person, oriented to place and oriented to time Extrem: Right lower extremity: no edema Left lower extremity: no edema Objective Data Vital Signs Vital Signs: Vital Signs - 24 hr 12/16/22 08:00 12/16/22 08:00 12/16/22 08:00 Temperature 98 F Pulse Rate 94 91 Respiratory Rate 16 Blood Pressure 139/78 Pulse Oximetry 98 Oxygen Delivery Room Air 12/16/22 10:00 12/16/22 11:23 12/16/22 12:00 Temperature 98 F Pulse Rate 75 80 Respiratory Rate 24 H Blood Pressure 128/79 Pulse Oximetry 100 Oxygen Delivery Room Air 12/16/22 12:00 12/16/22 14:00 12/16/22 16:00 Temperature Pulse Rate 82 78 Respiratory Rate Blood Pressure Pulse Oximetry Oxygen Delivery Room Air 12/16/22 16:00 12/16/22 16:00 12/16/22 18:00 Temperature 97.2 F L Pulse Rate 85 88 84 Respiratory Rate 28 H Blood Pressure 135/76 Pulse Oximetry 100 Oxygen Delivery 12/16/22 20:03 12/16/22 20:00 12/16/22 23:36 Temperature 97.5 F L 98.3 F Pulse Rate 86 87 89 Respiratory Rate 18 20 Blood Pressure 139/74 146/81 H Pulse Oximetry 96 97 Oxygen Delivery 12/17/22 03:18 12/16/22 22:00 12/17/22 00:00 Temperature 97.9 F Pulse Rate 90 83 91 Respiratory Rate 20 Blood Pressure 151/92 H Pulse Oximetry 96 Oxygen Delivery 12/17/22 02:00 12/17/22 03:52 12/17/22 06:00 Temperature Pulse Rate 92 88 85 Respiratory Rate Blood Pressure Pulse Oximetry Oxygen Delivery Intake/Output Intake/Output: Intake & Output 12/14/22 12/15/22 12/16/22 12/17/22 23:59 23:59 23:59 23:59 Intake Total 1790 460 Output Total 1670 360 Balance 120 100 Meds/Results Medications: Active Medications Generic Name Dose Route Start Last Admin Trade Name Freq PRN Reason Stop Dose Admin Acetaminophen 650 mg 12/16/22 05:08 12/16/22 17:10 Acetaminophen 325 Mg Tablet PO 650 mg Q4H
--- NOTE | 2022-12-17 08:03 | PC.NURSE ---
Pt c/o midsternal CP this am at 0730 am this nurse obtained EKG, Trops, and Vitals, Dr Cortes made aware of CP of 10/16 Nitro given, 05/[address] Cortes at bedside when this was going on, Dr Davidson made aware and will speak to Dr Belcher due to pt is scheduled to have cardiac cath today.
[2022-12-17] MEDS: SODIUM CHLORIDE 0.9% IV 1,000 ML 75 ML IV CONT (09:02)
[2022-12-17 09:04] LABS: Partial Thromboplastin Time 59.6 SECONDS (22.3-36.8)
[2022-12-17] MEDS: HEPARIN SODIUM 5,000 UNITS/ML VIAL 4000 UNITS IV PUSH (09:13)
[2022-12-17] MEDS: PANTOPRAZOLE 40 MG TABLET PO ×2 (09:18→20:44)
[2022-12-17] MEDS: METOPROLOL SUCCINATE EXT REL 100 MG TABCR PO (09:44)
[2022-12-17] MEDS: METOPROLOL SUCCINATE EXT REL 50 MG TABCR PO (09:44)
[2022-12-17] MEDS: ISOSORBIDE MONONITRATE 60 MG TAB.ER.24H 120 MG PO (09:44)
[2022-12-17] MEDS: ASPIRIN 81 MG ENTERIC TABLET PO (09:45)
[2022-12-17] MEDS: CLOPIDOGREL BISULFATE 75 MG TABLET PO (09:45)
--- NOTE | 2022-12-17 10:26 | PC.NURSE ---
Pt has been given plavix and Aspirin as ordered and metoprolol, prior to cardiac cath today.
--- NOTE | 2022-12-17 11:59 | PM.IMPN ---
Progress Note: A&P Assessment and Plan (1) NSTEMI (non-ST elevated myocardial infarction): Code(s): I21.4 - Non-ST elevation (NSTEMI) myocardial infarction Status: Acute Assessment and Plan: Patient presents with chest pain. Troponin up to 4.7. EKG showing nonspecific ST-T wave changes. Started on heparin drip. Aspirin, Plavix, Lipitor, metoprolol, Ranexa, Imdur given. 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 RCA showing stenosis without change. Vein graft was to 2 OM branches but only one seen now. Also had elevated BP and patient started on NTG drip and admitted to ICU. Monitor on telemetry Appreciate cardiology consult Continue aggressive medical management. (2) Acute pancreatitis: Qualifiers: Acute pancreatitis complication: unspecified Pancreatitis type: unspecified pancreatitis type Qualified Code(s): K85.90 - Acute pancreatitis without necrosis or infection, unspecified Code(s): K85.90 - Acute pancreatitis without necrosis or infection, unspecified Status: Acute Assessment and Plan: Lipase [address] on the abdomen showing normal GB and pancreas. He was made NPO with gentle IV fluid hydration. Lipase better. Continue to monitor (3) Chronic kidney disease, stage 3: Code(s): N18.30 - Chronic kidney disease, stage 3 unspecified Status: Chronic Assessment and Plan: Cr earlier this year was 1.4-1.6. Had BLAS with Cr to 4.0 last admission felt related to hypercalcemia. Cr continues to trend down slowly. Follow. (4) Essential (primary) hypertension: Code(s): I10 - Essential (primary) hypertension Status: Acute Assessment and Plan: Patient's blood pressure was reviewed on 12/17 Blood pressure poorly controlled. Now on NTG drip. Will continue to monitor. Advance medications. Wean drip as tolerated. (5) Coronary artery disease involving coronary bypass graft of [place] heart: Code(s): I25.810 - Atherosclerosis of coronary artery bypass graft(s) without angina pectoris Status: Acute Assessment and Plan: As above. Plan DVT prophylaxis with heparin GI prophylaxis with PPI Code status full code Subjective Date/time seen: 12/17/22 11:59 Interval history: 72yo male with CAD, HTN and pre-DM here for chest pain. 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 Chart reviewed. Patient back froom [facility]. He had chest pain this morning but not now. Chest pain localized tot he left parasternal area (points with one finger). Exam Narrative: AF 97.8 147/93 85 28 98% Gen - NARD Chest - CTA bilaterally, nml RR CV - regular with occasional extra beats. Tele showing sinus arrhythmias Abd - Soft, obese, NT Ext - No pedal edema. 2+ DP pulses bilaterally. Psych - Nml mood and affect Skin - Warm and dry. bruising noted right upper arm Objective Data Vital Signs Vital Signs: Vital Signs - 24 hr 12/16/22 12:00 12/16/22 12:00 12/16/22 14:00 Temperature Pulse Rate 82 78 Respiratory Rate Blood Pressure Pulse Oximetry Oxygen Delivery Room Air 12/16/22 16:00 12/16/22 16:00 12/16/22 16:00 Temperature 97.2 F L Pulse Rate 85 88 Respiratory Rate 28 H Blood Pressure 135/76 Pulse Oximetry 100 Oxygen Delivery Room Air 12/16/22 18:00 12/16/22 20:03 12/16/22 20:00 Temperature 97.5 F L Pulse Rate 84 86 87 Respiratory Rate 18 Blood Pressure 139/74 Pulse Oximetry 96 Oxygen Delivery 12/16/22 23:36 12/17/22 03:18 12/16/22 22:00 Temperature 98.3 F 97.9 F Pulse Rate 89 90 83 Respiratory Rate 20 20 Blood Pressure 146/81 H 151/92 H Pulse Oximetry 97 96 Oxygen Delivery 12/17/22 00:00 12/17/22 02:00 12/17/22 03:52 Temperature Pulse Rate 91 92 88 Respiratory Rate
--- NOTE | 2022-12-17 12:22 | WPDMODSED ---
Moderate Sedation Note-Pt Data Patient Data Diagnosis: NSTEMI Present Complaint: NSTEMI Procedure to be performed/Plan: Coronary angiography, bypass graft angiography Allergies Allergy/AdvReac Type Severity Reaction Status Date / Time chloramphenicol Allergy Severe EYE Verified 12/04/22 13:39 irritation nickel Allergy Mild Rash Verified 12/04/22 13:39 detergents Allergy Hives Uncoded 12/04/22 13:39 Home Medications Medication Instructions Recorded Confirmed Type aspirin 81 mg tablet,delayed 81 mg PO DAILY 03/04/19 12/16/22 History release multivitamin (Multiple Vitamins 1 tablet PO DAILY 03/04/19 12/16/22 History tablet) isosorbide mononitrate 60 mg 120 mg PO QAM 10/04/21 12/16/22 History tablet,extended release 24 hr ranolazine 500 mg tablet,extended 500 mg PO BID 10/04/21 12/16/22 History release,12 hr (Ranexa) ferrous sulfate 325 mg (65 mg 325 mg PO DAILY #90 tabs 12/01/21 12/16/22 Rx iron) tablet clopidogrel 75 mg tablet 75 mg PO QAM #90 tabs 03/20/22 12/16/22 Rx atorvastatin 40 mg tablet (Lipitor) 40 mg PO HS #90 tabs 07/11/22 12/16/22 Rx cyanocobalamin (vitamin B-12) 1,000 mcg PO DAILY #30 tabs 08/14/22 12/16/22 Rx 1,000 mcg tablet (Vitamin B-12) duloxetine 60 mg capsule,delayed 60 mg PO DAILY #30 caps 08/14/22 12/16/22 Rx release pantoprazole 40 mg tablet,delayed 40 mg PO BID #180 tabs 11/21/22 12/16/22 Rx release nitroglycerin 0.4 mg sublingual 0.4 mg sublingual DIRECTED PRN 11/25/22 12/16/22 Rx tablet (Nitrostat) Chest Pain #30 tabs benzonatate 200 mg capsule 200 mg PO BID PRN Cough 12/06/22 12/16/22 History amoxicillin 875 mg-potassium 1 tablet PO Q12H 5 days #10 tabs 12/14/22 12/16/22 Rx clavulanate 125 mg tablet metoprolol succinate 100 mg 100 mg PO DAILY 1 month #30 tabs 12/14/22 12/16/22 Rx tablet,extended release 24 hr metoprolol succinate 50 mg 50 mg PO DAILY 1 month #30 tabs 12/14/22 12/16/22 Rx tablet,extended release 24 hr risperidone 1 mg tablet (Risperdal) 2 mg PO QHS 1 month #60 tabs 12/14/22 12/16/22 Rx hydrocodone 10 mg-acetaminophen 1 tablet PO Q8H PRN Pain (Scale 12/16/22 12/16/22 History 325 mg tablet Score 7-10) Current Medications: Active Medications Acetaminophen (Acetaminophen 325 Mg Tablet) 650 mg PO Q4H PRN PRN Reason: Mild Pain (1-3) or Fever Last Admin: 12/16/22 17:10 Dose: 650 mg Hydrocodone Bitart/Acetaminophen (Hydrocodone/Acetaminophen (*Crx) 10-325 Mg Tablet) 1 tab PO Q8H PRN PRN Reason: Pain (Scale Score 7-10) Last Admin: 12/16/22 06:40 Dose: 1 tab Al Hydrox/Mg Hydrox/Simethicone (Mag Hydrox/Al Hydrox/Simeth 30 Ml Udc) 30 ml PO QID PRN PRN Reason: Dyspepsia Amoxicillin/Clavulanate Potassium (Amoxicillin/Clavulanate K 875-125 Mg Tab) 1 tablet PO Q12HR [facility] Stop: 12/19/22 21:01 Last Admin: 12/16/22 21:01 Dose: 1 tablet Aspirin (Aspirin 81 Mg Enteric Tablet) 81 mg PO DAILY [facility] Last Admin: 12/17/22 09:45 Dose: 81 mg Atorvastatin Calcium (Atorvastatin 40 Mg Tablet) 40 mg PO HS [facility] Last Admin: 12/16/22 21:02 Dose: 40 mg Benzonatate (Benzonatate 100 Mg Capsule) 200 mg PO BID PRN PRN Reason: Cough Clopidogrel Bisulfate (Clopidogrel Bisulfate 75 Mg Tablet) 75 mg PO QAM [facility] Last Admin: 12/17/22 09:45 Dose: 75 mg Cyanocobalamin (Cyanocobalamin 1,000 Mcg Tablet) 1,000 mcg PO DAILY [facility] Last Admin: 12/17/22 09:17 Dose: Not Given Duloxetine HCl (Duloxetine Hcl 60 Mg Capsule.Dr) 60 mg PO DAILY [facility] Last Admin: 12/17/22 09:17 Dose: Not Given Ferrous Sulfate (Ferrous Sulfate [address]) 325 mg PO DAILY [facility] Stop: 01/15/23 08:59 Last Admin: 12/17/22 09:17 Dose: Not Given Heparin Sodium (Porcine) (Heparin Sodium 5,000 Units/Ml Vial) 4,000 units IV PUSH PRN PRN PRN Reason: aPTT 55 - 70 seconds Last Admin: 12/17/22 09:13 Dose: 4,000 units Heparin Sodium (Porcine) (Heparin Sodium 5,000 Units/Ml Vial) 4,000 units IV PUSH PRN PRN PRN Reason: aPTT less than 55 seconds Sodium Chl
--- NOTE | 2022-12-17 12:23 | WPDCARDPROC ---
Cardiac Cath Procedure Note Date of procedure:: 12/17/22 Performing physician:: CATHETERIZATION LABORATORY REPORT Procedure Date: 12/17/2022 Printing Machine Operator: Radha Belcher M.D., [facility]? Referring Physician: Dr. Clemente Cortes ? Anesthesia: Versed and Fentanyl were ordered and given in my presence at 11:12, procedure ended at 11:59. Supervision of nurse monitored moderate sedation with Versed and Fentanyl was provided for 47 minutes. Total of Versed 2.5mg, Fentanyl 75mcg, Morphine 2mg were administered by the Dehydrogenation Converter Operator RN Radha Anguiano Pre-op Diagnosis: Coronary artery disease s/p CABG Post-op Diagnosis: 1. PLASTICS PLATER of the LAD and LCX. Moderate stenosis in the RPLV branch. This is angiographically unchanged compared to prior angiogram from 10/2021. 2. Patent VALENZUELA to LAD. 3. Occluded SVG to the RCA, which has been known. 4. On the prior angiogram from 10/2021, the SVG graft to Diagonal/OM appeared to be supplying 2 diagonal branches and 2 OM branches. Angiogram today shows patent SVG graft, but is no longer filling the diagonal branches and only fills 1 OM branch. Procedure(s): 1. Moderate sedation 2. Ultrasound-guided access of the right common femoral artery 3. Coronary angiography 4. Bypass graft angiography 5. Angioseal closure of the right common femoral artery Access Site: Right common femoral artery Brief History and Clinical Indications: Patient is a 72 year old male with known CAD s/p CABG and PCI, morbid obesity, recent diagnosis of lymphoma who is referred for cardiac cath for NSTEMI. All risks, benefits and alternatives to left heart catheterization with or without percutaneous coronary intervention was discussed at length with the patient. Risk of complications including but not limited to bleeding, infection, arrhythmia, stroke, worsening kidney function, blood loss, groin hematoma, limb loss, emergency coronary artery bypass grafting, and even were discussed with the patient and all questions were answered. The patient understood and wished to proceed. Time out called, patient name, date of , medical record number, allergies, procedure performed, identify Printing Machine Operator, patient and staff member concurred with accurate data, procedure carried on. Findings: LEFT HEART CATHETERIZATION FINDINGS: 1. Left main: The left main coronary artery is widely patent without any significant obstructive disease. 2. Left anterior descending: The LAD is PLASTICS PLATER in its mid portion. 3. Left circumflex: The left circumflex artery is PLASTICS PLATER in its proximal portion. 4. Right coronary artery: The RCA is the dominant vessel. Patent stent seen in the proximal-mid RCA with minimal in-stent restenosis. The distal RCA has mild disease. Moderate stenosis in the proximal RPLV. 5. Bypass graft angiography. A. Patent VALENZUELA to LAD. The proximal left subclavian has significant tortuosity. Non-selective angiogram obtained of the VALENZUELA due to difficulty in advanced diagnostic catheter due to subclavian tortuosity. B. Occluded SVG to the RCA, which has been known. C. On the prior angiogram from 10/2021, the SVG graft to Diagonal/OM appeared to be supplying 2 diagonal branches and 2 OM branches. Angiogram today shows patent SVG graft, but is no longer filling the diagonal branches and only fills 1 OM branch. Description of Procedure: Informed consent signed and placed in the chart. Patient transferred to laboratory equipment cleaner room. Prepped and draped in usual sterile fashion. 2% lidocaine in right groin area. Micropuncture needle used to access right common femoral artery under ultrasound guidance. J wire advanced, micropuncture cannula placed. Right iliofemoral angiogram performed, access confirmed and micropuncture cannula exchanged for 6-FR sheath. 5F FL 4 diagnostic catheter engaged Left Main Coronary Artery. 5F FR 4 diagnostic catheter engaged Right Coronary Artery. 5F FR 4 diagnostic catheter engaged in the SVG-RCA stump. 5F FR 4 diagnostic catheter enga
--- NOTE | 2022-12-17 12:29 | WPDCNINT ---
Assessment and Plan Assessment and plan (1) Hypertensive urgency: Code(s): I16.0 - Hypertensive urgency Status: Acute Assessment and Plan: Blood pressure was elevated during the cardiac catheterization procedure patient was started on nitroglycerin infusion He is already on a beta-shahnaz Imdur He is not on Derrek inhibitors due to acute renal failure. I will add 5 mg of Norvasc and try to wean down nitroglycerin infusion His chest pain appears noncardiac in nature and has definitely musculoskeletal component to it. Will add a Lidoderm patch along with analgesics (2) Chest pain: Qualifiers: Chest pain type: unspecified Qualified Code(s): R07.9 - Chest pain, unspecified Code(s): R07.9 - Chest pain, unspecified Status: Acute Assessment and Plan: Patient has been having intermittent chest pain for few weeks now. Although he does have coronary disease and elevated troponin significant component of chest pain is musculoskeletal as he is significantly tender and his sternum. Along with p.r.n. morphine I will order a Lidoderm patch to be placed on his sternum. Will try to wean off nitroglycerin infusion as per his blood pressure (3) NSTEMI (non-ST elevated myocardial infarction): Code(s): I21.4 - Non-ST elevation (NSTEMI) myocardial infarction Status: Acute Assessment and Plan: Patient has history of coronary disease status post CABG and subsequent PCI in the past. He also has hypertension hyperlipidemia morbid obesity. Presented with non STEMI. He had cardiac catheterization today. Refer to report by Cardiology. No lesions amenable to PCI was seen Continue aspirin Plavix statin Imdur beta-shahnaz and Ranexa Echo 12/08 Summary ? 1. Technically challenging echocardiogram because of obesity/definity contrast utilized. ? 2. Overall vigorous left ventricular systolic function with concentric hypertrophy. ? 3. Hypokinesis of the anteroseptal segment. ? 4. Sclerotic but not stenotic aortic valve. ? 5. Compared with examination May of 2021 no obvious change. (4) CAD (coronary artery disease): Onset Date: 1997 Qualifiers: Associated angina: with stable angina Coronary Disease-Associated Artery/Lesion type: unspecified vessel or lesion type [place] vs. transplanted heart: [place] heart Qualified Code(s): I25.118 - Atherosclerotic heart disease of [place] coronary artery with other forms of angina pectoris Code(s): I25.10 - Atherosclerotic heart disease of [place] coronary artery without angina pectoris Status: Chronic Assessment and Plan: See above (5) BLAS (acute kidney injury): Code(s): N17.9 - Acute kidney failure, unspecified Status: Acute Assessment and Plan: Patient presented with elevated creatinine on last admission which has been gradually improving. Seen by Nephrology on last admission Renal ultrasound- Right kidney very poorly visualized. Multiple incompletely evaluated cystic right renal lesions. Left nephrolithiasis. Monitor urine output electrolytes and creatinine (6) Hypercalcemia: Code(s): E83.52 - Hypercalcemia Status: Acute Assessment and Plan: Likely secondary to lymphoma patient was treated with IV fluids Lasix and calcitonin. Bisphosphonate was not given due to elevated creatinine Monitor labs (7) Elevated lipase: Code(s): R74.8 - Abnormal levels of other serum enzymes Status: Acute Assessment and Plan: Patient presented with elevated lipase but had no abdominal pain and CT scan did not show any abnormality around his pancreas. Patient was evaluated by GI and recommended no further workup at this time Plan DVT prophylaxis -start Lovenox Stress ulcer prophylaxis-PPI Nutrition -heart healthy diet Code Status - Full Code Family updated at bedside Total Critical Care Time - 35 minutes Due to a high probability of clinically significant, life threatening deter
[2022-12-17] MEDS: NITROGLYCERIN/D5W 200 MCG/ML 50 MG/250 ML BTL IV CONT (12:30)
--- NOTE | 2022-12-17 12:30 | PC.NURSE ---
This patient, Steffen Martinez, was received from medical laboratory technologist, pt was previously in 201 on 12/17/22 at 1230. Patient/family oriented to unit policies and routines
[2022-12-17] MEDS: AMOXICILLIN/CLAVULANATE K 875-125 MG TAB 1 TABLET PO ×2 (14:25→20:44)
[2022-12-17] MEDS: amLODIPine BESYLATE 5 MG TABLET PO (14:25)
[2022-12-17] MEDS: LIDOCAINE 5% PATCH 1 PATCH TRANSDERM (14:26)
[2022-12-17] MEDS: SODIUM CHLORIDE 0.9% IV 1,000 ML 125 ML IV CONT (14:27)
[2022-12-17] MEDS: HEPARIN SOD/D5W 100 UNITS/ML 25,000 UNITS/250 ML BAG 12 UNITS IV CONT (20:41)
[2022-12-17] MEDS: risperiDONE 1 MG TABLET 2 MG PO (20:44)
[2022-12-17] MEDS: ATORVASTATIN 40 MG TABLET PO (20:44)
[2022-12-17] MEDS: RANOLAZINE 500 MG TAB.ER.12H PO (20:44)
[2022-12-17] MEDS: MORPHINE SULFATE (*CRX) 2 MG/ML INJ IV PUSH (20:53)
[2022-12-18] VITALS (15 sets, daily range): BP systolic 100–175; BP diastolic 56–102; PULSE 71–88; RESP 14–31; TEMP 36.2–37.3; O2SAT 91–100
[2022-12-18 03:00] LABS: Basophils Percent Auto 0.6 % (0.2-1.2); Eosinophils Absolute Auto 0.3 K/mm3 (0-0.3); Eosinophils Percent Auto 5.1 % (0-4.4); Hematocrit 31.6 % (42.0-52.0); Hemoglobin 10.4 g/dL (14.0-18.0); Immature Granulocyte Absolute 0.01 K/mm3 (0.00-0.031); Immature Granulocyte Percent A 0.1 % (0-0.5); Lymphocytes Absolute Auto 0.98 K/mm3 (0.9-3.2); Lymphocytes Percent Auto 14.6 % (18.3-44.2); Mean Corpuscular HGB Conc 32.9 g/dl (32-36); Mean Corpuscular Hemoglobin 31.4 pg (26-34); Mean Corpuscular Volume 95.5 fl (80-100); Mean Platelet Volume 10.8 fl (7.4-10.4); Monocytes Absolute Auto 0.7 K/mm3 (0.1-0.6); Monocytes Percent Auto 10.8 % (2.6-8.5); Neutrophils Absolute Auto 4.6 K/mm3 (1.3-6.7); Neutrophils Percent Auto 68.8 % (45.5-73.1); Platelet Count Result 140 k/mm3 (150-375); Red Blood Count 3.31 M/mm3 (4.6-6.20); Red Cell Distribution Width 14.9 % (11.5-14.5); White Blood Count 6.7 K/mm3 (4.5-10.0)
[2022-12-18 03:13] LABS: Partial Thromboplastin Time 85.1 SECONDS (22.3-36.8)
[2022-12-18 03:22] LABS: Alanine Aminotransferase 32 U/L (6-50); Albumin Level 3.2 g/dL (3.5-5.1); Alkaline Phosphatase 102 U/L (38-126); Anion Gap 5 mmol/L (8-16); Aspartate Amino Transferase 45 U/L (17-59); Bilirubin,Total 0.7 mg/dL (0.2-1.3); Blood Urea Nitrogen 18 mg/dL (9-20); Calcium 9.9 mg/dL (8.4-10.2); Carbon Dioxide 24 mmol/L (22-30); Chloride 108 mmol/L (98-107); Estimated CRCL calculation 39 ml/min; Estimated Glomerular Filt Rate 30; Glucose 82 mg/dL (65-110); Lipase 386 U/L (23-300); Potassium 3.7 mmol/L (3.4-5.0); Sodium 137 mmol/L (137-145)
--- NOTE | 2022-12-18 08:06 | PM.PNCARD ---
Progress Note: A&P Assessment and Plan (1) Chest pain: Qualifiers: Chest pain type: unspecified Qualified Code(s): R07.9 - Chest pain, unspecified Code(s): R07.9 - Chest pain, unspecified Status: Acute Assessment and Plan: Risks especially worsening renal function/benefits/alternative to LHC discussed with patient and patient's and they are agreeable to it. EKG shows new ST depression in anterolat/high lat leads. 12/08/22 Echo: EF >70%, mild LVH, anterior wall hypokinetic, grade I diastolic dysfunction. Consulted [facility] and going for LHC. 12/17/22 Dr. 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 Moderate stenosis in the RPLV branch. This is angiographically unchanged compared to prior angiogram from 10/2021. Patent VALENZUELA to LAD. Occluded SVG to the RCA, which has been known. On the prior angiogram from 10/2021, the SVG graft to Diagonal/OM appeared to be supplying 2 diagonal branches and 2 OM branches. Angiogram today shows patent SVG graft, but is no longer filling the diagonal branches and only fills 1 OM branch. On heparin drip. Would continue heparin drip for 48 hours after peak of troponin which would be until tomorrow morning. Titrate off NTG drip. No intervention needed. Optimize medical therapy. On aspirin, plavix, atorvastatin, Metoprolol, increase Ranexa 1000 mg BID, Imdur. (2) Elevated troponin: Code(s): R77.8 - Other specified abnormalities of plasma proteins Status: Acute Assessment and Plan: Troponin peaked at 4.6. (3) Coronary artery disease involving coronary bypass graft of [place] heart: Code(s): I25.810 - Atherosclerosis of coronary artery bypass graft(s) without angina pectoris Status: Acute (4) Mixed hyperlipidemia: Code(s): E78.2 - Mixed hyperlipidemia Status: Acute Assessment and Plan: On Atorvastatin. (5) Essential (primary) hypertension: Code(s): I10 - Essential (primary) hypertension Status: Acute Assessment and Plan: High. Starting Amlodipine 5 mg daily. Monitor BP. Not on yadira inh or ARB due to recent ARF. Musculoskeletal pain also exacerbated BP, which is now under control. Subjective Date/time seen: 12/18/22 08:06 Interval history: Denies chest pain this morning. No sob. Exam Const: General: cooperative, healthy appearing and comfortable Orientation/consciousness: oriented to person, oriented to place and oriented to time Resp: Auscultation: clear to auscultation bilaterally, no crackles, no rales, no rhonchi and no wheezes Cardio: Rate: regular rate Rhythm: regular rhythm Heart sounds: no murmurs Peripheral pulses: dorsalis pedis present Neuro: General: oriented to person, oriented to place and oriented to time Extrem: Right lower extremity: no edema Left lower extremity: no edema Objective Data Vital Signs Vital Signs: Vital Signs - 24 hr 12/17/22 09:44 12/17/22 10:00 12/17/22 13:00 Temperature Pulse Rate 83 85 86 Respiratory Rate 30 H Blood Pressure 164/104 H Pulse Oximetry 93 Oxygen Delivery 12/17/22 12:30 12/17/22 12:30 12/17/22 12:45 Temperature Pulse Rate 89 88 Respiratory Rate 20 20 Blood Pressure 169/112 H 174/109 H Pulse Oximetry 94 94 95 Oxygen Delivery Room Air 12/17/22 12:30 12/17/22 13:30 12/17/22 13:15 Temperature Pulse Rate 89 89 89 Respiratory Rate 20 Blood Pressure 169/112 H 143/103 H 147/78 H Pulse Oximetry 93 Oxygen Delivery 12/17/22 13:46 12/17/22 14:34 12/17/22 14:16 Temperature Pulse Rate 85 85 82 Respiratory Rate 24 H 24 H Blood Pressure 166/77 H 145/108 H 145/108 H Pulse Oximetry 95 96 Oxygen Delivery 12/17/22 15:16 12/17/22 12:30 12/17/22 14:00 Temperature Pulse Rate 92 89 82 Respiratory Rate 26 H Blood Pressure 174/94 H Pulse Oximetry 97 Oxygen Delivery 12/17/22 16:32 12/17/22 16:16 12/17/22 16:00 Temperature Pulse Rate 84 82 86 Respiratory Rate 20 [place]
[2022-12-18] MEDS: amLODIPine BESYLATE 5 MG TABLET 10 MG PO (09:11)
[2022-12-18] MEDS: DULoxetine HCL 60 MG CAPSULE.DR PO (09:12)
[2022-12-18] MEDS: CYANOCOBALAMIN 1,000 MCG TABLET 1000 MCG PO (09:12)
[2022-12-18] MEDS: AMOXICILLIN/CLAVULANATE K 875-125 MG TAB 1 TABLET PO ×2 (09:12→21:04)
[2022-12-18] MEDS: CLOPIDOGREL BISULFATE 75 MG TABLET PO (09:12)
[2022-12-18] MEDS: ASPIRIN 81 MG ENTERIC TABLET PO (09:12)
[2022-12-18] MEDS: MULTIVITAMINS THERAPEUTIC TAB (*BKC) 1 TABLET PO (09:13)
[2022-12-18] MEDS: LIDOCAINE 5% PATCH 1 PATCH TRANSDERM (09:13)
[2022-12-18] MEDS: METOPROLOL SUCCINATE EXT REL 50 MG TABCR PO (09:13)
[2022-12-18] MEDS: METOPROLOL SUCCINATE EXT REL 100 MG TABCR PO (09:13)
[2022-12-18] MEDS: ISOSORBIDE MONONITRATE 60 MG TAB.ER.24H 120 MG PO (09:14)
[2022-12-18] MEDS: FERROUS SULFATE 325 MG TABLET DR PO (09:14)
[2022-12-18] MEDS: PANTOPRAZOLE 40 MG TABLET PO ×2 (09:14→21:04)
[2022-12-18] MEDS: RANOLAZINE 500 MG TAB.ER.12H 1000 MG PO ×2 (09:14→21:03)
[2022-12-18] MEDS: FUROSEMIDE INJ 100 MG/10 ML VIAL 80 MG IV PUSH (09:27)
[2022-12-18 09:32] LABS: Partial Thromboplastin Time 42.2 SECONDS (22.3-36.8)
--- NOTE | 2022-12-18 09:54 | WPDINTPN ---
Progress Note: A&P Assessment and Plan (1) Hypertensive urgency: Code(s): I16.0 - Hypertensive urgency Status: Acute Assessment and Plan: Blood pressure was elevated during the cardiac catheterization procedure patient was started on nitroglycerin infusion He is already on a beta-shahnaz Imdur He is not on Derrek inhibitors due to acute renal failure. He was started on 5 mg of Norvasc nitroglycerin infusion was weaned His blood pressure remains elevated I will increase Norvasc dose to 10 mg. Lasix 40 mg IV x1. IV fluids have been discontinued (2) Chest pain: Qualifiers: Chest pain type: unspecified Qualified Code(s): R07.9 - Chest pain, unspecified Code(s): R07.9 - Chest pain, unspecified Status: Acute Assessment and Plan: Patient has been having intermittent chest pain for few weeks now. Although he does have coronary disease and elevated troponin significant component of chest pain is musculoskeletal as he is significantly tender on his sternum. Improved with current treatment. Continue Lidoderm patch, p.r.n. [place] and morphine NSAIDS not given due to recovering acute kidney injury (3) NSTEMI (non-ST elevated myocardial infarction): Code(s): I21.4 - Non-ST elevation (NSTEMI) myocardial infarction Status: Acute Assessment and Plan: Patient has history of coronary disease status post CABG and subsequent PCI in the past. He also has hypertension hyperlipidemia morbid obesity. Presented with non STEMI. He had cardiac catheterization today. Refer to report by Cardiology. No lesions amenable to PCI was seen Continue aspirin Plavix statin Imdur beta-shahnaz and Ranexa He is currently on heparin infusion which Cardiology plans to continue for 48 hours Echo 12/08 Summary ? 1. Technically challenging echocardiogram because of obesity/definity contrast utilized. ? 2. Overall vigorous left ventricular systolic function with concentric hypertrophy. ? 3. Hypokinesis of the anteroseptal segment. ? 4. Sclerotic but not stenotic aortic valve. ? 5. Compared with examination May of 2021 no obvious change. (4) CAD (coronary artery disease): Onset Date: 1997 Qualifiers: Associated angina: with stable angina Coronary Disease-Associated Artery/Lesion type: unspecified vessel or lesion type [place] vs. transplanted heart: [place] heart Qualified Code(s): I25.118 - Atherosclerotic heart disease of [place] coronary artery with other forms of angina pectoris Code(s): I25.10 - Atherosclerotic heart disease of [place] coronary artery without angina pectoris Status: Chronic Assessment and Plan: See above (5) BLAS (acute kidney injury): Code(s): N17.9 - Acute kidney failure, unspecified Status: Acute Assessment and Plan: Patient presented with elevated creatinine on last admission which has been gradually improving. Seen by Nephrology on last admission Renal ultrasound- Right kidney very poorly visualized. Multiple incompletely evaluated cystic right renal lesions. Left nephrolithiasis. Monitor urine output electrolytes and creatinine (6) Hypercalcemia: Code(s): E83.52 - Hypercalcemia Status: Acute Assessment and Plan: Could be secondary to lymphoma patient was treated with IV fluids Lasix and calcitonin. Bisphosphonate was not given due to elevated creatinine Monitor labs (7) Elevated lipase: Code(s): R74.8 - Abnormal levels of other serum enzymes Status: Acute Assessment and Plan: Patient presented with elevated lipase but had no abdominal pain and CT scan did not show any abnormality around his pancreas. Patient was evaluated by GI and recommended no further workup at this time Lipase level has improved Plan DVT prophylaxis - Heparin gtt Stress ulcer prophylaxis-PPI Nutrition -heart healthy diet Code Status - Full Code Subjective Date/time seen: 12/18/22 He states he feels b
[2022-12-18] MEDS: HEPARIN SODIUM 5,000 UNITS/ML VIAL 4000 UNITS IV PUSH (10:06)
--- NOTE | 2022-12-18 10:41 | PCFNICU ---
ICU Rounding Note: Pt current nutrition is Heart healthy diet. Intakes 50-100%. Ensure Compact BID for additional 220 kcal and 9 g protein each. Nutrition recommendation: Continue with current nutrition care plan. Agree with current orders. Last recorded weight is 142 kg. Bowel Motility: +1 BM 12/17/22 Labs Reviewed: Hgb 10.4, Hct 31.6, Alb 3.2, GFR 30, Cre 2.2 Meds Noted: Plavix, protonix, B12 Skin: WNL Additional Notes: Moved to ICU for chest pain, hypertensive urgency. PER MD, likely to be downgraded to IMU status by tomorrow. Continue with current nutrition care plan, no changes. Agree with current orders Following daily in ICU rounds. .
[2022-12-18] MEDS: HEPARIN SOD/D5W 100 UNITS/ML 25,000 UNITS/250 ML BAG 16 UNITS IV CONT (15:11)
[2022-12-18] MEDS: oxyCODONE/ACETAMINOPHEN (*CRX) 5-325 MG TABLET 1 TABLET PO ×2 (15:23→21:08)
--- NOTE | 2022-12-18 17:47 | PM.IMPN ---
Progress Note: A&P Assessment and Plan (1) NSTEMI (non-ST elevated myocardial infarction): Code(s): I21.4 - Non-ST elevation (NSTEMI) myocardial infarction Status: Acute Assessment and Plan: Patient presents with chest pain. Troponin up to 4.7. EKG showing nonspecific ST-T wave changes. Started on heparin drip. Aspirin, Plavix, Lipitor, metoprolol, Ranexa, Imdur given. 12/08/22 Echo: EF >70%, mild LVH, anterior wall hypokinetic, grade I diast dysfxn (no wall motion abnormalities by Echo in May 2021) [facility] 12/17 showing JUNIOR ART DIRECTOR of LAD and LCX. Patent VALENZUELA to LAD. Occluded SVG to RCA (chronic). SVG graft also supplying 2 daignols and 2 OM branches but now no longer filling the diagonals and only 1 OM. Suspect patient with NSTEMI with elevated Trop and new wall motion abnormalities. Monitor on telemetry Appreciate cardiology consult Continue aggressive medical management. (2) Hypertensive urgency: Code(s): I16.0 - Hypertensive urgency Status: Acute Assessment and Plan: Patietn admitted to ICU after [facility] due to markedly elevated BP. he was placed on NTG drip and BP improved. He was weaned off the NTG drip last evening. Oral BP medications were adjusted. Contineu to monitor (3) Acute pancreatitis: Qualifiers: Acute pancreatitis complication: unspecified Pancreatitis type: unspecified pancreatitis type Qualified Code(s): K85.90 - Acute pancreatitis without necrosis or infection, unspecified Code(s): K85.90 - Acute pancreatitis without necrosis or infection, unspecified Status: Acute Assessment and Plan: Lipase [address] on the abdomen showing normal GB and pancreas. He was made NPO with gentle IV fluid hydration. Lipase better. Continue to monitor (4) Chronic kidney disease, stage 3: Code(s): N18.30 - Chronic kidney disease, stage 3 unspecified Status: Chronic Assessment and Plan: Cr earlier this year was 1.4-1.6. Had BLAS with Cr to 4.0 last admission felt related to hypercalcemia. Cr continues to trend down slowly. Cr 2.2 today Follow. (5) Coronary artery disease involving coronary bypass graft of [place] heart: Code(s): I25.810 - Atherosclerosis of coronary artery bypass graft(s) without angina pectoris Status: Acute Assessment and Plan: As above. (6) Essential (primary) hypertension: Code(s): I10 - Essential (primary) hypertension Status: Acute Assessment and Plan: Patient's blood pressure was reviewed on 12/18 Blood pressure well controlled now Will continue to monitor. Plan DVT prophylaxis with heparin GI prophylaxis with PPI Code status full code Subjective Date/time seen: 12/18/22 17:47 Interval history: 72yo male with CAD, HTN and pre-DM here for chest pain. 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 No SOB. Did ave chest pain earlier today but localized. Lidocaine patch chest wall in place. he feels well. Not out of bed at all today. Exam Narrative: AF 98.6 117/78 88 20 98% ra Gen - NARD Chest - R>L bibasilar crackles o/w clear CV - regular with occasional extra beats. Tele showing no significant dysrhythmias Abd - Soft, obese, NT Ext - No pedal edema. 2+ DP pulses bilaterally. Psych - Nml mood and affect Skin - Warm and dry. bruising noted upper arms Objective Data Vital Signs Vital Signs: Vital Signs - 24 hr 12/17/22 18:16 12/17/22 18:00 12/17/22 20:00 Temperature 97.6 F Pulse Rate 88 88 85 Respiratory Rate 30 H 19 Blood Pressure 135/85 146/83 H Pulse Oximetry 97 97 Oxygen Delivery 12/17/22 20:00 12/17/22 20:55 12/17/22 20:00 Temperature Pulse Rate 92 Respiratory Rate Blood Pressure Pulse Oximetry Oxygen Delivery Room Air CPAP 12/17/22 22:00 12/18/22 00:00 12/18/22 00:00 Temperature Pulse Rate 88
[2022-12-18 18:25] LABS: Partial Thromboplastin Time 116.5 SECONDS (22.3-36.8)
[2022-12-18] MEDS: risperiDONE 1 MG TABLET 2 MG PO (21:03)
[2022-12-18] MEDS: ATORVASTATIN 40 MG TABLET PO (21:04)
--- NOTE | 2022-12-18 21:51 | PC.NURSE ---
This patient, Steffen Martinez, was transferred to [IMU room 232 ] on 12/18/22 at 2145. Personal belongings sent with patient. Report given to [BALDEMAR Guido ]. Appropriate documentation sent with patient.
--- NOTE | 2022-12-18 22:58 | PC.NURSE ---
This patient, Steffen Martinez, was received from [ ICU] on 12/18/22 at 2130. Patient/family oriented to unit policies and routines
[2022-12-19] VITALS (21 sets, daily range): BP systolic 85–113; BP diastolic 51–75; PULSE 8–83; RESP 18–22; TEMP 36.4–36.9; O2SAT 94–98
[2022-12-19 01:11] LABS: Partial Thromboplastin Time 101.7 SECONDS (22.3-36.8)
[2022-12-19 04:57] LABS: Basophils Percent Auto 0.6 % (0.2-1.2); Eosinophils Absolute Auto 0.3 K/mm3 (0-0.3); Eosinophils Percent Auto 4.6 % (0-4.4); Hematocrit 31.6 % (42.0-52.0); Hemoglobin 10.5 g/dL (14.0-18.0); Immature Granulocyte Absolute 0.04 K/mm3 (0.00-0.031); Immature Granulocyte Percent A 0.6 % (0-0.5); Lymphocytes Absolute Auto 1.02 K/mm3 (0.9-3.2); Lymphocytes Percent Auto 15.7 % (18.3-44.2); Mean Corpuscular HGB Conc 33.2 g/dl (32-36); Mean Corpuscular Hemoglobin 31.4 pg (26-34); Mean Corpuscular Volume 94.6 fl (80-100); Mean Platelet Volume 11.2 fl (7.4-10.4); Monocytes Absolute Auto 0.7 K/mm3 (0.1-0.6); Monocytes Percent Auto 10.8 % (2.6-8.5); Neutrophils Absolute Auto 4.4 K/mm3 (1.3-6.7); Neutrophils Percent Auto 67.7 % (45.5-73.1); Platelet Count Result 160 k/mm3 (150-375); Red Blood Count 3.34 M/mm3 (4.6-6.20); Red Cell Distribution Width 14.7 % (11.5-14.5); White Blood Count 6.5 K/mm3 (4.5-10.0)
[2022-12-19 05:02] LABS: Potassium 3.7 mmol/L (3.4-5.0)
[2022-12-19 05:19] LABS: Alanine Aminotransferase 29 U/L (6-50); Albumin Level 3.3 g/dL (3.5-5.1); Alkaline Phosphatase 97 U/L (38-126); Anion Gap 6 mmol/L (8-16); Aspartate Amino Transferase 38 U/L (17-59); Bilirubin,Total 0.9 mg/dL (0.2-1.3); Blood Urea Nitrogen 22 mg/dL (9-20); Carbon Dioxide 28 mmol/L (22-30); Chloride 101 mmol/L (98-107); Estimated CRCL calculation 32 ml/min; Estimated Glomerular Filt Rate 23; Glucose 85 mg/dL (65-110); Lipase 289 U/L (23-300); Sodium 135 mmol/L (137-145)
--- NOTE | 2022-12-19 07:43 | PM.PNCARD ---
Progress Note: A&P Assessment and Plan (1) Chest pain: Qualifiers: Chest pain type: unspecified Qualified Code(s): R07.9 - Chest pain, unspecified Code(s): R07.9 - Chest pain, unspecified Status: Acute Assessment and Plan: Risks especially worsening renal function/benefits/alternative to LHC discussed with patient and patient's and they are agreeable to it. EKG shows new ST depression in anterolat/high lat leads. 12/08/22 Echo: EF >70%, mild LVH, anterior wall hypokinetic, grade I diastolic dysfunction. [place] [facility] [place] going for LHC. 12/17/22 Dr. Belcher [facility]: GALLEY HAND of the LAD and LCX. Moderate stenosis in the RPLV branch. This is angiographically unchanged compared to prior angiogram from 10/2021. Patent VALENZUELA to LAD. Occluded SVG to the RCA, which has been known. On the prior angiogram from 10/2021, the SVG graft to Diagonal/OM appeared to be supplying 2 diagonal branches and 2 OM branches. Angiogram today shows patent SVG graft, but is no longer filling the diagonal branches and only fills 1 OM branch. On heparin drip. Stop heparin drip this morning. No intervention needed. Optimize medical therapy. On aspirin, plavix, atorvastatin, Metoprolol, Ranexa 1000 mg BID, Imdur. May d/c home or back to acute rehab from cardiology standpoint. ?His regular automatic clipper and stripper is Dr. Murphy with [facility] in [place] and he needs to f/u with him in next 1-2 weeks. (2) Elevated troponin: Code(s): R77.8 - Other specified abnormalities of plasma proteins Status: Acute Assessment and Plan: Troponin peaked at 4.6. (3) Coronary artery disease involving coronary bypass graft of [place] heart: Code(s): I25.810 - Atherosclerosis of coronary artery bypass graft(s) without angina pectoris Status: Acute (4) Mixed hyperlipidemia: Code(s): E78.2 - Mixed hyperlipidemia Status: Acute Assessment and Plan: On Atorvastatin. (5) Essential (primary) hypertension: Code(s): I10 - Essential (primary) hypertension Status: Acute Assessment and Plan: Stable. Not on yadira inh or ARB due to recent ARF. Musculoskeletal pain also exacerbated BP, which is now under control. Subjective Date/time seen: 12/19/22 07:43 Interval history: Denies chest pain this morning. No sob. Exam Const: General: cooperative, healthy appearing and comfortable Orientation/consciousness: oriented to person, oriented to place and oriented to time Resp: Auscultation: clear to auscultation bilaterally, no crackles, no rales, no rhonchi and no wheezes Cardio: Rate: regular rate Rhythm: regular rhythm Heart sounds: no murmurs Peripheral pulses: dorsalis pedis present Neuro: General: oriented to person, oriented to place and oriented to time Extrem: Right lower extremity: no edema Left lower extremity: no edema Objective Data Vital Signs Vital Signs: Vital Signs - 24 hr 12/18/22 08:00 12/18/22 08:00 12/18/22 09:13 Temperature Pulse Rate 71 71 79 Respiratory Rate 31 H Blood Pressure Pulse Oximetry 99 Oxygen Delivery CPAP 12/18/22 09:13 12/18/22 08:00 12/18/22 10:00 Temperature 98.3 F Pulse Rate 79 74 78 Respiratory Rate 22 H Blood Pressure 166/102 H Pulse Oximetry 98 Oxygen Delivery 12/18/22 10:00 12/18/22 12:00 12/18/22 12:00 Temperature 98.5 F Pulse Rate 80 82 82 Respiratory Rate 19 24 H Blood Pressure 148/98 H 100/83 Pulse Oximetry 99 96 Oxygen Delivery 12/18/22 12:00 12/18/22 14:00 12/18/22 14:00 Temperature Pulse Rate 82 84 84 Respiratory Rate 24 H 19 Blood Pressure Pulse Oximetry 96 Oxygen Delivery Room Air 12/18/22 16:00 12/18/22 16:00 12/18/22 16:00 Temperature 98.6 F Pulse Rate 88 88 88 Respiratory Rate 20 20 Blood Pressure 117/78 Pulse Oximetry 98 98 Oxygen Delivery Room Air 12/18/22 18:00 12/18/22 18:00 12/18/22 21:01 Temperature 97.8 F Pulse Rate 87 81 77 R
[2022-12-19 08:11] LABS: Glucose Point of Care 83 mg/dl (65-105)
[2022-12-19] MEDS: AMOXICILLIN/CLAVULANATE K 875-125 MG TAB 1 TABLET PO ×2 (08:50→20:17)
[2022-12-19] MEDS: oxyCODONE/ACETAMINOPHEN (*CRX) 5-325 MG TABLET 1 TABLET PO ×3 (08:50→20:18)
[2022-12-19] MEDS: METOPROLOL SUCCINATE EXT REL 100 MG TABCR PO (08:51)
[2022-12-19] MEDS: MULTIVITAMINS THERAPEUTIC TAB (*BKC) 1 TABLET PO (08:51)
[2022-12-19] MEDS: METOPROLOL SUCCINATE EXT REL 50 MG TABCR PO (08:51)
[2022-12-19] MEDS: ENOXAPARIN 40 MG/0.4 ML SYRINGE SUB-Q (08:51)
[2022-12-19] MEDS: ISOSORBIDE MONONITRATE 60 MG TAB.ER.24H 120 MG PO (08:51)
[2022-12-19] MEDS: CLOPIDOGREL BISULFATE 75 MG TABLET PO (08:51)
[2022-12-19] MEDS: DULoxetine HCL 60 MG CAPSULE.DR PO (08:52)
[2022-12-19] MEDS: amLODIPine BESYLATE 5 MG TABLET 10 MG PO (08:52)
[2022-12-19] MEDS: CYANOCOBALAMIN 1,000 MCG TABLET 1000 MCG PO (08:52)
[2022-12-19] MEDS: RANOLAZINE 500 MG TAB.ER.12H 1000 MG PO ×2 (08:52→20:17)
[2022-12-19] MEDS: ASPIRIN 81 MG ENTERIC TABLET PO (08:52)
[2022-12-19] MEDS: PANTOPRAZOLE 40 MG TABLET PO ×2 (08:52→20:17)
[2022-12-19] MEDS: FERROUS SULFATE 325 MG TABLET DR PO (08:52)
[2022-12-19] MEDS: LIDOCAINE 5% PATCH 1 PATCH TRANSDERM (08:53)
--- NOTE | 2022-12-19 16:05 | PM.IMPN ---
Progress Note: A&P Assessment and Plan (1) NSTEMI (non-ST elevated myocardial infarction): Code(s): I21.4 - Non-ST elevation (NSTEMI) myocardial infarction Status: Acute Assessment and Plan: Patient presents with chest pain. Troponin up to 4.7. EKG showing nonspecific ST-T wave changes. Started on heparin drip. Aspirin, Plavix, Lipitor, metoprolol, Ranexa, Imdur given. 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 Patent VALENZUELA to LAD. Occluded SVG to RCA (chronic). SVG graft also supplying 2 diagonals and 2 OM branches but now no longer filling the diagonals and only 1 OM. Suspect patient with NSTEMI with elevated Trop and new wall motion abnormalities with loss of diagonals and one OM. Monitor on telemetry Appreciate cardiology consult Continue aggressive medical management. (2) Hypertensive urgency: Code(s): I16.0 - Hypertensive urgency Status: Acute Assessment and Plan: Patient admitted to ICU after [facility] due to markedly elevated BP. He was placed on NTG drip and BP improved. He was weaned off the NTG drip last evening. Oral BP medications were adjusted. BP soft currently but otherwise well controlled. Continue to monitor. Hold Norvasc (3) Chronic kidney disease, stage 3: Code(s): N18.30 - Chronic kidney disease, stage 3 unspecified Status: Chronic Assessment and Plan: Cr earlier this year was 1.4-1.6. Had BLAS with Cr to 4.0 last admission felt related to hypercalcemia. Cr continues to trend down slowly. Cr higher today at 2.7. UOP 4L yesterday. UOP today inaccurate but at 550ml in cannister now. Higher Cr related to better controlled BP? No recent contrast exposure. Follow Cr and UOP. (4) Acute pancreatitis: Qualifiers: Acute pancreatitis complication: unspecified Pancreatitis type: unspecified pancreatitis type Qualified Code(s): K85.90 - Acute pancreatitis without necrosis or infection, unspecified Code(s): K85.90 - Acute pancreatitis without necrosis or infection, unspecified Status: Acute Assessment and Plan: Lipase [address] on the abdomen showing normal GB and pancreas. He was made NPO with gentle IV fluid hydration. Lipase better. Continue to monitor (5) Coronary artery disease involving coronary bypass graft of [place] heart: Code(s): I25.810 - Atherosclerosis of coronary artery bypass graft(s) without angina pectoris Status: Acute Assessment and Plan: As above. (6) Essential (primary) hypertension: Code(s): I10 - Essential (primary) hypertension Status: Acute Assessment and Plan: Patient's blood pressure was reviewed on 12/17 Blood pressure too well controlled. Adjust meds Plan DVT prophylaxis with Lovenox GI prophylaxis with PPI Code status full code Subjective Date/time seen: 12/19/22 16:05 Interval history: 72yo male with CAD, HTN and pre-DM here for chest pain. 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 Has CORDOBA when working with therapy. Feels better overall. No n/v Exam Narrative: AF 98.2 94/51 81 18 94% ra Gen - NARD Chest - CTA bilaterally. CV - RRR S1/S2. Tele showing 4b run NSVT o/w NSR with sinus arrhythmias Abd - Soft, obese, NT Ext - No pedal edema. 2+ DP pulses bilaterally. Psych - Nml mood and affect Skin - Warm and dry. bruising noted mid back Objective Data Vital Signs Vital Signs: Vital Signs - 24 hr 12/18/22 18:00 12/18/22 18:00 12/18/22 21:01 Temperature 97.8 F Pulse Rate 87 81 77 Respiratory Rate 25 H 25 H Blood Pressure 127/70 Pulse Oximetry 95 91 Oxygen Delivery 12/18/22 20:00 12/18/22 20:00 12/18/22 22:00 Temperature Pulse Rate 77 72 Respiratory Rate Blood Pres
[2022-12-19] MEDS: SODIUM CHLORIDE 0.9% IV 250 ML 999 ML IV CONT ×2 (18:35→20:18)
[2022-12-19] MEDS: SODIUM CHLORIDE 0.9% IV 250 ML 100 ML IV CONT (19:11)
[2022-12-19] MEDS: ATORVASTATIN 40 MG TABLET PO (20:16)
[2022-12-19] MEDS: risperiDONE 1 MG TABLET 2 MG PO (20:17)
[2022-12-19 20:38] LABS: Glucose Point of Care 118 mg/dl (65-105)
[2022-12-20] VITALS (12 sets, daily range): BP systolic 103–124; BP diastolic 49–65; PULSE 70–85; RESP 16–24; TEMP 36.4–37; O2SAT 95–99
[2022-12-20 05:22] LABS: Anion Gap 6 mmol/L (8-16); Blood Urea Nitrogen 24 mg/dL (9-20); Calcium 9.9 mg/dL (8.4-10.2); Carbon Dioxide 23 mmol/L (22-30); Chloride 104 mmol/L (98-107); Estimated CRCL calculation 32 ml/min; Estimated Glomerular Filt Rate 23; Glucose 81 mg/dL (65-110); Phosphorus 4.3 mg/dL (2.5-4.5); Potassium 3.7 mmol/L (3.4-5.0); Sodium 133 mmol/L (137-145)
[2022-12-20] MEDS: CYANOCOBALAMIN 1,000 MCG TABLET 1000 MCG PO (09:33)
[2022-12-20] MEDS: PANTOPRAZOLE 40 MG TABLET PO (09:33)
[2022-12-20] MEDS: METOPROLOL SUCCINATE EXT REL 50 MG TABCR PO (09:33)
[2022-12-20] MEDS: FERROUS SULFATE 325 MG TABLET DR PO (09:33)
[2022-12-20] MEDS: MULTIVITAMINS THERAPEUTIC TAB (*BKC) 1 TABLET PO (09:33)
[2022-12-20] MEDS: ISOSORBIDE MONONITRATE 60 MG TAB.ER.24H 120 MG PO (09:33)
[2022-12-20] MEDS: METOPROLOL SUCCINATE EXT REL 100 MG TABCR PO (09:33)
[2022-12-20] MEDS: ASPIRIN 81 MG ENTERIC TABLET PO (09:33)
[2022-12-20] MEDS: CLOPIDOGREL BISULFATE 75 MG TABLET PO (09:34)
[2022-12-20] MEDS: RANOLAZINE 500 MG TAB.ER.12H 1000 MG PO (09:34)
[2022-12-20] MEDS: ENOXAPARIN 40 MG/0.4 ML SYRINGE SUB-Q (09:34)
[2022-12-20] MEDS: DULoxetine HCL 60 MG CAPSULE.DR PO (09:34)
[2022-12-20] MEDS: LIDOCAINE 5% PATCH 1 PATCH TRANSDERM (09:54)
--- NOTE | 2022-12-20 13:14 | PM.DS ---
DS: Admitting Diagnosis Discharge Date 12/20/22 Admitting Diagnosis Chest pain DS: Discharge Diagnosis Discharge Diagnosis (1) NSTEMI (non-ST elevated myocardial infarction): Code(s): I21.4 - Non-ST elevation (NSTEMI) myocardial infarction Status: Acute (2) Hypertensive urgency: Code(s): I16.0 - Hypertensive urgency Status: Acute (3) Chronic kidney disease, stage 3: Code(s): N18.30 - Chronic kidney disease, stage 3 unspecified Status: Chronic (4) Acute pancreatitis: Qualifiers: Acute pancreatitis complication: unspecified Pancreatitis type: unspecified pancreatitis type Qualified Code(s): K85.90 - Acute pancreatitis without necrosis or infection, unspecified Code(s): K85.90 - Acute pancreatitis without necrosis or infection, unspecified Status: Acute (5) Coronary artery disease involving coronary bypass graft of [place] heart: Code(s): I25.810 - Atherosclerosis of coronary artery bypass graft(s) without angina pectoris Status: Acute (6) Essential (primary) hypertension: Code(s): I10 - Essential (primary) hypertension Status: Acute DS: Summary Hospital Course Reason for hospitalization: 72yo male with CAD, HTN and pre-DM here for chest pain. 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 Please see H&P for details. Hospital Course: Patient presents back to the ED with chest pain. Troponin was up to 4.7. EKG showing nonspecific ST-T wave changes. He was started on a heparin drip. Aspirin, Plavix, Lipitor, metoprolol, Ranexa, Imdur given. Echo from 12/08/22: EF >70%, mild LVH, anterior wall hypokinetic, grade I diast dysfxn (no wall motion abnormalities by Echo in May 2021). Cardiology consulted and patient underwent LHC 12/17 which showed WHALE TRAINER of LAD and LCX. Patent VALENZUELA to LAD. Occluded SVG to RCA (chronic). SVG graft also was supplying 2 diagonals and 2 OM branches but now no longer filling the diagonals and only 1 OM. Suspect patient with NSTEMI with elevated Trop and new wall motion abnormalities with loss of diagonals and one OM.? Appreciate cardiology input. He was treated with aggressive medical management. Patient was admitted to ICU after LHC due to markedly elevated BP. He was placed on NTG drip in the medical laboratory technical officer and BP improved. He was weaned off the NTG drip. Oral BP medications were adjusted. BP became soft so medications held with improvement. Cr earlier this year was 1.4-1.6. Had BLAS with Cr to 4.0 last admission felt related to hypercalcemia. Cr continued to trend down slowly. Cr higher at 2.7 felt related to soft blood pressure. Also noted to have urine retention which also could be playing a part. [place]a placed. Flomax started. Repeat Cr 2.7. Suspect this will improve with improved blood pressure and with Astorga in place. Lipase was [address] on the abdomen showing normal GB and pancreas. TG 154. He was made NPO and given gentle IV fluid hydration. Repeat Lipase normal now. He is eating well without symptoms. He worked with therapy. He overall did well adn was able to be discharged on 12/20/22. Status at Discharge Cognitive/behavioral status at discharge: stable Time Spent with Patient Time attestation: Total time spent providing and/or coordinating discharge services: 35 minutes Time spent: Greater than 30 minutes Exam Narrative: AF 98.4 103/58 77 16 96% ra Gen - NARD Chest - CTA bilaterally. CV - RRR S1/S2. Tele showing no significant dysrhythmias Abd - Soft, obese, NT Ext - No pedal edema Psych - Nml mood and affect Skin - Warm and dry. DS: Data Data Completed and Pending Labs on day of discharge: Labs from last 24 hours 12/20/22 12/19/22 04:55 19:37 Sodium 133 L Potassium 3.7 Chloride 104 Carbon Dioxide 23 Anion Gap 6 L BUN 24 H Creatinine 2.70 H Estim Creat Clear Calc 32 Estimated GFR
== END 2022-12-20 18:32 | DRG 280 ==
LOC: ANHED 12-16 01:42 → ANHIMU 12-16 03:29 → ANHICU 12-22 13:50 → ANHIMU 12-22 13:50
PROVIDERS: Internal Medicine; Internal Medicine Cardiovascular Disease; Student in an Organized Health Care Education/Training Program; Admitting Provider Family Medicine; Emergency Provider Emergency Medicine; PCP Nurse Practitioner; Visit Provider Internal Medicine
PROC: 4A023N7 Measurement of Cardiac Sampling and Pressure, Left Heart, Percutaneous Approach (ICD-10-PCS; principal; 2022-12-17 10:00)
PROC: 4A023N7 Measurement of Cardiac Sampling and Pressure, Left Heart, Percutaneous Approach (ICD-10-PCS; 2022-12-17 10:00)
DX: I22.2 Subsequent non-ST elevation (NSTEMI) myocardial infarction (principal); K85.90 Acute pancreatitis without necrosis or infection, unspecified; Q61.5 Medullary cystic kidney; Z68.42 Body mass index [BMI] 45.0-49.9, adult; T82.855A Stenosis of coronary artery stent, initial encounter; N17.9 Acute kidney failure, unspecified; I97.88 Other intraoperative complications of the circulatory system, not elsewhere classified; I25.810 Atherosclerosis of coronary artery bypass graft(s) without angina pectoris; I21.4 Non-ST elevation (NSTEMI) myocardial infarction; I25.10 Atherosclerotic heart disease of native coronary artery without angina pectoris; I25.82 Chronic total occlusion of coronary artery; I16.0 Hypertensive urgency; I12.9 Hypertensive chronic kidney disease with stage 1 through stage 4 chronic kidney disease, or unspecified chronic kidney disease; N18.30 Chronic kidney disease, stage 3 unspecified; E83.52 Hypercalcemia; E78.2 Mixed hyperlipidemia; E66.01 Morbid (severe) obesity due to excess calories; D50.9 Iron deficiency anemia, unspecified; K44.9 Diaphragmatic hernia without obstruction or gangrene; K21.9 Gastro-esophageal reflux disease without esophagitis; K22.70 Barrett's esophagus without dysplasia; M19.90 Unspecified osteoarthritis, unspecified site; M17.12 Unilateral primary osteoarthritis, left knee; G25.81 Restless legs syndrome; R73.03 Prediabetes; F41.9 Anxiety disorder, unspecified; F32.A Depression, unspecified; Z96.651 Presence of right artificial knee joint; Z95.5 Presence of coronary angioplasty implant and graft; Z79.82 Long term (current) use of aspirin; Z95.1 Presence of aortocoronary bypass graft; Z87.891 Personal history of nicotine dependence; Z91.199 Patient's noncompliance with other medical treatment and regimen due to unspecified reason
CPT/HCPCS: 36415; 71045; 74176; 80053; 80069; 82948; 83690; 83735; 84100; 84484; 85025; 85610; 85730; 93005; 93455; 96365; 96366; 97161; 97166; 99285; A9270; C1760; C1769; C1887; C1894; G0269; G0378; J1644; J1650; J1940; J2250; J2270; J2305; J3010; J7030; J7040; J7050

== ENCOUNTER 2022-12-26 19:02 | Inpatient (IN) | payer MEDICARE, OTHER, SELFPAY ==
[2022-12-26] VITALS (8 sets, daily range): BP systolic 98–148; BP diastolic 61–94; PULSE 87–104; RESP 15–44; TEMP 38.3–40.2; O2SAT 93–99
--- NOTE | ~2022-12-26 | CT_ITS ---
EXAMINATION: CT brain wo con INDICATION: Altered mental status COMPARISON: 12/11/2022 TECHNIQUE: Standard unenhanced head CT. The dose-length product (DLP) was 1362.00 mGy-cm. The mA was adjusted according to patient size. Iterative reconstruction technique was employed. FINDINGS: No acute intraparenchymal hemorrhage. No evidence of mass lesion. No evidence of acute infa rction. There is mild periventricular and subcortical hypodensity probably related to small vessel is chemic disease. There is mild prominence of the sulci and ventricles related to cerebral atrophy. Int racranial calcified cerebral atherosclerosis is noted. No extra-axial collections. No mass effect or midline shift. The orbits and soft tissues are unremarkable. The visualized sinuses and mastoid air c ells are well aerated. IMPRESSION: 1. No acute intracranial abnormality. 2. Age related findings. Reviewed, dictated and finalized at location F.
--- NOTE | ~2022-12-26 | XR_ITS ---
EXAMINATION: XR chest 1V INDICATION: Sepsis, altered mental status TECHNIQUE: AP view of the chest is obtained. COMPARISON: 12/15/2022 FINDINGS: Cardiomegaly is noted. The lung volumes are low. No pleural effusion or pneumothorax. Media n sternotomy wires and mediastinal surgical clips are seen, likely from prior coronary artery bypass grafting. IMPRESSION: 1. Cardiomegaly. Reviewed, dictated and finalized at location F. IMPRESSION: 1. Cardiomegaly.
--- NOTE | ~2022-12-26 | CT_ITS ---
EXAMINATION: CT chest abdomen pelvis wo con DATE: 12/26/2022 20:57 INDICATION: Fever and sepsis TECHNIQUE: Transaxial computed tomographic images of the chest, abdomen, and pelvis were obtained wit hout intravenous contrast. The dose-length product (DLP) was 1812.32 mGy-cm. Automated exposure contr ol and iterative reconstruction technique were employed. COMPARISON: 12/16/2022 FINDINGS: CHEST CT: Evaluation is limited by respiratory motion artifact and the lack of intravenous contrast. There is m ild dependent atelectasis. No pleural effusion or pneumothorax. Cardiomegaly is noted. There are byrnes ges of coronary artery bypass grafting. There is left axillary and left subpectoral lymphadenopathy. There is right supraclavicular lymphadenopathy. Periesophageal lymphadenopathy is also noted. There a re bridging osteophytes at multiple levels in the spine, consistent with diffuse idiopathic skeletal hyperostosis (DISH). ABDOMEN/PELVIS CT: Evaluation is limited by motion artifact and lack of intravenous contrast. The liver, spleen, pancrea s, gallbladder, and adrenal glands are normal. Nonobstructing stones of the left kidney measure up to 4 mm. There is atrophy of the right kidney which contains multiple cysts. Cysts of the kidneys measu re up to 4.1 cm on the right. There there is periportal, periceliac, aortocaval, left periaortic, and bilateral common and external iliac chain lymphadenopathy as well as right inguinal lymphadenopathy. No free intraperitoneal gas or evidence of bowel obstruction. There are changes of anterior and post erior fusion from L4 through S1. There is mild wall thickening of the urinary bladder. IMPRESSION: 1. Lymphadenopathy of the chest, abdomen, and pelvis as detailed above, consistent with a lipoma. Nazia ge guided biopsy remains indicated. 2. Mild wall thickening of the urinary bladder which could reflect cystitis versus chronic outlet obs truction. Reviewed, dictated and finalized at location F. IMPRESSION: 1. Lymphadenopathy of the chest, abdomen, and pelvis as detailed above, consist ent with a lipoma. Image guided biopsy remains indicated. 2. Mild wall thickening of the urinary bladder which could reflect cystitis ulysses rebecca chronic outlet obstruction.
--- NOTE | 2022-12-26 19:10 | ECG_ITS ---
Measurements Intervals [place] Rate: 105 P: 18 DC: 144 QRS: -24 QRSD: 118 T: 38 QT: 313 QTc: 414 Interpretive Statements SINUS TACHYCARDIA BORDERLINE LEFT AXIS DEVIATION [QRS AXIS < -20] MODERATE INTRAVENTRICULAR CONDUCTION DELAY [110+ ms QRS DURATION] NONSPECIFIC ST & T-WAVE ABNORMALITY ABNORMAL RHYTHM ECG COMPARED TO ECG 12/17/2022 07:42:51 NO SIGNIFICANT CHANGE Electronically Signed On 12-27-2022 8:51:12 CDT by Steffen Bloom M.D.
--- NOTE | 2022-12-26 19:24 | ED.AMS ---
HPI - Altered Mental Status General Chief Complaint: Altered Mental Status Stated Complaint: ams Time Seen by Provider: 12/26/22 19:09 Source: patient and old records reviewed Mode of arrival: EMS Limitations: altered mental status and clinical condition History of Present Illness HPI narrative: Patient is a 72 y/o male who presents to the ED via EMS with c/o AMS. Patient sent from [facility] for fever and altered mental status. Last known well around 1600. Per records, patient has been admitted here several times recently for NSTEMI, BLAS, acute pancreatitis, underwent cardiac catheterization that did not require stenting. He was discharged to rehab on 12/20. Patient unable to voice any concerns or provide any useful information. A&O x0. Related Data Home Medications Medication Instructions Recorded Confirmed aspirin 81 mg tablet,delayed 81 mg PO DAILY 03/04/19 12/27/22 release multivitamin (Multiple Vitamins 1 tablet PO DAILY 03/04/19 12/27/22 tablet) isosorbide mononitrate 60 mg 120 mg PO QAM 10/04/21 12/27/22 tablet,extended release 24 hr benzonatate 200 mg capsule 200 mg PO BID PRN Cough 12/06/22 12/27/22 hydrocodone 5 mg-acetaminophen 325 1 tablet PO Q6H PRN Pain (Scale 12/20/22 12/27/22 mg tablet Score 4-6) acetaminophen 325 mg tablet 650 mg PO Q6H PRN Pain (Scale 12/27/22 12/27/22 Score 1-3) cetirizine 10 mg tablet 10 mg PO DAILY 12/27/22 12/27/22 cyclobenzaprine 5 mg tablet 5 mg PO HS 12/27/22 12/27/22 fluticasone propionate 1 spray EACH NARE Q12H 12/27/22 12/27/22 hydrocortisone 2.5 % topical cream 1 applic topical BID 12/27/22 12/27/22 miconazole nitrate 2 % topical 1 applic topical Q12H 12/27/22 12/27/22 cream Allergies Allergy/AdvReac Type Severity Reaction Status Date / Time chloramphenicol Allergy Severe EYE Verified 12/04/22 13:39 irritation nickel Allergy Mild Rash Verified 12/04/22 13:39 detergents Allergy Hives Uncoded 12/04/22 13:39 Review of Systems Review of Systems: ROS unobtainable: Yes unobtainable due to medical condition and unobtainable due to mental status [facility] Past Medical History Medical History Acute recurrent maxillary sinusitis Allergic rhinitis Anxiety and depression Arthritis Bilateral cataracts Maturing Chronic low back pain With history of L4-L5-L5-S1 surgery Coronary artery disease involving coronary bypass graft of [place] heart COVID-19 DDD (degenerative disc disease) Essential (primary) hypertension Former smoker Gastroesophageal reflux disease Grade II internal hemorrhoids Hearing loss Hemorrhoid Hiatal hernia Hypersomnia Hypoxia Insomnia Left knee DJD Medullary sponge kidney With history of kidney stones in 198906/25/1994 Mixed hyperlipidemia Morbid obesity Obstructive sleep apnea on CPAP Auto titrating CPAP Painful total knee replacement, right Personal history of noncompliance with medical treatment and regimen Pre-diabetes (Unknown) Primary osteoarthritis of left knee Restless leg ST elevation myocardial infarction (STEMI) Systolic dysfunction With ejection fraction of 45-50% on cardiac catheterization May 2017 Surgical History Surgical History History of cardiac catheterization Cardiac catheterization with stent placement 2000, may 2017 with stent to the RCA due to complete occlusion stented at [facility], high-grade stenosis 80% occlusion to saphenous vein graft to the circ that was stented June 2017 at [facility] History of cystoscopy With stone retrieval in 1994 History of spinal surgery L4-L5 and L5-S1 PLIF 2013 History of total right knee replacement 2010 Hx of CABG History of 5 vessel CABG in 1997 Family History Family History Father Diabetes mellitus Multiple myeloma Hypertension Heart valve replaced Heart dise
[2022-12-26] MEDS: ACETAMINOPHEN 650 MG SUPPOSITORY RECTAL (19:53)
[2022-12-26 20:26] LABS: Basophils Percent Auto 0.3 % (0.2-1.2); Eosinophils Percent Auto 0.2 % (0-4.4); Hematocrit 32.5 % (42.0-52.0); Hemoglobin 10.7 g/dL (14.0-18.0); Immature Granulocyte Absolute 0.09 K/mm3 (0.00-0.031); Immature Granulocyte Percent A 0.6 % (0-0.5); Lymphocytes Absolute Auto 0.59 K/mm3 (0.9-3.2); Lymphocytes Percent Auto 3.9 % (18.3-44.2); Mean Corpuscular HGB Conc 32.9 g/dl (32-36); Mean Corpuscular Hemoglobin 31.1 pg (26-34); Mean Corpuscular Volume 94.5 fl (80-100); Mean Platelet Volume 10.6 fl (7.4-10.4); Monocytes Absolute Auto 1.4 K/mm3 (0.1-0.6); Monocytes Percent Auto 9.2 % (2.6-8.5); Neutrophils Absolute Auto 13.1 K/mm3 (1.3-6.7); Neutrophils Percent Auto 85.8 % (45.5-73.1); Platelet Count Result 221 k/mm3 (150-375); Red Blood Count 3.44 M/mm3 (4.6-6.20); Red Cell Distribution Width 14.4 % (11.5-14.5); White Blood Count 15.3 K/mm3 (4.5-10.0)
[2022-12-26 20:28] LABS: Alveolar/Arterial O2 Gradient 42.2 mmHg; Base Excess ABG -1.3 mEq/l (+/-2.0); Carboxyhemoglobin 0.3 % THb (0-2.0); Fractional Inspired Oxygen 21 %; HCO3 ABG 21.4 mEq/l (22.0-26.0); Methemoglobin ABG 0.3 %THb (0-1.5); Oxygen Content ABG 15.5 %vol (16.0-22.0); Oxygen Saturation ABG 95.7 % (95.0-100.0); Oxyhemoglobin 94.1 % THb (90.0-100.0); PCO2 ABG 29.4 mmHg (35.0-45.0); PO2 ABG 72.3 mmHg (80.0-100.0); PO2 FiO2 Ratio Arterial Blood 3.44 %; Reduced Hemoglobin 5.3 %THb (0-5.0); Total Hemoglobin 11.7 g/dL (12.0-18.0); pH ABG 7.479 (7.350-7.450)
[2022-12-26 20:29] LABS: Device ROOM AIR; Modified Allen's Test Pass; Site Drawn LEFT RADIAL
[2022-12-26 20:29] LABS: Appearance Urine Clear (Clear); Bacteria Urine 2+ /hpf; Bilirubin Urine Negative (Negative); Blood Urine 3+ (Negative); Color Urine Yellow (Yellow); Glucose Urine UA Negative (Negative); Ketones Urine Negative (Negative); Leukocyte Esterase Ur 3+ LEU/UL (Negative); Nitrate Urine Negative (Negative); Protein Urine 1+ mg/dL (Negative); RBC Urine 51-100 /hpf (0-2); Specific Grav Ur 1.012 (1.001-1.035); Squamous Epithelial Cell Urine None seen /hpf (Few); WBC Urine >100 /hpf
[2022-12-26 20:31] LABS: Add Urine Microscopic? YES
[2022-12-26] MEDS: SODIUM CHLORIDE 0.9% IV 1,000 ML 999 ML IV CONT (20:34)
[2022-12-26 20:39] LABS: Prothrombin Time 14.2 Seconds (11.1-14.7)
[2022-12-26 20:43] LABS: Lactic Acid Reflex 1.2 mmol/L (0.7-2.0)
[2022-12-26 20:45] LABS: Magnesium 1.4 mg/dL (1.6-2.3)
[2022-12-26 20:47] LABS: Alanine Aminotransferase 34 U/L (6-50); Albumin Level 3.6 g/dL (3.5-5.1); Alkaline Phosphatase 110 U/L (38-126); Anion Gap 9 mmol/L (8-16); Aspartate Amino Transferase 38 U/L (17-59); Bilirubin,Total 0.8 mg/dL (0.2-1.3); Blood Urea Nitrogen 31 mg/dL (9-20); CRP 3.3 mg/dL (<1.0); Calcium 10.9 mg/dL (8.4-10.2); Carbon Dioxide 21 mmol/L (22-30); Chloride 100 mmol/L (98-107); Estimated CRCL calculation 42 ml/min; Estimated Glomerular Filt Rate 30; Glucose 104 mg/dL (65-110); Lipase 183 U/L (23-300); Potassium 4.7 mmol/L (3.4-5.0); Sodium 130 mmol/L (137-145)
[2022-12-26 20:52] LABS: NT Pro B Type Natriuretic Pept 4960 pg/mL (19.9-100)
[2022-12-26 21:01] LABS: Procalcitonin 0.3 ng/mL
[2022-12-26 21:15] LABS: Troponin I 0.117 ng/mL (0.000-0.034)
[2022-12-26] MEDS: PIPERACILLN/TAZ 3.375GM/NS50ML 3.375 GM/50 ML BAG IVPB (21:20)
[2022-12-26] MEDS: MAGNESIUM SULF 2 GM/WATER 50ML 2 GM/50 ML BAG IVPB (21:56)
[2022-12-26] MEDS: VANCOMYCIN 1,250 MG/NS 250 ML 1,250 MG/250 ML BAG 166.67 MG IVPB ×2 (21:57→23:53)
[2022-12-26] MEDS: fentaNYL CITRATE INJ (*CRX) 100 MCG/2 ML VIAL 25 MCG IV PUSH (23:52)
[2022-12-27] VITALS (14 sets, daily range): BP systolic 94–134; BP diastolic 56–74; PULSE 72–93; RESP 20–32; TEMP 36.4–37.8; O2SAT 10–100; BMI 59.8; BMI 49.5
--- NOTE | 2022-12-27 00:15 | ADMGEN ---
This patient, Steffen Martinez, was admitted to Medical Room 245-. Patient/family oriented to hospital policies and general routines including ID bracelet, bed and alarms, visiting hours, pain management, procedures, bathroom and other care routines, personal items, smoking policy, room service/diet, and visiting hours. Information on how to activate the Rapid Response Team has been discussed. Patient/Family are encouraged to report perceived risks to care and to ask questions if they do not understand what they are told or what they should do.
[2022-12-27 00:28] LABS: MRSA (PCR) NOT DETECTED (NOT DETECTE)
[2022-12-27] MEDS: PIPERACILLN/TAZ 3.375GM/NS50ML 3.375 GM/50 ML BAG IVPB ×4 (03:21→22:06)
[2022-12-27] MEDS: ACETAMINOPHEN 325 MG TABLET 650 MG PO ×2 (04:35→23:54)
[2022-12-27] MEDS: oxyBUTYnin CHLORIDE 2.5 MG TAB PO (05:38)
[2022-12-27 05:59] LABS: Estimated CRCL calculation 35 ml/min; Estimated Glomerular Filt Rate 30
--- NOTE | 2022-12-27 07:24 | PM.IMHP ---
H&P: HPI History of Present Illness Date/Time: 12/27/22 07:24 Chief Complaint: Altered mental status Narrative: This is a 72-year-old male with a past medical history significant for anxiety and depression, chronic low back pain, CAD with previous bypass, hypertension, GERD, hyperlipidemia, PAULINO on CPAP, acute myocardial infarction, CKD, and CHF with systolic dysfunction EF estimated at 40-50%. Patient presented from [facility] for fever and altered mental status with last known well around 1600 on 12/26. Per chart review patient has been admitted here in [facility] several times recently for NSTEMI, BLAS, acute pancreatitis and recently underwent cardiac catheterization that did not require stenting. He was referred discharged to rehab on 12/20. In the ED his labs were significant for leukocytosis of 15.3, hemoglobin 10.7, hematocrit 32.5, sodium 130, BUN 31, creatinine 2.20, calcium 10.9, magnesium 1.4, troponin 0.117, CRP 3.3, and a BNP of 4960. His UA was positive for UTI. He received 1.5 L of fluid bolus as well as electrolyte replacement. CT of the head was negative, chest x-ray shows cardiomegaly, CT abdomen pelvis shows mild wall thickening of the urinary bladder reflecting cystitis versus chronic outlet obstruction. 12/27-patient's mentation is improved he is now alert and oriented x4 with delayed responses. He does not remember the events of last night. This morning he complains of a headache, is a little short of breath, and fatigued. He reports being in rehab recently and was doing well working with therapy. He does mention that he was having dizziness at rehab. This morning he is tachypneic but oxygen saturation is normal. Vitals are otherwise stable, lung sounds are clear and chest x-ray does not show pulmonary edema. Review of Systems Review of Systems: All systems reviewed & are unremarkable except as noted in HPI and below PMFSH Past Medical History Medical History Acute recurrent maxillary sinusitis Allergic rhinitis Anxiety and depression Arthritis Bilateral cataracts Maturing Chronic low back pain With history of L4-L5-L5-S1 surgery Coronary artery disease involving coronary bypass graft of [place] heart COVID-19 DDD (degenerative disc disease) Essential (primary) hypertension Former smoker Gastroesophageal reflux disease Grade II internal hemorrhoids Hearing loss Hemorrhoid Hiatal hernia Hypersomnia Hypoxia Insomnia Left knee DJD Medullary sponge kidney With history of kidney stones in 198906/25/1994 Mixed hyperlipidemia Morbid obesity Obstructive sleep apnea on CPAP Auto titrating CPAP Painful total knee replacement, right Personal history of noncompliance with medical treatment and regimen Pre-diabetes (Unknown) Primary osteoarthritis of left knee Restless leg ST elevation myocardial infarction (STEMI) Systolic dysfunction With ejection fraction of 45-50% on cardiac catheterization May 2017 Surgical History Surgical History History of cardiac catheterization Cardiac catheterization with stent placement 2000, may 2017 with stent to the RCA due to complete occlusion stented at [facility], high-grade stenosis 80% occlusion to saphenous vein graft to the circ that was stented June [address] [facility] History of cystoscopy With stone retrieval in 1994 History of spinal surgery L4-L5 and L5-S1 PLIF 2012 History of total right knee replacement 2010 Hx of CABG History of 5 vessel CABG in 1997 Family History Family History Father Diabetes mellitus Multiple myeloma Hypertension Heart valve replaced Heart disease Mother Hypertension Heart disease Social History Social History Social History: Patient is a former smoker. He smoke trans time his
[2022-12-27 08:09] LABS: Basophils Percent Auto 0.3 % (0.2-1.2); Eosinophils Percent Auto 0.1 % (0-4.4); Hematocrit 29.9 % (42.0-52.0); Hemoglobin 9.7 g/dL (14.0-18.0); Immature Granulocyte Absolute 0.09 K/mm3 (0.00-0.031); Immature Granulocyte Percent A 0.6 % (0-0.5); Lymphocytes Absolute Auto 0.56 K/mm3 (0.9-3.2); Mean Corpuscular HGB Conc 32.4 g/dl (32-36); Mean Corpuscular Hemoglobin 31.1 pg (26-34); Mean Corpuscular Volume 95.8 fl (80-100); Mean Platelet Volume 11.1 fl (7.4-10.4); Monocytes Absolute Auto 1.2 K/mm3 (0.1-0.6); Monocytes Percent Auto 8.3 % (2.6-8.5); Neutrophils Absolute Auto 12.3 K/mm3 (1.3-6.7); Neutrophils Percent Auto 86.7 % (45.5-73.1); Platelet Count Result 195 k/mm3 (150-375); Red Blood Count 3.12 M/mm3 (4.6-6.20); Red Cell Distribution Width 14.6 % (11.5-14.5); White Blood Count 14.1 K/mm3 (4.5-10.0)
[2022-12-27 08:25] LABS: Alanine Aminotransferase 29 U/L (6-50); Albumin Level 3.1 g/dL (3.5-5.1); Alkaline Phosphatase 96 U/L (38-126); Anion Gap 7 mmol/L (8-16); Aspartate Amino Transferase 36 U/L (17-59); Blood Urea Nitrogen 29 mg/dL (9-20); Calcium 10.1 mg/dL (8.4-10.2); Carbon Dioxide 22 mmol/L (22-30); Chloride 102 mmol/L (98-107); Estimated CRCL calculation 38 ml/min; Estimated Glomerular Filt Rate 30; Glucose 94 mg/dL (65-110); Potassium 4.3 mmol/L (3.4-5.0); Sodium 131 mmol/L (137-145)
[2022-12-27] MEDS: CYANOCOBALAMIN 1,000 MCG TABLET 1000 MCG PO (09:58)
[2022-12-27] MEDS: LORATADINE 10 MG TABLET PO (09:58)
[2022-12-27] MEDS: DULoxetine HCL 60 MG CAPSULE.DR PO (09:58)
[2022-12-27] MEDS: ISOSORBIDE MONONITRATE 60 MG TAB.ER.24H 120 MG PO (09:59)
[2022-12-27] MEDS: MULTIVITAMINS /C LUTEIN (CENTRUM SILVER) TABLET *BKC 1 TAB PO (09:59)
[2022-12-27] MEDS: RANOLAZINE 500 MG TAB.ER.12H 1000 MG PO ×2 (09:59→22:05)
[2022-12-27] MEDS: PANTOPRAZOLE 40 MG TABLET PO ×2 (09:59→17:18)
[2022-12-27] MEDS: METOPROLOL SUCCINATE EXT REL 100 MG TABCR PO (10:00)
[2022-12-27] MEDS: METOPROLOL SUCCINATE EXT REL 50 MG TABCR PO (10:00)
[2022-12-27] MEDS: CLOPIDOGREL BISULFATE 75 MG TABLET PO (10:00)
[2022-12-27] MEDS: FLUTICASONE PROPIONATE 0.05% NA SPR 16 GM BTL (*BKC) 1 SPRAY NASAL ×2 (10:01→22:19)
[2022-12-27] MEDS: FERROUS SULFATE 325 MG TABLET DR PO (10:01)
[2022-12-27] MEDS: ASPIRIN 81 MG ENTERIC TABLET PO (10:01)
[2022-12-27] MEDS: SODIUM CHLORIDE 0.9% IV 1,000 ML 75 ML IV CONT ×2 (10:04→23:56)
[2022-12-27 11:25] LABS: Magnesium 1.7 mg/dL (1.6-2.3)
[2022-12-27] MEDS: HYDROCORTISONE 2.5% CREAM 30 GM TUBE 1 APPLIC TOPICAL (13:50)
[2022-12-27] MEDS: LIDOCAINE 5% PATCH 1 PATCH TRANSDERM (13:50)
[2022-12-27] MEDS: MICONAZOLE NITRATE 2% CREAM 30 GM TUBE 1 APPLIC TOPICAL ×2 (13:50→22:05)
--- NOTE | 2022-12-27 15:05 | PCOTNOTE ---
Attempted occupational therapy evaluation, pt unable to complete due to bladder spasms per RN, pt attempted sitting edge of bed but too painful. Following.
--- NOTE | 2022-12-27 15:07 | PCPTNOTE ---
Attempted physical therapy evaluation, pt unable to complete due to bladder spasms per RN, pt attempted sitting edge of bed but too painful. Following.
[2022-12-27] MEDS: oxyBUTYnin CHLORIDE 5 MG TABLET PO ×2 (17:18→23:54)
[2022-12-27] MEDS: ATORVASTATIN 40 MG TABLET PO (22:05)
[2022-12-27] MEDS: TAMSULOSIN HCL 0.4 MG CAPSULE PO (22:05)
[2022-12-28] VITALS (20 sets, daily range): BP systolic 100–122; BP diastolic 52–72; PULSE 79–97; RESP 18–27; TEMP 36.2–37.6; O2SAT 87–100
[2022-12-28] MEDS: PIPERACILLN/TAZ 3.375GM/NS50ML 3.375 GM/50 ML BAG IVPB ×4 (04:46→21:18)
[2022-12-28 05:31] LABS: Basophils Percent Auto 0.3 % (0.2-1.2); Eosinophils Absolute Auto 0.2 K/mm3 (0-0.3); Eosinophils Percent Auto 1.8 % (0-4.4); Hematocrit 27.7 % (42.0-52.0); Immature Granulocyte Percent A 0.7 % (0-0.5); Lymphocytes Percent Auto 4.4 % (18.3-44.2); Mean Corpuscular HGB Conc 32.5 g/dl (32-36); Mean Corpuscular Hemoglobin 31.3 pg (26-34); Mean Corpuscular Volume 96.2 fl (80-100); Mean Platelet Volume 10.7 fl (7.4-10.4); Monocytes Absolute Auto 1.5 K/mm3 (0.1-0.6); Monocytes Percent Auto 10.6 % (2.6-8.5); Neutrophils Absolute Auto 11.2 K/mm3 (1.3-6.7); Neutrophils Percent Auto 82.2 % (45.5-73.1); Platelet Count Result 183 k/mm3 (150-375); Red Blood Count 2.88 M/mm3 (4.6-6.20); Red Cell Distribution Width 14.7 % (11.5-14.5); White Blood Count 13.6 K/mm3 (4.5-10.0)
[2022-12-28 05:50] LABS: Platelet Estimate Adequate (Adequate)
[2022-12-28 05:51] LABS: Hypochromasia 1+ (NORMAL); Schistocytes None Seen (NORMAL)
[2022-12-28 05:52] LABS: Alanine Aminotransferase 24 U/L (6-50); Albumin Level 2.8 g/dL (3.5-5.1); Alkaline Phosphatase 91 U/L (38-126); Anion Gap 5 mmol/L (8-16); Aspartate Amino Transferase 29 U/L (17-59); Blood Urea Nitrogen 26 mg/dL (9-20); Calcium 9.8 mg/dL (8.4-10.2); Carbon Dioxide 23 mmol/L (22-30); Chloride 103 mmol/L (98-107); Estimated CRCL calculation 40 ml/min; Estimated Glomerular Filt Rate 31; Glucose 90 mg/dL (65-110); Magnesium 1.8 mg/dL (1.6-2.3); Sodium 131 mmol/L (137-145)
--- NOTE | 2022-12-28 06:47 | P.PNIM_ITS ---
Progress Note: A&P Assessment and Plan (1) Sepsis: Qualifiers: Sepsis acute organ dysfunction status: unspecified Sepsis type: sepsis due to unspecified organism Qualified Code(s): A41.9 - Sepsis, unspecified o rganism Code(s): A41.9 - Sepsis, unspecified organism Status: Acute Assessment and Plan: Suspected urosepsis. WBC count 15.3, febrile 104.4, tachypnea, AMS * Fluid resuscitated with 1.5 L in the ED, blood cultures collected as well as urine cultures. * Blood cultures with NGTD, urine cultures are pending still * Started on broad-spectrum antibiotics with vanc and Zosyn. * MRSA swab was negative, stop vancomycin * IV fluids of NS at 75 mL an hour. * Tylenol p.r.n. for fever greater than 101 * Telemetry (2) Altered mental status: Qualifiers: Altered mental status type: unspecified Qualified Code(s): R41.82 - Altered mental status, unspecified Code(s): R41.82 - Altered mental status, unspecified Status: Acute Assessment and Plan: Suspect related to UTI * Holding agents that could cause drowsiness or altered mental status * slowly improving (3) Urinary tract infection: Qualifiers: Hematuria presence: with hematuria Urinary tract infection type: acute cystitis Qualified Code(s): N30.01 - Acute cystitis with hematuria Code(s): N39.0 - Urinary tract infection, site not specified Status: Acute Assessment and Plan: Urosepsis * UA indicates infection and patient is afebrile with a leukocytosis * See 1. for remainder of plan of care * Astorga was placed for retention * Void trial today (4) CKD (chronic kidney disease): Qualifiers: Chronic kidney disease stage: unspecified stage Qualified Code(s): N18.9 - Chronic kidney disease, unspecified Code(s): N18.9 - Chronic kidney disease, unspecified Status: Acute Assessment and Plan: Creatinine baseline seems to range anywhere from 2.7 to 2.2 over last few months * Creatinine on admission is 2.20-->2.10 today * Blood pressures still on the soft side. SBP 102-105. Will continue IVF * IV fluids ordered * Trend labs * Sodium 130 on labs. Started on NS at 75 mL an hour. (5) PAULINO (obstructive sleep apnea): Code(s): G47.33 - Obstructive sleep apnea (adult) (pediatric) Status: Acute Assessment and Plan: Auto titrate CPAP ordered for hospital use * Respiratory alkalosis on ABG * Patient is tachypneic---resolved. * CPAP when asleep * PA of 72.3 * P.r.n. oxygen to keep sats greater than 90% (6) Essential (primary) hypertension: Code(s): I10 - Essential (primary) hypertension Status: Acute Assessment and Plan: Blood pressures are stable. * He had a couple low readings of 90s over 60s in the ER. * BP SBP 102-105 * Will hold antihypertensives in the setting of sepsis * Monitor blood pressures (7) CAD (coronary artery disease): Onset Date: 1997 Qualifiers: Associated angina: with stable angina Coronary Disease-Associated Artery/Lesion type: unspecified vessel or lesion type [place] vs. transplanted heart: [place] heart Qualified Code(s): I25.118 - Atherosclerotic heart disease of [place] coronary artery with other forms of angina pectoris Code(s): I25.10 - Atherosclerotic heart disease of [place] coronary artery without angina pectoris Status: Chronic Assessment and Plan: History of CAD with stents as well as history of acute [place] * BNP elevated 4960 * Troponin elevated 0.117--->peaked 1.050 * Patient is alter
--- NOTE | 2022-12-28 06:47 | PM.IMPN ---
Progress Note: A&P Assessment and Plan (1) Sepsis: Qualifiers: Sepsis acute organ dysfunction status: unspecified Sepsis type: sepsis due to unspecified organism Qualified Code(s): A41.9 - Sepsis, unspecified organism Code(s): A41.9 - Sepsis, unspecified organism Status: Acute Assessment and Plan: Suspected urosepsis. WBC count 15.3, febrile 104.4, tachypnea, AMS Fluid resuscitated with 1.5 L in the ED, blood cultures collected as well as urine cultures. Blood cultures with NGTD, urine cultures are pending still Started on broad-spectrum antibiotics with vanc and Zosyn. MRSA swab was negative, stop vancomycin IV fluids of NS at 75 mL an hour. Tylenol p.r.n. for fever greater than 101 Telemetry (2) Altered mental status: Qualifiers: Altered mental status type: unspecified Qualified Code(s): R41.82 - Altered mental status, unspecified Code(s): R41.82 - Altered mental status, unspecified Status: Acute Assessment and Plan: Suspect related to UTI Holding agents that could cause drowsiness or altered mental status slowly improving (3) Urinary tract infection: Qualifiers: Hematuria presence: with hematuria Urinary tract infection type: acute cystitis Qualified Code(s): N30.01 - Acute cystitis with hematuria Code(s): N39.0 - Urinary tract infection, site not specified Status: Acute Assessment and Plan: Urosepsis UA indicates infection and patient is afebrile with a leukocytosis See 1. for remainder of plan of care Astorga was placed for retention Void trial today (4) CKD (chronic kidney disease): Qualifiers: Chronic kidney disease stage: unspecified stage Qualified Code(s): N18.9 - Chronic kidney disease, unspecified Code(s): N18.9 - Chronic kidney disease, unspecified Status: Acute Assessment and Plan: Creatinine baseline seems to range anywhere from 2.7 to 2.2 over last few months Creatinine on admission is 2.20-->2.10 today Blood pressures still on the soft side. SBP 102-105. Will continue IVF IV fluids ordered Trend labs Sodium 130 on labs. Started on NS at 75 mL an hour. (5) PAULINO (obstructive sleep apnea): Code(s): G47.33 - Obstructive sleep apnea (adult) (pediatric) Status: Acute Assessment and Plan: Auto titrate CPAP ordered for hospital use Respiratory alkalosis on ABG Patient is tachypneic---resolved. CPAP when asleep PA of 72.3 P.r.n. oxygen to keep sats greater than 90% (6) Essential (primary) hypertension: Code(s): I10 - Essential (primary) hypertension Status: Acute Assessment and Plan: Blood pressures are stable. He had a couple low readings of 90s over 60s in the ER. BP SBP 102-105 Will hold antihypertensives in the setting of sepsis Monitor blood pressures (7) CAD (coronary artery disease): Onset Date: 1997 Qualifiers: Associated angina: with stable angina Coronary Disease-Associated Artery/Lesion type: unspecified vessel or lesion type [place] vs. transplanted heart: [place] heart Qualified Code(s): I25.118 - Atherosclerotic heart disease of [place] coronary artery with other forms of angina pectoris Code(s): I25.10 - Atherosclerotic heart disease of [place] coronary artery without angina pectoris Status: Chronic Assessment and Plan: History of CAD with stents as well as history of acute [place] BNP elevated 4960 Troponin elevated 0.117--->peaked 1.050 Patient is altered but denies chest pain Suspect demand ischemia Recent cardiac catheterization on 12/17 during admission for chest pain results are as follows, 1. SQL REPORT WRITER of the LAD and LCX. Moderate stenosis in the RPLV branch. This is angiographically unchanged compared to prior angiogram from 10/2021. 2. Patent VALENZUELA to LAD. 3. Occluded SVG to the RCA, which has been known. 4. On the prior angiogram from 10/2021, the SVG
[2022-12-28] MEDS: ISOSORBIDE MONONITRATE 60 MG TAB.ER.24H 120 MG PO (09:25)
[2022-12-28] MEDS: RANOLAZINE 500 MG TAB.ER.12H 1000 MG PO ×2 (09:25→20:46)
[2022-12-28] MEDS: FERROUS SULFATE 325 MG TABLET DR PO (09:26)
[2022-12-28] MEDS: DULoxetine HCL 60 MG CAPSULE.DR PO (09:26)
[2022-12-28] MEDS: PANTOPRAZOLE 40 MG TABLET PO ×2 (09:26→18:26)
[2022-12-28] MEDS: oxyBUTYnin CHLORIDE 5 MG TABLET PO ×3 (09:26→18:25)
[2022-12-28] MEDS: CLOPIDOGREL BISULFATE 75 MG TABLET PO (09:26)
[2022-12-28] MEDS: ASPIRIN 81 MG ENTERIC TABLET PO (09:26)
[2022-12-28] MEDS: MULTIVITAMINS /C LUTEIN (CENTRUM SILVER) TABLET *BKC 1 TAB PO (09:26)
[2022-12-28] MEDS: CYANOCOBALAMIN 1,000 MCG TABLET 1000 MCG PO (09:26)
[2022-12-28] MEDS: METOPROLOL SUCCINATE EXT REL 50 MG TABCR PO (09:27)
[2022-12-28] MEDS: LORATADINE 10 MG TABLET PO (09:27)
[2022-12-28] MEDS: METOPROLOL SUCCINATE EXT REL 100 MG TABCR PO (09:27)
[2022-12-28] MEDS: ALBUTEROL SULFATE NEB 2.5 MG/3 ML INH INHALATION ×3 (09:51→20:01)
--- NOTE | 2022-12-28 11:27 | PCOTNOTE ---
Attempted occupational therapy evaluation, per RN still having bladder spasms, checked with patient and he reported increased pain with lower back and bladder rating 8/10 pain. Requested to check in tomorrow. Following.
--- NOTE | 2022-12-28 11:29 | PCPTNOTE ---
Attempted to see for therapy evaluation, pt reporting bladder and low back pain as 8/10. Requested to be seen in the morning. Will continue to follow.
[2022-12-28] MEDS: FLUTICASONE PROPIONATE 0.05% NA SPR 16 GM BTL (*BKC) 1 SPRAY NASAL ×2 (12:25→20:47)
[2022-12-28] MEDS: SODIUM CHLORIDE 0.9% IV 1,000 ML 75 ML IV CONT (15:51)
[2022-12-28] MEDS: HYDROCORTISONE 2.5% CREAM 30 GM TUBE 1 APPLIC TOPICAL (18:31)
[2022-12-28] MEDS: MICONAZOLE NITRATE 2% CREAM 30 GM TUBE 1 APPLIC TOPICAL ×2 (18:34→20:46)
[2022-12-28] MEDS: ATORVASTATIN 40 MG TABLET PO (20:46)
[2022-12-28] MEDS: TAMSULOSIN HCL 0.4 MG CAPSULE PO (20:46)
[2022-12-29] VITALS (20 sets, daily range): BP systolic 101–123; BP diastolic 54–70; PULSE 68–84; RESP 14–22; TEMP 36.1–36.6; O2SAT 95–99
[2022-12-29] MEDS: ALBUTEROL SULFATE NEB 2.5 MG/3 ML INH INHALATION ×4 (01:46→20:19)
[2022-12-29] MEDS: ACETAMINOPHEN 325 MG TABLET 650 MG PO ×3 (02:52→21:47)
[2022-12-29] MEDS: PIPERACILLN/TAZ 3.375GM/NS50ML 3.375 GM/50 ML BAG IVPB ×2 (03:04→09:46)
[2022-12-29 05:33] LABS: Basophils Percent Auto 0.5 % (0.2-1.2); Eosinophils Absolute Auto 0.4 K/mm3 (0-0.3); Eosinophils Percent Auto 4.9 % (0-4.4); Hematocrit 27.2 % (42.0-52.0); Hemoglobin 8.8 g/dL (14.0-18.0); Immature Granulocyte Absolute 0.06 K/mm3 (0.00-0.031); Immature Granulocyte Percent A 0.8 % (0-0.5); Lymphocytes Absolute Auto 0.68 K/mm3 (0.9-3.2); Lymphocytes Percent Auto 8.9 % (18.3-44.2); Mean Corpuscular HGB Conc 32.4 g/dl (32-36); Mean Corpuscular Hemoglobin 31.1 pg (26-34); Mean Corpuscular Volume 96.1 fl (80-100); Mean Platelet Volume 10.5 fl (7.4-10.4); Monocytes Absolute Auto 0.8 K/mm3 (0.1-0.6); Monocytes Percent Auto 10.5 % (2.6-8.5); Neutrophils Absolute Auto 5.7 K/mm3 (1.3-6.7); Neutrophils Percent Auto 74.4 % (45.5-73.1); Platelet Count Result 196 k/mm3 (150-375); Red Blood Count 2.83 M/mm3 (4.6-6.20); Red Cell Distribution Width 14.6 % (11.5-14.5); White Blood Count 7.6 K/mm3 (4.5-10.0)
[2022-12-29] MEDS: SODIUM CHLORIDE 0.9% IV 1,000 ML 75 ML IV CONT (05:42)
[2022-12-29 05:45] LABS: Alanine Aminotransferase 37 U/L (6-50); Albumin Level 2.8 g/dL (3.5-5.1); Alkaline Phosphatase 108 U/L (38-126); Anion Gap 8 mmol/L (8-16); Aspartate Amino Transferase 46 U/L (17-59); Bilirubin,Total 0.7 mg/dL (0.2-1.3); Blood Urea Nitrogen 23 mg/dL (9-20); Calcium 9.9 mg/dL (8.4-10.2); Carbon Dioxide 21 mmol/L (22-30); Chloride 106 mmol/L (98-107); Estimated CRCL calculation 42 ml/min; Estimated Glomerular Filt Rate 33; Glucose 97 mg/dL (65-110); Magnesium 1.7 mg/dL (1.6-2.3); Potassium 3.9 mmol/L (3.4-5.0); Sodium 135 mmol/L (137-145)
--- NOTE | 2022-12-29 07:22 | P.PNIM_ITS ---
Progress Note: A&P Assessment and Plan (1) Sepsis: Qualifiers: Sepsis acute organ dysfunction status: unspecified Sepsis type: sepsis due to unspecified organism Qualified Code(s): A41.9 - Sepsis, unspecified o rganism Code(s): A41.9 - Sepsis, unspecified organism Status: Acute Assessment and Plan: Suspected urosepsis. WBC count 15.3, febrile 104.4, tachypnea, AMS * Fluid resuscitated with 1.5 L in the ED, blood cultures collected as well as urine cultures. * Blood cultures with NGTD, urine cultures are pending still * Started on broad-spectrum antibiotics with vanc and Zosyn. * MRSA swab was negative, stop vancomycin * Tylenol p.r.n. for fever greater than 101 (2) Altered mental status: Qualifiers: Altered mental status type: unspecified Qualified Code(s): R41.82 - Altered mental status, unspecified Code(s): R41.82 - Altered mental status, unspecified Status: Acute Assessment and Plan: Suspect related to UTI * Holding agents that could cause drowsiness or altered mental status * slowly improving (3) Urinary tract infection: Qualifiers: Hematuria presence: with hematuria Urinary tract infection type: acute cystitis Qualified Code(s): N30.01 - Acute cystitis with hematuria Code(s): N39.0 - Urinary tract infection, site not specified Status: Acute Assessment and Plan: Urosepsis * UA indicates infection and patient is afebrile with a leukocytosis * See 1. for remainder of plan of care * Astorga was placed for retention * Void trial today * Voiding spontaneously (4) CKD (chronic kidney disease): Qualifiers: Chronic kidney disease stage: unspecified stage Qualified Code(s): N18.9 - Chronic kidney disease, unspecified Code(s): N18.9 - Chronic kidney disease, unspecified Status: Acute Assessment and Plan: Creatinine baseline seems to range anywhere from 2.7 to 2.2 over last few months * Creatinine on admission is 2.20-->2.00 today * IV fluids stopped as his Cr is back to baseline and blood pressures are normal. * Trend labs * Sodium 135 today. (5) PAULINO (obstructive sleep apnea): Code(s): G47.33 - Obstructive sleep apnea (adult) (pediatric) Status: Acute Assessment and Plan: Auto titrate CPAP ordered for hospital use * Respiratory alkalosis on ABG * Patient is tachypneic---resolved. * CPAP when asleep * PA of 72.3 * P.r.n. oxygen to keep sats greater than 90% (6) Essential (primary) hypertension: Code(s): I10 - Essential (primary) hypertension Status: Acute Assessment and Plan: Blood pressures are stable. * He had a couple low readings of 90s over 60s in the ER. * BP SBP 120s * Will hold antihypertensives in the setting of sepsis * Monitor blood pressures (7) CAD (coronary artery disease): Onset Date: 1997 Qualifiers: Associated angina: with stable angina Coronary Disease-Associated Artery/Lesion type: unspecified vessel or lesion type [place] vs. transplanted heart: [place] heart Qualified Code(s): I25.118 - Atherosclerotic heart disease of [place] coronary artery with other forms of angina pectoris Code(s): I25.10 - Atherosclerotic heart disease of [place] coronary artery without angina pectoris Status: Chronic Assessment and Plan: History of CAD with stents as well as history of acute [place] * BNP elevated 4960 * Troponin elevated 0.117--->peaked 1.050 * Patient is altered but denies chest pain * Suspect demand ischemia * Recent cardia
--- NOTE | 2022-12-29 07:22 | PM.IMPN ---
Progress Note: A&P Assessment and Plan (1) Sepsis: Qualifiers: Sepsis acute organ dysfunction status: unspecified Sepsis type: sepsis due to unspecified organism Qualified Code(s): A41.9 - Sepsis, unspecified organism Code(s): A41.9 - Sepsis, unspecified organism Status: Acute Assessment and Plan: Suspected urosepsis. WBC count 15.3, febrile 104.4, tachypnea, AMS Fluid resuscitated with 1.5 L in the ED, blood cultures collected as well as urine cultures. Blood cultures with NGTD, urine cultures are pending still Started on broad-spectrum antibiotics with vanc and Zosyn. MRSA swab was negative, stop vancomycin Tylenol p.r.n. for fever greater than 101 (2) Altered mental status: Qualifiers: Altered mental status type: unspecified Qualified Code(s): R41.82 - Altered mental status, unspecified Code(s): R41.82 - Altered mental status, unspecified Status: Acute Assessment and Plan: Suspect related to UTI Holding agents that could cause drowsiness or altered mental status slowly improving (3) Urinary tract infection: Qualifiers: Hematuria presence: with hematuria Urinary tract infection type: acute cystitis Qualified Code(s): N30.01 - Acute cystitis with hematuria Code(s): N39.0 - Urinary tract infection, site not specified Status: Acute Assessment and Plan: Urosepsis UA indicates infection and patient is afebrile with a leukocytosis See 1. for remainder of plan of care Astorga was placed for retention Void trial today Voiding spontaneously (4) CKD (chronic kidney disease): Qualifiers: Chronic kidney disease stage: unspecified stage Qualified Code(s): N18.9 - Chronic kidney disease, unspecified Code(s): N18.9 - Chronic kidney disease, unspecified Status: Acute Assessment and Plan: Creatinine baseline seems to range anywhere from 2.7 to 2.2 over last few months Creatinine on admission is 2.20-->2.00 today IV fluids stopped as his Cr is back to baseline and blood pressures are normal. Trend labs Sodium 135 today. (5) PAULINO (obstructive sleep apnea): Code(s): G47.33 - Obstructive sleep apnea (adult) (pediatric) Status: Acute Assessment and Plan: Auto titrate CPAP ordered for hospital use Respiratory alkalosis on ABG Patient is tachypneic---resolved. CPAP when asleep PA of 72.3 P.r.n. oxygen to keep sats greater than 90% (6) Essential (primary) hypertension: Code(s): I10 - Essential (primary) hypertension Status: Acute Assessment and Plan: Blood pressures are stable. He had a couple low readings of 90s over 60s in the ER. BP SBP 120s Will hold antihypertensives in the setting of sepsis Monitor blood pressures (7) CAD (coronary artery disease): Onset Date: 1997 Qualifiers: Associated angina: with stable angina Coronary Disease-Associated Artery/Lesion type: unspecified vessel or lesion type [place] vs. transplanted heart: [place] heart Qualified Code(s): I25.118 - Atherosclerotic heart disease of [place] coronary artery with other forms of angina pectoris Code(s): I25.10 - Atherosclerotic heart disease of [place] coronary artery without angina pectoris Status: Chronic Assessment and Plan: History of CAD with stents as well as history of acute [place] BNP elevated 4960 Troponin elevated 0.117--->peaked 1.050 Patient is altered but denies chest pain Suspect demand ischemia Recent cardiac catheterization on 12/17 during admission for chest pain results are as follows, 1. GLUTEN SETTLING TENDER of the LAD and LCX. Moderate stenosis in the RPLV branch. This is angiographically unchanged compared to prior angiogram from 10/2021. 2. Patent VALENZUELA to LAD. 3. Occluded SVG to the RCA, which has been known. 4. On the prior angiogram from 10/2021, the SVG graft to Diagonal/OM appeared to be supplying 2 diagonal branches and 2
[2022-12-29] MEDS: FLUTICASONE PROPIONATE 0.05% NA SPR 16 GM BTL (*BKC) 1 SPRAY NASAL ×2 (09:46→20:13)
[2022-12-29] MEDS: CYANOCOBALAMIN 1,000 MCG TABLET 1000 MCG PO (09:49)
[2022-12-29] MEDS: RANOLAZINE 500 MG TAB.ER.12H 1000 MG PO ×2 (09:49→20:05)
[2022-12-29] MEDS: FERROUS SULFATE 325 MG TABLET DR PO (09:49)
[2022-12-29] MEDS: PANTOPRAZOLE 40 MG TABLET PO ×2 (09:50→16:53)
[2022-12-29] MEDS: oxyBUTYnin CHLORIDE 5 MG TABLET PO ×3 (09:50→16:52)
[2022-12-29] MEDS: METOPROLOL SUCCINATE EXT REL 100 MG TABCR PO (09:50)
[2022-12-29] MEDS: ASPIRIN 81 MG ENTERIC TABLET PO (09:50)
[2022-12-29] MEDS: MULTIVITAMINS /C LUTEIN (CENTRUM SILVER) TABLET *BKC 1 TAB PO (09:51)
[2022-12-29] MEDS: ISOSORBIDE MONONITRATE 60 MG TAB.ER.24H 120 MG PO (09:51)
[2022-12-29] MEDS: METOPROLOL SUCCINATE EXT REL 50 MG TABCR PO (09:51)
[2022-12-29] MEDS: LORATADINE 10 MG TABLET PO (09:51)
[2022-12-29] MEDS: CLOPIDOGREL BISULFATE 75 MG TABLET PO (09:51)
[2022-12-29] MEDS: DULoxetine HCL 60 MG CAPSULE.DR PO (09:51)
[2022-12-29] MEDS: LIDOCAINE 5% PATCH 1 PATCH TRANSDERM (09:52)
[2022-12-29] MEDS: HYDROCORTISONE 2.5% CREAM 30 GM TUBE 1 APPLIC TOPICAL ×2 (09:54→16:53)
[2022-12-29] MEDS: MICONAZOLE NITRATE 2% CREAM 30 GM TUBE 1 APPLIC TOPICAL ×2 (09:54→20:13)
[2022-12-29] MEDS: AMOXICILLIN/CLAVULANATE K 875-125 MG TAB 1 TABLET PO (16:52)
[2022-12-29] MEDS: ATORVASTATIN 40 MG TABLET PO (20:10)
[2022-12-29] MEDS: TAMSULOSIN HCL 0.4 MG CAPSULE PO (20:10)
[2022-12-29] MEDS: BENZONATATE 100 MG CAPSULE 200 MG PO (21:47)
[2022-12-30] VITALS (9 sets, daily range): BP systolic 117–131; BP diastolic 64–76; PULSE 69–76; RESP 14–20; TEMP 36.7–37; O2SAT 96–97
[2022-12-30] MEDS: ALBUTEROL SULFATE NEB 2.5 MG/3 ML INH INHALATION ×2 (02:24→09:56)
[2022-12-30 05:43] LABS: Basophils Percent Auto 0.7 % (0.2-1.2); Eosinophils Absolute Auto 0.6 K/mm3 (0-0.3); Eosinophils Percent Auto 9.7 % (0-4.4); Hematocrit 28.2 % (42.0-52.0); Hemoglobin 8.9 g/dL (14.0-18.0); Immature Granulocyte Absolute 0.07 K/mm3 (0.00-0.031); Immature Granulocyte Percent A 1.2 % (0-0.5); Lymphocytes Absolute Auto 0.69 K/mm3 (0.9-3.2); Lymphocytes Percent Auto 11.7 % (18.3-44.2); Mean Corpuscular HGB Conc 31.6 g/dl (32-36); Mean Corpuscular Hemoglobin 30.6 pg (26-34); Mean Corpuscular Volume 96.9 fl (80-100); Mean Platelet Volume 10.3 fl (7.4-10.4); Monocytes Absolute Auto 0.8 K/mm3 (0.1-0.6); Monocytes Percent Auto 13.3 % (2.6-8.5); Neutrophils Absolute Auto 3.7 K/mm3 (1.3-6.7); Neutrophils Percent Auto 63.4 % (45.5-73.1); Platelet Count Result 210 k/mm3 (150-375); Red Blood Count 2.91 M/mm3 (4.6-6.20); White Blood Count 5.9 K/mm3 (4.5-10.0)
[2022-12-30 06:09] LABS: Alanine Aminotransferase 53 U/L (6-50); Albumin Level 2.9 g/dL (3.5-5.1); Alkaline Phosphatase 111 U/L (38-126); Anion Gap 6 mmol/L (8-16); Aspartate Amino Transferase 59 U/L (17-59); Bilirubin,Total 0.6 mg/dL (0.2-1.3); Blood Urea Nitrogen 18 mg/dL (9-20); Calcium 9.7 mg/dL (8.4-10.2); Carbon Dioxide 23 mmol/L (22-30); Chloride 106 mmol/L (98-107); Estimated CRCL calculation 44 ml/min; Estimated Glomerular Filt Rate 35; Glucose 85 mg/dL (65-110); Magnesium 1.8 mg/dL (1.6-2.3); Potassium 3.9 mmol/L (3.4-5.0); Sodium 135 mmol/L (137-145)
--- NOTE | 2022-12-30 08:09 | P.DS_ITS ---
DS: Admitting Diagnosis Discharge Date 12/30 Admitting Diagnosis confusion, fever DS: Discharge Diagnosis Discharge Diagnosis (1) Sepsis: Qualifiers: Sepsis acute organ dysfunction status: unspecified Sepsis type: sepsis due to unspecified organism Qualified Code(s): A41.9 - Sepsis, unspecified organism Code(s): A41.9 - Sepsis, unspecified organism Status: Acute Assessment and Plan: Suspected urosepsis. WBC count 15.3, febrile 104.4, tachypnea, AMS * Fluid resuscitated with 1.5 L in the ED, blood cultures collected as well as urine cultures. * Blood cultures with NGTD, urine cultures are pending still * Started on broad-spectrum antibiotics with vanc and Zosyn. * MRSA swab was negative, stop vancomycin * Tylenol p.r.n. for fever greater than 101 (2) Altered mental status: Qualifiers: Altered mental status type: unspecified Qualified Code(s): R41.82 - Altered mental status, unspecified Code(s): R41.82 - Altered mental status, unspecified Status: Acute Assessment and Plan: Suspect related to UTI * Holding agents that could cause drowsiness or altered mental status * slowly improving (3) Urinary tract infection: Qualifiers: Hematuria presence: with hematuria Urinary tract infection type: acute cystitis Qualified Code(s): N30.01 - Acute cystitis with hematuria Code(s): N39.0 - Urinary tract infection, site not specified Status: Acute Assessment and Plan: Urosepsis * UA indicates infection and patient is afebrile with a leukocytosis * See 1. for remainder of plan of care * Astorga was placed for retention * Void trial today * Voiding spontaneously (4) CKD (chronic kidney disease): Qualifiers: Chronic kidney disease stage: unspecified stage Qualified Code(s): N18.9 - Chronic kidney disease, unspecified Code(s): N18.9 - Chronic kidney disease, unspecified Status: Acute Assessment and Plan: Creatinine baseline seems to range anywhere from 2.7 to 2.2 over last few months * Creatinine on admission is 2.20-->2.00 today * IV fluids stopped as his Cr is back to baseline and blood pressures are normal. * Trend labs * Sodium 135 today. (5) PAULINO (obstructive sleep apnea): Code(s): G47.33 - Obstructive sleep apnea (adult) (pediatric) Status: Acute Assessment and Plan: Auto titrate CPAP ordered for hospital use * Respiratory alkalosis on ABG * Patient is tachypneic---resolved. * CPAP when asleep * PA of 72.3 * P.r.n. oxygen to keep sats greater than 90% (6) Essential (primary) hypertension: Code(s): I10 - Essential (primary) hypertension Status: Acute Assessment and Plan: Blood pressures are stable. * He had a couple low readings of 90s over 60s in the ER. * BP SBP 120s * Will hold antihypertensives in the setting of sepsis * Monitor blood pressures (7) CAD (coronary artery disease): Onset Date: 1997 Qualifiers: Associated angina: with stable angina Coronary Disease-Associated Artery/Lesion type: unspecified vessel or lesion type [place] vs. transplanted heart: [place] heart Qualified Code(s): I25.118 - Atherosclerotic heart disease of [place] coronary artery with other forms of angina pectoris Code(s): I25.10 - Atherosclerotic heart disease of [place] coronary artery without angina pectoris Status: Chronic Assessment and Plan: History of CAD with stents as well as history of acute [place] * BNP elevated 4960 * Troponin elevated 0.
--- NOTE | 2022-12-30 08:09 | PM.DS ---
DS: Admitting Diagnosis Discharge Date 12/30 Admitting Diagnosis confusion, fever DS: Discharge Diagnosis Discharge Diagnosis (1) Sepsis: Qualifiers: Sepsis acute organ dysfunction status: unspecified Sepsis type: sepsis due to unspecified organism Qualified Code(s): A41.9 - Sepsis, unspecified organism Code(s): A41.9 - Sepsis, unspecified organism Status: Acute Assessment and Plan: Suspected urosepsis. WBC count 15.3, febrile 104.4, tachypnea, AMS Fluid resuscitated with 1.5 L in the ED, blood cultures collected as well as urine cultures. Blood cultures with NGTD, urine cultures are pending still Started on broad-spectrum antibiotics with vanc and Zosyn. MRSA swab was negative, stop vancomycin Tylenol p.r.n. for fever greater than 101 (2) Altered mental status: Qualifiers: Altered mental status type: unspecified Qualified Code(s): R41.82 - Altered mental status, unspecified Code(s): R41.82 - Altered mental status, unspecified Status: Acute Assessment and Plan: Suspect related to UTI Holding agents that could cause drowsiness or altered mental status slowly improving (3) Urinary tract infection: Qualifiers: Hematuria presence: with hematuria Urinary tract infection type: acute cystitis Qualified Code(s): N30.01 - Acute cystitis with hematuria Code(s): N39.0 - Urinary tract infection, site not specified Status: Acute Assessment and Plan: Urosepsis UA indicates infection and patient is afebrile with a leukocytosis See 1. for remainder of plan of care Astorga was placed for retention Void trial today Voiding spontaneously (4) CKD (chronic kidney disease): Qualifiers: Chronic kidney disease stage: unspecified stage Qualified Code(s): N18.9 - Chronic kidney disease, unspecified Code(s): N18.9 - Chronic kidney disease, unspecified Status: Acute Assessment and Plan: Creatinine baseline seems to range anywhere from 2.7 to 2.2 over last few months Creatinine on admission is 2.20-->2.00 today IV fluids stopped as his Cr is back to baseline and blood pressures are normal. Trend labs Sodium 135 today. (5) PAULINO (obstructive sleep apnea): Code(s): G47.33 - Obstructive sleep apnea (adult) (pediatric) Status: Acute Assessment and Plan: Auto titrate CPAP ordered for hospital use Respiratory alkalosis on ABG Patient is tachypneic---resolved. CPAP when asleep PA of 72.3 P.r.n. oxygen to keep sats greater than 90% (6) Essential (primary) hypertension: Code(s): I10 - Essential (primary) hypertension Status: Acute Assessment and Plan: Blood pressures are stable. He had a couple low readings of 90s over 60s in the ER. BP SBP 120s Will hold antihypertensives in the setting of sepsis Monitor blood pressures (7) CAD (coronary artery disease): Onset Date: 1997 Qualifiers: Associated angina: with stable angina Coronary Disease-Associated Artery/Lesion type: unspecified vessel or lesion type [place] vs. transplanted heart: [place] heart Qualified Code(s): I25.118 - Atherosclerotic heart disease of [place] coronary artery with other forms of angina pectoris Code(s): I25.10 - Atherosclerotic heart disease of [place] coronary artery without angina pectoris Status: Chronic Assessment and Plan: History of CAD with stents as well as history of acute [place] BNP elevated 4960 Troponin elevated 0.117--->peaked 1.050 Patient is altered but denies chest pain Suspect demand ischemia Recent cardiac catheterization on 12/17 during admission for chest pain results are as follows, 1. 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 Moderate stenosis in the RPLV branch. This is angiographically unchanged compared to prior angiogram from 10/2021. 2. Patent VALENZUELA to LAD. 3. Occluded SVG to the RCA, which has been known. 4. On the prior angiogra
[2022-12-30] MEDS: PANTOPRAZOLE 40 MG TABLET PO ×2 (08:47→16:09)
[2022-12-30] MEDS: DULoxetine HCL 60 MG CAPSULE.DR PO (08:47)
[2022-12-30] MEDS: METOPROLOL SUCCINATE EXT REL 50 MG TABCR PO (08:47)
[2022-12-30] MEDS: MULTIVITAMINS /C LUTEIN (CENTRUM SILVER) TABLET *BKC 1 TAB PO (08:47)
[2022-12-30] MEDS: CLOPIDOGREL BISULFATE 75 MG TABLET PO (08:47)
[2022-12-30] MEDS: ASPIRIN 81 MG ENTERIC TABLET PO (08:47)
[2022-12-30] MEDS: FERROUS SULFATE 325 MG TABLET DR PO (08:47)
[2022-12-30] MEDS: RANOLAZINE 500 MG TAB.ER.12H 1000 MG PO (08:48)
[2022-12-30] MEDS: CYANOCOBALAMIN 1,000 MCG TABLET 1000 MCG PO (08:48)
[2022-12-30] MEDS: METOPROLOL SUCCINATE EXT REL 100 MG TABCR PO (08:48)
[2022-12-30] MEDS: LORATADINE 10 MG TABLET PO (08:48)
[2022-12-30] MEDS: oxyBUTYnin CHLORIDE 5 MG TABLET PO ×3 (08:48→16:09)
[2022-12-30] MEDS: ISOSORBIDE MONONITRATE 60 MG TAB.ER.24H 120 MG PO (08:48)
[2022-12-30] MEDS: AMOXICILLIN/CLAVULANATE K 875-125 MG TAB 1 TABLET PO (08:48)
[2022-12-30] MEDS: FLUTICASONE PROPIONATE 0.05% NA SPR 16 GM BTL (*BKC) 1 SPRAY NASAL (08:49)
[2022-12-30] MEDS: HYDROCORTISONE 2.5% CREAM 30 GM TUBE 1 APPLIC TOPICAL ×2 (08:49→16:09)
[2022-12-30] MEDS: MICONAZOLE NITRATE 2% CREAM 30 GM TUBE 1 APPLIC TOPICAL (08:50)
[2022-12-30] MEDS: LIDOCAINE 5% PATCH 1 PATCH TRANSDERM (08:54)
[2022-12-30] MEDS: SULFAMETHOXAZOLE/TRIMETHOPRIM 800/160 MG DS TABLET 1 TAB PO (12:38)
== END 2022-12-30 17:30 | DRG 872 ==
LOC: ANHED 21:03 → ANH2MED 23:24
PROVIDERS: Admitting Provider Internal Medicine; Emergency Provider Physician Assistant; PCP Nurse Practitioner; Visit Provider Nurse Practitioner Acute Care
DX: A41.9 Sepsis, unspecified organism (principal); N39.0 Urinary tract infection, site not specified; Z68.42 Body mass index [BMI] 45.0-49.9, adult; I24.89 Other forms of acute ischemic heart disease; I13.0 Hypertensive heart and chronic kidney disease with heart failure and stage 1 through stage 4 chronic kidney disease, or unspecified chronic kidney disease; I50.22 Chronic systolic (congestive) heart failure; B96.20 Unspecified Escherichia coli [E. coli] as the cause of diseases classified elsewhere; B96.89 Other specified bacterial agents as the cause of diseases classified elsewhere; N18.9 Chronic kidney disease, unspecified; G47.33 Obstructive sleep apnea (adult) (pediatric); F41.9 Anxiety disorder, unspecified; I25.118 Atherosclerotic heart disease of native coronary artery with other forms of angina pectoris; F32.A Depression, unspecified; E66.01 Morbid (severe) obesity due to excess calories; E78.2 Mixed hyperlipidemia; R33.9 Retention of urine, unspecified; M17.12 Unilateral primary osteoarthritis, left knee; K21.9 Gastro-esophageal reflux disease without esophagitis; G25.81 Restless legs syndrome; Z96.651 Presence of right artificial knee joint; Z79.82 Long term (current) use of aspirin; I25.2 Old myocardial infarction; Z95.1 Presence of aortocoronary bypass graft; Z95.5 Presence of coronary angioplasty implant and graft; Z86.16 Personal history of COVID-19; Z87.891 Personal history of nicotine dependence
CPT/HCPCS: 36415; 36600; 70450; 71045; 71250; 74176; 80053; 81001; 82375; 82565; 82805; 83050; 83605; 83690; 83735; 83880; 84145; 84484; 85025; 85610; 85730; 86140; 87040; 87077; 87086; 87186; 87641; 93005; 94640; 96365; 96366; 96367; 96368; 96375; 96376; 97110; 97161; 97165; 97530; 99285; A9270; G0378; J2543; J3010; J3370; J3475; J7030

== ENCOUNTER 2023-01-23 14:31 | Inpatient (IN) | payer MEDICARE, OTHER, SELFPAY ==
[2023-01-23] VITALS (42 sets, daily range): BP systolic 116–161; BP diastolic 60–109; PULSE 78–100; RESP 11–29; TEMP 36.6–36.8; O2SAT 95–99
--- NOTE | ~2023-01-23 | XR_ITS ---
EXAMINATION: XR chest 1V portable DATE: 01/23/2023 15:05 INDICATION: Chest pain. Shortness of breath. TECHNIQUE: A single frontal view of the chest was obtained. COMPARISON: Chest view 12/26/2022, chest CT 12/26/2022 FINDINGS: There is no pneumonia, pleural effusion, or pneumothorax. The heart size is normal. Median sternotomy wires and mediastinal surgical clips are seen, likely from prior coronary artery bypass gr afting. IMPRESSION: 1. No acute cardiopulmonary disease. Reviewed, dictated and finalized at location A. UTER REPAIR INSTRUCTOR
--- NOTE | ~2023-01-23 | CT_ITS ---
EXAMINATION: CT brain wo con DATE: 01/23/2023 18:13 INDICATION: Fall, headache and unresponsive episode. TECHNIQUE: Computed tomography (CT) of the head was performed without intravenous contrast. Sagittal and coronal reconstructions were performed. The mA was adjusted according to patient size. Iterative reconstruction technique was employed. The dose-length product was 681.00 mGy-cm. COMPARISON: head CT dated 12/26/2022 FINDINGS: No fracture. No acute intracranial hemorrhage, acute infarction or abnormal extra axial fluid collect ion. There is mild scattered white matter hypoattenuation consistent with chronic small vessel ischem ic disease. Ventricles are normal and symmetric. No mass/mass effect. Intracranial calcified cerebra l atherosclerosis is noted. The orbits, paranasal sinuses and mastoid air cells are normal. IMPRESSION: 1. No significant change in mild scattered white matter hypoattenuation consistent with chronic small vessel ischemic disease. No acute intracranial process. Reviewed, dictated and finalized at location A. CTOR OF BROADCAST IMPRESSION: 1. No significant change in mild scattered white matter hypoattenuation consist ent with chronic small vessel ischemic disease. No acute intracranial process.
--- NOTE | 2023-01-23 14:40 | ECG_ITS ---
Measurements Intervals [place] Rate: 94 P: 43 RI: 151 QRS: -45 QRSD: 96 T: 7 QT: 342 QTc: 428 Interpretive Statements SINUS RHYTHM LEFT AXIS DEVIATION POOR R WAVE PROGRESSION, ANTERIOR LEADS INFERIOR INFARCT, AGE INDETERMINATE BORDERLINE ST-T WAVE ABNORMALITY- HIGH LATERAL LEADS BASELINE ARTIFACT- AVR, AVL, AVF, V6 ABNORMAL ECG COMPARED TO ECG 12/26/2022 19:10:36 SINUS RHYTHM NOW PRESENT Electronically Signed On 01-23-2023 14:56:46 NANOTECHNOLOGY ENGINEERING TECHNICIAN by Clemente Cortes D.O.
[2023-01-23 14:50] LABS: Basophils Percent Auto 0.4 % (0.2-1.2); Eosinophils Absolute Auto 0.1 K/mm3 (0-0.3); Hematocrit 33.7 % (42.0-52.0); Immature Granulocyte Absolute 0.02 K/mm3 (0.00-0.031); Immature Granulocyte Percent A 0.2 % (0-0.5); Lymphocytes Absolute Auto 0.68 K/mm3 (0.9-3.2); Lymphocytes Percent Auto 7.6 % (18.3-44.2); Mean Corpuscular HGB Conc 32.6 g/dl (32-36); Mean Corpuscular Hemoglobin 30.6 pg (26-34); Mean Corpuscular Volume 93.9 fl (80-100); Mean Platelet Volume 9.7 fl (7.4-10.4); Monocytes Absolute Auto 1.1 K/mm3 (0.1-0.6); Monocytes Percent Auto 11.7 % (2.6-8.5); Neutrophils Absolute Auto 7.1 K/mm3 (1.3-6.7); Neutrophils Percent Auto 79.1 % (45.5-73.1); Platelet Count Result 263 k/mm3 (150-375); Red Blood Count 3.59 M/mm3 (4.6-6.20); Red Cell Distribution Width 13.9 % (11.5-14.5)
[2023-01-23 15:00] LABS: Alanine Aminotransferase 21 U/L (6-50); Albumin Level 3.6 g/dL (3.5-5.1); Alkaline Phosphatase 115 U/L (38-126); Anion Gap 12 mmol/L (8-16); Aspartate Amino Transferase 39 U/L (17-59); Bilirubin,Total 0.8 mg/dL (0.2-1.3); Blood Urea Nitrogen 18 mg/dL (9-20); Calcium 10.3 mg/dL (8.4-10.2); Carbon Dioxide 22 mmol/L (22-30); Chloride 99 mmol/L (98-107); Estimated CRCL calculation 44 ml/min; Estimated Glomerular Filt Rate 35; Glucose 156 mg/dL (65-110); Lipase 49 U/L (23-300); Potassium 3.7 mmol/L (3.4-5.0); Prothrombin Time 14.2 Seconds (11.1-14.7); Sodium 133 mmol/L (137-145)
[2023-01-23 15:01] LABS: Partial Thromboplastin Time 39.8 SECONDS (22.3-36.8)
[2023-01-23 15:11] LABS: Troponin I < 0.012 ng/mL (0.000-0.034)
--- NOTE | 2023-01-23 15:19 | PC.NURSE ---
while in the hallway i heard pt breathing rapidly and moaning and as i walked in vitals were wnl but pt stated they felt like the room was closing in. the pt then experienced what looked like a syncopal event for 10 seconds and then woke up breathing rapidly. about 20 seconds later the pt had another 10 second syncopal event that appeared like nodding off and then woke up again breathing heavy and states i think i just passed out . pt is in bed with side rails up and bed locked and in low position. no further orders at this time.
--- NOTE | 2023-01-23 15:29 | PC.NURSE ---
MD notified of syncopal events. no further orders at this time.
--- NOTE | 2023-01-23 16:48 | PC.NURSE ---
spoke to Dr. Velásquez for recommendations on other testing we can do because pt is complaining of continuous sob. Dr. Velásquez stated he needs to wait to be seen . no further orders at this time.
--- NOTE | 2023-01-23 17:08 | ED.GENADULT ---
HPI - General Adult General Chief complaint: Chest Pain Stated complaint: cp Time Seen by Provider: 01/23/23 17:06 Source: patient and EMS Mode of arrival: EMS Limitations: other (Poor historian) History of Present Illness HPI narrative: 72 years old white male came from home with multiple symptoms. Intermittent chest pain which is chronic, shortness of breath on exertion which is chronic, headache and inability to sleep for the last 48 hours patient reports can not go to sleep for unknown reason. Patient did not take his medications for over 7 days because the pills all over the place and he can not organized them. Patient on [place] t.i.d., did not take his medicine for a while because he does not know which pills he should take. Patient was sitting on the chair and became unresponsive for about 10 seconds while nurse taking care of him. The nurse told me this happened twice over 30 minutes. Patient reported that he feels like he missed something at the time, denied any chest pain or shortness of breath or headache at this time. Basically the patient and his are very poor historian Related Data Home Medications Medication Instructions Recorded Confirmed aspirin 81 mg tablet,delayed 81 mg PO DAILY 03/04/19 01/20/23 release multivitamin (Multiple Vitamins 1 tablet PO DAILY 03/04/19 01/20/23 tablet) isosorbide mononitrate 60 mg 120 mg PO QAM 10/04/21 01/20/23 tablet,extended release 24 hr benzonatate 200 mg capsule 200 mg PO BID PRN Cough 12/06/22 01/20/23 hydrocodone 5 mg-acetaminophen 325 1 tablet PO Q6H PRN Pain (Scale 12/20/22 01/20/23 mg tablet Score 4-6) acetaminophen 325 mg tablet 650 mg PO Q6H PRN Pain (Scale 12/27/22 01/20/23 Score 1-3) cetirizine 10 mg tablet 10 mg PO DAILY 12/27/22 01/20/23 cyclobenzaprine 5 mg tablet 5 mg PO HS 12/27/22 01/20/23 fluticasone propionate 1 spray EACH NARE Q12H 12/27/22 01/20/23 hydrocortisone 2.5 % topical cream 1 applic topical BID 12/27/22 01/20/23 miconazole nitrate 2 % topical 1 applic topical Q12H 12/27/22 01/20/23 cream Allergies Allergy/AdvReac Type Severity Reaction Status Date / Time chloramphenicol Allergy Severe EYE Verified 01/20/23 12:18 irritation nickel Allergy Mild Rash Verified 01/20/23 12:18 detergents Allergy Hives Uncoded 01/20/23 12:18 Review of Systems Review of Systems: All systems reviewed & are unremarkable except as noted in HPI and below PMFSH Past Medical History Medical History Acute recurrent maxillary sinusitis Allergic rhinitis Anxiety and depression Arthritis Bilateral cataracts Maturing Chronic low back pain With history of L4-L5-L5-S1 surgery Coronary artery disease involving coronary bypass graft of [place] heart COVID-19 DDD (degenerative disc disease) Essential (primary) hypertension Former smoker Gastroesophageal reflux disease Grade II internal hemorrhoids Hearing loss Hemorrhoid Hiatal hernia Hypersomnia Hypoxia Insomnia Left knee DJD Medullary sponge kidney With history of kidney stones in 198906/25/1994 Mixed hyperlipidemia Morbid obesity Obstructive sleep apnea on CPAP Auto titrating CPAP Painful total knee replacement, right Personal history of noncompliance with medical treatment and regimen Pre-diabetes (Unknown) Primary osteoarthritis of left knee Restless leg ST elevation myocardial infarction (STEMI) Systolic dysfunction With ejection fraction of 45-50% on cardiac catheterization May 2017 Surgical History Surgical History History of cardiac catheterization Cardiac catheterization with stent placement 2000, may 2017 with stent to the RCA due to complete occlusion stented at [facility], high-grade stenosis 80% occlusion to saphenous vein graft to the circ that was stented June 2017 at [facility] History of cystoscopy With stone retrieval in 1994 History of
[2023-01-23] MEDS: ONDANSETRON INJ 4 MG/2 ML VIAL IV PUSH (17:37)
[2023-01-23] MEDS: MORPHINE SULFATE (*CRX) 4 MG/ML INJ IV PUSH (17:37)
[2023-01-23 18:13] LABS: Appearance Urine Cloudy (Clear); Bacteria Urine 4+ /hpf; Bilirubin Urine Negative (Negative); Blood Urine Trace (Negative); Color Urine Yellow (Yellow); Glucose Urine UA Negative (Negative); Ketones Urine Negative (Negative); Leukocyte Esterase Ur 3+ LEU/UL (Negative); Need Manual Microscopic Reviewed; Nitrate Urine Negative (Negative); Non Pathogenic Casts 0-2; Protein Urine Trace mg/dL (Negative); RBC Urine 0-2 /hpf (0-2); Specific Grav Ur 1.006 (1.001-1.035); Squamous Epithelial Cell Urine None seen /hpf (Few); Urobilinogen Urine 0.2 mg/dL (<2.0); WBC Urine >100 /hpf; pH Urine 5.5 (5.0-9.0)
[2023-01-23 18:14] LABS: Add Urine Microscopic? YES
[2023-01-23 19:09] LABS: Troponin I < 0.012 ng/mL (0.000-0.034)
[2023-01-23] MEDS: ACETAMINOPHEN 325 MG TABLET 650 MG PO (19:52)
--- NOTE | 2023-01-23 20:54 | PM.IMHP ---
H&P: HPI History of Present Illness Date/Time: 01/23/23 20:54 Chief Complaint: chest discomfort. Narrative: This is a 72 yo male PMHx significant for morbid obesity, hypertension, coronary artery disease, coronary artery bypass graft, GERD, Moreno's esophagus. Patient just recently discharged from rehabilitation. Presents to emergency room due to retrosternal chest pain, denies any fevers, rigors, chills, nausea, vomiting, diarrhea, cough, sputum production, leg swelling. Preliminary workup was significant for urinalysis with numerous WBCs present. Troponins x3 have been undetectable. EXAMINATION: XR chest 1V portable DATE: 01/23/2023 15:05 INDICATION: Chest pain. Shortness of breath. TECHNIQUE: A single frontal view of the chest was obtained. COMPARISON: Chest view 12/26/2022, chest CT 12/26/2022 FINDINGS: There is no pneumonia, pleural effusion, or pneumothorax. The heart size is normal. Median sternotomy wires and mediastinal surgical clips are seen, likely from prior coronary artery bypass grafting. IMPRESSION: 1. No acute cardiopulmonary disease. EXAMINATION: CT brain wo con DATE: 01/23/2023 18:13 INDICATION: Fall, headache and unresponsive episode. TECHNIQUE: Computed tomography (CT) of the head was performed without intravenous contrast. Sagittal and coronal reconstructions were performed. The mA was adjusted according to patient size. Iterative reconstruction technique was employed. The dose-length product was 681.00 mGy-cm. COMPARISON: head CT dated 12/26/2022 FINDINGS: No fracture. No acute intracranial hemorrhage, acute infarction or abnormal extra axial fluid collection. There is mild scattered white matter hypoattenuation consistent with chronic small vessel ischemic disease.? Ventricles are normal and symmetric. No mass/mass effect. Intracranial calcified cerebral atherosclerosis is noted. The orbits, paranasal sinuses and mastoid air cells are normal. IMPRESSION: 1. No significant change in mild scattered white matter hypoattenuation consistent with chronic small vessel ischemic disease. No acute intracranial process. Review of Systems Review of Systems: chest discomfort Constitutional: Constitutional: Denies chills, Denies fatigue, Denies fever(s), Denies malaise, Denies night sweats and Denies weakness Eyes: Eyes: Denies change in vision ENT: Denies dysphagia and Denies odynophagia Cardiovascular: Cardiovascular: Reports chest pain, Denies radiating jaw, neck or arm pain, Denies palpitations and Denies dyspnea Respiratory: Respiratory: Denies cough, Denies excessive phlegm production, Denies pain on inspiration, Denies dyspnea and Denies wheezing Gastrointestinal: Gastrointestinal: Denies abdominal pain, Denies dyspepsia, Denies heartburn, Denies diarrhea, Denies nausea and Denies vomiting Genitourinary: Genitourinary: Denies dysuria Musculoskeletal: Musculoskeletal: Denies myalgias and Denies arthralgias Integumentary/Breasts: Skin/Breast: Denies rash Neurologic: Denies focal weakness and Denies Sensory deficit (Neuro) Psychiatric: Psychiatric: Reports no additional psychiatric complaints and Reports as per HPI Endocrine: Endocrine: Denies cold intolerance, Denies flushing, Denies heat intolerance, Denies polyphagia, Denies polydipsia and Denies palpitations Hematologic/Lymphatic: Hematologic/Lymphatic: Reports no additional hematologic/lymphatic complaints and Reports as per HPI Allergic/Immunologic: Allergic/Immunologic: Reports no additional allergic/immunologic complaints and Reports as per HPI PMFSH Past Medical History Medical History Acute recurrent maxillary sinusitis Allergic rhinitis Anxiety and depression Arthritis Bilateral cataracts Maturing Chronic low back pain With history of L4-L5-L5-S1 surgery Coronary artery disease involving coronary bypass graft of [place] heart COVID-19 DDD (degenerative
--- NOTE | 2023-01-23 21:15 | ADMGEN ---
This patient, Steffen Martinez, was admitted to IMU Room 206-02. Patient/family oriented to hospital policies and general routines including ID bracelet, bed and alarms, visiting hours, pain management, procedures, bathroom and other care routines, personal items, smoking policy, room service/diet, and visiting hours. Information on how to activate the Rapid Response Team has been discussed. Patient/Family are encouraged to report perceived risks to care and to ask questions if they do not understand what they are told or what they should do.
[2023-01-23 22:10] LABS: Troponin I < 0.012 ng/mL (0.000-0.034)
[2023-01-24] VITALS (17 sets, daily range): BP systolic 111–157; BP diastolic 55–101; PULSE 66–112; RESP 18–22; TEMP 36.3–36.7; O2SAT 94–99
[2023-01-24] MEDS: WATER FOR IRRIGATION, STERILE 1,000 ML BOTTLE 1000 ML (00:09)
[2023-01-24] MEDS: ACETAMINOPHEN 325 MG TABLET 650 MG PO (00:11)
[2023-01-24] MEDS: HYDROcodone/acetaminophen (*CRX) 10-325 MG TABLET 1 TAB PO (03:45)
[2023-01-24] MEDS: DULoxetine HCL 60 MG CAPSULE.DR PO (08:56)
[2023-01-24] MEDS: ISOSORBIDE MONONITRATE 60 MG TAB.ER.24H 120 MG PO (08:56)
[2023-01-24] MEDS: ASPIRIN 81 MG ENTERIC TABLET PO (08:56)
[2023-01-24] MEDS: RANOLAZINE 500 MG TAB.ER.12H 1000 MG PO ×2 (08:57→21:54)
[2023-01-24] MEDS: CYANOCOBALAMIN 1,000 MCG TABLET 1000 MCG PO (08:57)
[2023-01-24] MEDS: MULTIVITAMINS THERAPEUTIC TAB (*BKC) 1 TABLET PO (08:57)
[2023-01-24] MEDS: PANTOPRAZOLE 40 MG TABLET PO ×2 (08:57→18:07)
[2023-01-24] MEDS: CLOPIDOGREL BISULFATE 75 MG TABLET PO (08:57)
[2023-01-24] MEDS: METOPROLOL SUCCINATE EXT REL 50 MG TABCR PO (08:57)
[2023-01-24] MEDS: FERROUS SULFATE 325 MG TABLET DR BY MOUTH (08:58)
[2023-01-24] MEDS: HYDROCORTISONE 2.5% CREAM 30 GM TUBE 1 APPLIC TOPICAL ×2 (09:01→18:07)
--- NOTE | 2023-01-24 17:40 | PM.IMPN ---
Progress Note: A&P Assessment and Plan (1) Urinary tract infection: Code(s): N39.0 - Urinary tract infection, site not specified Status: Acute Plan cloudy urine. cont ceftriaxone and f/u urine cultures. likely home tomorrow scds full code. Subjective Date/time seen: 01/24/23 17:40 Interval history: NAOE. a very pleasant man who is now without complaints. he reports feeling much better, he did not seem to know he had a UTI although, simply reporting I feel so much better after the pills you gave me. Review of Systems Review of Systems: All systems reviewed & are unremarkable except as noted in HPI and below Exam Const: General: comfortable and no acute distress Eyes: Pupils: Equal, round and reactive pupils present Neck: Neck: supple Resp: Effort & Inspection: normal respiratory effort Auscultation: clear to auscultation bilaterally Cardio: Rate: regular rate Rhythm: regular rhythm GI: GI Palp: Yes Soft to palpation and No Tenderness to palpation present (GI) Auscultation: normal bowel sounds : Other: no bladder tenderness Urinary Catheter: Urinary Catheter: urine cloudy Extrem: General: no edema Objective Data Vital Signs Vital Signs: Vital Signs - 24 hr 01/23/23 17:45 01/23/23 17:46 01/23/23 18:00 Temperature Pulse Rate 87 83 85 Respiratory Rate 22 H 16 13 Blood Pressure 117/63 122/67 Pulse Oximetry 99 98 99 Oxygen Delivery 01/23/23 18:14 01/23/23 18:15 01/23/23 18:30 Temperature Pulse Rate 85 88 83 Respiratory Rate 21 H 11 L Blood Pressure Pulse Oximetry 99 97 99 Oxygen Delivery 01/23/23 18:31 01/23/23 18:45 01/23/23 18:46 Temperature Pulse Rate 88 89 88 Respiratory Rate 13 12 13 Blood Pressure 137/75 Pulse Oximetry 97 98 98 Oxygen Delivery 01/23/23 19:00 01/23/23 19:01 01/23/23 19:02 Temperature Pulse Rate Respiratory Rate 13 18 14 Blood Pressure 140/99 H Pulse Oximetry Oxygen Delivery 01/23/23 19:15 01/23/23 19:16 01/23/23 19:30 Temperature Pulse Rate 95 87 Respiratory Rate 24 H 16 23 H Blood Pressure 149/92 H Pulse Oximetry 96 97 Oxygen Delivery 01/23/23 19:31 01/23/23 19:45 01/23/23 19:46 Temperature Pulse Rate 99 93 97 Respiratory Rate 25 H 11 L 13 Blood Pressure 155/89 H 158/87 H Pulse Oximetry 97 Oxygen Delivery 01/23/23 20:00 01/23/23 20:01 01/23/23 20:15 Temperature Pulse Rate 98 93 95 Respiratory Rate 25 H 23 H 13 Blood Pressure 149/109 H Pulse Oximetry 97 Oxygen Delivery 01/23/23 20:16 01/23/23 20:30 01/23/23 20:31 Temperature Pulse Rate 98 93 100 Respiratory Rate 16 25 H 26 H Blood Pressure 149/86 H 155/90 H Pulse Oximetry 98 96 96 Oxygen Delivery 01/23/23 20:45 01/23/23 20:46 01/23/23 21:15 Temperature 98.3 F Pulse Rate 90 Respiratory Rate 24 H 22 H 18 Blood Pressure 161/78 H 141/80 H Pulse Oximetry 99 Oxygen Delivery 01/24/23 00:00 01/24/23 00:00 01/23/23 21:35 Temperature 97.3 F L Pulse Rate 104 H 93 Respiratory Rate 18 Blood Pressure 157/101 H Pulse Oximetry 98 Oxygen Delivery Room Air 01/24/23 00:00 01/24/23 02:00 01/24/23 04:00 Temperature Pulse Rate 102 H 99 Respiratory Rate Blood Pressure Pulse Oximetry Oxygen Delivery Room Air 01/24/23 04:00 01/24/23 04:00 01/24/23 06:00 Temperature 97.7 F Pulse Rate 94 102 H 99 Respiratory Rate 18 Blood Pressure 137/90 Pulse Oximetry 97 Oxygen Delivery 01/24/23 07:37 01/24/23 08:00 01/24/23 08:57 Temperature 98.1 F Pulse Rate 112 H 110 H 75 Respiratory Rate 22 H Blood Pressure 153/99 H Pulse Oximetry 97 Oxygen Delivery 01/24/23 11:27 01/24/23 08:00 01/24/23 12:00 Temperature 97.9 F Pulse Rate 94 94 Respiratory Rate 18 18 Blood Pressure 117/64 Pulse Oximetry 94 94 Oxygen Delivery Room Air Room Air 01/24/23 10:00 01/24/23 12:00 01/24/23 14:00 [facility]
[2023-01-24] MEDS: TAMSULOSIN HCL 0.4 MG CAPSULE PO (21:53)
[2023-01-24] MEDS: MECLIZINE HCL 12.5 MG TABLET PO (21:54)
[2023-01-24] MEDS: ATORVASTATIN 40 MG TABLET PO (21:54)
[2023-01-24] MEDS: risperiDONE 1 MG TABLET 2 MG PO (21:54)
[2023-01-25] VITALS (9 sets, daily range): BP systolic 100–125; BP diastolic 59–75; PULSE 88–104; RESP 18–20; TEMP 36.1; O2SAT 95–97
[2023-01-25] MEDS: HYDROcodone/acetaminophen (*CRX) 10-325 MG TABLET 1 TAB PO (01:44)
[2023-01-25 05:43] LABS: Hematocrit 28.7 % (42.0-52.0); Hemoglobin 9.2 g/dL (14.0-18.0); Mean Corpuscular HGB Conc 32.1 g/dl (32-36); Mean Corpuscular Hemoglobin 30.7 pg (26-34); Mean Corpuscular Volume 95.7 fl (80-100); Mean Platelet Volume 10.1 fl (7.4-10.4); Platelet Count Result 254 k/mm3 (150-375); Red Cell Distribution Width 14.1 % (11.5-14.5); White Blood Count 7.7 K/mm3 (4.5-10.0)
[2023-01-25 06:03] LABS: Anion Gap 6 mmol/L (8-16); Blood Urea Nitrogen 20 mg/dL (9-20); Calcium 9.8 mg/dL (8.4-10.2); Carbon Dioxide 25 mmol/L (22-30); Chloride 102 mmol/L (98-107); Estimated CRCL calculation 64 ml/min; Estimated Glomerular Filt Rate 37; Glucose 89 mg/dL (65-110); Sodium 133 mmol/L (137-145)
[2023-01-25] MEDS: ASPIRIN 81 MG ENTERIC TABLET PO (09:29)
[2023-01-25] MEDS: PANTOPRAZOLE 40 MG TABLET PO (09:29)
[2023-01-25] MEDS: ISOSORBIDE MONONITRATE 60 MG TAB.ER.24H 120 MG PO (09:29)
[2023-01-25] MEDS: METOPROLOL SUCCINATE EXT REL 50 MG TABCR PO (09:29)
[2023-01-25] MEDS: CYANOCOBALAMIN 1,000 MCG TABLET 1000 MCG PO (09:30)
[2023-01-25] MEDS: FERROUS SULFATE 325 MG TABLET DR BY MOUTH (09:30)
[2023-01-25] MEDS: DULoxetine HCL 60 MG CAPSULE.DR PO (09:30)
[2023-01-25] MEDS: CLOPIDOGREL BISULFATE 75 MG TABLET PO (09:30)
[2023-01-25] MEDS: HYDROCORTISONE 2.5% CREAM 30 GM TUBE 1 APPLIC TOPICAL (09:30)
[2023-01-25] MEDS: RANOLAZINE 500 MG TAB.ER.12H 1000 MG PO (09:30)
[2023-01-25] MEDS: MULTIVITAMINS THERAPEUTIC TAB (*BKC) 1 TABLET PO (09:30)
--- NOTE | 2023-01-25 11:33 | PM.DS ---
DS: Admitting Diagnosis Discharge Date 01/25/23 Admitting Diagnosis chest pain DS: Discharge Diagnosis Discharge Diagnosis (1) Urinary tract infection: Code(s): N39.0 - Urinary tract infection, site not specified Status: Acute (2) Chest pain: Qualifiers: Chest pain type: unspecified Qualified Code(s): R07.9 - Chest pain, unspecified Code(s): R07.9 - Chest pain, unspecified Status: Acute DS: Summary Hospital Course Hospital Course: 72M w/ multiple comorbidities presented with chest pain. His pain resolved, EKG w/o acute ischemia and trops negative x3. He was instead found to have an uncomplicated UTI 2/2 e coli. He was treated with 2 days of ceftriaxone and will be discharged on 5 more days of Augmentin per sensitivities. More than 30 minutes spent on discharge planning and documentation. Time Spent with Patient Time attestation: Total time spent providing and/or coordinating discharge services: DS: Data Data Completed and Pending Labs on day of discharge: Labs from last 24 hours 01/25/23 04:37 WBC 7.7 RBC 3.00 L Hgb 9.2 L Hct 28.7 L MCV 95.7 MCH 30.7 MCHC 32.1 RDW 14.1 Plt Count 254 MPV 10.1 Sodium 133 L Potassium 4.0 Chloride 102 Carbon Dioxide 25 Anion Gap 6 L BUN 20 Creatinine 1.80 H Estim Creat Clear Calc 64 Estimated GFR 37 L Glucose 89 Calcium 9.8 Discharge Plan Discharge Attending physician on discharge: Vee Pittman Discharging Clinician: Vee Pittman Patient Disposition: Home, Self-Care Activity: july shower Diet: heart healthy Patient Instructions: Antibiotic Form, Chest Pain (DC), Urinary Tract Infection in Men (DC) Stand Alone Forms: General Discharge Information Follow-up/Referrals: Tez Purvis APRN [Primary Care Provider] - 2 Weeks (follow up on chest pain and UTI) Discharge Medications: New amoxicillin-pot clavulanate 875-125 mg tablet 1 tablet PO Q12H 5 Days Qty: 10 0RF Continued aspirin 81 mg tablet,delayed release (DR/EC) 81 mg PO DAILY Hold Instructions: Resume on 07/04/19. multivitamin [Multiple Vitamins] Tablet 1 tablet PO DAILY Rx Instructions: Centrum Men's 50+ cyanocobalamin (vitamin B-12) [Vitamin B-12] 1,000 mcg tablet 1,000 mcg PO DAILY Qty: 30 0RF duloxetine 60 mg capsule,delayed release(DR/EC) 60 mg PO DAILY Qty: 30 4RF isosorbide mononitrate 60 mg tablet extended release 24 hr 120 mg PO QAM risperidone [Risperdal] 1 mg Tablet 2 mg PO QHS 30 Days Qty: 60 0RF metoprolol succinate 50 mg tablet extended release 24 hr 50 mg PO DAILY 30 Days Qty: 30 0RF ranolazine 1,000 mg tablet extended release 12 hr 1,000 mg PO Q12H Qty: 60 0RF tamsulosin 0.4 mg Capsule 0.4 mg PO QHS Qty: 30 0RF hydrocortisone 2.5 % Cream 1 applic TOPICAL BID MDD hemorrhoids Rx Instructions: rectal fluticasone propionate 1 spray EACH NARE Q12H PRN (Reason: Congestion) hydrocodone-acetaminophen 10-325 mg tablet 1 tablet PO Q8H PRN (Reason: Pain (Scale Score 7-10)) ferrous sulfate 325 mg (65 mg iron) tablet 325 mg PO DAILY Qty: 90 1RF clopidogrel 75 mg tablet 75 mg PO QAM Qty: 90 2RF atorvastatin [Lipitor] 40 mg tablet 40 mg PO HS Qty: 90 1RF pantoprazole 40 mg tablet,delayed release (DR/EC) 40 mg PO BID Qty: 180 1RF nitroglycerin [Nitrostat] 0.4 mg tablet, sublingual 0.4 mg sublingual DIRECTED PRN (Reason: Chest Pain) Qty: 30 3RF Rx Instructions: three doses 5 min apart for chest pain meclizine 12.5 mg Tablet 12.5 mg PO HS 30 Days Qty: 30 0RF Date of admission: 01/24/23 09:26 Primary Care Provider: Tez Purvis Admitting Provider: Malika Jade Attending physician on admission: Malika Jade Condition: Stable
== END 2023-01-25 14:43 | disposition home health service (06) | DRG 690 ==
LOC: ANHED 19:24 → ANHIMU 20:40
PROVIDERS: Admitting Provider Internal Medicine; Emergency Provider Emergency Medicine; PCP Nurse Practitioner; Visit Provider General Practice
DX: N39.0 Urinary tract infection, site not specified (principal); Q61.5 Medullary cystic kidney; I25.10 Atherosclerotic heart disease of native coronary artery without angina pectoris; I10 Essential (primary) hypertension; K21.9 Gastro-esophageal reflux disease without esophagitis; M17.12 Unilateral primary osteoarthritis, left knee; K44.9 Diaphragmatic hernia without obstruction or gangrene; R07.9 Chest pain, unspecified; R73.03 Prediabetes; R55 Syncope and collapse; B96.20 Unspecified Escherichia coli [E. coli] as the cause of diseases classified elsewhere; M54.50 Low back pain, unspecified; G89.29 Other chronic pain; G25.81 Restless legs syndrome; E66.01 Morbid (severe) obesity due to excess calories; H26.9 Unspecified cataract; H91.90 Unspecified hearing loss, unspecified ear; F32.A Depression, unspecified; F41.9 Anxiety disorder, unspecified; I25.2 Old myocardial infarction; Z96.651 Presence of right artificial knee joint; Z79.82 Long term (current) use of aspirin; Z87.891 Personal history of nicotine dependence; Z95.1 Presence of aortocoronary bypass graft; Z91.148 Patient's other noncompliance with medication regimen for other reason
CPT/HCPCS: 36415; 70450; 71045; 80048; 80053; 81001; 83690; 84484; 85025; 85027; 85610; 85730; 87077; 87086; 87186; 93005; 96365; 96375; 99285; A9270; C1751; G0378; J0696; J2270; J2405

== ENCOUNTER 2023-04-03 16:11 | Outpatient (CLI) | payer MEDICARE, OTHER, SELFPAY ==
[2023-04-03 17:14] LABS: Appearance Urine Turbid (Clear); Bacteria Urine 4+ /hpf; Bilirubin Urine 1+ (Negative); Blood Urine 1+ (Negative); Color Urine Dark Yellow (Yellow); Glucose Urine UA Negative (Negative); Ketones Urine Trace mg/dL (Negative); Leukocyte Esterase Ur 3+ LEU/UL (Negative); Need Manual Microscopic Reviewed; Nitrate Urine Positive (Negative); Protein Urine 2+ mg/dL (Negative); RBC Urine 0-2 /hpf (0-2); Specific Grav Ur 1.017 (1.001-1.035); Squamous Epithelial Cell Urine Occasional /hpf (Few); WBC Urine >100 /hpf; pH Urine 5.5 (5.0-9.0)
[2023-04-03 17:29] LABS: Add Urine Microscopic? YES
== END 2023-04-03 16:12 | disposition home or self-care (01) ==
PROVIDERS: PCP Nurse Practitioner; Visit Provider Nurse Practitioner
DX: R39.9 Unspecified symptoms and signs involving the genitourinary system (principal)
CPT/HCPCS: 81001; 87077; 87086; 87186

== ENCOUNTER 2023-04-14 16:35 | Outpatient (CLI) | payer MEDICARE, OTHER, SELFPAY ==
[2023-04-14 17:03] LABS: Hematocrit 28.5 % (42.0-52.0); Hemoglobin 9.1 g/dL (14.0-18.0); Mean Corpuscular HGB Conc 31.9 g/dl (32-36); Mean Corpuscular Volume 96.9 fl (80-100); Mean Platelet Volume 10.4 fl (7.4-10.4); Platelet Count Result 144 k/mm3 (150-375); Red Blood Count 2.94 M/mm3 (4.6-6.20); White Blood Count 13.5 K/mm3 (4.5-10.0)
[2023-04-14 17:14] LABS: Alanine Aminotransferase 19 U/L (6-50); Albumin Level 3.5 g/dL (3.5-5.1); Alkaline Phosphatase 120 U/L (38-126); Anion Gap 7 mmol/L (8-16); Aspartate Amino Transferase 27 U/L (17-59); Bilirubin,Total 1.1 mg/dL (0.2-1.3); Blood Urea Nitrogen 29 mg/dL (9-20); Calcium 9.9 mg/dL (8.4-10.2); Carbon Dioxide 22 mmol/L (22-30); Chloride 109 mmol/L (98-107); Cholesterol 129 mg/dL (0-200); Estimated Glomerular Filt Rate 54; Glucose 101 mg/dL (65-110); HDL Direct 51 mg/dL; Potassium 3.7 mmol/L (3.4-5.0); Sodium 138 mmol/L (137-145); Triglycerides 127 mg/dL (<150)
[2023-04-14 17:25] LABS: LDL Cholesterol Direct 56 mg/dL
== END 2023-04-14 16:36 | disposition home or self-care (01) ==
LOC: ANHLAB 16:40
PROVIDERS: PCP Nurse Practitioner; Visit Provider Nurse Practitioner
DX: E78.5 Hyperlipidemia, unspecified (principal)
CPT/HCPCS: 36415; 80053; 80061; 85027

== ENCOUNTER 2023-12-20 21:25 | Emergency (ER) | payer MEDICARE, OTHER, SELFPAY ==
--- NOTE | ~2023-12-20 | XR_ITS ---
Portable chest x-ray Comparison: 01/23/2023 Clinical History: Shortness of breath Findings: Right-sided Mediport in place. There is central congestive change and probable minimal rip tral pulmonary edema. Probable minimal pleural effusions. Cardiomediastinal silhouette is stable, st atus post CABG. Bones and soft tissues are unremarkable. Impression: Mild central pulmonary edema with mild central congestive change and minimal pleural effusions. Cardiomegaly, status post CABG. Reviewed, dictated and finalized at location . Impression: Mild central pulmonary edema with mild central congestive change and minimal pl eural effusions. Cardiomegaly, status post CABG.
--- NOTE | ~2023-12-20 | CT_ITS ---
Clinical Indication: Pulmonary embolus CT Scan of the Chest with Contrast: Technique: Contiguous sections were acquired throughout the chest after intravenous administration of 100 cc of Omnipaque 350. Dose reduction technique was used on this scan by utilizing automated expos ure control and iterative reconstruction technique. The dose-length product (DLP) was 1047.27 mGy-cm. COMPARISON: 12/26/2022 Findings: There is no evidence of any significant mediastinal, hilar or axillary lymphadenopathy. There is no f illing defect in the pulmonary arterial tree to suggest pulmonary embolus. There is no evidence of ao rtic aneurysm. No pericardial effusion. Small bilateral pleural effusions are present. The lungs are otherwise clear. No pulmonary nodules or infiltrates are noted. Images through the upper abdomen reveal numerous right renal cysts. Impression: No evidence of pulmonary embolus, aortic dissection, or aortic aneurysm. Small bilateral pleural effusions. Reviewed, dictated and finalized at [facility]. Impression: No evidence of pulmonary embolus, aortic dissection, or aortic aneurysm. Small bilateral pleural effusions.
[2023-12-20 21:27] VITALS: BP 167/112; PULSE 107; RESP 20; TEMP 36.8; O2SAT 97
--- NOTE | 2023-12-20 21:30 | ECG_ITS ---
Test Date: 2023-12-20 21:34:55 Measurements Intervals [place] Rate: 98 P: 29 ID: [id number] QRS: -37 QRSD: 114 T: 93 QT: 357 QTc: 457 Interpretive Statements SINUS RHYTHM MARKED LEFT AXIS DEVIATION [QRS AXIS < -30] POSSIBLE ANTERIOR MYOCARDIAL INFARCTION , PROBABLY OLD [30 ms Q WAVE IN V3/V4, OR R < 0.2 mV IN V4] INFERIOR INFARCT, AGE INDETERMINATE No previous ECG available for comparison Electronically Signed On 12-21-2023 14:28:32 CDT by Lul Turner M.D.
--- NOTE | 2023-12-20 22:26 | ED.SOB ---
HPI - SOB/Dyspnea General Chief Complaint: Shortness of Breath/Dyspnea Stated Complaint: SOB Time Seen by Provider: 12/20/23 22:15 History of Present Illness HPI Narrative: 73-year-old male with extensive cardiac disease including CABG, multiple stents, obstructive sleep apnea, half breath, hypertension. Today presents to the emergency department with a chief complaint of dyspnea on exertion. He has been feeling dyspneic on exertion for some time now but states that today got profoundly worse with even minimal exertion. He started becoming dyspneic even at rest and took his pulse ox at home and knows that was down to 78%. Drove self to the hospital and was tachypneic in 2-3 word sentences. He states that when he gets up and ambulates he gets worse dyspnea but denies any active chest discomfort or chest tightness. He states this is exactly how the last time he had a heart attack presented. Denies any nauseousness, vomiting, back pain, abdominal pain. Not presently taking any diuretic therapy according to himself, no blood thinner use presently no baby aspirin. Denies any history of thrombotic event such as PE or DVT. No recent procedures or long travel. Was otherwise in his normal state of health. Does not use oxygen at home. Related Data Home Medications Medication Instructions Recorded Confirmed multivitamin (Multiple Vitamins 1 tablet PO DAILY 03/04/19 11/05/23 tablet) isosorbide mononitrate 60 mg 120 mg PO QAM 10/04/21 11/05/23 tablet,extended release 24 hr fluticasone propionate 1 spray EACH NARE Q12H PRN 12/27/22 11/05/23 Congestion hydrocodone 10 mg-acetaminophen 1 tablet PO Q8H PRN Pain (Scale 01/23/23 11/05/23 325 mg tablet Score 7-10) acyclovir 400 mg tablet 400 mg PO BID 04/03/23 11/05/23 metoprolol succinate 25 mg 25 mg PO DAILY 11/05/23 11/05/23 tablet,extended release 24 hr Allergies Allergy/AdvReac Type Severity Reaction Status Date / Time chloramphenicol Allergy Severe EYE Verified 11/05/23 12:27 irritation nickel Allergy Mild Rash Verified 11/05/23 12:27 detergents Allergy Hives Uncoded 11/05/23 12:27 Review of Systems Review of Systems: As reviewed above [facility] Past Medical History Medical History Acute recurrent maxillary sinusitis Allergic rhinitis Anxiety and depression Arthritis Bilateral cataracts Maturing Chronic low back pain With history of L4-L5-L5-S1 surgery Coronary artery disease involving coronary bypass graft of [place] heart COVID-19 DDD (degenerative disc disease) Essential (primary) hypertension Former smoker Gastroesophageal reflux disease Grade II internal hemorrhoids Hearing loss Hemorrhoid Hiatal hernia Hypersomnia Hypoxia Insomnia Left knee DJD Medullary sponge kidney With history of kidney stones in 198906/25/1994 Mixed hyperlipidemia Morbid obesity Obstructive sleep apnea on CPAP Auto titrating CPAP Painful total knee replacement, right Personal history of noncompliance with medical treatment and regimen Pre-diabetes (Unknown) Primary osteoarthritis of left knee Restless leg ST elevation myocardial infarction (STEMI) Systolic dysfunction With ejection fraction of 45-50% on cardiac catheterization May 2017 Surgical History Surgical History History of cardiac catheterization Cardiac catheterization with stent placement may 2017 with stent to the RCA due to complete occlusion stented at [facility], high-grade stenosis 80% occlusion to saphenous vein graft to the circ that was stented June 2017 at [facility] History of cystoscopy With stone retrieval in 1994 History of spinal surgery L4-L5 and L5-S1 PLIF 2012 History of total right knee replacement 2010 Hx of CABG History of 5 vessel CABG in 1997 Family History Family History Father Kandy
[2023-12-20 22:32] VITALS: BP 158/122; PULSE 90; PULSE 92; RESP 18; TEMP 36.7; O2SAT 98
[2023-12-20 22:53] LABS: Basophils Absolute Auto 0.1 K/mm3 (0.0-0.1); Basophils Percent Auto 0.7 % (0.2-1.2); Eosinophils Absolute Auto 0.1 K/mm3 (0-0.3); Eosinophils Percent Auto 1.6 % (0-4.4); Hemoglobin 12.1 g/dL (14.0-18.0); Immature Granulocyte Absolute 0.16 K/mm3 (0.00-0.031); Lymphocytes Absolute Auto 0.73 K/mm3 (0.9-3.2); Mean Corpuscular HGB Conc 32.7 g/dl (32-36); Mean Corpuscular Hemoglobin 32.1 pg (26-34); Mean Corpuscular Volume 98.1 fl (80-100); Mean Platelet Volume 10.7 fl (7.4-10.4); Monocytes Absolute Auto 0.7 K/mm3 (0.1-0.6); Monocytes Percent Auto 8.1 % (2.6-8.5); Neutrophils Absolute Auto 6.4 K/mm3 (1.3-6.7); Neutrophils Percent Auto 78.6 % (45.5-73.1); Platelet Count Result 185 k/mm3 (150-375); Red Blood Count 3.77 M/mm3 (4.6-6.20); Red Cell Distribution Width 14.1 % (11.5-14.5); White Blood Count 8.1 K/mm3 (4.5-10.0)
[2023-12-20 23:08] LABS: Alanine Aminotransferase 21 U/L (6-50); Albumin Level 4.1 g/dL (3.5-5.1); Alkaline Phosphatase 155 U/L (38-126); Anion Gap 9 mmol/L (4-12); Aspartate Amino Transferase 37 U/L (17-59); Bilirubin,Total 0.9 mg/dL (0.2-1.3); Blood Urea Nitrogen 23 mg/dL (9-20); Calcium 9.5 mg/dL (8.4-10.2); Carbon Dioxide 22 mmol/L (22-30); Chloride 108 mmol/L (98-107); Estimated CRCL calculation 42 ml/min; Estimated Glomerular Filt Rate 35; Glucose 97 mg/dL (65-110); Lipase 63 U/L (23-300); Magnesium 1.8 mg/dL (1.6-2.3); Potassium 3.9 mmol/L (3.4-5.0); Sodium 139 mmol/L (137-145)
[2023-12-20 23:13] LABS: INR 1.2; Prothrombin Time 15.4 Seconds (11.1-14.7)
[2023-12-20 23:14] LABS: Partial Thromboplastin Time 31.6 Seconds (22.3-36.8)
[2023-12-20 23:27] LABS: Troponin I 0.069 ng/mL (0.000-0.034)
[2023-12-20 23:35] VITALS: BP 159/144; PULSE 88; RESP 18; O2SAT 96
[2023-12-20] MEDS: LACTATED RINGERS 1,000 ML 999 ML IV CONT (23:41)
[2023-12-21] MEDS: FUROSEMIDE INJ 40 MG/4 ML VIAL IV PUSH (00:51)
[2023-12-21 00:54] VITALS: BP 136/111; PULSE 97; RESP 18; O2SAT 96
[2023-12-21 02:46] VITALS: BP 150/130; PULSE 105; RESP 18; O2SAT 98
[2023-12-21 03:02] LABS: Troponin I 0.068 ng/mL (0.000-0.034)
[2023-12-21 04:52] VITALS: BP 140/101; PULSE 101; RESP 16; O2SAT 97
[2023-12-21 06:56] VITALS: BP 141/122; PULSE 99; RESP 20; O2SAT 96
[2023-12-21 07:47] VITALS: BP 166/127; PULSE 105; RESP 19; TEMP 36.5; O2SAT 98
== END 2023-12-21 07:55 | disposition short-term general hospital (02) ==
PROVIDERS: Emergency Provider Student in an Organized Health Care Education/Training Program; PCP Nurse Practitioner
DX: I21.4 Non-ST elevation (NSTEMI) myocardial infarction (principal); R06.00 Dyspnea, unspecified; I11.0 Hypertensive heart disease with heart failure; I50.9 Heart failure, unspecified; I25.2 Old myocardial infarction; I25.10 Atherosclerotic heart disease of native coronary artery without angina pectoris; E78.2 Mixed hyperlipidemia; E66.01 Morbid (severe) obesity due to excess calories; Z68.42 Body mass index [BMI] 45.0-49.9, adult; K44.9 Diaphragmatic hernia without obstruction or gangrene; G47.33 Obstructive sleep apnea (adult) (pediatric); M17.12 Unilateral primary osteoarthritis, left knee; Q61.5 Medullary cystic kidney; Z95.1 Presence of aortocoronary bypass graft; Z96.651 Presence of right artificial knee joint; Z95.5 Presence of coronary angioplasty implant and graft; Z86.16 Personal history of COVID-19; Z87.891 Personal history of nicotine dependence; Z87.442 Personal history of urinary calculi; Z79.899 Other long term (current) drug therapy; I51.7 Cardiomegaly
CPT/HCPCS: 36415; 71045; 71275; 80053; 83690; 83735; 84484; 85025; 85380; 85610; 85730; 93005; 96361; 96374; 99285; J1940; J7120; Q9967

== ENCOUNTER 2024-05-30 17:45 | Outpatient (RCR) | payer MEDICARE, OTHER, SELFPAY ==
[2024-03-21 14:09] LABS: INR 1.1; Prothrombin Time 14.6 Seconds (11.1-14.7)
[2024-03-28 15:32] LABS: INR 1.6; Prothrombin Time 19.4 Seconds (11.1-14.7)
[2024-04-05 10:16] LABS: INR 1.5; Prothrombin Time 18.6 Seconds (11.1-14.7)
[2024-04-11 15:16] LABS: INR 1.6; Prothrombin Time 19.3 Seconds (11.1-14.7)
[2024-04-25 15:32] LABS: INR 2.1; Prothrombin Time 23.8 Seconds (11.1-14.7)
[2024-05-09 16:04] LABS: INR 2.2; Prothrombin Time 24.7 Seconds (11.1-14.7)
[2024-05-30 18:13] LABS: INR 2.4; Prothrombin Time 26.4 Seconds (11.1-14.7)
== END 2024-06-19 23:59 | disposition home or self-care (01) ==
LOC: ANHLAB 17:45
PROVIDERS: PCP Nurse Practitioner; Visit Provider Internal Medicine Cardiovascular Disease
DX: Z51.81 Encounter for therapeutic drug level monitoring (principal); I48.0 Paroxysmal atrial fibrillation; Z79.01 Long term (current) use of anticoagulants
CPT/HCPCS: 36415; 85610

== ENCOUNTER 2024-07-04 16:52 | Outpatient (RCR) | payer MEDICARE, OTHER, SELFPAY ==
[2024-06-20 18:46] LABS: INR 1.6; Prothrombin Time 19.4 Seconds (11.1-14.7)
[2024-07-04 17:55] LABS: INR 3.4; Prothrombin Time 34.4 Seconds (11.1-14.7)
== END 2024-09-18 23:59 | disposition home or self-care (01) ==
LOC: ANHLAB 16:52
PROVIDERS: PCP Nurse Practitioner; Visit Provider Internal Medicine Cardiovascular Disease
DX: Z79.01 Long term (current) use of anticoagulants (principal); I48.0 Paroxysmal atrial fibrillation
CPT/HCPCS: 36415; 85610

== ENCOUNTER 2024-12-26 15:17 | Outpatient (RCR) | payer MEDICARE, OTHER, SELFPAY ==
[2024-10-03 12:17] LABS: INR 2.5; Prothrombin Time 26.8 Seconds (11.1-14.7)
[2024-10-31 17:05] LABS: INR 1.7; Prothrombin Time 20.1 Seconds (11.1-14.7)
[2024-11-28 12:50] LABS: INR 2.3; Prothrombin Time 24.9 Seconds (11.1-14.7)
[2024-12-26 16:10] LABS: INR 2.7; Prothrombin Time 28.0 Seconds (11.1-14.7)
== END 2025-01-01 23:59 | disposition home or self-care (01) ==
LOC: ANHLAB 15:17
PROVIDERS: PCP Nurse Practitioner; Visit Provider Internal Medicine Cardiovascular Disease
DX: Z51.81 Encounter for therapeutic drug level monitoring (principal); I48.0 Paroxysmal atrial fibrillation; Z79.01 Long term (current) use of anticoagulants
CPT/HCPCS: 36415; 85610

== ENCOUNTER 2025-02-10 10:19 | Outpatient (CLI) | payer MEDICARE, OTHER, SELFPAY ==
--- NOTE | ~2025-02-10 | XR_ITS ---
EXAMINATION: XR chest 2V, 02/10/2025 16:18 JAVA DEVELOPER ANALYST HISTORY: R05.9 - Cough x few weeks COMPARISON: No comparisons available. Technique: 2 views obtained. Findings: The lungs are clear, no effusion. No pneumothorax. Heart is normal size. Mediastinal and hilar contours are within normal limits. Poststernotomy Right Mediport terminates in the SVC/atrial Impression: No acute cardiopulmonary abnormality. Reviewed, dictated and finalized at location P. DEVELOPER ANALYST Impression: No acute cardiopulmonary abnormality.
[2025-02-10 11:28] LABS: Alanine Aminotransferase 27 U/L (6-50); Albumin Level 3.8 g/dL (3.5-5.1); Alkaline Phosphatase 121 U/L (38-126); Anion Gap 6 mmol/L (4-12); Aspartate Amino Transferase 36 U/L (17-59); Bilirubin,Total 0.5 mg/dL (0.2-1.3); Blood Urea Nitrogen 15 mg/dL (9-20); Calcium 9.4 mg/dL (8.4-10.2); Carbon Dioxide 23 mmol/L (22-30); Chloride 109 mmol/L (98-107); Cholesterol 161 mg/dL (0-200); Estimated Glomerular Filt Rate 32; Glucose 102 mg/dL (65-110); HDL Direct 49 mg/dL; Potassium 3.8 mmol/L (3.4-5.0); Sodium 138 mmol/L (137-145); Total Protein 6.8 g/dL (6.3-8.2); Triglycerides 156 mg/dL (<150)
[2025-02-10 11:44] LABS: Hemoglobin A1C 6.1 % (<5.7)
== END 2025-02-10 10:20 | disposition home or self-care (01) ==
PROVIDERS: PCP Nurse Practitioner; Visit Provider Nurse Practitioner
DX: R05.9 Cough, unspecified (principal); E78.5 Hyperlipidemia, unspecified; R73.03 Prediabetes
CPT/HCPCS: 36415; 71046; 80053; 80061; 83036